=== PATIENT | female | born 1930 | race Native Hawaiian/Other Pacific Islander ===

== ENCOUNTER 2016-07-28 22:44 | Inpatient (IN) | payer MEDICARE, MEDICAID ==
[2016-07-28 22:44] VITALS: BMI 24.4
--- NOTE | 2016-07-28 23:32 | C.PDOC ---
History Of Present Illness 86 y/o female presents to ED with complaint of shortness of breath and wheezing. Patient was recently discharged from [facility], admitted for acute CHF exacerbation. Patient notes recently taking Percocet for chronic arthritis, which make her sleepy.. no f/c/n/v. Speaking in 4-5 word sentences. Time Seen by Provider: 07/28/16 23:32 Chief Complaint (Nursing): Shortness Of Breath History Per: Patient History/Exam Limitations: no limitations Onset/Duration Of Symptoms: Days Current Symptoms Are (Timing): Still Present Initiating Event: Other Quality: Dull Exacerbating Factor(s): Exertion Current Respiratory Medications: See Home Med List Severity: Severe Pain Scale Rating Of: 7 Associated Symptoms: denies: Fever, Chest Pain, Dizziness Reports Recently: Seen In ED, Treated By A Physician, Hospitalized Recent travel outside of the [place]: No Additional History Per: Family Past Medical History Reviewed: Historical Data, Nursing Documentation, Vital Signs Vital Signs: Last Vital Signs Temp 99.5 F 07/28/16 22:50 Pulse 84 07/28/16 22:50 Resp 16 07/28/16 22:50 BP 149/53 L 07/28/16 22:50 Pulse Ox 100 07/29/16 01:32 - Medical History PMH: Anxiety, Arthritis, CHF, Diabetes, HTN, Hypercholesterolemia, Kidney Stones , Osteoporosis, Chronic Kidney Disease Surgical History: Cholecystectomy, Pacemaker Family History: States: No Known Family Hx - Social History Hx Tobacco Use: No Hx Alcohol Use: No Hx Substance Use: No - Immunization History Hx Tetanus Toxoid Vaccination: No (unknown) Hx Influenza Vaccination: Yes (unknown) Hx Pneumococcal Vaccination: No (unknown) Review Of Systems Constitutional: Negative for: Fever, Chills ENT: Negative for: Throat Pain Cardiovascular: Positive for: Orthopnea. Negative for: Chest Pain Respiratory: Positive for: Shortness of Breath, Wheezing. Negative for: Cough Gastrointestinal: Negative for: Nausea, Vomiting Genitourinary: Negative for: Dysuria Musculoskeletal: Negative for: Back Pain Skin: Negative for: Rash, Lesions Neurological: Negative for: Weakness Psych: Negative for: Anxiety Physical Exam - Physical Exam Appears: Non-toxic, Other (somnolent , moderate distress) Skin: Warm, Dry Head: Normacephalic Oral Mucosa: Moist Neck: Supple Chest: Symmetrical Cardiovascular: Rhythm Regular Respiratory: Decreased Breath Sounds, No Accessory Muscle Use, Rales (bibasilar) , No Rhonchi, Wheezing (few) Gastrointestinal/Abdominal: Soft, No Tenderness Back: Normal Inspection Extremity: Normal ROM, No Tenderness, Capillary Refill (< 2 sec. ) Extremity: Bilateral: Atraumatic Neurological/Psych: Oriented x3, Normal Speech, Normal Cognition Gait: Unable To Assess ED Course And Treatment - Laboratory Results Result Diagrams: 07/28/16 23:55 07/28/16 23:55 ECG: Interpreted By Me, Viewed By Me ECG Rhythm: Sinus Rhythm (71), 1st Degree HB, L BBB, Nonspecific Changes ( unchanged from 07/22/16) O2 Sat by Pulse Oximetry: 100 (RA) Pulse Ox Interpretation: Normal - Radiology CXR: Interpreted by Me, Viewed By Me CXR Interpretation: Yes: Infiltrates (rll pacer, unchanged from 07/22/16). No: Pnemothorax Progress Note: EKG, CxR, bloodwork ordered and reviewed. lasix Critical Care Time - Critical Care Note Total Time (in mins): 30 Documented critical care: time excludes all time spent performing seperately billable procedures. Disposition Discussed With DrSaravanan: Deep Clay Comment: accepted the pt onhis service and took over the care at 1:28AM Doctor Will See Patient In The: Hospital Counseled Patient/Family Regarding: Studies Performed, Diagnosis - Disposition Disposition: HOSPITALIZED Disposition Time: 23:32 Condition: GUARDED - POA Present On Arrival: Poor Glycemic Control - Clinical Impression Clinical Impression: Chronic congestive heart failure, Dyspnea, NSTEMI (non-ST elevated myocardial infarction) - Scribe Statement The provider has reviewed the documentation as recorded by the Ermias Mckoy Provider Attestation: All medical record entries made by the Ermias were at my direction and personally dictated by me. I have reviewed the chart and agree that the record accurately reflects my personal performance of the history, physical exam, medical decision making, and the department course for this patient. I have also personally directed, reviewed, and agree with the discharge instructions and disposition. Decision To Admit - Pt Status Changed To: Hospital Disposition Of: Inpatient - Admit Certification Admit to Inpatient:: After my assessment, the patient will require hospitalization for at least two midnights. This is because of the severity of symptoms shown, intensity of services needed, and/or the medical risk in this patient being treated as an outpatient. - InPatient: Physician Admission Certification: I certify that this patient requires 2 or more midnights of care for the following reason:: After my assessment, the patient will require hospitalization for at least two midnights. This is because of the severity of symptoms shown, intensity of services needed, and/or the medical risk in this patient being treated as an outpatient. - . Bed Request Type: Telemetry Admitting Physician: Deep Clay Patient Diagnosis: Chronic congestive heart failure, Dyspnea, NSTEMI (non-ST elevated myocardial infarction)
[2016-07-28 23:56] LABS: VENOUS BLOOD GAS BASE EXCESS -4.8 mmol/L (0.0-2.0); VENOUS BLOOD GAS PCO2 44 mmHg (40-60)
[2016-07-29 00:06] LABS: BASO % 0.5 % (0.0-2.0); EOS % 0.5 % (0.0-4.0); HEMATOCRIT 29.1 % (34.0-47.0); LYMPH # 0.7 K/uL (1.0-4.3); LYMPH % 14.7 % (20.0-40.0); MEAN CELL VOLUME 86.6 fL (81.0-99.0); MEAN CORPUSCULAR HEMOGLOBIN 30.1 pg (27.0-31.0); MEAN CORPUSCULAR HGB CONC 34.8 g/dL (33.0-37.0); MEAN PLATELET VOLUME 7.6 fL (7.2-11.7); MONO # 0.6 K/uL (0.0-0.8); MONO % 12.8 % (0.0-10.0); RED CELL DISTRIBUTION WIDTH 14.5 % (11.5-14.5)
[2016-07-29 00:14] LABS: INR 1.1
[2016-07-29 00:22] LABS: BILIRUBIN,TOTAL 0.3 mg/dL (0.2-1.3); TOTAL PROTEIN 6.5 g/dL (6.3-8.3)
[2016-07-29 00:23] LABS: CALCIUM 8.1 mg/dl (8.6-10.4); MAGNESIUM 1.7 mg/dL (1.6-2.3)
[2016-07-29 00:37] LABS: TROPONIN I 0.363 ng/mL (0.00-0.120)
[2016-07-29 00:39] LABS: RBC URINE < 1 /hpf (0-3); URINE BILIRUBIN NEGATIVE (NEGATIVE); URINE BLOOD NEGATIVE (NEGATIVE); URINE COLOR Yellow (YELLOW); URINE GLUCOSE (UA) NORMAL (Normal); URINE KETONE NEGATIVE (NEGATIVE); URINE LEUKOCYTE ESTERASE NEG Leu/uL (Negative); URINE PROTEIN 1+ mg/dL (NEGATIVE); URINE UROBILINOGEN NORMAL mg/dL (0.2-1.0); WBC URINE 1 /hpf (0-5)
[2016-07-29] MEDS ORDERED: Potassium Chloride 10 mEq ER Tab PO STA (00:43)
[2016-07-29] MEDS ORDERED: Aspirin 325 mg EC Tablets PO ONE (00:54)
[2016-07-29] MEDS ORDERED: Potassium Chloride 20 mEq ER Tab PO ONE (00:56)
[2016-07-29] MEDS: (Novolog) Insulin Aspart, Recombinant 100 u/ml 10 ml vial SC SCH ×4 (08:01→21:45)
[2016-07-29] MEDS: Oxycodone/Acetaminophen 5/325 mg Tab PO SCH ×3 (08:21→18:14)
--- NOTE | 2016-07-29 08:26 | RAD ---
PROCEDURE: CHEST RADIOGRAPH, 1 VIEW HISTORY: SOB COMPARISON: 07/22/2016 FINDINGS: LUNGS: Lung volumes are shallower than before -the crowding of the infrahilar bronchovascular markings at both lung bases is consistent with this. Shallow lung limits evaluation for concomitant bibasilar pathology. There is increased opacity is perceived over the left lung base / heart - of unclear significance (if any). Either crowding of lung markings and summation effects versus early patchy infiltrate are some considerations. Repeat chest x-ray PA and lateral in greater inspiration is advised. PLEURA: No pneumothorax or pleural fluid seen. CARDIOVASCULAR: Normal. Thoracic aortic atherosclerotic vascular calcification OSSEOUS STRUCTURES: Generalized osteopenia and mild thoraco lumbar spondylosis VISUALIZED UPPER ABDOMEN: Normal. OTHER FINDINGS: EKG leads in place IMPRESSION: Shallow lung limits evaluation for concomitant bibasilar pathology. There is increased opacity is perceived over the left lung base / heart - of unclear significance (if any). Either crowding of lung markings and summation effects versus early patchy infiltrate are some considerations. Repeat chest x-ray PA and lateral in greater inspiration is advised.
[2016-07-29 08:34] LABS: POTASSIUM 4.2 mmol/L (3.6-5.2)
[2016-07-29 08:37] LABS: CALCIUM 7.8 mg/dl (8.6-10.4)
[2016-07-29 08:53] LABS: TROPONIN I 0.263 ng/mL (0.00-0.120)
[2016-07-29] MEDS: Potassium Chloride 20 mEq ER Tab PO SCH (09:45)
[2016-07-29] MEDS: Pantoprazole 40 mg EC Tab PO SCH (09:45)
[2016-07-29] MEDS: Lidocaine 5% Patch TD SCH (12:31)
--- NOTE | 2016-07-29 15:00 | CP.PCM.PN ---
Subjective - Date & Time of Evaluation Date of Evaluation: 07/29/16 Time of Evaluation: 14:54 - Subjective Subjective: 86 years old Citizen Of [place] female brought to the ED at for progressive SOB yesterday afternoon. She was found to be in an acute CHF, was given Lasix 60 mg IV with improvement of the symptoms. 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 She is also complaining of a watery diarrhea for the past few days with some abdominal cramps. She denies any nausea, any vomiting. She was hospitalized a week ago for a LLL pneumonia, an acute on chronic diastolic CHF, was treated with Rocephin and Zithromax and sent home on Levaquin. Objective - Vital Signs/Intake and Output Vital Signs (last 24 hours): Temp Pulse Resp BP Pulse Ox 99.4 F 68 20 150/75 97 07/29/16 07:32 07/29/16 12:00 07/29/16 07:32 07/29/16 09:45 07/29/16 07:32 - Medications Medications: Current Medications Furosemide (Lasix) 40 mg IVP DAILY [facility] Last Admin: 07/29/16 11:17 Dose: Not Given Heparin Sodium (Porcine) (Heparin) 5,000 units SC BID [facility] Last Admin: 07/29/16 09:45 Dose: 5,000 units Hydralazine HCl (Apresoline) 25 mg PO TID [facility] Last Admin: 07/29/16 14:19 Dose: 25 mg Insulin Aspart (Novolog) 0 unit SC ACHS [facility] PRN Reason: Protocol Last Admin: 07/29/16 12:25 Dose: 1 unit Lidocaine (Lidoderm) 1 ea TD DAILY@1200 [facility] Last Admin: 07/29/16 12:31 Dose: 1 ea Metoprolol Tartrate (Lopressor) 25 mg PO BID [facility] Last Admin: 07/29/16 09:45 Dose: 25 mg Oxycodone/Acetaminophen (Percocet 5/325 Mg Tab) 1 tab PO Q6 [facility] Stop: 08/01/16 06:01 Last Admin: 07/29/16 12:26 Dose: Not Given Pantoprazole Sodium (Protonix Ec Tab) 40 mg PO DAILY [facility] Last Admin: 07/29/16 09:45 Dose: 40 mg Potassium Chloride (K-Dur 20 Meq Er Tab) 20 meq PO DAILY [facility] Last Admin: 07/29/16 09:45 Dose: 20 meq - Labs Labs: 07/29/16 08:01 PT 12.3 SECONDS (9.7-12.2) H 07/28/16 23:55 INR 1.1 07/28/16 23:55 APTT 31 SECONDS (21-34) 07/28/16 23:55 - Constitutional Appears: Chronically Ill - Head Exam Head Exam: NORMAL INSPECTION - Eye Exam Eye Exam: Normal appearance - ENT Exam ENT Exam: Normal Exam - Neck Exam Neck Exam: Normal Inspection - Respiratory Exam Additional comments: Bilateral rales and rhonchi. - Cardiovascular Exam Cardiovascular Exam: REGULAR RHYTHM, Murmur - GI/Abdominal Exam GI & Abdominal Exam: Soft, Hyperactive Bowel Sounds - Rectal Exam Rectal Exam: Deferred - Extremities Exam Extremities Exam: Normal Inspection - Back Exam Back Exam: NORMAL INSPECTION - Neurological Exam Neurological Exam: Alert, Oriented x3 - Psychiatric Exam Psychiatric exam: Anxious - Skin Skin Exam: Dry, Intact, Normal Color Assessment and Plan (1) Acute on chronic diastolic (congestive) heart failure Assessment & Plan: Continue IV Lasix, Metoprolol PO. Status: Acute (2) Diarrhea Assessment & Plan: Will stools for C. Difficile toxins A& B. Status: Acute (3) Insulin dependent diabetes mellitus Assessment & Plan: Since the patient has a poor appetite, will cover blood glucose according to findings of Accucheck with Novolog. Status: Acute (4) Hypokalemia Assessment & Plan: Replace with PO KCl. Will also check serum Magnesium. Status: Acute (5) Acute gout Assessment & Plan: To continue Percocet and Lidoderm.patches. Status: Acute
--- NOTE | 2016-07-29 15:17 | CP.PCM.HP ---
History of Present Illness - History of Present Illness History of Present Illness: 86 years old [place] lady brought by ambulance to the ED at complaining of increasing SOB yesterday afternoon. She was found to in an acute CHF, was treated with Lasix 60 mg IV with improvement of her SOB. She also complains of watery diarrhea for the past several days with mild abdominal cramps. She denies any fever, any chills, any nausea, vomiting, any chest pain. Her serum TNI's are slightly elevated. She was recently treated at for an acute on chronic CHF, an acute gout and a LLL pneumonia with IV Lasix, IV Rocephin and PO Zithromax. She was sent home on Levaquin and Colchicine. She is known to have an ischemic cardiomyopathy, a HPTN, a permanent pacemaker for a sick sinus syndrome, a CKD, a hyperlipidemia, an IDDM, a gout, a degenerative disc disease of the lumbar spine. Present on Admission - Present on Admission Any Indicators Present on Admission: No Review of Systems - Constitutional Constitutional: Anorexia, Weakness - Cardiovascular Cardiovascular: Dyspnea - Respiratory Respiratory: Dyspnea - Gastrointestinal Gastrointestinal: Abdominal Pain, Diarrhea - Musculoskeletal Musculoskeletal: Arthralgias - Neurological Neurological: Weakness Past Patient History - Infectious Disease Hx of Infectious Diseases: None - Tetanus Immunizations Tetanus Immunization: Unknown - Past Medical History & Family History Past Medical History?: Yes - Past Social History Smoking Status: Never Smoked - CARDIAC Hx Congestive Heart Failure: Yes Hx Hypercholesterolemia: Yes Hx Hypertension: Yes Hx Pacemaker: Yes - PULMONARY Hx Emphysema: No - NEUROLOGICAL Hx Neurological Disorder: Yes Hx Dizziness: Yes - HEENT Hx HEENT Problems: Yes Hx Cataracts: Yes Hx Deafness: Yes (both ears) Hx Macular Degeneration: (not sure) - RENAL Hx Chronic Kidney Disease: Yes Hx Kidney Stones: Yes - ENDOCRINE/METABOLIC Hx Diabetes Mellitus Type 1: Yes - HEMATOLOGICAL/ONCOLOGICAL Hx Blood Disorders: No - INTEGUMENTARY Hx Dermatological Problems: No - MUSCULOSKELETAL/RHEUMATOLOGICAL Hx Falls: No - GASTROINTESTINAL Hx Gastrointestinal Disorders: No - GENITOURINARY/GYNECOLOGICAL Hx Genitourinary Disorders: No - PSYCHIATRIC Hx Substance Use: No - SURGICAL HISTORY Hx Cholecystectomy: Yes - ANESTHESIA Hx Anesthesia: Yes Hx Anesthesia Reactions: No Hx Malignant Hyperthermia: No Meds Allergies/Adverse Reactions: Allergies Allergy/AdvReac Type Severity Reaction Status Date / Time No Known Allergies Allergy Verified 07/20/16 00:00 Physical Exam - Constitutional Appears: Chronically Ill - Head Exam Head Exam: NORMAL INSPECTION - Eye Exam Eye Exam: Normal appearance - ENT Exam ENT Exam: Normal Exam - Neck Exam Neck exam: Positive for: Normal Inspection - Respiratory Exam Additional comments: Rale and rhonchi bibasilarly. - Cardiovascular Exam Cardiovascular Exam: REGULAR RHYTHM, Systolic Murmur - GI/Abdominal Exam GI & Abdominal Exam: Hyperactive Bowel Sounds, Soft - Rectal Exam Rectal Exam: Deferred - Extremities Exam Extremities exam: Positive for: tenderness Additional comments: Tender both knees. - Back Exam Back exam: NORMAL INSPECTION - Neurological Exam Neurological exam: Alert, CN II-XII Intact, Oriented x3 - Psychiatric Exam Psychiatric exam: Anxious - Skin Skin Exam: Dry, Intact, Normal Color, Warm Results - Vital Signs Recent Vital Signs: Last Vital Signs Temp 99.4 F 07/29/16 07:32 Pulse 68 07/29/16 12:00 Resp 20 07/29/16 07:32 BP 150/75 07/29/16 09:45 Pulse Ox 97 07/29/16 07:32 - Labs Result Diagrams: 07/28/16 23:55 07/29/16 08:01 Labs: Laboratory Results - last 24 hr 07/29/16 07/29/16 07/29/16 06:38 08:01 11:54 Sodium 139 Potassium 4.2 Chloride 99 Carbon Dioxide 23 Anion Gap 21 H BUN 24 H Creatinine 2.0 H Est GFR ( Amer) 29 Est GFR (Non-Af Amer) 24 POC Glucose (mg/dL) 121 H 172 H Random Glucose 117 H Calcium 7.8 L Troponin I 0.2630 H* Assessment & Plan (1) Acute on chronic diastolic (congestive) heart failure Assessment and Plan: To continue IV Lasix. Status: Acute (2) Diarrhea Assessment and Plan: Stools for C.Difficile toxins. Hold Colchicine. Status: Acute (3) Insulin dependent diabetes mellitus Assessment and Plan: Cover blood glucose with Novolog according to Accucheck findings. Status: Acute (4) Hypokalemia Assessment and Plan: Replace with KCl. Will also check Magnesium level. Status: Acute (5) Acute gout Assessment and Plan: Hold Cochicine. Continue Percocet and Lidocaine patches. Status: Acute (6) Chronic kidney disease Assessment and Plan: Hold ARB or CORNELIUS inhibitors. Status: Acute (7) NSTEMI (non-ST elevated myocardial infarction) Assessment and Plan: Medical management because of renal insufficiency. F/U serum TRNI's. Status: Acute Decision To Admit - Pt Status Changed To: Hospital Disposition Of: Inpatient - Admit Certification Admit to Inpatient:: After my assessment, the patient will require hospitalization for at least two midnights. This is because of the severity of symptoms shown, intensity of services needed, and/or the medical risk in this patient being treated as an outpatient. - InPatient: Physician Admission Certification:: After my assessements, the patient requires hospitalization for at least 2 midnights. - . Bed Request Type: Telemetry Admitting Physician: Deep Clay
[2016-07-29] MEDS ORDERED: Bismuth Subsalicylate 262 mg/15 ml Sus (240 ml) PO PRN (16:00)
[2016-07-30] MEDS: Oxycodone/Acetaminophen 5/325 mg Tab PO SCH ×3 (01:27→18:23)
[2016-07-30 06:19] LABS: POTASSIUM 3.9 mmol/L (3.6-5.2)
[2016-07-30 06:22] LABS: ALB/GLOB RATIO 1.1 (1.0-2.1); BILIRUBIN,TOTAL 0.4 mg/dL (0.2-1.3); CALCIUM 7.8 mg/dl (8.6-10.4); TOTAL PROTEIN 6.1 g/dL (6.3-8.3)
[2016-07-30 06:23] LABS: MAGNESIUM 1.6 mg/dL (1.6-2.3)
[2016-07-30] MEDS: (Novolog) Insulin Aspart, Recombinant 100 u/ml 10 ml vial SC SCH ×4 (08:03→22:23)
[2016-07-30] MEDS: Pantoprazole 40 mg EC Tab PO SCH (09:05)
[2016-07-30] MEDS: Potassium Chloride 20 mEq ER Tab PO SCH (09:06)
[2016-07-30] MEDS ORDERED: Albuterol-Ipratrop 3 mg / 0.5 (3 ml) UD INH ONE (10:33)
[2016-07-30] MEDS: Lidocaine 5% Patch TD SCH (11:48)
--- NOTE | 2016-07-30 19:07 | CP.PCM.PN ---
Subjective - Date & Time of Evaluation Date of Evaluation: 07/30/16 Time of Evaluation: 19:04 - Subjective Subjective: Patient has wheezing and fever today. Is very weak. On Albuterol by nebulizer. Will start IV antibiotics, increase Lasix 40 mg IV BID and start on IV steroids. Objective - Vital Signs/Intake and Output Vital Signs (last 24 hours): Temp Pulse Resp BP Pulse Ox 100.8 F H 72 20 116/54 L 96 07/30/16 18:21 07/30/16 18:21 07/30/16 18:21 07/30/16 18:24 07/30/16 18:21 - Medications Medications: Current Medications Albuterol Sulfate (Albuterol 0.042% Inhal Keily (1.25mg/3ml) Ud) 1.25 mg INH RQ6 [facility] Allopurinol (Zyloprim) 100 mg PO DAILY [facility] Last Admin: 07/30/16 14:21 Dose: 100 mg Aspirin (Aspirin Chewable) 81 mg PO DAILY [facility] Last Admin: 07/30/16 09:05 Dose: 81 mg Azithromycin (Zithromax) 500 mg PO DAILY [facility] Bismuth Subsalicylate (Pepto-Bismol) 262 mg PO Q6 PRN PRN Reason: Diarrhea Last Admin: 07/29/16 18:14 Dose: 262 mg Furosemide (Lasix) 40 mg IVP BID [facility] Last Admin: 07/30/16 18:24 Dose: 40 mg Heparin Sodium (Porcine) (Heparin) 5,000 units SC Q12 [facility] Hydralazine HCl (Apresoline) 25 mg PO Q8 [facility] Last Admin: 07/30/16 14:21 Dose: 25 mg Ceftriaxone Sodium (Rocephin Iv 1 Gm Duplex) 50 mls @ 100 mls/hr IVPB DAILY [facility] Insulin Aspart (Novolog) 0 unit SC ACHS [facility] PRN Reason: Protocol Last Admin: 07/30/16 17:30 Dose: 1 unit Lidocaine (Lidoderm) 1 ea TD DAILY@1200 [facility] Last Admin: 07/30/16 11:48 Dose: 1 ea Metoprolol Tartrate (Lopressor) 25 mg PO BID [facility] Last Admin: 07/30/16 18:24 Dose: 25 mg Oxycodone/Acetaminophen (Percocet 5/325 Mg Tab) 1 tab PO Q6 [facility] Stop: 08/01/16 06:01 Last Admin: 07/30/16 18:23 Dose: 1 tab Pantoprazole Sodium (Protonix Ec Tab) 40 mg PO DAILY [facility] Last Admin: 07/30/16 09:05 Dose: 40 mg Potassium Chloride (K-Dur 20 Meq Er Tab) 20 meq PO DAILY [facility] Last Admin: 07/30/16 09:06 Dose: 20 meq - Labs Labs: 07/30/16 06:02 PT 12.3 SECONDS (9.7-12.2) H 07/28/16 23:55 INR 1.1 07/28/16 23:55 APTT 31 SECONDS (21-34) 07/28/16 23:55 - Constitutional Appears: No Acute Distress, Chronically Ill - Head Exam Head Exam: NORMAL INSPECTION - Eye Exam Eye Exam: Normal appearance - ENT Exam ENT Exam: Normal Exam - Neck Exam Neck Exam: Normal Inspection - Respiratory Exam Respiratory Exam: Wheezes Additional comments: wheezes bilaterally. Assessment and Plan (1) Acute on chronic diastolic (congestive) heart failure Status: Acute (2) Diarrhea Status: Acute (3) Insulin dependent diabetes mellitus Status: Acute (4) Hypokalemia Status: Acute (5) Acute gout Status: Acute (6) Chronic kidney disease Status: Acute (7) NSTEMI (non-ST elevated myocardial infarction) Status: Acute
[2016-07-30] MEDS ORDERED: MethylPREDNISolone 40 mg Vial IVP STA (19:32)
[2016-07-30] MEDS: MethylPREDNISolone 40 mg Vial IVP SCH (20:07)
[2016-07-30] MEDS: cefTRIAXone IV 1 gm in Dextros 50 ML IVPB SCH (20:08)
[2016-07-30] MEDS ORDERED: MethylPREDNISolone 40 mg Vial IVP SCH (22:00)
[2016-07-31] MEDS: Oxycodone/Acetaminophen 5/325 mg Tab PO SCH ×6 (00:24→23:56)
[2016-07-31] MEDS: Albuterol 0.042% Inhal Sol (1.25 mg/3 mL) UD INH SCH ×4 (01:12→19:29)
[2016-07-31] MEDS: MethylPREDNISolone 40 mg Vial IVP SCH ×2 (05:21→14:10)
[2016-07-31 06:38] LABS: BASO % 0.2 % (0.0-2.0); HEMATOCRIT 28.3 % (34.0-47.0); LYMPH # 0.4 K/uL (1.0-4.3); LYMPH % 11.7 % (20.0-40.0); MEAN CELL VOLUME 87.2 fL (81.0-99.0); MEAN CORPUSCULAR HEMOGLOBIN 29.7 pg (27.0-31.0); MEAN PLATELET VOLUME 7.7 fL (7.2-11.7); MONO # 0.1 K/uL (0.0-0.8); MONO % 1.7 % (0.0-10.0); NRBC % 0.1 % (0.0-2.0); RED CELL DISTRIBUTION WIDTH 14.8 % (11.5-14.5); WHITE BLOOD COUNT 3.1 K/uL (4.8-10.8)
[2016-07-31 06:46] LABS: POTASSIUM 4.2 mmol/L (3.6-5.2)
[2016-07-31 06:48] LABS: BILIRUBIN,TOTAL 0.5 mg/dL (0.2-1.3); TOTAL PROTEIN 6.2 g/dL (6.3-8.3)
[2016-07-31 06:57] LABS: TROPONIN I 0.117 ng/mL (0.00-0.120)
[2016-07-31] MEDS: Potassium Chloride 20 mEq ER Tab PO SCH (09:35)
[2016-07-31] MEDS: Pantoprazole 40 mg EC Tab PO SCH (09:35)
[2016-07-31] MEDS: (Novolog) Insulin Aspart, Recombinant 100 u/ml 10 ml vial SC SCH ×4 (09:36→21:42)
[2016-07-31] MEDS: Lidocaine 5% Patch TD SCH (14:10)
--- NOTE | 2016-07-31 16:23 | CP.PCM.PN ---
Subjective - Date & Time of Evaluation Date of Evaluation: 07/31/16 Time of Evaluation: 16:19 - Subjective Subjective: Patient feels less SOB, a bit stronger with a little more appetite, and no fever. Repeated CXR: LLL infiltrate. Now on Rocephin and Zithromax. Will ask Dr Elise to evaluate for antibiotic management. Objective - Vital Signs/Intake and Output Vital Signs (last 24 hours): Temp Pulse Resp BP Pulse Ox 97.8 F 60 20 170/80 H 100 07/31/16 15:00 07/31/16 15:00 07/31/16 15:00 07/31/16 09:35 07/31/16 15:00 Intake and Output: 07/31/16 07/31/16 06:59 18:59 Intake Total 250 Balance 250 - Medications Medications: Current Medications Albuterol Sulfate (Albuterol 0.042% Inhal Keily (1.25mg/3ml) Ud) 1.25 mg INH RQ6 [facility] Last Admin: 07/31/16 13:20 Dose: 1.25 mg Allopurinol (Zyloprim) 100 mg PO DAILY [facility] Last Admin: 07/31/16 09:35 Dose: 100 mg Aspirin (Aspirin Chewable) 81 mg PO DAILY [facility] Last Admin: 07/31/16 09:39 Dose: 81 mg Azithromycin (Zithromax) 500 mg PO DAILY [facility] Last Admin: 07/31/16 15:42 Dose: 500 mg Bismuth Subsalicylate (Pepto-Bismol) 262 mg PO Q6 PRN PRN Reason: Diarrhea Last Admin: 07/29/16 18:14 Dose: 262 mg Furosemide (Lasix) 40 mg IVP BID [facility] Last Admin: 07/31/16 09:35 Dose: 40 mg Heparin Sodium (Porcine) (Heparin) 5,000 units SC Q12 [facility] Last Admin: 07/31/16 09:35 Dose: 5,000 units Hydralazine HCl (Apresoline) 25 mg PO Q8 [facility] Last Admin: 07/31/16 14:10 Dose: 25 mg Ceftriaxone Sodium (Rocephin Iv 1 Gm Duplex) 50 mls @ 100 mls/hr IVPB Q24H [facility] Last Admin: 07/30/16 20:08 Dose: 100 mls/hr Methylprednisolone 40 mg/ (Sodium Chloride) 100 mls @ 100 mls/hr IVPB BID [facility] Insulin Aspart (Novolog) 0 unit SC ACHS [facility] PRN Reason: Protocol Last Admin: 07/31/16 14:10 Dose: 6 unit Lidocaine (Lidoderm) 1 ea TD DAILY@1200 [facility] Last Admin: 07/31/16 14:10 Dose: 1 ea Metoprolol Tartrate (Lopressor) 25 mg PO BID [facility] Last Admin: 07/31/16 09:35 Dose: 25 mg Oxycodone/Acetaminophen (Percocet 5/325 Mg Tab) 1 tab PO Q6 [facility] Stop: 08/01/16 06:01 Last Admin: 07/31/16 15:42 Dose: Not Given Pantoprazole Sodium (Protonix Ec Tab) 40 mg PO DAILY [facility] Last Admin: 07/31/16 09:35 Dose: 40 mg Potassium Chloride (K-Dur 20 Meq Er Tab) 20 meq PO DAILY [facility] Last Admin: 07/31/16 09:35 Dose: 20 meq - Labs Labs: 07/31/16 06:00 07/31/16 06:00 PT 12.3 SECONDS (9.7-12.2) H 07/28/16 23:55 INR 1.1 07/28/16 23:55 APTT 31 SECONDS (21-34) 07/28/16 23:55 - Constitutional Appears: No Acute Distress, Chronically Ill - Eye Exam Eye Exam: Normal appearance - ENT Exam ENT Exam: Normal Exam - Neck Exam Neck Exam: Normal Inspection - Respiratory Exam Additional comments: Wheezes scattered both lung bennett. - Cardiovascular Exam Cardiovascular Exam: REGULAR RHYTHM - GI/Abdominal Exam GI & Abdominal Exam: Soft, Normal Bowel Sounds - Rectal Exam Rectal Exam: Deferred - Exam Exam: NORMAL INSPECTION - Extremities Exam Extremities Exam: Full ROM, Normal Capillary Refill, Normal Inspection - Back Exam Back Exam: NORMAL INSPECTION - Neurological Exam Neurological Exam: Alert, Awake, Oriented x3 - Psychiatric Exam Psychiatric exam: Anxious - Skin Skin Exam: Dry, Intact, Normal Color, Warm Assessment and Plan (1) Acute on chronic diastolic (congestive) heart failure Status: Acute (2) Diarrhea Status: Resolved (3) Insulin dependent diabetes mellitus Assessment & Plan: To continue Accucheck coverage. Status: Acute (4) Hypokalemia Status: Resolved (5) Acute gout Assessment & Plan: less knee pain now. On Allopurinal for a hyperuricemia. Status: Acute (6) Chronic kidney disease Status: Acute (7) NSTEMI (non-ST elevated myocardial infarction) Assessment & Plan: Stable. Status: Acute (8) Pneumonia Assessment & Plan: To continue IV antibiotics. Status: Acute
[2016-07-31] MEDS ORDERED: methylPREDNISolone 40 MG in Sodium Chloride 0.9% 100 ML IVPB SCH (18:00)
--- NOTE | 2016-07-31 18:11 | RAD ---
HISTORY: fever COMPARISON: Comparison chest 07/28/2016 TECHNIQUE: Chest PA and lateral FINDINGS: LUNGS: Suspect minor bibasilar atelectasis. PLEURA: No significant pleural effusion identified. No pneumothorax apparent. CARDIOVASCULAR: Cardiomegaly. No change bipolar pacemaker. OSSEOUS STRUCTURES: No significant abnormalities. VISUALIZED UPPER ABDOMEN: Normal. OTHER FINDINGS: None. IMPRESSION: Suspect minor bibasilar atelectasis. Cardiomegaly.
[2016-07-31] MEDS: cefTRIAXone IV 1 gm in Dextros 50 ML IVPB SCH (20:30)
[2016-07-31] MEDS: MethylPREDNISolone 40 mg Vial IV SCH (21:44)
[2016-08-01] MEDS: Albuterol 0.042% Inhal Sol (1.25 mg/3 mL) UD INH SCH ×4 (01:45→19:24)
[2016-08-01] MEDS: Oxycodone/Acetaminophen 5/325 mg Tab PO SCH (06:01)
[2016-08-01 07:24] LABS: BASO % 0.2 % (0.0-2.0); HEMATOCRIT 28.4 % (34.0-47.0); LYMPH # 0.6 K/uL (1.0-4.3); LYMPH % 5.5 % (20.0-40.0); MEAN CELL VOLUME 86.3 fL (81.0-99.0); MEAN CORPUSCULAR HEMOGLOBIN 29.5 pg (27.0-31.0); MEAN CORPUSCULAR HGB CONC 34.2 g/dL (33.0-37.0); MEAN PLATELET VOLUME 7.8 fL (7.2-11.7); MONO # 0.3 K/uL (0.0-0.8); MONO % 2.9 % (0.0-10.0); PLATELET COUNT 243 K/uL (130-400); RED CELL DISTRIBUTION WIDTH 14.5 % (11.5-14.5)
[2016-08-01 07:28] LABS: WHITE BLOOD COUNT 10.9 K/uL (4.8-10.8)
[2016-08-01 07:44] LABS: POTASSIUM 4.9 mmol/L (3.6-5.2)
[2016-08-01 07:46] LABS: ALB/GLOB RATIO 1.2 (1.0-2.1); BILIRUBIN,TOTAL 0.4 mg/dL (0.2-1.3)
[2016-08-01] MEDS: (Novolog) Insulin Aspart, Recombinant 100 u/ml 10 ml vial SC SCH ×4 (08:02→22:11)
--- NOTE | 2016-08-01 09:33 | CARD ---
APPROVED REPORT EKG Measurement Heart [id number] GA [id number] <Conclusion> Sinus rhythm with 1st degree AV block with occasional premature ventricular complexes Left bundle branch block Abnormal ECG
[2016-08-01] MEDS: Pantoprazole 40 mg EC Tab PO SCH (09:41)
[2016-08-01] MEDS: MethylPREDNISolone 40 mg Vial IV SCH (09:41)
[2016-08-01 09:44] LABS: NEUTROPHIL 89 % (50-75); TOTAL CELLS COUNTED 100
[2016-08-01] MEDS: Lidocaine 5% Patch TD SCH (12:54)
[2016-08-01] MEDS ORDERED: Oxycodone/Acetaminophen 5/325 mg Tab PO PRN (17:24)
--- NOTE | 2016-08-01 17:35 | CP.PCM.PN ---
Subjective - Date & Time of Evaluation Date of Evaluation: 08/01/16 Time of Evaluation: 17:32 - Subjective Subjective: Patient less SOB. No more diarrhea. Afebrile. No chest pain. Still weak but appetite improving. Objective - Vital Signs/Intake and Output Vital Signs (last 24 hours): Temp Pulse Resp BP Pulse Ox 98.2 F 60 18 103/47 L 99 08/01/16 08:37 08/01/16 16:00 08/01/16 08:37 08/01/16 09:42 08/01/16 08:37 Intake and Output: 08/01/16 08/01/16 06:59 18:59 Intake Total 290 Output Total 400 Balance -110 - Medications Medications: Current Medications Albuterol Sulfate (Albuterol 0.042% Inhal Keiyl (1.25mg/3ml) Ud) 1.25 mg INH RQ6 [facility] Last Admin: 08/01/16 13:40 Dose: 1.25 mg Allopurinol (Zyloprim) 100 mg PO DAILY [facility] Last Admin: 08/01/16 09:41 Dose: 100 mg Aspirin (Aspirin Chewable) 81 mg PO DAILY [facility] Last Admin: 08/01/16 09:41 Dose: 81 mg Azithromycin (Zithromax) 500 mg PO DAILY [facility] Last Admin: 08/01/16 09:41 Dose: 500 mg Bismuth Subsalicylate (Pepto-Bismol) 262 mg PO Q6 PRN PRN Reason: Diarrhea Last Admin: 07/29/16 18:14 Dose: 262 mg Glipizide (Glucotrol) 5 mg PO BID [facility] Last Admin: 08/01/16 09:41 Dose: 5 mg Heparin Sodium (Porcine) (Heparin) 5,000 units SC Q12 [facility] Last Admin: 08/01/16 09:42 Dose: 5,000 units Hydralazine HCl (Apresoline) 25 mg PO BID [facility] Ceftriaxone Sodium (Rocephin Iv 1 Gm Duplex) 50 mls @ 100 mls/hr IVPB Q24H [facility] Last Admin: 07/31/16 20:30 Dose: 100 mls/hr Methylprednisolone 40 mg/ (Sodium Chloride) 100 mls @ 100 mls/hr IVPB DAILY [facility] Insulin Aspart (Novolog) 0 unit SC ACHS [facility] PRN Reason: Protocol Last Admin: 03/19/17 12:54 Dose: 5 unit Insulin Glargine (Lantus) 20 unit SC HS [facility] Lidocaine (Lidoderm) 1 ea TD DAILY@1200 [facility] Last Admin: 08/01/16 12:54 Dose: 1 ea Metoprolol Tartrate (Lopressor) 25 mg PO BID [facility] Last Admin: 08/01/16 09:42 Dose: 25 mg Oxycodone/Acetaminophen (Percocet 5/325 Mg Tab) 1 tab PO Q6H PRN PRN Reason: Pain, moderate (4-7) Stop: 08/04/16 17:25 Pantoprazole Sodium (Protonix Ec Tab) 40 mg PO DAILY [facility] Last Admin: 08/01/16 09:41 Dose: 40 mg - Labs Labs: 08/01/16 06:45 08/01/16 06:45 PT 12.3 SECONDS (9.7-12.2) H 07/28/16 23:55 INR 1.1 07/28/16 23:55 APTT 31 SECONDS (21-34) 07/28/16 23:55 - Constitutional Appears: No Acute Distress, Chronically Ill - Head Exam Head Exam: NORMAL INSPECTION - Eye Exam Eye Exam: Normal appearance - ENT Exam ENT Exam: Normal Exam - Neck Exam Neck Exam: Normal Inspection - Respiratory Exam Additional comments: Rales at both bases. Minimal wheezing bilaterally. - Cardiovascular Exam Cardiovascular Exam: REGULAR RHYTHM, Murmur - GI/Abdominal Exam GI & Abdominal Exam: Soft, Normal Bowel Sounds - Rectal Exam Rectal Exam: Deferred - Extremities Exam Extremities Exam: Normal Inspection - Back Exam Back Exam: NORMAL INSPECTION - Neurological Exam Neurological Exam: Alert, Oriented x3 - Psychiatric Exam Psychiatric exam: Anxious - Skin Skin Exam: Dry, Intact, Normal Color, Warm Assessment and Plan (1) Acute on chronic diastolic (congestive) heart failure Assessment & Plan: Much improved. Lasix and KCl held because of BUN: 52 and creatinine 2.2. Status: Acute (2) Insulin dependent diabetes mellitus Assessment & Plan: Worse because of Solumedrol. Will reduce Solumedrol to 40 mg IVPB qd, start Lantus and Januvia. Status: Chronic (3) Acute gout Status: Acute (4) Chronic kidney disease Status: Chronic (5) NSTEMI (non-ST elevated myocardial infarction) Status: Acute (6) Pneumonia Assessment & Plan: To continue IV antibiotics. Status: Acute
--- NOTE | 2016-08-01 17:52 | CP.PCM.CON ---
History of Present Illness - History of Present Illness History of Present Illness: INFECTIOUS DISEASE CONSULTATION OSMEL GARRISON MD, FACP 6T 665-B 08/01/2016 CHART REVIEWED PT EXAMINED CASE DISCUUSED WITH PMD AND STAFF 86 YEAR OLD FEMALE FROM [place] PRESENTS TO WITH ELEVATED TEMPS 101, SOB AND CHF. OF NOTE SHE APPARENTLY WAS HOSPITALIZED 1 WEEK AGO FOR POSSIBLE PNEUMONIA AND POSITIVE TROPONINS. AN INFECTIOUS DIASEASE CONSULT WAS REQUESTED BECAUSE OF RECURRENT FEVER AND DIARRHEA-POST HOSPITALIZATION. 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 LABS: CREAT 2.4 BLOOD SUGAR [phone] URINE C/S=POSITIVE FOR GRAM POSTIVE COCCI OVER 100,000! NOTED FINDINGS: OF NOTE I THINK HER PREVIOUS DIARRHEA WAS DUE TO HER COLCHININE. START IV VANCOMYCIN AT RENAL DOSES MAY NEED ENDO FOR HER DM TO FOLLOW NEEDED. Review of Systems - Review of Systems Systems not reviewed;Unavailable: Other (BOTH LANGUAHE AND POSSIBE DEMENTIA AND OR CVA COULD MAKE AN ISSUE.) - Constitutional Constitutional: Excessive Sweating, Fever - EENT Eyes: absent: Pain, Spots in Vision, Loss of Vision Ears: Decreased Hearing Nose/Mouth/Throat: Post Nasal Drip. absent: Odynophagia, Sore Throat - Breasts Breasts: absent: Mass, Pain, Skin Changes - Cardiovascular Cardiovascular: Irregular Heart Rhythm. absent: Chest Pain at Rest, Diaphoresis , Leg Edema, Radiating Pain - Respiratory Respiratory: Wheezing. absent: Hemoptysis, Pain with Coughing - Gastrointestinal Gastrointestinal: Early Satiety. absent: Abdominal Pain, Coffee Ground Emesis, Diarrhea, Fecal Incontinence, Nausea, Temesmus, Vomiting - Genitourinary Genitourinary: Dysuria, Urinary Frequency - Musculoskeletal Musculoskeletal: absent: Back Pain, Loss of Height - Psychiatric Psychiatric: Memory Loss - Endocrine Endocrine: Polydipsia, Polyphagia, Polyuria - Hematologic/Lymphatic Hematologic: absent: Easy Bleeding Past Patient History - Infectious Disease Hx of Infectious Diseases: None - Tetanus Immunizations Tetanus Immunization: Unknown - Past Medical History & Family History Past Medical History?: Yes - Past Social History Smoking Status: Never Smoked Chewing Tobacco Use: No Cigar Use: No Alcohol: Social Home Situation {Lives}: Alone - CARDIAC Hx Cardiac Disorders: Yes Hx Congestive Heart Failure: Yes Hx Hypercholesterolemia: Yes Hx Hypertension: Yes - PULMONARY Hx Emphysema: No - NEUROLOGICAL Hx Neurological Disorder: Yes Hx Dizziness: Yes - HEENT Hx HEENT Problems: Yes Hx Cataracts: Yes Hx Deafness: Yes (both ears) Hx Macular Degeneration: (not sure) - RENAL Hx Chronic Kidney Disease: Yes ((?)) Hx Renal Failure: Yes (CKD) - ENDOCRINE/METABOLIC Hx Diabetes Mellitus Type 1: Yes Hx Diabetes Mellitus Type 2: Yes - HEMATOLOGICAL/ONCOLOGICAL Hx Blood Disorders: No - INTEGUMENTARY Hx Dermatological Problems: No - MUSCULOSKELETAL/RHEUMATOLOGICAL Hx Arthritis: Yes - GASTROINTESTINAL Hx Gastrointestinal Disorders: No - GENITOURINARY/GYNECOLOGICAL Hx Genitourinary Disorders: No - PSYCHIATRIC Hx Substance Use: No - SURGICAL HISTORY Hx Cholecystectomy: Yes - ANESTHESIA Hx Anesthesia: Yes Hx Anesthesia Reactions: No Hx Malignant Hyperthermia: No Meds Allergies/Adverse Reactions: Allergies Allergy/AdvReac Type Severity Reaction Status Date / Time No Known Allergies Allergy Verified 07/20/16 00:00 - Medications Medications: Current Medications Albuterol Sulfate (Albuterol 0.042% Inhal Keily (1.25mg/3ml) Ud) 1.25 mg INH RQ6 [facility] Last Admin: 08/01/16 13:40 Dose: 1.25 mg Allopurinol (Zyloprim) 100 mg PO DAILY [facility] Last Admin: 08/01/16 09:41 Dose: 100 mg Aspirin (Aspirin Chewable) 81 mg PO DAILY [facility] Last Admin: 08/01/16 09:41 Dose: 81 mg Azithromycin (Zithromax) 500 mg PO DAILY [facility] Last Admin: 08/01/16 09:41 Dose: 500 mg Bismuth Subsalicylate (Pepto-Bismol) 262 mg PO Q6 PRN PRN Reason: Diarrhea Last Admin: 07/29/16 18:14 Dose: 262 mg Glipizide (Glucotrol) 5 mg PO BID [facility] Last Admin: 08/01/16 09:41 Dose: 5 mg Heparin Sodium (Porcine) (Heparin) 5,000 units SC Q12 [facility] Last Admin: 08/01/16 09:42 Dose: 5,000 units Hydralazine HCl (Apresoline) 25 mg PO BID [facility] Ceftriaxone Sodium (Rocephin Iv 1 Gm Duplex) 50 mls @ 100 mls/hr IVPB Q24H [facility] Last Admin: 07/31/16 20:30 Dose: 100 mls/hr Methylprednisolone 40 mg/ (Sodium Chloride) 100 mls @ 100 mls/hr IVPB DAILY [facility] Insulin Aspart (Novolog) 0 unit SC ACHS [facility] PRN Reason: Protocol Last Admin: 08/01/16 12:54 Dose: 5 unit Insulin Glargine (Lantus) 20 unit SC HS [facility] Lidocaine (Lidoderm) 1 ea TD DAILY@1200 [facility] Last Admin: 08/01/16 12:54 Dose: 1 ea Metoprolol Tartrate (Lopressor) 25 mg PO BID [facility] Last Admin: 08/01/16 09:42 Dose: 25 mg Oxycodone/Acetaminophen (Percocet 5/325 Mg Tab) 1 tab PO Q6H PRN PRN Reason: Pain, moderate (4-7) Stop: 08/04/16 17:25 Pantoprazole Sodium (Protonix Ec Tab) 40 mg PO DAILY [facility] Last Admin: 08/01/16 09:41 Dose: 40 mg Physical Exam - Constitutional Appears: Non-toxic, No Acute Distress - Head Exam Head Exam: ATRAUMATIC - Eye Exam Eye Exam: Normal appearance - ENT Exam ENT Exam: Mucous Membranes Moist - Neck Exam Neck exam: Positive for: Normal Inspection - Respiratory Exam Respiratory Exam: Decreased Breath Sounds, Wheezes Additional comments: IMPROVING FROM BEFORE - Cardiovascular Exam Cardiovascular Exam: REGULAR RHYTHM - GI/Abdominal Exam GI & Abdominal Exam: Normal Bowel Sounds, Soft. absent: Rebound - Rectal Exam Rectal Exam: Deferred - Neurological Exam Neurological exam: Alert, Oriented x3 - Psychiatric Exam Psychiatric exam: Anxious - Skin Skin Exam: Normal Color, Warm Results - Vital Signs Recent Vital Signs: Last Vital Signs Temp 98.2 F 08/01/16 08:37 Pulse 60 08/01/16 16:00 Resp 18 08/01/16 08:37 BP 103/47 L 08/01/16 09:42 Pulse Ox 99 08/01/16 08:37 - Labs Result Diagrams: 08/01/16 06:45 08/01/16 06:45 Labs: Laboratory Results - last 24 hr 07/31/16 08/01/16 08/01/16 21:21 02:13 06:45 WBC 10.9 H D RBC 3.29 L Hgb 9.7 L Hct 28.4 L MCV 86.3 MCH 29.5 MCHC 34.2 RDW 14.5 Plt Count 243 MPV 7.8 Neut % (Auto) 91.4 H Lymph % (Auto) 5.5 L [place] % (Auto) 2.9 Eos % (Auto) 0.0 Baso % (Auto) 0.2 Neut # 9.9 H Lymph # 0.6 L [place] # 0.3 Eos # 0.0 Baso # 0.0 Neutrophils % (Manual) 89 H Band Neutrophils % 2 Lymphocytes % (Manual) 7 L Monocytes % (Manual) 2 Platelet Estimate Normal Polychromasia Slight Poikilocytosis (manual Slight Anisocytosis (manual) Slight Sodium 129 L Potassium 4.9 Chloride 95 L Carbon Dioxide 23 Anion Gap 16 BUN 52 H Creatinine 2.4 H Est GFR ( Amer) 23 Est GFR (Non-Af Amer) 19 POC Glucose (mg/dL) 387 H 357 H 381 H Random Glucose 402 H* D Calcium 8.0 L Total Bilirubin 0.4 AST 19 ALT 31 Alkaline Phosphatase 59 Total Protein 6.0 L Albumin 3.3 L Globulin 2.7 Albumin/Globulin Ratio 1.2 08/01/16 08/01/16 12:37 16:27 WBC RBC Hgb Hct MCV MCH MCHC RDW Plt Count MPV Neut % (Auto) Lymph % (Auto) [place] % (Auto) Eos % (Auto) Baso % (Auto) Neut # Lymph # [place] # Eos # Baso # Neutrophils % (Manual) Band Neutrophils % Lymphocytes % (Manual) Monocytes % (Manual) Platelet Estimate Polychromasia Poikilocytosis (manual Anisocytosis (manual) Sodium Potassium Chloride Carbon Dioxide Anion Gap BUN Creatinine Est GFR ( Amer) Est GFR (Non-Af Amer) POC Glucose (mg/dL) 423 H* 468 H* Random Glucose Calcium Total Bilirubin AST ALT Alkaline Phosphatase Total Protein Albumin Globulin Albumin/Globulin Ratio Assessment & Plan - Assessment and Plan (Free Text) Assessment: 1.GRAM POSITIVE URINE INFECTION START VANCOMYCIN AT RENAL DOSES. 2.LLL PNEUMONIA 3. DIARRHEA MOST PROBABLY FROM COLCHININE 4. RENAL INSUFFICIENY 5. DM OUT OF CONTROL 6. ISCHEMIA CARDIOMYOPATHY.
[2016-08-01] MEDS ORDERED: Vancomycin 500mg/D5W 100 ml 100 ML IVPB ONE (18:10)
[2016-08-01] MEDS: (Lantus) Insulin Glargine, Recombinant SC SCH (22:10)
[2016-08-01] MEDS: cefTRIAXone IV 1 gm in Dextros 50 ML IVPB SCH (22:14)
--- NOTE | 2016-08-02 00:01 | CARD ---
APPROVED REPORT EKG Measurement Heart [id number] <Conclusion> Sinus rhythm with 1st degree AV block Left bundle branch block Abnormal ECG
[2016-08-02] MEDS: Albuterol 0.042% Inhal Sol (1.25 mg/3 mL) UD INH SCH ×4 (01:47→20:17)
[2016-08-02 06:41] LABS: POTASSIUM 5.3 mmol/L (3.6-5.2)
[2016-08-02 06:44] LABS: ALB/GLOB RATIO 1.1 (1.0-2.1); BILIRUBIN,TOTAL 0.6 mg/dL (0.2-1.3)
[2016-08-02 06:45] LABS: CALCIUM 8.3 mg/dl (8.6-10.4)
[2016-08-02 06:52] LABS: BASO % 0.2 % (0.0-2.0); HEMATOCRIT 28.4 % (34.0-47.0); LYMPH # 0.6 K/uL (1.0-4.3); LYMPH % 5.1 % (20.0-40.0); MEAN CELL VOLUME 85.8 fL (81.0-99.0); MEAN CORPUSCULAR HEMOGLOBIN 29.8 pg (27.0-31.0); MEAN CORPUSCULAR HGB CONC 34.8 g/dL (33.0-37.0); MONO # 0.6 K/uL (0.0-0.8); MONO % 4.7 % (0.0-10.0); PLATELET COUNT 251 K/uL (130-400); RED CELL DISTRIBUTION WIDTH 14.6 % (11.5-14.5); WHITE BLOOD COUNT 12.5 K/uL (4.8-10.8)
[2016-08-02] MEDS ORDERED: Sod Polystyrene Sulf 15 gm/60 ml Oral Susp PO STA (07:59)
[2016-08-02] MEDS: (Novolog) Insulin Aspart, Recombinant 100 u/ml 10 ml vial SC SCH ×4 (08:28→21:45)
[2016-08-02 08:35] LABS: NEUTROPHIL 95 % (50-75); TOTAL CELLS COUNTED 100
[2016-08-02] MEDS ORDERED: methylPREDNISolone 40 MG in Sodium Chloride 0.9% 100 ML IVPB SCH (10:00)
[2016-08-02] MEDS: Pantoprazole 40 mg EC Tab PO SCH (10:40)
[2016-08-02] MEDS: MethylPREDNISolone 40 mg Vial IV SCH (10:41)
[2016-08-02] MEDS: Lidocaine 5% Patch TD SCH (12:22)
--- NOTE | 2016-08-02 17:58 | CP.PCM.PN ---
Subjective - Date & Time of Evaluation Date of Evaluation: 08/02/16 Time of Evaluation: 17:55 - Subjective Subjective: INFECTIOUS DISEASE PROGRESS NOTE [place] GARRISON MD, FACP 6T 665-B 08/02/2016 CHART REVIEWED PT EXAMINED CASE DISCUSSED RESPONDING TO IV VANCOMYCIN PT RECEIVED A DOSE YESTERDAY AND TODAY HER RANDOM LEVEL IS ALREADY OVER 8! WILL RECHECK TOMORROW TO BE ESPECIALLY CAREFULLY DUE TO HER RENAL INSUFFICIENCY. Objective - Vital Signs/Intake and Output Vital Signs (last 24 hours): Temp Pulse Resp BP Pulse Ox 97.9 F 66 20 137/63 96 08/02/16 15:44 08/02/16 16:00 08/02/16 15:44 08/02/16 15:44 08/02/16 15:44 Intake and Output: 08/02/16 08/02/16 06:59 18:59 Intake Total 390 240 Output Total 350 Balance 40 240 - Medications Medications: Current Medications Albuterol Sulfate (Albuterol 0.042% Inhal Keily (1.25mg/3ml) Ud) 1.25 mg INH RQ6 [facility] Last Admin: 08/02/16 13:30 Dose: 1.25 mg Allopurinol (Zyloprim) 100 mg PO DAILY [facility] Last Admin: 08/02/16 10:41 Dose: 100 mg Aspirin (Aspirin Chewable) 81 mg PO DAILY [facility] Last Admin: 08/02/16 10:40 Dose: 81 mg Azithromycin (Zithromax) 500 mg PO DAILY [facility] Last Admin: 08/02/16 10:41 Dose: 500 mg Bismuth Subsalicylate (Pepto-Bismol) 262 mg PO Q6 PRN PRN Reason: Diarrhea Last Admin: 07/29/16 18:14 Dose: 262 mg Glipizide (Glucotrol) 5 mg PO BID [facility] Last Admin: 08/02/16 10:40 Dose: 5 mg Heparin Sodium (Porcine) (Heparin) 5,000 units SC Q12 [facility] Last Admin: 08/02/16 10:41 Dose: 5,000 units Hydralazine HCl (Apresoline) 25 mg PO BID [facility] Last Admin: 08/02/16 10:41 Dose: 25 mg Ceftriaxone Sodium (Rocephin Iv 1 Gm Duplex) 50 mls @ 100 mls/hr IVPB Q24H [facility] Last Admin: 08/01/16 22:14 Dose: 100 mls/hr Insulin Aspart (Novolog) 0 unit SC ACHS [facility] PRN Reason: Protocol Last Admin: 08/02/16 12:20 Dose: 4 unit Insulin Glargine (Lantus) 20 unit SC HS [facility] Last Admin: 08/01/16 22:10 Dose: 20 units Lidocaine (Lidoderm) 1 ea TD DAILY@1200 [facility] Last Admin: 08/02/16 12:22 Dose: 1 ea Methylprednisolone (Solu-Medrol) 40 mg IV DAILY [facility] Last Admin: 08/02/16 10:41 Dose: 40 mg Metoprolol Tartrate (Lopressor) 25 mg PO BID [facility] Last Admin: 08/02/16 10:40 Dose: 25 mg Oxycodone/Acetaminophen (Percocet 5/325 Mg Tab) 1 tab PO Q6H PRN PRN Reason: Pain, moderate (4-7) Stop: 08/04/16 17:25 Pantoprazole Sodium (Protonix Ec Tab) 40 mg PO DAILY [facility] Last Admin: 08/02/16 10:40 Dose: 40 mg Sitagliptin Phosphate (Januvia) 25 mg PO DAILY [facility] Last Admin: 08/02/16 10:41 Dose: 25 mg - Labs Labs: 08/02/16 06:13 08/02/16 06:13 PT 12.3 SECONDS (9.7-12.2) H 07/28/16 23:55 INR 1.1 07/28/16 23:55 APTT 31 SECONDS (21-34) 07/28/16 23:55 - Constitutional Appears: Non-toxic, No Acute Distress - Head Exam Head Exam: ATRAUMATIC - Eye Exam Eye Exam: Normal appearance - ENT Exam ENT Exam: Mucous Membranes Moist - Neck Exam Neck Exam: Normal Inspection - Respiratory Exam Respiratory Exam: Decreased Breath Sounds, NORMAL BREATHING PATTERN - Cardiovascular Exam Cardiovascular Exam: REGULAR RHYTHM - GI/Abdominal Exam GI & Abdominal Exam: Soft, Normal Bowel Sounds - Rectal Exam Rectal Exam: Deferred - Neurological Exam Neurological Exam: Alert, Awake - Psychiatric Exam Psychiatric exam: Anxious, Flat Affect - Skin Skin Exam: Warm Assessment and Plan (1) Agent resistant to multiple antibiotics Assessment & Plan: URINARY INFECTION WITH ENTEROCOCUUS FECIUM SENTITIVE TO VANCOMCYIN Status: Acute (2) KIERSTEN (acute kidney injury) Status: Chronic (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
[2016-08-02 18:39] LABS: RBC URINE < 1 /hpf (0-3); URINE BILIRUBIN NEGATIVE (NEGATIVE); URINE BLOOD NEGATIVE (NEGATIVE); URINE COLOR Yellow (YELLOW); URINE GLUCOSE (UA) 2+ mg/dL (Normal); URINE KETONE NEGATIVE (NEGATIVE); URINE LEUKOCYTE ESTERASE NEG Leu/uL (Negative); URINE PROTEIN NEGATIVE (NEGATIVE); URINE UROBILINOGEN NORMAL mg/dL (0.2-1.0); WBC URINE < 1 /hpf (0-5)
[2016-08-02] MEDS: cefTRIAXone IV 1 gm in Dextros 50 ML IVPB SCH (20:00)
[2016-08-02] MEDS: (Lantus) Insulin Glargine, Recombinant SC SCH (21:44)
--- NOTE | 2016-08-02 22:48 | CP.PCM.PN ---
Subjective - Date & Time of Evaluation Date of Evaluation: 08/02/16 Time of Evaluation: 19:00 - Subjective Subjective: Patient less SOG, still wheezing and weak. Objective - Vital Signs/Intake and Output Vital Signs (last 24 hours): Temp Pulse Resp BP Pulse Ox 97.9 F 66 20 144/60 96 08/02/16 15:44 08/02/16 16:00 08/02/16 15:44 08/02/16 17:56 08/02/16 15:44 Intake and Output: 08/02/16 08/03/16 18:59 06:59 Intake Total 240 Balance 240 - Medications Medications: Current Medications Albuterol Sulfate (Albuterol 0.042% Inhal Ekily (1.25mg/3ml) Ud) 1.25 mg INH RQ6 [facility] Last Admin: 08/02/16 20:17 Dose: 1.25 mg Allopurinol (Zyloprim) 100 mg PO DAILY [facility] Last Admin: 08/02/16 10:41 Dose: 100 mg Aspirin (Aspirin Chewable) 81 mg PO DAILY [facility] Last Admin: 08/02/16 10:40 Dose: 81 mg Azithromycin (Zithromax) 500 mg PO DAILY [facility] Last Admin: 08/02/16 10:41 Dose: 500 mg Bismuth Subsalicylate (Pepto-Bismol) 262 mg PO Q6 PRN PRN Reason: Diarrhea Last Admin: 07/29/16 18:14 Dose: 262 mg Glipizide (Glucotrol) 5 mg PO BID [facility] Last Admin: 08/02/16 17:56 Dose: 5 mg Heparin Sodium (Porcine) (Heparin) 5,000 units SC Q12 [facility] Last Admin: 08/02/16 21:44 Dose: 5,000 units Hydralazine HCl (Apresoline) 25 mg PO BID [facility] Last Admin: 08/02/16 17:56 Dose: 25 mg Ceftriaxone Sodium (Rocephin Iv 1 Gm Duplex) 50 mls @ 100 mls/hr IVPB Q24H [facility] Last Admin: 08/02/16 20:00 Dose: 100 mls/hr Insulin Aspart (Novolog) 0 unit SC ACHS [facility] PRN Reason: Protocol Last Admin: 08/02/16 21:45 Dose: 2 unit Insulin Glargine (Lantus) 20 unit SC HS [facility] Last Admin: 08/02/16 21:44 Dose: 20 units Lidocaine (Lidoderm) 1 ea TD DAILY@1200 [facility] Last Admin: 08/02/16 12:22 Dose: 1 ea Methylprednisolone (Solu-Medrol) 40 mg IV DAILY [facility] Last Admin: 08/02/16 10:41 Dose: 40 mg Metoprolol Tartrate (Lopressor) 25 mg PO BID [facility] Last Admin: 08/02/16 17:56 Dose: 25 mg Oxycodone/Acetaminophen (Percocet 5/325 Mg Tab) 1 tab PO Q6H PRN PRN Reason: Pain, moderate (4-7) Stop: 08/04/16 17:25 Pantoprazole Sodium (Protonix Ec Tab) 40 mg PO DAILY [facility] Last Admin: 08/02/16 10:40 Dose: 40 mg Sitagliptin Phosphate (Januvia) 25 mg PO DAILY [facility] Last Admin: 08/02/16 10:41 Dose: 25 mg - Labs Labs: 08/02/16 06:13 08/02/16 06:13 PT 12.3 SECONDS (9.7-12.2) H 07/28/16 23:55 INR 1.1 07/28/16 23:55 APTT 31 SECONDS (21-34) 07/28/16 23:55 - Constitutional Appears: No Acute Distress, Chronically Ill - Head Exam Head Exam: NORMAL INSPECTION - Eye Exam Eye Exam: Normal appearance - ENT Exam ENT Exam: Normal Exam - Neck Exam Neck Exam: Normal Inspection - Respiratory Exam Additional comments: Scattered wheezing and rales bilaterally. - Cardiovascular Exam Cardiovascular Exam: REGULAR RHYTHM, Murmur - GI/Abdominal Exam GI & Abdominal Exam: Soft, Normal Bowel Sounds - Rectal Exam Rectal Exam: Deferred - Extremities Exam Extremities Exam: Normal Inspection - Back Exam Back Exam: NORMAL INSPECTION - Neurological Exam Neurological Exam: Alert, Awake, Oriented x3 - Psychiatric Exam Psychiatric exam: Anxious - Skin Skin Exam: Dry, Intact, Normal Color, Warm Assessment and Plan (1) Acute on chronic diastolic (congestive) heart failure Assessment & Plan: Improving. Lasix on hold because of raising BUN: 65 creatine: 2.6 K+: 5.6. Status: Chronic (2) Insulin dependent diabetes mellitus Assessment & Plan: Worse with IV Solumedrol. Status: Chronic (3) Acute gout Assessment & Plan: Improving. Status: Acute (4) Chronic kidney disease Assessment & Plan: Worsened with Solumedrol and Lasix. Status: Chronic (5) NSTEMI (non-ST elevated myocardial infarction) Status: Acute (6) Pneumonia Assessment & Plan: Now on Vancomycin. Afebrile. Status: Acute
[2016-08-03] MEDS: Albuterol 0.042% Inhal Sol (1.25 mg/3 mL) UD INH SCH ×4 (01:15→21:00)
[2016-08-03 07:20] LABS: BASO % 0.2 % (0.0-2.0); HEMATOCRIT 26.9 % (34.0-47.0); LYMPH # 0.6 K/uL (1.0-4.3); LYMPH % 8.6 % (20.0-40.0); MEAN CELL VOLUME 86.3 fL (81.0-99.0); MEAN CORPUSCULAR HEMOGLOBIN 29.5 pg (27.0-31.0); MEAN CORPUSCULAR HGB CONC 34.2 g/dL (33.0-37.0); MEAN PLATELET VOLUME 8.5 fL (7.2-11.7); MONO # 0.5 K/uL (0.0-0.8); MONO % 7.5 % (0.0-10.0); NRBC % 0.1 % (0.0-2.0); PLATELET COUNT 207 K/uL (130-400); RED CELL DISTRIBUTION WIDTH 14.8 % (11.5-14.5); WHITE BLOOD COUNT 7.4 K/uL (4.8-10.8)
[2016-08-03 07:46] LABS: POTASSIUM 3.8 mmol/L (3.6-5.2)
[2016-08-03 07:48] LABS: ALB/GLOB RATIO 1.1 (1.0-2.1); BILIRUBIN,TOTAL 0.1 mg/dL (0.2-1.3); CALCIUM 8.1 mg/dl (8.6-10.4); TOTAL PROTEIN 5.6 g/dL (6.3-8.3)
[2016-08-03] MEDS: (Novolog) Insulin Aspart, Recombinant 100 u/ml 10 ml vial SC SCH ×4 (08:00→22:39)
[2016-08-03 10:08] LABS: NEUTROPHIL 88 % (50-75); TOTAL CELLS COUNTED 100
[2016-08-03] MEDS: Pantoprazole 40 mg EC Tab PO SCH (10:40)
[2016-08-03] MEDS: MethylPREDNISolone 40 mg Vial IV SCH (10:41)
[2016-08-03] MEDS: Lidocaine 5% Patch TD SCH (14:02)
--- NOTE | 2016-08-03 15:39 | CP.PCM.PN ---
Subjective - Date & Time of Evaluation Date of Evaluation: 08/03/16 Time of Evaluation: 15:36 - Subjective Subjective: Patient still has a productive cough, mild SOB and wheezing. No diarrhea, no fever. Objective - Vital Signs/Intake and Output Vital Signs (last 24 hours): Temp Pulse Resp BP Pulse Ox 97.6 F 61 18 143/57 L 100 08/03/16 07:35 08/03/16 10:00 08/03/16 07:35 08/03/16 10:41 08/03/16 07:35 Intake and Output: 08/03/16 08/03/16 06:59 18:59 Intake Total 350 480 Output Total 450 Balance -100 480 - Medications Medications: Current Medications Albuterol Sulfate (Albuterol 0.042% Inhal Keily (1.25mg/3ml) Ud) 1.25 mg INH RQ6 [facility] Last Admin: 08/03/16 13:37 Dose: 1.25 mg Allopurinol (Zyloprim) 100 mg PO DAILY [facility] Last Admin: 08/03/16 10:41 Dose: 100 mg Aspirin (Aspirin Chewable) 81 mg PO DAILY [facility] Last Admin: 08/03/16 10:41 Dose: 81 mg Azithromycin (Zithromax) 500 mg PO DAILY [facility] Last Admin: 08/03/16 10:57 Dose: 500 mg Bismuth Subsalicylate (Pepto-Bismol) 262 mg PO Q6 PRN PRN Reason: Diarrhea Last Admin: 07/29/16 18:14 Dose: 262 mg Glipizide (Glucotrol) 5 mg PO BID [facility] Last Admin: 08/03/16 10:41 Dose: 5 mg Heparin Sodium (Porcine) (Heparin) 5,000 units SC Q12 [facility] Last Admin: 08/03/16 10:42 Dose: 5,000 units Hydralazine HCl (Apresoline) 25 mg PO BID [facility] Last Admin: 08/03/16 10:41 Dose: 25 mg Ceftriaxone Sodium (Rocephin Iv 1 Gm Duplex) 50 mls @ 100 mls/hr IVPB Q24H [facility] Last Admin: 08/02/16 20:00 Dose: 100 mls/hr Insulin Aspart (Novolog) 0 unit SC ACHS [facility] PRN Reason: Protocol Last Admin: 08/03/16 11:36 Dose: 3 unit Insulin Glargine (Lantus) 20 unit SC HS [facility] Last Admin: 08/02/16 21:44 Dose: 20 units Lidocaine (Lidoderm) 1 ea TD DAILY@1200 [facility] Last Admin: 08/03/16 14:02 Dose: 1 ea Methylprednisolone (Solu-Medrol) 40 mg IV DAILY [facility] Last Admin: 08/03/16 10:41 Dose: 40 mg Metoprolol Tartrate (Lopressor) 25 mg PO BID [facility] Last Admin: 08/03/16 10:41 Dose: 25 mg Oxycodone/Acetaminophen (Percocet 5/325 Mg Tab) 1 tab PO Q6H PRN PRN Reason: Pain, moderate (4-7) Stop: 08/04/16 17:25 Pantoprazole Sodium (Protonix Ec Tab) 40 mg PO DAILY [facility] Last Admin: 08/03/16 10:40 Dose: 40 mg Sitagliptin Phosphate (Januvia) 25 mg PO DAILY [facility] Last Admin: 08/03/16 10:41 Dose: 25 mg - Labs Labs: 08/03/16 07:09 08/03/16 07:09 PT 12.3 SECONDS (9.7-12.2) H 07/28/16 23:55 INR 1.1 07/28/16 23:55 APTT 31 SECONDS (21-34) 07/28/16 23:55 - Constitutional Appears: No Acute Distress, Chronically Ill - Head Exam Head Exam: NORMOCEPHALIC - Eye Exam Eye Exam: Normal appearance - ENT Exam ENT Exam: Normal Exam - Neck Exam Neck Exam: Normal Inspection - Respiratory Exam Respiratory Exam: Rhonchi, Wheezes Additional comments: Scattered rhonchi and wheezes bilaterally. - Cardiovascular Exam Cardiovascular Exam: REGULAR RHYTHM, Murmur - GI/Abdominal Exam GI & Abdominal Exam: Soft, Normal Bowel Sounds - Rectal Exam Rectal Exam: Deferred - Extremities Exam Extremities Exam: Normal Inspection - Back Exam Back Exam: NORMAL INSPECTION - Neurological Exam Neurological Exam: Alert, Oriented x3 - Psychiatric Exam Psychiatric exam: Anxious - Skin Skin Exam: Dry, Intact, Normal Color, Warm Assessment and Plan (1) Acute on chronic diastolic (congestive) heart failure Assessment & Plan: Lasix on hold because of BUN: 56 creatinine: 1.9. Status: Chronic (2) Insulin dependent diabetes mellitus Status: Chronic (3) Acute gout Status: Acute (4) Chronic kidney disease Assessment & Plan: K+: 3.8 BUN : 56 creatinine: 1.9. Status: Chronic (5) NSTEMI (non-ST elevated myocardial infarction) Assessment & Plan: Stable. Will do stress test as an outpatient. Status: Acute (6) Pneumonia Assessment & Plan: To continue IV antibiotics. Status: Acute
--- NOTE | 2016-08-03 21:31 | CP.PCM.PN ---
Subjective - Date & Time of Evaluation Date of Evaluation: 08/03/16 Time of Evaluation: 21:27 - Subjective Subjective: INFECTIOUS DISEASE PROGRESS NOTE [place] GARRISON MD 6T [id number] 08/03/2016 CHART REVIEWED PT EXAMIINED CASE DISCUSSED. GRANDSON PRESENT. CLINICALLY RESPONDING TO ANTI PNEUMONIA TREATMENT AND ANTI MDR ENTEROCOCCUS FAECIUM. TO GIVE ANOTHER DOES OF IV VANCO TONIGHT D/C ZITHROMAX ADD FLORASTOR. OBSERVE CONSIDER HOME SOON WHEN CLEARED BY PMD/CARDIO. RECHECK URINE. Objective - Vital Signs/Intake and Output Vital Signs (last 24 hours): Temp Pulse Resp BP Pulse Ox 98.6 F 60 20 130/84 99 08/03/16 16:00 08/03/16 16:05 08/03/16 16:00 08/03/16 18:15 08/03/16 16:00 Intake and Output: 08/03/16 08/04/16 18:59 06:59 Intake Total 480 Balance 480 - Medications Medications: Current Medications Albuterol Sulfate (Albuterol 0.042% Inhal Keily (1.25mg/3ml) Ud) 1.25 mg INH RQ6 [facility] Last Admin: 08/03/16 21:00 Dose: 1.25 mg Allopurinol (Zyloprim) 100 mg PO DAILY [facility] Last Admin: 08/03/16 10:41 Dose: 100 mg Aspirin (Aspirin Chewable) 81 mg PO DAILY [facility] Last Admin: 08/03/16 10:41 Dose: 81 mg Bismuth Subsalicylate (Pepto-Bismol) 262 mg PO Q6 PRN PRN Reason: Diarrhea Last Admin: 07/29/16 18:14 Dose: 262 mg Glipizide (Glucotrol) 5 mg PO BID [facility] Last Admin: 08/03/16 18:15 Dose: 5 mg Heparin Sodium (Porcine) (Heparin) 5,000 units SC Q12 [facility] Last Admin: 08/03/16 10:42 Dose: 5,000 units Hydralazine HCl (Apresoline) 25 mg PO BID [facility] Last Admin: 08/03/16 18:16 Dose: 25 mg Ceftriaxone Sodium (Rocephin Iv 1 Gm Duplex) 50 mls @ 100 mls/hr IVPB Q24H [facility] Last Admin: 08/02/16 20:00 Dose: 100 mls/hr Vancomycin HCl 500 mg/ Sodium (Chloride) 100 mls @ 100 mls/hr IVPB ONCE ONE Stop: 08/03/16 21:48 Insulin Aspart (Novolog) 0 unit SC ACHS [facility] PRN Reason: Protocol Last Admin: 08/03/16 11:36 Dose: 3 unit Insulin Glargine (Lantus) 20 unit SC HS [facility] Last Admin: 08/02/16 21:44 Dose: 20 units Lidocaine (Lidoderm) 1 ea TD DAILY@1200 [facility] Last Admin: 08/03/16 14:02 Dose: 1 ea Methylprednisolone (Solu-Medrol) 40 mg IV DAILY [facility] Last Admin: 08/03/16 10:41 Dose: 40 mg Metoprolol Tartrate (Lopressor) 25 mg PO BID [facility] Last Admin: 08/03/16 18:15 Dose: 25 mg Oxycodone/Acetaminophen (Percocet 5/325 Mg Tab) 1 tab PO Q6H PRN PRN Reason: Pain, moderate (4-7) Stop: 08/04/16 17:25 Pantoprazole Sodium (Protonix Ec Tab) 40 mg PO DAILY [facility] Last Admin: 08/03/16 10:40 Dose: 40 mg Saccharomyces Boulardii (Florastor) 250 mg PO BID [facility] Sitagliptin Phosphate (Januvia) 25 mg PO DAILY [facility] Last Admin: 08/03/16 10:41 Dose: 25 mg - Labs Labs: 08/03/16 07:09 08/03/16 07:09 PT 12.3 SECONDS (9.7-12.2) H 07/28/16 23:55 INR 1.1 07/28/16 23:55 APTT 31 SECONDS (21-34) 07/28/16 23:55 - Constitutional Appears: Non-toxic, No Acute Distress - Head Exam Head Exam: ATRAUMATIC - Eye Exam Eye Exam: Normal appearance - ENT Exam ENT Exam: Mucous Membranes Moist - Neck Exam Neck Exam: Normal Inspection - Respiratory Exam Respiratory Exam: Decreased Breath Sounds, NORMAL BREATHING PATTERN. absent: Rales, Wheezes, Stridor - Cardiovascular Exam Cardiovascular Exam: REGULAR RHYTHM - GI/Abdominal Exam GI & Abdominal Exam: Soft, Normal Bowel Sounds. absent: Tenderness - Rectal Exam Rectal Exam: Deferred - Neurological Exam Neurological Exam: Alert, Awake Additional comments: DECREASED HEARING Assessment and Plan (1) Agent resistant to multiple antibiotics Status: Acute (2) KIERSTEN (acute kidney injury) Status: Chronic (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 (8) Pneumonia Assessment & Plan: RESPONDING Status: Acute
[2016-08-03] MEDS: cefTRIAXone IV 1 gm in Dextros 50 ML IVPB SCH (22:34)
[2016-08-03] MEDS: (Lantus) Insulin Glargine, Recombinant SC SCH (22:40)
[2016-08-04] MEDS: Albuterol 0.042% Inhal Sol (1.25 mg/3 mL) UD INH SCH ×4 (02:03→20:10)
[2016-08-04] MEDS ORDERED: (Novolog) Insulin Aspart, Recombinant 100 u/ml 10 ml vial SC STA (02:35)
[2016-08-04 07:30] LABS: HEMATOCRIT 26.8 % (34.0-47.0); LYMPH # 0.5 K/uL (1.0-4.3); LYMPH % 7.4 % (20.0-40.0); MEAN CELL VOLUME 85.8 fL (81.0-99.0); MEAN CORPUSCULAR HEMOGLOBIN 28.7 pg (27.0-31.0); MEAN CORPUSCULAR HGB CONC 33.4 g/dL (33.0-37.0); MEAN PLATELET VOLUME 8.5 fL (7.2-11.7); MONO # 0.5 K/uL (0.0-0.8); MONO % 7.9 % (0.0-10.0); PLATELET COUNT 215 K/uL (130-400); RED CELL DISTRIBUTION WIDTH 14.7 % (11.5-14.5); WHITE BLOOD COUNT 6.6 K/uL (4.8-10.8)
[2016-08-04 07:33] LABS: BILIRUBIN,TOTAL 0.1 mg/dL (0.2-1.3)
[2016-08-04 07:34] LABS: ALB/GLOB RATIO 1.1 (1.0-2.1); TOTAL PROTEIN 5.6 g/dL (6.3-8.3)
[2016-08-04 07:35] LABS: CALCIUM 8.4 mg/dl (8.6-10.4)
[2016-08-04] MEDS: (Novolog) Insulin Aspart, Recombinant 100 u/ml 10 ml vial SC SCH ×4 (08:28→22:00)
[2016-08-04 09:07] LABS: NEUTROPHIL 87 % (50-75); TOTAL CELLS COUNTED 100
[2016-08-04] MEDS: Pantoprazole 40 mg EC Tab PO SCH (10:11)
[2016-08-04] MEDS: Saccharomyces Boulardi 250 mg Cap PO SCH ×2 (10:12→18:24)
[2016-08-04] MEDS: MethylPREDNISolone 40 mg Vial IV SCH (10:15)
[2016-08-04 10:55] LABS: RBC URINE 5 /hpf (0-3); URINE BILIRUBIN NEGATIVE (NEGATIVE); URINE BLOOD NEGATIVE (NEGATIVE); URINE COLOR Yellow (YELLOW); URINE GLUCOSE (UA) 3+ mg/dL (Normal); URINE HYALINE CAST 0-2 /lpf (0-2); URINE KETONE NEGATIVE (NEGATIVE); URINE LEUKOCYTE ESTERASE TRACE Leu/uL (Negative); URINE PROTEIN NEGATIVE (NEGATIVE); URINE UROBILINOGEN NORMAL mg/dL (0.2-1.0); WBC URINE 8 /hpf (0-5)
[2016-08-04] MEDS: Lidocaine 5% Patch TD SCH (12:38)
[2016-08-04 16:03] VITALS: RESP 20
[2016-08-04] MEDS: cefTRIAXone IV 1 gm in Dextros 50 ML IVPB SCH (20:30)
--- NOTE | 2016-08-04 20:31 | CP.PCM.PN ---
Subjective - Date & Time of Evaluation Date of Evaluation: 08/04/16 Time of Evaluation: 20:26 - Subjective Subjective: Patient much less SOB, with better appetite, and no fever. But she is wheezing. BUN: 51 Creatinine: 1.7 Hgb: 8.9 Stools fpr OB ordered. Probably discharge home in AM on Symbicort 160-4.5 mcg 2 puffs q 12 h. Objective - Vital Signs/Intake and Output Vital Signs (last 24 hours): Temp Pulse Resp BP Pulse Ox 97.9 F 63 20 154/72 H 100 08/04/16 15:59 08/04/16 16:00 08/04/16 15:59 08/04/16 18:24 08/04/16 15:59 - Medications Medications: Current Medications Albuterol Sulfate (Albuterol 0.042% Inhal Keily (1.25mg/3ml) Ud) 1.25 mg INH RQ6 [facility] Last Admin: 08/04/16 20:10 Dose: 1.25 mg Allopurinol (Zyloprim) 100 mg PO DAILY [facility] Last Admin: 08/04/16 10:12 Dose: 100 mg Aspirin (Aspirin Chewable) 81 mg PO DAILY [facility] Last Admin: 08/04/16 10:11 Dose: 81 mg Bismuth Subsalicylate (Pepto-Bismol) 262 mg PO Q6 PRN PRN Reason: Diarrhea Last Admin: 07/29/16 18:14 Dose: 262 mg Glipizide (Glucotrol) 5 mg PO BID [facility] Last Admin: 08/04/16 18:25 Dose: 5 mg Heparin Sodium (Porcine) (Heparin) 5,000 units SC Q12 [facility] Last Admin: 08/04/16 10:10 Dose: 5,000 units Hydralazine HCl (Apresoline) 25 mg PO BID [facility] Last Admin: 08/04/16 18:24 Dose: 25 mg Ceftriaxone Sodium (Rocephin Iv 1 Gm Duplex) 50 mls @ 100 mls/hr IVPB Q24H [facility] Last Admin: 08/03/16 22:34 Dose: 100 mls/hr Insulin Aspart (Novolog) 0 unit SC ACHS [facility] PRN Reason: Protocol Last Admin: 08/04/16 18:24 Dose: 3 unit Insulin Glargine (Lantus) 20 unit SC HS [facility] Last Admin: 08/03/16 22:40 Dose: 20 units Lidocaine (Lidoderm) 1 ea TD DAILY@1200 [facility] Last Admin: 08/04/16 12:38 Dose: 1 ea Methylprednisolone (Solu-Medrol) 40 mg IV DAILY [facility] Last Admin: 08/04/16 10:15 Dose: 40 mg Metoprolol Tartrate (Lopressor) 25 mg PO BID [facility] Last Admin: 08/04/16 18:24 Dose: 25 mg Pantoprazole Sodium (Protonix Ec Tab) 40 mg PO DAILY [facility] Last Admin: 08/04/16 10:11 Dose: 40 mg Saccharomyces Boulardii (Florastor) 250 mg PO BID [facility] Last Admin: 08/04/16 18:24 Dose: 250 mg Sitagliptin Phosphate (Januvia) 25 mg PO DAILY [facility] Last Admin: 08/04/16 10:12 Dose: 25 mg - Labs Labs: 08/04/16 07:06 08/04/16 07:06 PT 12.3 SECONDS (9.7-12.2) H 07/28/16 23:55 INR 1.1 07/28/16 23:55 APTT 31 SECONDS (21-34) 07/28/16 23:55 - Constitutional Appears: No Acute Distress, Chronically Ill - Head Exam Head Exam: NORMOCEPHALIC - Eye Exam Eye Exam: Normal appearance - ENT Exam ENT Exam: Normal Exam - Neck Exam Neck Exam: Normal Inspection - Respiratory Exam Respiratory Exam: Wheezes Additional comments: Scattered wheezes and rhonchi bilaterally. - Cardiovascular Exam Cardiovascular Exam: REGULAR RHYTHM, Murmur - GI/Abdominal Exam GI & Abdominal Exam: Soft, Normal Bowel Sounds - Extremities Exam Extremities Exam: Normal Inspection - Back Exam Back Exam: NORMAL INSPECTION - Neurological Exam Neurological Exam: Alert, Awake, Oriented x3 - Psychiatric Exam Psychiatric exam: Anxious - Skin Skin Exam: Dry, Intact, Normal Color, Warm Assessment and Plan (1) Acute on chronic diastolic (congestive) heart failure Assessment & Plan: Improving. Status: Chronic (2) Insulin dependent diabetes mellitus Status: Chronic (3) Acute gout Assessment & Plan: Improving. Status: Acute (4) Chronic kidney disease Assessment & Plan: Improving. Status: Chronic (5) NSTEMI (non-ST elevated myocardial infarction) Assessment & Plan: Stable. Status: Acute (6) Pneumonia Status: Acute
[2016-08-04] MEDS: (Lantus) Insulin Glargine, Recombinant SC SCH (22:01)
[2016-08-05] MEDS: Albuterol 0.042% Inhal Sol (1.25 mg/3 mL) UD INH SCH ×2 (01:30→08:00)
[2016-08-05 07:30] LABS: BASO % 0.2 % (0.0-2.0); HEMATOCRIT 28.1 % (34.0-47.0); LYMPH # 0.7 K/uL (1.0-4.3); LYMPH % 9.9 % (20.0-40.0); MEAN CELL VOLUME 86.3 fL (81.0-99.0); MEAN CORPUSCULAR HGB CONC 33.6 g/dL (33.0-37.0); MEAN PLATELET VOLUME 9.3 fL (7.2-11.7); MONO # 0.6 K/uL (0.0-0.8); MONO % 8.4 % (0.0-10.0); NRBC % 0.1 % (0.0-2.0); PLATELET COUNT 226 K/uL (130-400); WHITE BLOOD COUNT 7.2 K/uL (4.8-10.8)
[2016-08-05 07:35] LABS: POTASSIUM 4.3 mmol/L (3.6-5.2)
[2016-08-05 07:37] LABS: ALB/GLOB RATIO 1.1 (1.0-2.1); BILIRUBIN,TOTAL 0.5 mg/dL (0.2-1.3)
[2016-08-05 07:39] LABS: CALCIUM 8.4 mg/dl (8.6-10.4)
[2016-08-05] MEDS: (Novolog) Insulin Aspart, Recombinant 100 u/ml 10 ml vial SC SCH (08:21)
[2016-08-05 08:29] VITALS: PULSE 66; TEMP 97.8; O2SAT 97
[2016-08-05 09:41] LABS: NEUTROPHIL 79 % (50-75); TOTAL CELLS COUNTED 100
[2016-08-05] MEDS: MethylPREDNISolone 40 mg Vial IV SCH (10:01)
[2016-08-05] MEDS: Saccharomyces Boulardi 250 mg Cap PO SCH (10:02)
[2016-08-05] MEDS: Pantoprazole 40 mg EC Tab PO SCH (10:02)
[2016-08-05 10:04] VITALS: BP 159/72
--- NOTE | 2016-08-05 11:26 | PCM.HF ---
Heart Failure Core Measure - Heart Failure Ejection Fraction: 40 % or Greater CORNELIUS Inhibitor Prescribed: No Contraindication/Reason for not providing: CKD Beta-Louisa Prescribed: Metoprolol Succinate Angiotensin II Receptor Louisa Prescribed: No Contraindication/Reason for not providing: CKD AnticoagulationTherapy for Atrial Fibrillation/Atrialflutter: No Contraindication/Reason for not providing: no afib Aldosterone Antagonist Prescribed: No Contraindication/Reason for not providing: renal dysfunction Hydralazine Nitrate Prescribed: Yes Implantable Cardioverter Defibrillator Therapy: Yes Cardiac Resynchronization Therapy Prescribed: No Contraindication/Reason for not providing: has pacemaker - Follow up Will be discharged to: Home Follow Up Date (must be within 7 days from discharge): 08/09/16 Follow Up Time: 09:00
--- NOTE | 2016-08-05 13:19 | RAD ---
HISTORY: F/U CHF and LLL pneumonia. COMPARISON: 07/30/2016 TECHNIQUE: Chest PA and lateral FINDINGS: LUNGS: Pulmonary venous minimal congestion possibly chronic is suggested. A concomitant minimal perihilar cystic emphysematous/ interstitial lung disease component is not excluded. PLEURA: No significant pleural effusion identified. No pneumothorax apparent. CARDIOVASCULAR: Mild cardiomegaly bipolar pacemaker OSSEOUS STRUCTURES: Generalized osteopenia VISUALIZED UPPER ABDOMEN: Post cholecystectomy clips suggested OTHER FINDINGS: None. IMPRESSION: Probable chronic pulmonary venous congestion. No interval significant effusions are consolidation suggested
== END 2016-08-05 12:00 | disposition home or self-care (01) | DRG 280 ==
LOC: C.ER 22:44 → C.9E 07-29 01:33 → C.6T 07-29 02:11
PROVIDERS: ADMIT Internal Medicine Cardiovascular Disease; ATTEND Internal Medicine Cardiovascular Disease
DX: I13.0 Hypertensive heart and chronic kidney disease with heart failure and stage 1 through stage 4 chronic kidney disease, or unspecified chronic kidney disease (principal); I21.4 Non-ST elevation (NSTEMI) myocardial infarction; J18.9 Pneumonia, unspecified organism; N17.9 Acute kidney failure, unspecified; I49.5 Sick sinus syndrome; N39.0 Urinary tract infection, site not specified; E11.9 Type 2 diabetes mellitus without complications; B95.2 Enterococcus as the cause of diseases classified elsewhere; I50.33 Acute on chronic diastolic (congestive) heart failure; K92.1 Melena; E78.5 Hyperlipidemia, unspecified; H91.90 Unspecified hearing loss, unspecified ear; I25.5 Ischemic cardiomyopathy; M10.9 Gout, unspecified; N18.9 Chronic kidney disease, unspecified; Z79.4 Long term (current) use of insulin; Z95.0 Presence of cardiac pacemaker; Z68.23 Body mass index [BMI] 23.0-23.9, adult; R19.7 Diarrhea, unspecified; Z16.22 Resistance to vancomycin related antibiotics

== ENCOUNTER 2016-11-05 20:29 | Inpatient (IN) | payer MEDICARE, MEDICAID ==
[2016-11-05 20:30] VITALS: BMI 24.4
--- NOTE | 2016-11-05 20:42 | C.PDOC ---
History Of Present Illness 86 year old female presents to the ED with complaints of shortness of breath for two days. Patient denies any chest pain, fever, or vomiting. Chief Complaint (Nursing): Respiratory Distress History Per: Patient History/Exam Limitations: no limitations Onset/Duration Of Symptoms: Days (2 days ) Current Symptoms Are (Timing): Still Present Associated Symptoms: Other (dyspnea ). denies: Chest Pain Recent travel outside of the [place]: No Past Medical History Reviewed: Historical Data, Nursing Documentation, Vital Signs Vital Signs: Last Vital Signs Temp 97.8 F 11/05/16 20:38 Pulse 70 11/05/16 20:45 Resp 28 H 11/05/16 20:35 BP 133/88 11/05/16 20:35 Pulse Ox 97 11/05/16 22:14 - Medical History PMH: Anxiety, Arthritis, CHF, Diabetes, HTN, Hypercholesterolemia, Kidney Stones , Osteoporosis, Chronic Kidney Disease ((?)) Surgical History: Cholecystectomy, Pacemaker Family History: States: Unknown Family Hx - Social History Hx Tobacco Use: No Hx Alcohol Use: No Hx Substance Use: No - Immunization History Hx Tetanus Toxoid Vaccination: No (unknown) Hx Influenza Vaccination: Yes (unknown) Hx Pneumococcal Vaccination: No (unknown) Review Of Systems Constitutional: Negative for: Fever, Chills, Sweats Cardiovascular: Negative for: Chest Pain, Palpitations Respiratory: Positive for: Shortness of Breath. Negative for: Cough Gastrointestinal: Negative for: Nausea, Vomiting, Abdominal Pain, Diarrhea Neurological: Negative for: Headache Physical Exam - Physical Exam Appears: Non-toxic, No Acute Distress Skin: Warm, Dry Head: Atraumatic Oral Mucosa: Moist Neck: Supple Chest: Symmetrical, No Deformity Cardiovascular: Rhythm Regular Respiratory: Rales (bilateral lower lung rales ), No Rhonchi, No Stridor, No Wheezing Gastrointestinal/Abdominal: Soft, No Tenderness, No Distention, No Guarding, No Rebound Extremity: Normal ROM, No Tenderness, Other (+1 edema bilaterally ) Neurological/Psych: Oriented x3 ED Course And Treatment - Laboratory Results Result Diagrams: 11/05/16 20:44 11/05/16 20:44 ECG: Interpreted By Me, Viewed By Me ECG Interpretation: Abnormal Interpretation Of ECG: atrial paced rhythmn. abnormal tracings Rate From EC O2 Sat by Pulse Oximetry: 97 Pulse Ox Interpretation: Normal - Radiology CXR: Interpreted by Me, Viewed By Me CXR Interpretation: Yes: Other (presence of pulm. congestion mostly centrally). No: Infiltrates Progress Note: 2200H Patienclinically imprroved and feels better wih the Bi-pap. Reevaluation Time: 22:09 Reassessment Condition: Improved - Physician Consult Information Time Consulting Physician Contacted: 22:12 Physician Contacted: Deep Clay Disposition Discussed With : Deep Clay Doctor Will See Patient In The: Hospital Counseled Patient/Family Regarding: Diagnosis - Disposition Disposition: HOSPITALIZED Disposition Time: 22:13 Condition: STABLE - POA Present On Arrival: None - Clinical Impression Clinical Impression: Congestive heart failure, Renal insufficiency - Scribe Statement The provider has reviewed the documentation as recorded by the Scribzuri Lopez All medical record entries made by the Marryibzuri were at my direction and personally dictated by me. I have reviewed the chart and agree that the record accurately reflects my personal performance of the history, physical exam, medical decision making, and the department course for this patient. I have also personally directed, reviewed, and agree with the discharge instructions and disposition.
[2016-11-05 20:47] LABS: BASO # 0.1 K/uL (0.0-0.2); BASO % 0.7 % (0.0-2.0); EOS # 0.2 K/uL (0.0-0.7); EOS % 2.1 % (0.0-4.0); HEMATOCRIT 36.4 % (34.0-47.0); LYMPH # 2.7 K/uL (1.0-4.3); LYMPH % 33.2 % (20.0-40.0); MEAN CELL VOLUME 89.3 fL (81.0-99.0); MEAN CORPUSCULAR HEMOGLOBIN 29.9 pg (27.0-31.0); MEAN CORPUSCULAR HGB CONC 33.4 g/dL (33.0-37.0); MEAN PLATELET VOLUME 8.3 fL (7.2-11.7); MONO # 0.6 K/uL (0.0-0.8); MONO % 7.5 % (0.0-10.0); RED CELL DISTRIBUTION WIDTH 14.4 % (11.5-14.5); WHITE BLOOD COUNT 8.3 K/uL (4.8-10.8)
[2016-11-05 20:56] LABS: INR 0.9
[2016-11-05 20:58] LABS: ALB/GLOB RATIO 1.1 (1.0-2.1); BILIRUBIN,TOTAL 0.9 mg/dL (0.2-1.3); TOTAL PROTEIN 7.9 g/dL (6.3-8.3)
[2016-11-05 21:10] LABS: TROPONIN I 0.041 ng/mL (0.00-0.120)
[2016-11-06] MEDS: Oxycodone/Acetaminophen 5/325 mg Tab PO PRN (00:01)
[2016-11-06 06:52] LABS: POTASSIUM 3.1 mmol/L (3.6-5.2)
[2016-11-06 06:54] LABS: BILIRUBIN,TOTAL 0.8 mg/dL (0.2-1.3)
[2016-11-06 06:55] LABS: ALB/GLOB RATIO 1.1 (1.0-2.1); CALCIUM 8.5 mg/dl (8.6-10.4); TOTAL PROTEIN 6.5 g/dL (6.3-8.3)
[2016-11-06 06:56] LABS: MAGNESIUM 1.9 mg/dL (1.6-2.3)
[2016-11-06 07:02] LABS: TROPONIN I 0.07 ng/mL (0.00-0.120)
[2016-11-06] MEDS: (Novolog) Insulin Aspart, Recombinant 100 u/ml 10 ml vial SC SCH ×4 (07:45→22:20)
[2016-11-06] MEDS ORDERED: METOPROLOL TARTRATE 25 MG PO SCH (10:00)
[2016-11-06] MEDS: GlipiZIDE 10 mg SR Tab PO SCH ×2 (10:15→18:09)
[2016-11-06] MEDS: Lidocaine 5% Patch TD SCH (10:20)
--- NOTE | 2016-11-06 14:32 | RAD ---
HISTORY: sob COMPARISON: 08/05/2016 FINDINGS: LUNGS: No active pulmonary disease. PLEURA: No significant pleural effusion identified, no pneumothorax apparent. CARDIOVASCULAR: Permanent pacemaker OSSEOUS STRUCTURES: No significant abnormalities. VISUALIZED UPPER ABDOMEN: Normal. OTHER FINDINGS: None. IMPRESSION: No active disease.
[2016-11-06] MEDS ORDERED: Potassium Chloride 20 mEq/15 ml LIQ UD PO STA (15:11)
[2016-11-06] MEDS ORDERED: Potassium Chloride 20 mEq/15 ml LIQ UD PO ONE ×2 (15:45→15:50)
--- NOTE | 2016-11-06 17:47 | CP.PCM.HP ---
History of Present Illness - History of Present Illness History of Present Illness: 86 yo female complaining of increasing SOB last night. She denies any chest pain. Brought by ambulance to the ED, she was found to be in CHF with a Pro-BNP 3260, a BUN: 36 and creatinine: 1.8. She was given IV Lasix and put on BIPAP with improvement of CHF. Her serum TNI wer negative and her ECG revealed an atria pcing rhythm with a LBBB. A recent ECHO done at on 07/2016 when she was a hospitalized for CHF recealed a normal LVEF. Present on Admission - Present on Admission Any Indicators Present on Admission: No Review of Systems - Constitutional Constitutional: Fatigue - Cardiovascular Cardiovascular: Dyspnea - Respiratory Respiratory: Dyspnea - Musculoskeletal Musculoskeletal: Abnormal Gait, Arthralgias Past Patient History - Infectious Disease Hx of Infectious Diseases: None - Tetanus Immunizations Tetanus Immunization: Unknown - Past Medical History & Family History Past Medical History?: Yes - Past Social History Smoking Status: Never Smoked Alcohol: None Drugs: Denies Home Situation {Lives}: With Family Domestic Violence: Negative - CARDIAC Hx Congestive Heart Failure: Yes Hx Hypercholesterolemia: Yes Hx Hypertension: Yes Hx Pacemaker: Yes - PULMONARY Hx Emphysema: No - NEUROLOGICAL Hx Neurological Disorder: Yes Hx Dizziness: Yes - HEENT Hx HEENT Problems: Yes Hx Cataracts: Yes Hx Deafness: Yes (both ears) Hx Macular Degeneration: (not sure) - RENAL Hx Chronic Kidney Disease: Yes ((?)) Hx Kidney Stones: Yes - ENDOCRINE/METABOLIC Hx Diabetes Mellitus Type 1: Yes Hx Diabetes Mellitus Type 2: Yes - HEMATOLOGICAL/ONCOLOGICAL Hx Blood Disorders: No - INTEGUMENTARY Hx Dermatological Problems: No - MUSCULOSKELETAL/RHEUMATOLOGICAL Hx Arthritis: Yes Hx Falls: No Hx Osteoarthritis: Yes Hx Osteoporosis: Yes Hx Unsteady Gait: Yes - GASTROINTESTINAL Hx Gastrointestinal Disorders: No - GENITOURINARY/GYNECOLOGICAL Hx Genitourinary Disorders: No - PSYCHIATRIC Hx Anxiety: Yes Hx Substance Use: No - SURGICAL HISTORY Hx Cholecystectomy: Yes - ANESTHESIA Hx Anesthesia: Yes Hx Anesthesia Reactions: No Hx Malignant Hyperthermia: No Meds Allergies/Adverse Reactions: Allergies Allergy/AdvReac Type Severity Reaction Status Date / Time No Known Allergies Allergy Verified 11/05/16 20:37 Physical Exam - Constitutional Appears: Chronically Ill - Head Exam Head Exam: NORMAL INSPECTION - Eye Exam Eye Exam: Normal appearance - ENT Exam ENT Exam: Normal Exam - Neck Exam Neck exam: Positive for: Normal Inspection - Respiratory Exam Additional comments: Rales heard at both bases. - Cardiovascular Exam Cardiovascular Exam: REGULAR RHYTHM, +S4, Systolic Murmur - GI/Abdominal Exam GI & Abdominal Exam: Normal Bowel Sounds, Soft - Rectal Exam Rectal Exam: Deferred - Extremities Exam Extremities exam: Positive for: normal inspection - Back Exam Back exam: NORMAL INSPECTION - Neurological Exam Neurological exam: Alert, CN II-XII Intact, Oriented x3, Reflexes Normal - Psychiatric Exam Psychiatric exam: Anxious - Skin Skin Exam: Dry, Intact, Normal Color Results - Vital Signs Recent Vital Signs: Last Vital Signs Temp 97.7 F 11/06/16 15:29 Pulse 95 H 11/06/16 15:29 Resp 18 11/06/16 15:29 BP 129/82 11/06/16 15:29 Pulse Ox 100 11/06/16 15:29 - Labs Result Diagrams: 11/05/16 20:44 11/06/16 06:24 Labs: Laboratory Results - last 24 hr 11/06/16 11/06/16 11/06/16 06:11 06:24 12:07 Sodium 141 Potassium 3.1 L Chloride 104 Carbon Dioxide 25 Anion Gap 15 BUN 37 H Creatinine 1.8 H Est GFR ( Amer) 32 Est GFR (Non-Af Amer) 27 POC Glucose (mg/dL) 147 H 185 H Random Glucose 132 H Calcium 8.5 L Magnesium 1.9 Total Bilirubin 0.8 AST 20 ALT 20 Alkaline Phosphatase 70 Troponin I 0.0700 Total Protein 6.5 Albumin 3.4 L Globulin 3.0 Albumin/Globulin Ratio 1.1 11/06/16 17:37 Sodium Potassium Chloride Carbon Dioxide Anion Gap BUN Creatinine Est GFR ( Amer) Est GFR (Non-Af Amer) POC Glucose (mg/dL) 228 H Random Glucose Calcium Magnesium Total Bilirubin AST ALT Alkaline Phosphatase Troponin I Total Protein Albumin Globulin Albumin/Globulin Ratio Assessment & Plan (1) Acute on chronic diastolic (congestive) heart failure Assessment and Plan: To continue IV Lasix. Status: Acute (2) Uncontrolled insulin dependent diabetes mellitus Status: Acute (3) Uncontrolled insulin dependent type 1 diabetes mellitus Assessment and Plan: To restart hpme medications ( Lantus and Glipizide). Will add Januvia and Novolog coverage according to Accucheck findings. Status: Acute (4) Osteoarthritis of right knee Assessment and Plan: To control pain with Lidoderm patch and Percocet. Status: Acute Decision To Admit - Pt Status Changed To: Hospital Disposition Of: Inpatient - Admit Certification Admit to Inpatient:: After my assessment, the patient will require hospitalization for at least two midnights. This is because of the severity of symptoms shown, intensity of services needed, and/or the medical risk in this patient being treated as an outpatient. - InPatient: Physician Admission Certification:: After my assessments, the patient requires hospitalization for at least 2 midnights. - . Bed Request Type: Telemetry Admitting Physician: Deep Clay
[2016-11-06] MEDS: (Lantus) Insulin Glargine, Recombinant SC SCH (22:16)
[2016-11-07 07:50] LABS: POTASSIUM 3.8 mmol/L (3.6-5.2)
[2016-11-07 07:52] LABS: BILIRUBIN,TOTAL 0.7 mg/dL (0.2-1.3)
[2016-11-07 07:53] LABS: ALB/GLOB RATIO 1.1 (1.0-2.1); CALCIUM 8.9 mg/dl (8.6-10.4); TOTAL PROTEIN 6.6 g/dL (6.3-8.3)
[2016-11-07] MEDS: GlipiZIDE 10 mg SR Tab PO SCH ×2 (10:04→17:51)
[2016-11-07] MEDS: Lidocaine 5% Patch TD SCH (10:05)
[2016-11-07] MEDS: (Novolog) Insulin Aspart, Recombinant 100 u/ml 10 ml vial SC SCH ×4 (10:10→21:46)
[2016-11-07] MEDS: (Lantus) Insulin Glargine, Recombinant SC SCH (21:49)
[2016-11-07] MEDS: Oxycodone/Acetaminophen 5/325 mg Tab PO PRN (23:50)
[2016-11-08 07:46] LABS: POTASSIUM 3.4 mmol/L (3.6-5.2)
[2016-11-08 07:48] LABS: BILIRUBIN,TOTAL 0.6 mg/dL (0.2-1.3); TOTAL PROTEIN 6.6 g/dL (6.3-8.3)
[2016-11-08 07:49] LABS: CALCIUM 8.6 mg/dl (8.6-10.4)
[2016-11-08] MEDS: (Novolog) Insulin Aspart, Recombinant 100 u/ml 10 ml vial SC SCH ×4 (08:16→21:28)
[2016-11-08] MEDS: GlipiZIDE 10 mg SR Tab PO SCH ×2 (09:09→17:05)
[2016-11-08] MEDS: Lidocaine 5% Patch TD SCH (09:22)
[2016-11-08] MEDS ORDERED: Potassium Chloride 20 mEq/15 ml LIQ UD PO ONE (14:12)
[2016-11-08 19:00] VITALS: O2SAT 100
[2016-11-08] MEDS: (Lantus) Insulin Glargine, Recombinant SC SCH (21:45)
--- NOTE | 2016-11-08 23:15 | CP.PCM.PN ---
Subjective - Date & Time of Evaluation Date of Evaluation: 11/08/16 Time of Evaluation: 21:15 - Subjective Subjective: Patient less SOB today, but still feels weak. Will d/c home or to subacute rehab [facility] after checking serum electrolytes. Objective - Vital Signs/Intake and Output Vital Signs (last 24 hours): Temp Pulse Resp BP Pulse Ox 98.3 F 58 L 20 150/80 100 11/08/16 16:00 11/08/16 21:48 11/08/16 16:00 11/08/16 17:05 11/08/16 16:00 Intake and Output: 11/08/16 11/09/16 18:59 06:59 Intake Total 240 Balance 240 - Medications Medications: Current Medications Allopurinol (Zyloprim) 100 mg PO DAILY [facility] Last Admin: 11/08/16 09:23 Dose: 100 mg Clopidogrel Bisulfate (Plavix) 75 mg PO DAILY [facility] Last Admin: 11/08/16 09:23 Dose: 75 mg Furosemide (Lasix) 40 mg IVP DAILY [facility] Last Admin: 11/08/16 09:22 Dose: 40 mg Glipizide (Glucotrol Xl) 10 mg PO BID [facility] Last Admin: 11/08/16 17:05 Dose: 10 mg Heparin Sodium (Porcine) (Heparin) 5,000 units SC Q12 [facility] Last Admin: 11/08/16 21:46 Dose: 5,000 units Insulin Aspart (Novolog) 0 unit SC ACHS [facility] PRN Reason: Protocol Last Admin: 11/08/16 21:28 Dose: Not Given Insulin Glargine (Lantus) 25 unit SC HS [facility] Last Admin: 11/08/16 21:45 Dose: 25 units Lidocaine (Lidoderm) 1 ea TD DAILY [facility] Last Admin: 11/08/16 09:22 Dose: 1 ea Metoprolol Tartrate (Lopressor) 25 mg PO BID [facility] Last Admin: 11/08/16 17:05 Dose: 25 mg Rosuvastatin Calcium (Crestor) 10 mg PO HS [facility] Last Admin: 11/08/16 21:46 Dose: 10 mg Sitagliptin Phosphate (Januvia) 25 mg PO DAILY [facility] Last Admin: 11/08/16 09:09 Dose: Not Given Spironolactone (Aldactone) 25 mg PO BID [facility] Last Admin: 11/08/16 17:06 Dose: 25 mg - Labs Labs: 11/08/16 07:16 PT 10.5 SECONDS (9.7-12.2) 11/05/16 20:44 INR 0.9 11/05/16 20:44 APTT 32 SECONDS (21-34) 11/05/16 20:44 - Constitutional Appears: No Acute Distress - Head Exam Head Exam: NORMAL INSPECTION - Eye Exam Eye Exam: Normal appearance - ENT Exam ENT Exam: Normal Exam - Neck Exam Neck Exam: Normal Inspection - Respiratory Exam Additional comments: Rales heard at both lung bases. - Cardiovascular Exam Cardiovascular Exam: REGULAR RHYTHM, Murmur - GI/Abdominal Exam GI & Abdominal Exam: Soft, Normal Bowel Sounds - Rectal Exam Rectal Exam: Deferred - Extremities Exam Extremities Exam: Normal Inspection - Back Exam Back Exam: NORMAL INSPECTION - Neurological Exam Neurological Exam: Alert, Awake, Oriented x3 - Psychiatric Exam Psychiatric exam: Anxious - Skin Skin Exam: Dry, Intact, Normal Color, Warm Assessment and Plan (1) Acute on chronic diastolic (congestive) heart failure Assessment & Plan: Much improved. To continue same meds. Status: Acute (2) Uncontrolled insulin dependent diabetes mellitus Assessment & Plan: To continue same meds. Status: Acute (3) Uncontrolled insulin dependent type 1 diabetes mellitus Status: Acute (4) Osteoarthritis of right knee Status: Acute
[2016-11-09 07:01] LABS: POTASSIUM 3.9 mmol/L (3.6-5.2)
[2016-11-09 07:03] LABS: BILIRUBIN,TOTAL 0.6 mg/dL (0.2-1.3); TOTAL PROTEIN 6.5 g/dL (6.3-8.3)
[2016-11-09 07:04] LABS: CALCIUM 8.8 mg/dl (8.6-10.4)
[2016-11-09 07:10] LABS: HEMATOCRIT 32.3 % (34.0-47.0); MEAN CELL VOLUME 88.8 fL (81.0-99.0); MEAN CORPUSCULAR HEMOGLOBIN 30.1 pg (27.0-31.0); MEAN CORPUSCULAR HGB CONC 33.8 g/dL (33.0-37.0); MEAN PLATELET VOLUME 8.5 fL (7.2-11.7); RED CELL DISTRIBUTION WIDTH 14.3 % (11.5-14.5); WHITE BLOOD COUNT 6.4 K/uL (4.8-10.8)
[2016-11-09] MEDS: (Novolog) Insulin Aspart, Recombinant 100 u/ml 10 ml vial SC SCH ×2 (07:48→13:03)
[2016-11-09] MEDS: Lidocaine 5% Patch TD SCH (09:40)
[2016-11-09] MEDS: GlipiZIDE 10 mg SR Tab PO SCH (09:41)
[2016-11-09 15:27] VITALS: BP 133/70; RESP 20; TEMP 98.9
[2016-11-09 16:30] VITALS: PULSE 60
--- NOTE | 2016-11-09 17:08 | CP.PCM.DIS ---
Provider - Provider Date of Admission: 11/05/16 22:14 Attending physician: Deep Clay MD Primary care physician: Deep Clay MD. Time Spent in preparation of Discharge (in minutes): 45 Diagnosis - Discharge Diagnosis (1) Acute on chronic diastolic (congestive) heart failure Status: Acute (2) Uncontrolled insulin dependent diabetes mellitus Status: Acute (3) Uncontrolled insulin dependent type 1 diabetes mellitus Status: Acute (4) Osteoarthritis of right knee Status: Acute Hospital Course - Lab Results Lab Results: Most Recent Lab Values WBC 6.4 K/uL (4.8-10.8) 11/09/16 06:37 RBC 3.63 Mil/uL (3.80-5.20) L 11/09/16 06:37 Hgb 10.9 g/dL (11.0-16.0) L 11/09/16 06:37 Hct 32.3 % (34.0-47.0) L 11/09/16 06:37 MCV 88.8 fL (81.0-99.0) 11/09/16 06:37 MCH 30.1 pg (27.0-31.0) 11/09/16 06:37 MCHC 33.8 g/dL (33.0-37.0) 11/09/16 06:37 RDW 14.3 % (11.5-14.5) 11/09/16 06:37 Plt Count 237 K/uL (130-400) 11/09/16 06:37 MPV 8.5 fL (7.2-11.7) 11/09/16 06:37 Neut % (Auto) 56.5 % (50.0-75.0) 11/05/16 20:44 Lymph % (Auto) 33.2 % (20.0-40.0) 11/05/16 20:44 [place] % (Auto) 7.5 % (0.0-10.0) 11/05/16 20:44 Eos % (Auto) 2.1 % (0.0-4.0) 11/05/16 20:44 Baso % (Auto) 0.7 % (0.0-2.0) 11/05/16 20:44 Neut # 4.7 K/uL (1.8-7.0) 11/05/16 20:44 Lymph # 2.7 K/uL (1.0-4.3) 11/05/16 20:44 [place] # 0.6 K/uL (0.0-0.8) 11/05/16 20:44 Eos # 0.2 K/uL (0.0-0.7) 11/05/16 20:44 Baso # 0.1 K/uL (0.0-0.2) 11/05/16 20:44 PT 10.5 SECONDS (9.7-12.2) 11/05/16 20:44 INR 0.9 11/05/16 20:44 APTT 32 SECONDS (21-34) 11/05/16 20:44 Sodium 139 mmol/L (132-148) 11/09/16 06:37 Potassium 3.9 mmol/L (3.6-5.2) 11/09/16 06:37 Chloride 104 mmol/L (98-107) 11/09/16 06:37 Carbon Dioxide 26 mmol/L (22-30) 11/09/16 06:37 Anion Gap 12 (10-20) 11/09/16 06:37 BUN 35 mg/dL (7-17) H 11/09/16 06:37 Creatinine 1.7 MG/DL (0.7-1.2) H 11/09/16 06:37 Est GFR ( Amer) 34 11/09/16 06:37 Est GFR (Non-Af Amer) 28 11/09/16 06:37 POC Glucose (mg/dL) 153 mg/dL (65-110) H 11/09/16 16:43 Random Glucose 76 mg/dL (65-105) 11/09/16 06:37 Calcium 8.8 mg/dl (8.6-10.4) 11/09/16 06:37 Magnesium 1.9 mg/dL (1.6-2.3) 11/06/16 06:24 Total Bilirubin 0.6 mg/dL (0.2-1.3) 11/09/16 06:37 AST 16 U/L (14-36) 11/09/16 06:37 ALT 18 U/L (9-52) 11/09/16 06:37 Alkaline Phosphatase 61 U/L (38-126) 11/09/16 06:37 Troponin I 0.0700 ng/mL (0.00-0.120) 11/06/16 06:24 NT-Pro-B Natriuret Pep 3620 pg/mL (0-900) H 11/05/16 20:44 Total Protein 6.5 g/dL (6.3-8.3) 11/09/16 06:37 Albumin 3.3 g/dL (3.5-5.0) L 11/09/16 06:37 Globulin 3.2 gm/dL (2.2-3.9) 11/09/16 06:37 Albumin/Globulin Ratio 1.0 (1.0-2.1) 11/09/16 06:37 - Hospital Course Hospital Course: 86 yo female hospitalized on 11/06/2016 for an acute CHF with a Pro-BNP of 3620 and a severe shortness of breath. She was put on BIPAP and given IV Lasix with gradual improvement of SOB. She was also started on Januvia 25 mg PO qd to control her DM, in addition to her Lantus nd Glipizide-XR. She was also given Spironolactone for her CHF. ECG revealed a pacemaker rhythm. All serum TNI's were normal. She was discharged home on 11-09-2016 in a stable condition. She will receive home PT. Discharge Exam - Head Exam Head Exam: NORMAL INSPECTION - Eye Exam Eye Exam: Normal appearance - ENT Exam ENT Exam: Normal Exam - Neck Exam Neck exam: Normal Inspection - Respiratory Exam Additional comments: Few rales at both bases. - Cardiovascular Exam Cardiovascular Exam: REGULAR RHYTHM, Systolic Murmur - GI/Abdominal Exam GI & Abdominal Exam: Normal Bowel Sounds, Soft - Rectal Exam Rectal Exam: Deferred - Extremities Exam Extremities exam: normal inspection - Back Exam Back exam: NORMAL INSPECTION - Neurological Exam Neurological exam: Alert, Oriented x3 - Psychiatric Exam Psychiatric exam: Anxious - Skin Skin Exam: Dry, Intact, Normal Color, Warm Discharge Plan - Discharge Medications Prescriptions: Spironolactone [Aldactone] 25 mg PO QAM #90 tablet oxyCODONE/Acetaminophen [Percocet 5/325 mg Tab] 1 ea PO Q6 #60 tab - Follow Up Plan Condition: STABLE Disposition: HOME/ ROUTINE Referrals: Giuliano Hansen MD [Staff Provider] - Clinical Quality Measures - CQM - Heart Failure Ejection Fraction: 40 % or Greater Left Ventricular Function to be assessed after discharge: No CORNELIUS Inhibitor Prescribed: No Contraindication/Reason for not providing: Chronic kidney disese. Beta-Louisa Prescribed: Metoprolol Succinate Angiotensin II Receptor Louisa Prescribed: No Contraindication/Reason for not providing: Chronic kidney disease. AnticoagulationTherapy for Atrial Fibrillation/Atrialflutter: No Contraindication/Reason for not providing: Not indicated. Aldosterone Antagonist Prescribed: Yes Hydralazine Nitrate Prescribed: No Contraindication/Reason for not providing: Hypotension Implantable Cardioverter Defibrillator Therapy: No Contraindication/Reason for not providing: LVEF more than 40% Cardiac Resynchronization Therapy Prescribed: No Contraindication/Reason for not providing: NOt indicated. Will be discharged to: Home Follow Up Date (must be within 7 days from discharge): 11/17/16 Follow Up Time: 15:00 - Date & Time of Discharge Summary Date of Discharge Summary: 11/09/16 Time of Discharge Summary: 17:21
--- NOTE | 2016-11-09 17:57 | PCM.HF ---
Heart Failure Core Measure - Heart Failure Ejection Fraction: 40 % or Greater CORNELIUS Inhibitor Prescribed: No Contraindication/Reason for not providing: ckd Beta-Louisa Prescribed: Metoprolol Succinate Angiotensin II Receptor Louisa Prescribed: No Contraindication/Reason for not providing: ckd AnticoagulationTherapy for Atrial Fibrillation/Atrialflutter: No Contraindication/Reason for not providing: no afib Aldosterone Antagonist Prescribed: No Contraindication/Reason for not providing: ckd Hydralazine Nitrate Prescribed: Yes Implantable Cardioverter Defibrillator Therapy: Yes Cardiac Resynchronization Therapy Prescribed: No Contraindication/Reason for not providing: has pacemaker - Follow up Will be discharged to: Home Follow Up Date (must be within 7 days from discharge): 11/11/16 Follow Up Time: 09:00
--- NOTE | 2016-11-11 21:20 | CARD ---
APPROVED REPORT EKG Measurement Heart [id number] <Conclusion> Atrial-paced rhythm with prolonged AV conduction Left bundle branch block Abnormal ECG
== END 2016-11-09 18:30 | disposition home or self-care (01) | DRG 291 ==
LOC: C.ER 20:29 → C.6T 22:14
PROVIDERS: ADMIT Internal Medicine Cardiovascular Disease; ATTEND Internal Medicine Cardiovascular Disease
DX: I13.0 Hypertensive heart and chronic kidney disease with heart failure and stage 1 through stage 4 chronic kidney disease, or unspecified chronic kidney disease (principal); I50.33 Acute on chronic diastolic (congestive) heart failure; E10.65 Type 1 diabetes mellitus with hyperglycemia; I50.9 Heart failure, unspecified; E78.00 Pure hypercholesterolemia, unspecified; M81.0 Age-related osteoporosis without current pathological fracture; M17.11 Unilateral primary osteoarthritis, right knee; Z95.0 Presence of cardiac pacemaker

== ENCOUNTER 2016-12-13 13:24 | Inpatient (IN) | payer MEDICARE, MEDICAID ==
[2016-12-13 13:25] VITALS: BMI 24.4
--- NOTE | 2016-12-13 13:46 | C.PDOC ---
History Of Present Illness 86 y/o female presents to ED with complaints of weakness and one episode of vomiting yesterday. Patient also reports poor po food intake and mild po fluid intake. Patient was seen [address] Clay and noted a BON of 77 and a creatinine of 2.8 which was reason to refer patient to come to ED for further evaluation. Patient denies fever, chills, diarrhea, loc or any other complaints at this time. Chief Complaint (Nursing): Weakness/Neurological Deficit History Per: Patient History/Exam Limitations: no limitations Onset/Duration Of Symptoms: Days Current Symptoms Are (Timing): Still Present Past Medical History Reviewed: Historical Data, Nursing Documentation, Vital Signs Vital Signs: Last Vital Signs Temp 97.8 F 12/13/16 17:01 Pulse 60 12/13/16 17:01 Resp 15 12/13/16 17:01 BP 104/66 12/13/16 17:01 Pulse Ox 100 12/13/16 17:11 - Medical History PMH: Anxiety, Arthritis, CHF, Diabetes, HTN, Hypercholesterolemia, Kidney Stones , Osteoporosis, Chronic Kidney Disease ((?)) Surgical History: Cholecystectomy, Pacemaker Family History: States: Unknown Family Hx - Social History Hx Tobacco Use: No Hx Alcohol Use: No Hx Substance Use: No - Immunization History Hx Tetanus Toxoid Vaccination: No (unknown) Hx Influenza Vaccination: Yes (unknown) Hx Pneumococcal Vaccination: No (unknown) Review Of Systems Except As Marked, All Systems Reviewed And Found Negative. Constitutional: Negative for: Fever, Chills Gastrointestinal: Positive for: Vomiting. Negative for: Nausea, Diarrhea Skin: Negative for: Rash Neurological: Positive for: Weakness. Negative for: Headache, Dizziness Physical Exam - Physical Exam Appears: Other (Lethargic) Skin: Normal Color, Warm Head: Atraumatic, Normacephalic Eye(s): bilateral: Normal Inspection, EOMI Oral Mucosa: Moist Chest: Symmetrical Cardiovascular: Rhythm Regular, No Murmur Respiratory: Normal Breath Sounds, No Rales, No Rhonchi, No Wheezing Gastrointestinal/Abdominal: Soft, No Tenderness, No Guarding, No Rebound Neurological/Psych: Oriented x3 ED Course And Treatment - Laboratory Results Result Diagrams: 12/13/16 14:29 12/13/16 14:29 Lab Interpretation: Abnormal (worstening renal insuff) ECG Rhythm: A Paced, L BBB ECG Interpretation: No Changes From Prior, Abnormal Rate From EC (bpm) O2 Sat by Pulse Oximetry: 100 (RA) Pulse Ox Interpretation: Normal - Radiology CXR: Interpreted by Me CXR Interpretation: Yes: No Acute Disease Reevaluation Time: 16:12 Reassessment Condition: Improved - Physician Consult Information Outcome Of Conversation: 1615: d/w Dr. Clay- PMD- ok to admit. Aurelio consulted Medical Decision Making Medical Decision Making: worstening renal insuff, poor PO intake, vomiting. Disposition Doctor Will See Patient In The: Hospital Counseled Patient/Family Regarding: Studies Performed, Diagnosis - Disposition Disposition: HOSPITALIZED Disposition Time: 16:13 Condition: GOOD - Clinical Impression Clinical Impression: Chronic kidney disease, KIERSTEN (acute kidney injury) - Scribe Statement The provider has reviewed the documentation as recorded by the Scribzuri Peter All medical record entries made by the Marryibzuri were at my direction and personally dictated by me. I have reviewed the chart and agree that the record accurately reflects my personal performance of the history, physical exam, medical decision making, and the department course for this patient. I have also personally directed, reviewed, and agree with the discharge instructions and disposition.
[2016-12-13 14:33] LABS: BASO % 0.5 % (0.0-2.0); EOS # 0.2 K/uL (0.0-0.7); EOS % 2.2 % (0.0-4.0); HEMOGLOBIN 12.2 g/dL (11.0-16.0); LYMPH # 1.9 K/uL (1.0-4.3); LYMPH % 25.9 % (20.0-40.0); MEAN CELL VOLUME 87.5 fL (81.0-99.0); MEAN CORPUSCULAR HEMOGLOBIN 30.2 pg (27.0-31.0); MEAN CORPUSCULAR HGB CONC 34.5 g/dL (33.0-37.0); MEAN PLATELET VOLUME 9.2 fL (7.2-11.7); MONO # 0.5 K/uL (0.0-0.8); MONO % 6.5 % (0.0-10.0); NEUT # 4.8 K/uL (1.8-7.0); NEUT % 64.9 % (50.0-75.0); NRBC % 0.2 % (0.0-2.0); RBC 4.04 Mil/uL (3.80-5.20); WHITE BLOOD COUNT 7.4 K/uL (4.8-10.8)
[2016-12-13] MEDS ORDERED: Sodium Chloride 0.9% 500 ML IV ONE ×2 (14:36→14:45)
[2016-12-13 15:03] LABS: ALB/GLOB RATIO 1.1 (1.0-2.1); ALBUMIN 4.2 g/dL (3.5-5.0); CALCIUM 9.4 mg/dl (8.6-10.4)
[2016-12-13 15:12] LABS: TROPONIN I 0.044 ng/mL (0.00-0.120)
[2016-12-13 15:12] LABS: SQUAMOUS EPITHIAL < 1 /hpf (0-5); URINE BACTERIA RARE (<OCC); URINE BILIRUBIN NEGATIVE (NEGATIVE); URINE BLOOD NEGATIVE (NEGATIVE); URINE CLARITY Clear (Clear); URINE COLOR Colorless (YELLOW); URINE GLUCOSE (UA) NORMAL (Normal); URINE LEUKOCYTE ESTERASE NEG Leu/uL (Negative); URINE NITRATE NEGATIVE (NEGATIVE); URINE PROTEIN NEGATIVE (NEGATIVE); URINE UROBILINOGEN NORMAL mg/dL (0.2-1.0)
--- NOTE | 2016-12-13 16:02 | RAD ---
HISTORY: Admission COMPARISON: 11/05/2016 FINDINGS: LUNGS: Mild venous congestion. Biapical pleural thickening. Right hilar prominence. PLEURA: No significant pleural effusion identified, no pneumothorax apparent. CARDIOVASCULAR: Calcification at the aortic knob. Left-sided pacemaker. OSSEOUS STRUCTURES: No significant abnormalities. VISUALIZED UPPER ABDOMEN: Normal. OTHER FINDINGS: None. IMPRESSION: Mild venous congestion. Biapical pleural thickening. Right hilar prominence.
[2016-12-13 18:51] VITALS: RESP 20
[2016-12-13] MEDS ORDERED: Acetaminophen-Codeine 300/30 mg Tab PO PRN (20:36)
[2016-12-13] MEDS ORDERED: Sodium Chloride 0.9% 1,000 ML IV SCH (20:45)
[2016-12-13] MEDS: Rosuvastatin Calcium 2.5 mg Tab PO SCH (22:02)
[2016-12-13] MEDS: (Novolog) Insulin Aspart, Recombinant 100 u/ml 10 ml vial SC SCH (22:03)
[2016-12-13] MEDS: (Lantus) Insulin Glargine, Recombinant SC SCH (22:07)
[2016-12-14] MEDS: (Novolog) Insulin Aspart, Recombinant 100 u/ml 10 ml vial SC SCH ×4 (07:34→21:35)
[2016-12-14 08:12] LABS: BASO % 0.5 % (0.0-2.0); EOS # 0.2 K/uL (0.0-0.7); EOS % 2.5 % (0.0-4.0); HEMOGLOBIN 12.5 g/dL (11.0-16.0); LYMPH # 1.8 K/uL (1.0-4.3); LYMPH % 22.1 % (20.0-40.0); MEAN CELL VOLUME 87.9 fL (81.0-99.0); MEAN CORPUSCULAR HEMOGLOBIN 30.2 pg (27.0-31.0); MEAN CORPUSCULAR HGB CONC 34.3 g/dL (33.0-37.0); MEAN PLATELET VOLUME 9.5 fL (7.2-11.7); MONO # 0.5 K/uL (0.0-0.8); MONO % 5.7 % (0.0-10.0); NEUT # 5.7 K/uL (1.8-7.0); NEUT % 69.2 % (50.0-75.0); RBC 4.13 Mil/uL (3.80-5.20); RED CELL DISTRIBUTION WIDTH 14.3 % (11.5-14.5); WHITE BLOOD COUNT 8.2 K/uL (4.8-10.8)
[2016-12-14 08:57] LABS: ALBUMIN 3.8 g/dL (3.5-5.0)
[2016-12-14 09:00] LABS: ALB/GLOB RATIO 1.1 (1.0-2.1)
[2016-12-14 09:01] LABS: CALCIUM 9.3 mg/dl (8.6-10.4)
[2016-12-14] MEDS: Lidocaine 5% Patch TD SCH (09:32)
[2016-12-14] MEDS: GlipiZIDE 10 mg SR Tab PO SCH ×2 (09:33→17:48)
--- NOTE | 2016-12-14 12:53 | CP.PCM.CON ---
History of Present Illness - History of Present Illness History of Present Illness: Pt is a 86 yo lady hx of cmp , echo 07/30 showed nl ef diastolic dysfunction, hx of ckd 4 baseline creatinine around 1.8 mg/dl, recent hospitalizations for chf. Presents to ED with complaints of weakness and one episode of vomiting yesterday. Patient also reports poor po food intake and mild po fluid intake. Patient was seen [address] Clay and noted a BON of 77 and a creatinine of 2.8 which was reason to refer patient to come to ED for further evaluation. Patient denies fever, chills, diarrhea, loc or any other complaints at this time. Received iv fluid bolus 500cc in ER. CKD CAD ICMP WITH RECURRENT CHF IDDM TYPE 1 HTN DL GOUT PSH: CATARACTS CHOLEYCYSTECTOMY PPM Review of Systems - Review of Systems All systems: reviewed and no additional remarkable complaints except (as per HPI ) Past Patient History - Infectious Disease Hx of Infectious Diseases: None - Tetanus Immunizations Tetanus Immunization: Unknown - Past Medical History & Family History Past Medical History?: Yes - Past Social History Smoking Status: Never Smoked - CARDIAC Hx Congestive Heart Failure: Yes Hx Hypercholesterolemia: Yes Hx Hypertension: Yes - PULMONARY Hx Emphysema: No - NEUROLOGICAL Hx Neurological Disorder: Yes Hx Dizziness: Yes - HEENT Hx HEENT Problems: Yes Hx Cataracts: Yes Hx Deafness: Yes (both ears) Hx Macular Degeneration: (not sure) - RENAL Hx Chronic Kidney Disease: Yes ((?)) Hx Kidney Stones: Yes - ENDOCRINE/METABOLIC Hx Diabetes Mellitus Type 2: Yes - HEMATOLOGICAL/ONCOLOGICAL Hx Blood Disorders: No - INTEGUMENTARY Hx Dermatological Problems: No - MUSCULOSKELETAL/RHEUMATOLOGICAL Hx Arthritis: Yes (OSTEOPOROSIS; R KNEE AND ANKLE PAIN) - GASTROINTESTINAL Hx Gastrointestinal Disorders: No - GENITOURINARY/GYNECOLOGICAL Hx Genitourinary Disorders: No - PSYCHIATRIC Hx Substance Use: No - SURGICAL HISTORY Hx Cholecystectomy: Yes - ANESTHESIA Hx Anesthesia: Yes Hx Anesthesia Reactions: No Hx Malignant Hyperthermia: No Meds Allergies/Adverse Reactions: Allergies Allergy/AdvReac Type Severity Reaction Status Date / Time No Known Allergies Allergy Verified 12/13/16 13:33 - Medications Medications: Current Medications Acetaminophen/Codeine Phosphate (Tylenol/Codeine 300 Mg/30 Mg) 1 ea PO Q4 PRN PRN Reason: Pain, moderate (4-7) Allopurinol (Zyloprim) 100 mg PO DAILY [facility] Last Admin: 12/14/16 09:34 Dose: 100 mg Clopidogrel Bisulfate (Plavix) 75 mg PO DAILY [facility] Last Admin: 12/14/16 09:36 Dose: 75 mg Docusate Sodium (Colace) 100 mg PO BID [facility] Last Admin: 12/14/16 09:33 Dose: 100 mg Glipizide (Glucotrol Xl) 10 mg PO BID [facility] Last Admin: 12/14/16 09:33 Dose: 10 mg Heparin Sodium (Porcine) (Heparin) 5,000 units SC Q8 [facility] Last Admin: 12/14/16 05:28 Dose: 5,000 units Sodium Chloride (Sodium Chloride 0.9%) 1,000 mls @ 20 mls/hr IV .Q24H [facility] Last Admin: 12/13/16 20:50 Dose: 20 mls/hr Insulin Aspart (Novolog) 0 unit SC ACHS [facility] PRN Reason: Protocol Last Admin: 12/14/16 12:42 Dose: 3 unit Insulin Glargine (Lantus) 20 unit SC HS [facility] Last Admin: 12/13/16 22:07 Dose: 20 units Lidocaine (Lidoderm) 1 ea TD DAILY [facility] Last Admin: 12/14/16 09:32 Dose: 1 ea Metoprolol Tartrate (Lopressor) 25 mg PO BID [facility] Last Admin: 12/14/16 09:33 Dose: 25 mg Ondansetron HCl (Zofran Inj) 4 mg IVP Q6 PRN PRN Reason: Nausea/Vomiting Last Admin: 12/13/16 22:09 Dose: 4 mg Rosuvastatin Calcium (Crestor) 2.5 mg PO HS [facility] Last Admin: 12/13/16 22:02 Dose: 2.5 mg Sitagliptin Phosphate (Januvia) 25 mg PO DAILY [facility] Last Admin: 12/14/16 09:35 Dose: 25 mg Physical Exam - Constitutional Appears: Non-toxic, No Acute Distress, Cachectic - Head Exam Head Exam: NORMAL INSPECTION - Eye Exam Eye Exam: Normal appearance - ENT Exam ENT Exam: Mucous Membranes Dry - Neck Exam Neck exam: Positive for: Normal Inspection - Respiratory Exam Respiratory Exam: Clear to Auscultation Bilateral, NORMAL BREATHING PATTERN - Cardiovascular Exam Cardiovascular Exam: REGULAR RHYTHM, RRR - GI/Abdominal Exam GI & Abdominal Exam: Normal Bowel Sounds, Soft - Extremities Exam Extremities exam: Positive for: normal inspection Results - Vital Signs Recent Vital Signs: Last Vital Signs Temp 97.6 F 12/14/16 08:00 Pulse 65 12/14/16 12:03 Resp 20 12/14/16 08:00 BP 119/74 12/14/16 09:33 Pulse Ox 98 12/14/16 12:03 - Labs Result Diagrams: 12/14/16 08:04 12/14/16 08:04 Labs: Laboratory Results - last 24 hr 12/13/16 12/13/16 12/14/16 18:00 21:32 02:02 WBC RBC Hgb Hct MCV MCH MCHC RDW Plt Count MPV Neut % (Auto) Lymph % (Auto) [facility] % (Auto) Eos % (Auto) Baso % (Auto) Neut # Lymph # [facility] # Eos # Baso # APTT Sodium Potassium Chloride Carbon Dioxide Anion Gap BUN Creatinine Est GFR ( Amer) Est GFR (Non-Af Amer) POC Glucose (mg/dL) 156 H 206 H 136 H Random Glucose Calcium Total Bilirubin AST ALT Alkaline Phosphatase Total Protein Albumin Globulin Albumin/Globulin Ratio 12/14/16 12/14/16 12/14/16 07:08 08:04 08:04 WBC 8.2 RBC 4.13 Hgb 12.5 Hct 36.3 MCV 87.9 MCH 30.2 MCHC 34.3 RDW 14.3 Plt Count 173 MPV 9.5 Neut % (Auto) 69.2 Lymph % (Auto) 22.1 [facility] % (Auto) 5.7 Eos % (Auto) 2.5 Baso % (Auto) 0.5 Neut # 5.7 Lymph # 1.8 [facility] # 0.5 Eos # 0.2 Baso # 0.0 APTT 49 H Sodium Potassium Chloride Carbon Dioxide Anion Gap BUN Creatinine Est GFR ( Amer) Est GFR (Non-Af Amer) POC Glucose (mg/dL) 89 Random Glucose Calcium Total Bilirubin AST ALT Alkaline Phosphatase Total Protein Albumin Globulin Albumin/Globulin Ratio 12/14/16 12/14/16 08:04 11:15 WBC RBC Hgb Hct MCV MCH MCHC RDW Plt Count MPV Neut % (Auto) Lymph % (Auto) [facility] % (Auto) Eos % (Auto) Baso % (Auto) Neut # Lymph # [facility] # Eos # Baso # APTT Sodium 139 Potassium 4.5 Chloride 103 Carbon Dioxide 21 L Anion Gap 20 BUN 81 H Creatinine 2.9 H Est GFR ( Amer) 19 Est GFR (Non-Af Amer) 15 POC Glucose (mg/dL) 288 H Random Glucose 87 Calcium 9.3 Total Bilirubin 0.8 AST 17 ALT 22 Alkaline Phosphatase 64 Total Protein 7.2 Albumin 3.8 Globulin 3.4 Albumin/Globulin Ratio 1.1 Assessment & Plan (1) KIERSTEN (acute kidney injury) Status: Acute (2) Chronic kidney disease Status: Chronic (3) Acute on chronic diastolic (congestive) heart failure Status: Acute (4) CKD (chronic kidney disease) stage 4, GFR 15-29 ml/min Status: Acute (5) DM type 2 (diabetes mellitus, type 2) Status: Acute - Assessment and Plan (Free Text) Assessment: # Kiersten - likely prerenal # ckd 4 # diastolic dysfunction # dm # htn plan: gentle iv fluids renal ultrasound check urine lytes ua hold all diuretics / acei /arb
--- NOTE | 2016-12-14 14:28 | CP.PCM.HP ---
History of Present Illness - History of Present Illness History of Present Illness: 86 years old Female brought by ambulance to the Ed at complaining of severe weakness, dizziness for 2 days. She was seen in my office 2-3 days ago complaining of SOB on minimal exertion and severe knee pain. She was prescribed Percocet. But the patient developed nausea and vomiting after taking Percocet. Her BUN:77 and creatinine: 2.8 on the day of the office visit. In the ED, her BUN: 91 and creatinine: 3.0. She admit to have poor appetite recently. She is known to have an IDDM, a HPTN, a CKD, an osteoarthritis of the knees, and lumbar spine, an ischemic cardiomyopathy, and a sick sinus syndrome with a permanent pacemaker. Her Pro-BNP is 1362. She denies any chest pain, and shortness at rest. Present on Admission - Present on Admission Any Indicators Present on Admission: No Review of Systems - Constitutional Constitutional: Anorexia, Fatigue, Weakness - Cardiovascular Cardiovascular: Dyspnea on Exertion - Respiratory Respiratory: Dyspnea - Gastrointestinal Gastrointestinal: Nausea, Vomiting - Musculoskeletal Musculoskeletal: Muscle Weakness - Neurological Neurological: Weakness - Psychiatric Psychiatric: Anxiety Past Patient History - Infectious Disease Hx of Infectious Diseases: None - Tetanus Immunizations Tetanus Immunization: Unknown - Past Medical History & Family History Past Medical History?: Yes - Past Social History Smoking Status: Never Smoked Alcohol: None Drugs: Denies Home Situation {Lives}: With Family Domestic Violence: Negative - CARDIAC Hx Congestive Heart Failure: Yes Hx Heart Murmur: Yes Hx Hypercholesterolemia: Yes Hx Hypertension: Yes Hx Pacemaker: Yes - PULMONARY Hx Emphysema: No - NEUROLOGICAL Hx Neurological Disorder: Yes Hx Dizziness: Yes - HEENT Hx HEENT Problems: Yes Hx Cataracts: Yes Hx Deafness: Yes (both ears) Hx Macular Degeneration: (not sure) - RENAL Hx Chronic Kidney Disease: Yes ((?)) Hx Kidney Stones: Yes - ENDOCRINE/METABOLIC Hx Diabetes Mellitus Type 2: Yes - HEMATOLOGICAL/ONCOLOGICAL Hx Blood Disorders: No - INTEGUMENTARY Hx Dermatological Problems: No - MUSCULOSKELETAL/RHEUMATOLOGICAL Hx Arthritis: Yes (OSTEOPOROSIS; R KNEE AND ANKLE PAIN) Hx Degenerative Joint Disease: Yes Hx Herniated Disk: Yes Hx Osteoarthritis: Yes Hx Unsteady Gait: Yes - GASTROINTESTINAL Hx Gastrointestinal Disorders: No - GENITOURINARY/GYNECOLOGICAL Hx Genitourinary Disorders: No - PSYCHIATRIC Hx Substance Use: No - SURGICAL HISTORY Hx Surgeries: Yes Hx Cholecystectomy: Yes - ANESTHESIA Hx Anesthesia: Yes Hx Anesthesia Reactions: No Hx Malignant Hyperthermia: No Has any member of the family had a problem w/ anesthesia?: No Meds Allergies/Adverse Reactions: Allergies Allergy/AdvReac Type Severity Reaction Status Date / Time No Known Allergies Allergy Verified 12/13/16 13:33 Physical Exam - Constitutional Appears: No Acute Distress, Chronically Ill - Head Exam Head Exam: NORMAL INSPECTION - Eye Exam Eye Exam: Normal appearance Pupil Exam: NORMAL ACCOMODATION - ENT Exam ENT Exam: Normal Exam - Neck Exam Neck exam: Positive for: Normal Inspection - Respiratory Exam Additional comments: Few crackles heard at both bases. - Cardiovascular Exam Cardiovascular Exam: REGULAR RHYTHM, Systolic Murmur - GI/Abdominal Exam GI & Abdominal Exam: Normal Bowel Sounds, Soft - Rectal Exam Rectal Exam: Deferred - Exam Exam: NORMAL INSPECTION - Extremities Exam Extremities exam: Positive for: normal inspection - Back Exam Back exam: NORMAL INSPECTION - Neurological Exam Neurological exam: Alert, CN II-XII Intact, Oriented x3, Reflexes Normal - Psychiatric Exam Psychiatric exam: Anxious - Skin Skin Exam: Dry, Intact, Normal Color, Warm Results - Vital Signs Recent Vital Signs: Last Vital Signs Temp 97.6 F 12/14/16 08:00 Pulse 65 12/14/16 12:03 Resp 20 12/14/16 08:00 BP 119/74 12/14/16 09:33 Pulse Ox 98 12/14/16 12:03 - Labs Result Diagrams: 12/14/16 08:04 12/14/16 08:04 Labs: Laboratory Results - last 24 hr 12/13/16 12/13/16 12/14/16 18:00 21:32 02:02 WBC RBC Hgb Hct MCV MCH MCHC RDW Plt Count MPV Neut % (Auto) Lymph % (Auto) [place] % (Auto) Eos % (Auto) Baso % (Auto) Neut # Lymph # [place] # Eos # Baso # APTT Sodium Potassium Chloride Carbon Dioxide Anion Gap BUN Creatinine Est GFR ( Amer) Est GFR (Non-Af Amer) POC Glucose (mg/dL) 156 H 206 H 136 H Random Glucose Calcium Total Bilirubin AST ALT Alkaline Phosphatase Total Protein Albumin Globulin Albumin/Globulin Ratio 12/14/16 12/14/16 12/14/16 07:08 08:04 08:04 WBC 8.2 RBC 4.13 Hgb 12.5 Hct 36.3 MCV 87.9 MCH 30.2 MCHC 34.3 RDW 14.3 Plt Count 173 MPV 9.5 Neut % (Auto) 69.2 Lymph % (Auto) 22.1 [place] % (Auto) 5.7 Eos % (Auto) 2.5 Baso % (Auto) 0.5 Neut # 5.7 Lymph # 1.8 [place] # 0.5 Eos # 0.2 Baso # 0.0 APTT 49 H Sodium Potassium Chloride Carbon Dioxide Anion Gap BUN Creatinine Est GFR ( Amer) Est GFR (Non-Af Amer) POC Glucose (mg/dL) 89 Random Glucose Calcium Total Bilirubin AST ALT Alkaline Phosphatase Total Protein Albumin Globulin Albumin/Globulin Ratio 12/14/16 12/14/16 08:04 11:15 WBC RBC Hgb Hct MCV MCH MCHC RDW Plt Count MPV Neut % (Auto) Lymph % (Auto) [place] % (Auto) Eos % (Auto) Baso % (Auto) Neut # Lymph # [place] # Eos # Baso # APTT Sodium 139 Potassium 4.5 Chloride 103 Carbon Dioxide 21 L Anion Gap 20 BUN 81 H Creatinine 2.9 H Est GFR ( Amer) 19 Est GFR (Non-Af Amer) 15 POC Glucose (mg/dL) 288 H Random Glucose 87 Calcium 9.3 Total Bilirubin 0.8 AST 17 ALT 22 Alkaline Phosphatase 64 Total Protein 7.2 Albumin 3.8 Globulin 3.4 Albumin/Globulin Ratio 1.1 Assessment & Plan (1) KIERSTEN (acute kidney injury) Assessment and Plan: Probably from hypovolemia. Will start IV hydration cautiously with NS, hold diuretics, and follow up with serial BMP. Status: Acute (2) Chronic kidney disease Status: Chronic (3) Chronic congestive heart failure Assessment and Plan: To continue bata blockers and Losartan. Status: Acute (4) Diabetes mellitus type 1 with complications Assessment and Plan: To continue Lantus, Novolg coverage according to Accucheck resultsCheri. Status: Acute Decision To Admit - Pt Status Changed To: Hospital Disposition Of: Inpatient - Admit Certification Admit to Inpatient:: After my assessment, the patient will require hospitalization for at least two midnights. This is because of the severity of symptoms shown, intensity of services needed, and/or the medical risk in this patient being treated as an outpatient. - InPatient: Physician Admission Certification:: After my assessments, the patient requires hospitalization for at least 2 midnights. - . Bed Request Type: Regular Admitting Physician: Deep Clay
--- NOTE | 2016-12-14 14:34 | US ---
PROCEDURE: Ultrasound of the Kidneys HISTORY: Acute kidney injury COMPARISON: None available. TECHNIQUE: Grayscale imaging was performed. FINDINGS: RIGHT KIDNEY: Measures: 9.2 cm. Normal in size and contour with diffuse increased echogenicity. No stone, solid mass lesion or hydronephrosis visualized. LEFT KIDNEY: Measures: 9.1 cm. Normal in size and contour with diffuse increased echogenicity. No stone, solid mass lesion or hydronephrosis visualized. OTHER FINDINGS: The urinary bladder is not well-distended. IMPRESSION: Medical renal disease.
--- NOTE | 2016-12-14 15:24 | CP.PCM.PN ---
Subjective - Date & Time of Evaluation Date of Evaluation: 12/14/16 Time of Evaluation: 15:20 - Subjective Subjective: Patient feels better with no SOB, less dizziness, less weakness. Objective - Vital Signs/Intake and Output Vital Signs (last 24 hours): Temp Pulse Resp BP Pulse Ox 97.6 F 65 20 119/74 98 12/14/16 08:00 12/14/16 12:03 12/14/16 08:00 12/14/16 09:33 12/14/16 12:03 Intake and Output: 12/14/16 12/14/16 06:59 18:59 Intake Total 680 Balance 680 - Medications Medications: Current Medications Acetaminophen/Codeine Phosphate (Tylenol/Codeine 300 Mg/30 Mg) 1 ea PO Q4 PRN PRN Reason: Pain, moderate (4-7) Allopurinol (Zyloprim) 100 mg PO DAILY [facility] Last Admin: 12/14/16 09:34 Dose: 100 mg Clopidogrel Bisulfate (Plavix) 75 mg PO DAILY [facility] Last Admin: 12/14/16 09:36 Dose: 75 mg Docusate Sodium (Colace) 100 mg PO BID [facility] Last Admin: 12/14/16 09:33 Dose: 100 mg Glipizide (Glucotrol Xl) 10 mg PO BID [facility] Last Admin: 12/14/16 09:33 Dose: 10 mg Heparin Sodium (Porcine) (Heparin) 5,000 units SC Q8 [facility] Last Admin: 12/14/16 14:25 Dose: 5,000 units Sodium Chloride (Sodium Chloride 0.9%) 1,000 mls @ 20 mls/hr IV .Q24H [facility] Last Admin: 12/13/16 20:50 Dose: 20 mls/hr Insulin Aspart (Novolog) 0 unit SC ACHS [facility] PRN Reason: Protocol Last Admin: 12/14/16 12:42 Dose: 3 unit Insulin Glargine (Lantus) 20 unit SC HS [facility] Last Admin: 12/13/16 22:07 Dose: 20 units Lidocaine (Lidoderm) 1 ea TD DAILY [facility] Last Admin: 12/14/16 09:32 Dose: 1 ea Metoprolol Tartrate (Lopressor) 25 mg PO BID [facility] Last Admin: 12/14/16 09:33 Dose: 25 mg Ondansetron HCl (Zofran Inj) 4 mg IVP Q6 PRN PRN Reason: Nausea/Vomiting Last Admin: 12/13/16 22:09 Dose: 4 mg Rosuvastatin Calcium (Crestor) 2.5 mg PO HS [facility] Last Admin: 12/13/16 22:02 Dose: 2.5 mg Sitagliptin Phosphate (Januvia) 25 mg PO DAILY [facility] Last Admin: 12/14/16 09:35 Dose: 25 mg - Labs Labs: 12/14/16 08:04 12/14/16 08:04 APTT 49 SECONDS (21-34) H 12/14/16 08:04 - Constitutional Appears: No Acute Distress, Chronically Ill - Head Exam Head Exam: NORMAL INSPECTION - Eye Exam Eye Exam: Normal appearance Pupil Exam: NORMAL ACCOMODATION - ENT Exam ENT Exam: Normal Exam - Neck Exam Neck Exam: Normal Inspection - Respiratory Exam Respiratory Exam: Clear to Ausculation Bilateral, NORMAL BREATHING PATTERN - Cardiovascular Exam Cardiovascular Exam: REGULAR RHYTHM, Murmur - GI/Abdominal Exam GI & Abdominal Exam: Soft, Normal Bowel Sounds - Rectal Exam Rectal Exam: Deferred - Extremities Exam Extremities Exam: Normal Inspection - Back Exam Back Exam: NORMAL INSPECTION - Neurological Exam Neurological Exam: Alert, Awake, Oriented x3 - Psychiatric Exam Psychiatric exam: Normal Affect - Skin Skin Exam: Dry, Intact, Normal Color, Warm Assessment and Plan (1) KIERSTEN (acute kidney injury) Status: Acute (2) Chronic kidney disease Status: Chronic (3) Chronic congestive heart failure Status: Acute (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
[2016-12-14] MEDS: Sodium Chloride 0.9% 1,000 ML IV SCH (17:00)
--- NOTE | 2016-12-14 19:00 | CARD ---
APPROVED REPORT EKG Measurement Heart [id number] <Conclusion> Atrial-paced rhythm with prolonged AV conduction Left bundle branch block Abnormal ECG
[2016-12-14] MEDS: Rosuvastatin Calcium 2.5 mg Tab PO SCH (21:34)
[2016-12-14] MEDS: (Lantus) Insulin Glargine, Recombinant SC SCH (21:35)
[2016-12-15] MEDS: Sodium Chloride 0.9% 1,000 ML IV SCH ×2 (04:00→12:50)
[2016-12-15] MEDS: (Novolog) Insulin Aspart, Recombinant 100 u/ml 10 ml vial SC SCH ×2 (08:08→12:49)
[2016-12-15 09:28] VITALS: PULSE 62; TEMP 98.1; O2SAT 100
[2016-12-15] MEDS: GlipiZIDE 10 mg SR Tab PO SCH (09:38)
[2016-12-15] MEDS: Lidocaine 5% Patch TD SCH ×2 (09:38→09:42)
[2016-12-15 09:42] VITALS: BP 120/70
[2016-12-15 14:08] LABS: ALBUMIN 3.4 g/dL (3.5-5.0)
[2016-12-15 14:11] LABS: ALB/GLOB RATIO 1.1 (1.0-2.1)
[2016-12-15 14:12] LABS: CALCIUM 8.4 mg/dl (8.6-10.4)
--- NOTE | 2016-12-15 14:52 | CP.PCM.PN ---
Subjective - Date & Time of Evaluation Date of Evaluation: 12/15/16 Time of Evaluation: 14:50 - Subjective Subjective: no distress no acute events on ivf labs pending Objective - Vital Signs/Intake and Output Vital Signs (last 24 hours): Temp Pulse Resp BP Pulse Ox 98.1 F 62 20 120/70 100 12/15/16 08:00 12/15/16 08:00 12/15/16 08:00 12/15/16 09:37 12/15/16 08:00 Intake and Output: 12/15/16 12/15/16 06:59 18:59 Intake Total 1220 Balance 1220 - Medications Medications: Current Medications Acetaminophen/Codeine Phosphate (Tylenol/Codeine 300 Mg/30 Mg) 1 ea PO Q4 PRN PRN Reason: Pain, moderate (4-7) Allopurinol (Zyloprim) 100 mg PO DAILY [facility] Last Admin: 12/15/16 09:37 Dose: 100 mg Clopidogrel Bisulfate (Plavix) 75 mg PO DAILY [facility] Last Admin: 12/15/16 09:38 Dose: 75 mg Docusate Sodium (Colace) 100 mg PO BID [facility] Last Admin: 12/15/16 09:38 Dose: 100 mg Furosemide (Lasix) 40 mg PO DAILY [facility] Glipizide (Glucotrol Xl) 10 mg PO BID [facility] Last Admin: 12/15/16 09:38 Dose: 10 mg Heparin Sodium (Porcine) (Heparin) 5,000 units SC Q8 [facility] Last Admin: 12/15/16 13:28 Dose: 5,000 units Insulin Aspart (Novolog) 0 unit SC ACHS [facility] PRN Reason: Protocol Last Admin: 12/15/16 12:49 Dose: Not Given Insulin Glargine (Lantus) 20 unit SC HS [facility] Last Admin: 12/14/16 21:35 Dose: 20 units Lidocaine (Lidoderm) 1 ea TD DAILY [facility] Last Admin: 12/15/16 09:42 Dose: 1 ea Metoprolol Tartrate (Lopressor) 25 mg PO BID [facility] Last Admin: 12/15/16 09:37 Dose: 25 mg Ondansetron HCl (Zofran Inj) 4 mg IVP Q6 PRN PRN Reason: Nausea/Vomiting Last Admin: 12/13/16 22:09 Dose: 4 mg Rosuvastatin Calcium (Crestor) 2.5 mg PO HS [facility] Last Admin: 12/14/16 21:34 Dose: 2.5 mg Sitagliptin Phosphate (Januvia) 25 mg PO DAILY [facility] Last Admin: 12/15/16 09:38 Dose: 25 mg - Labs Labs: 12/14/16 08:04 12/15/16 13:46 APTT 49 SECONDS (21-34) H 12/14/16 08:04 - Constitutional Appears: No Acute Distress, Chronically Ill - Head Exam Head Exam: ATRAUMATIC - Eye Exam Eye Exam: EOMI - ENT Exam ENT Exam: Mucous Membranes Moist - Neck Exam Neck Exam: Full ROM. absent: Lymphadenopathy - Respiratory Exam Respiratory Exam: NORMAL BREATHING PATTERN. absent: Accessory Muscle Use - Cardiovascular Exam Cardiovascular Exam: REGULAR RHYTHM. absent: Rubs - GI/Abdominal Exam GI & Abdominal Exam: Soft. absent: Distended, Tenderness - Neurological Exam Neurological Exam: Alert Assessment and Plan - Assessment and Plan (Free Text) Assessment: jaime on ckd hx of chf, diastolic dysfunction suspected volume depletion as cause of jaime, off jackson/arb at present, on ivf at 50 cc/hr, to continue
--- NOTE | 2016-12-15 17:54 | PCM.HF ---
Heart Failure Core Measure - Heart Failure Ejection Fraction: 40 % or Greater CORNELIUS Inhibitor Prescribed: No Contraindication/Reason for not providing: ARB Beta-Louisa Prescribed: Metoprolol Succinate Angiotensin II Receptor Louisa Prescribed: Yes AnticoagulationTherapy for Atrial Fibrillation/Atrialflutter: No Contraindication/Reason for not providing: NO AFIB Aldosterone Antagonist Prescribed: No Hydralazine Nitrate Prescribed: No Contraindication/Reason for not providing: CKD Implantable Cardioverter Defibrillator Therapy: Yes Cardiac Resynchronization Therapy Prescribed: No Contraindication/Reason for not providing: HAS PACEMAKER - Follow up Will be discharged to: Home Follow Up Date (must be within 7 days from discharge): 12/16/16 Follow Up Time: 09:00
--- NOTE | 2016-12-15 19:39 | CP.PCM.DIS ---
Provider - Provider Date of Admission: 12/13/16 16:10 Attending physician: Deep Clay MD Primary care physician: Deep Clay MD. Consults: Dr Ellsworth. 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 Hospital Course - Lab Results Lab Results: Most Recent Lab Values WBC 8.2 K/uL (4.8-10.8) 12/14/16 08:04 RBC 4.13 Mil/uL (3.80-5.20) 12/14/16 08:04 Hgb 12.5 g/dL (11.0-16.0) 12/14/16 08:04 Hct 36.3 % (34.0-47.0) 12/14/16 08:04 MCV 87.9 fL (81.0-99.0) 12/14/16 08:04 MCH 30.2 pg (27.0-31.0) 12/14/16 08:04 MCHC 34.3 g/dL (33.0-37.0) 12/14/16 08:04 RDW 14.3 % (11.5-14.5) 12/14/16 08:04 Plt Count 173 K/uL (130-400) 12/14/16 08:04 MPV 9.5 fL (7.2-11.7) 12/14/16 08:04 Neut % (Auto) 69.2 % (50.0-75.0) 12/14/16 08:04 Lymph % (Auto) 22.1 % (20.0-40.0) 12/14/16 08:04 [place] % (Auto) 5.7 % (0.0-10.0) 12/14/16 08:04 Eos % (Auto) 2.5 % (0.0-4.0) 12/14/16 08:04 Baso % (Auto) 0.5 % (0.0-2.0) 12/14/16 08:04 Neut # 5.7 K/uL (1.8-7.0) 12/14/16 08:04 Lymph # 1.8 K/uL (1.0-4.3) 12/14/16 08:04 [place] # 0.5 K/uL (0.0-0.8) 12/14/16 08:04 Eos # 0.2 K/uL (0.0-0.7) 12/14/16 08:04 Baso # 0.0 K/uL (0.0-0.2) 12/14/16 08:04 APTT 49 SECONDS (21-34) H 12/14/16 08:04 Sodium 139 mmol/L (132-148) 12/15/16 13:46 Potassium 5.0 mmol/L (3.6-5.2) 12/15/16 13:46 Chloride 106 mmol/L (98-107) 12/15/16 13:46 Carbon Dioxide 20 mmol/L (22-30) L 12/15/16 13:46 Anion Gap 18 (10-20) 12/15/16 13:46 BUN 52 mg/dL (7-17) H 12/15/16 13:46 Creatinine 1.8 MG/DL (0.7-1.2) H 12/15/16 13:46 Est GFR ( Amer) 32 12/15/16 13:46 Est GFR (Non-Af Amer) 27 12/15/16 13:46 POC Glucose (mg/dL) 188 mg/dL (65-110) H 12/15/16 12:17 Random Glucose 172 mg/dL (65-105) H 12/15/16 13:46 Calcium 8.4 mg/dl (8.6-10.4) L 12/15/16 13:46 Total Bilirubin 0.5 mg/dL (0.2-1.3) 12/15/16 13:46 AST 16 U/L (14-36) 12/15/16 13:46 ALT 21 U/L (9-52) 12/15/16 13:46 Alkaline Phosphatase 55 U/L (38-126) 12/15/16 13:46 Troponin I 0.0440 ng/mL (0.00-0.120) 12/13/16 14:29 NT-Pro-B Natriuret Pep 1820 pg/mL (0-900) H 12/13/16 14:29 Total Protein 6.5 g/dL (6.3-8.3) 12/15/16 13:46 Albumin 3.4 g/dL (3.5-5.0) L 12/15/16 13:46 Globulin 3.1 gm/dL (2.2-3.9) 12/15/16 13:46 Albumin/Globulin Ratio 1.1 (1.0-2.1) 12/15/16 13:46 Lipase 413 U/L (23-300) H 12/13/16 14:29 Urine Color Colorless (YELLOW) 12/13/16 15:00 Urine Clarity Clear (Clear) 12/13/16 15:00 Urine pH 6.0 (5.0-8.0) 12/13/16 15:00 Ur Specific [employer] 1.005 (1.003-1.030) 12/13/16 15:00 Urine Protein Negative mg/dL (NEGATIVE) 12/13/16 15:00 Urine Glucose (UA) Normal mg/dL (Normal) 12/13/16 15:00 Urine Ketones Negative mg/dL (NEGATIVE) 12/13/16 15:00 Urine Blood Negative (NEGATIVE) 12/13/16 15:00 Urine Nitrate Negative (NEGATIVE) 12/13/16 15:00 Urine Bilirubin Negative (NEGATIVE) 12/13/16 15:00 Urine Urobilinogen Normal mg/dL (0.2-1.0) 12/13/16 15:00 Ur Leukocyte Esterase Neg [place]/uL (Negative) 12/13/16 15:00 Urine WBC (Auto) < 1 /hpf (0-5) 12/13/16 15:00 Urine RBC (Auto) < 1 /hpf (0-3) 12/13/16 15:00 Ur Squamous Epith Cells < 1 /hpf (0-5) 12/13/16 15:00 Urine Bacteria Rare (<OCC) 12/13/16 15:00 - Hospital Course Hospital Course: This is an 86 yo female who was brought by ambulance to the ED at [facility] complaining of severe weakness and dizziness, nausea, and poor appetite. She was found to have a BUN 88 and a creatinine 3.0. She denies any chest pain, but was taking Percocet at home to relieve pain in her knees. She was seen by Dr Arambula who diagnosed her to have hypovolemia. A careful IV and PO rehydration was ordered. The patient felt better. On 12/15/2016 her BUN 57 and creatinine: 1.8. CXray revealed no acute disease and ECG was unchanged. An US of the urinary bladder showed renal disease, without any obstruction. She was stable to be discharged home on 12/15/2016. She will continue same home medications and will see have a F/U with me in a week to recheck her cardiac and renal status. - Date & Time of H&P Date of H&P: 12/14/16 Discharge Exam - Head Exam Head Exam: ATRAUMATIC, NORMAL INSPECTION - Eye Exam Eye Exam: Normal appearance - ENT Exam ENT Exam: Normal Exam - Neck Exam Neck exam: Normal Inspection - Respiratory Exam Respiratory Exam: Clear to PA & Lateral, UNREMARKABLE - Cardiovascular Exam Cardiovascular Exam: REGULAR RHYTHM, Systolic Murmur - GI/Abdominal Exam GI & Abdominal Exam: Normal Bowel Sounds, Soft - Rectal Exam Rectal Exam: Deferred - Extremities Exam Extremities exam: normal inspection - Back Exam Back exam: NORMAL INSPECTION - Neurological Exam Neurological exam: Alert, Oriented x3 - Psychiatric Exam Psychiatric exam: Anxious - Skin Skin Exam: Dry, Intact, Normal Color, Warm Discharge Plan - Follow Up Plan Condition: GOOD Disposition: HOME/ ROUTINE Instructions: Dehydration (DC), Acute Kidney Injury (DC) Referrals: Deep Clay MD [Staff Provider] - Clinical Quality Measures - CQM - Heart Failure Ejection Fraction: 40 % or Greater CORNELIUS Inhibitor Prescribed: No Contraindication/Reason for not providing: Patient is already on Losartan Beta-Louisa Prescribed: Bisoprolol Angiotensin II Receptor Louisa Prescribed: Yes AnticoagulationTherapy for Atrial Fibrillation/Atrialflutter: No Contraindication/Reason for not providing: Not indicated Aldosterone Antagonist Prescribed: Yes Hydralazine Nitrate Prescribed: No Contraindication/Reason for not providing: Low blood pressure Implantable Cardioverter Defibrillator Therapy: No Contraindication/Reason for not providing: Not indicated Cardiac Resynchronization Therapy Prescribed: No Contraindication/Reason for not providing: Not indicated. Will be discharged to: Home Follow Up Date (must be within 7 days from discharge): 12/22/16 Follow Up Time: 09:15 - Date & Time of Discharge Summary Date of Discharge Summary: 12/15/16 Time of Discharge Summary: 19:47
== END 2016-12-15 15:30 | disposition home or self-care (01) | DRG 682 ==
LOC: C.ER 13:24 → C.9E 16:10 → C.3T 17:21
PROVIDERS: ADMIT Internal Medicine Cardiovascular Disease; ATTEND Internal Medicine Cardiovascular Disease
DX: N17.9 Acute kidney failure, unspecified (principal); I50.33 Acute on chronic diastolic (congestive) heart failure; E10.22 Type 1 diabetes mellitus with diabetic chronic kidney disease; E86.1 Hypovolemia; I13.0 Hypertensive heart and chronic kidney disease with heart failure and stage 1 through stage 4 chronic kidney disease, or unspecified chronic kidney disease; N18.4 Chronic kidney disease, stage 4 (severe); I25.10 Atherosclerotic heart disease of native coronary artery without angina pectoris; M10.9 Gout, unspecified; E78.5 Hyperlipidemia, unspecified; I25.5 Ischemic cardiomyopathy; Z79.4 Long term (current) use of insulin; M25.562 Pain in left knee; M25.561 Pain in right knee

== ENCOUNTER 2017-03-05 17:27 | Inpatient (IN) | payer MEDICARE, MEDICAID ==
[2017-03-05 17:27] VITALS: BMI 24.4
--- NOTE | 2017-03-05 18:06 | C.PDOC ---
History Of Present Illness 86 year old female is brought to ED for evaluation of generalized weakness and fatigue today. As per family, patient's blood pressure was low, around 100/60, which improved after family gave her something to eat and drink. However, pt continued to feel weak, which prompted family to bring pt to ED for further evaluation. Pt denies any chest pain, shortness of breath, n/v/d, abdominal pain , urinary symptoms, or headache. Denies having similar symptoms in the past. Time Seen by Provider: 03/05/17 17:43 Chief Complaint (Nursing): Weakness/Neurological Deficit History Per: Patient History/Exam Limitations: no limitations Onset/Duration Of Symptoms: Hrs Current Symptoms Are (Timing): Still Present Recent travel outside of the [place]: No Additional History Per: Patient Past Medical History Reviewed: Historical Data, Nursing Documentation, Vital Signs Vital Signs: Last Vital Signs Temp 98.0 F 03/05/17 17:35 Pulse 67 03/05/17 17:35 Resp 17 03/05/17 17:35 BP 132/61 03/05/17 17:35 Pulse Ox 100 03/05/17 18:08 - Medical History PMH: Anxiety, Arthritis (OSTEOPOROSIS; R KNEE AND ANKLE PAIN), CHF, Diabetes, HTN, Hypercholesterolemia, Kidney Stones, Osteoporosis, Chronic Kidney Disease Denies: Emphysema Surgical History: Cholecystectomy, Pacemaker Family History: States: Unknown Family Hx - Social History Hx Tobacco Use: No Hx Alcohol Use: No Hx Substance Use: No - Immunization History Hx Tetanus Toxoid Vaccination: No (unknown) Hx Influenza Vaccination: No (unknown) Hx Pneumococcal Vaccination: No (unknown) Review Of Systems Except As Marked, All Systems Reviewed And Found Negative. Constitutional: Positive for: Weakness, Other (fatigue). Negative for: Fever, Chills Cardiovascular: Negative for: Chest Pain, Palpitations Respiratory: Negative for: Cough, Shortness of Breath Gastrointestinal: Negative for: Nausea, Vomiting, Abdominal Pain, Diarrhea, Constipation Genitourinary: Negative for: Dysuria, Frequency, Incontinence, Hematuria Musculoskeletal: Negative for: Neck Pain, Back Pain Neurological: Negative for: Weakness, Numbness, Headache, Dizziness Physical Exam - Physical Exam Appears: Non-toxic, No Acute Distress Skin: Normal Color, Warm, Dry Head: Atraumatic, Normacephalic Eye(s): bilateral: Normal Inspection Nose: Normal Oral Mucosa: Moist Neck: Normal ROM, Supple Chest: Symmetrical Cardiovascular: Rhythm Regular, No Murmur Respiratory: Normal Breath Sounds, No Rales, No Rhonchi, No Wheezing Gastrointestinal/Abdominal: Normal Exam, Soft, No Tenderness Back: No CVA Tenderness Extremity: Normal ROM, No Pedal Edema, No Deformity Neurological/Psych: Oriented x3, Normal Speech, Normal Cognition ED Course And Treatment - Laboratory Results Result Diagrams: 03/05/17 18:44 03/05/17 18:44 Lab Interpretation: Abnormal (Mild anemia Hgb 10.6, BUN 107, Cr 2.8) ECG: Interpreted By Me ECG Rhythm: Sinus Rhythm, 1st Degree HB, L BBB, Nonspecific Changes O2 Sat by Pulse Oximetry: 100 (RA) Pulse Ox Interpretation: Normal - Radiology CXR: Interpreted by Me CXR Interpretation: Yes: No Acute Disease, Cardiomegaly Progress Note: Blood work, UA, EKG, CXR ordered and reviewed. Reevaluation Time: 19:31 Reassessment Condition: Unchanged - Physician Consult Information Time Consulting Physician Contacted: 19:31 Physician Contacted: Deep Clay Outcome Of Conversation: Patient to be admitted for correction of uremia. Disposition - Disposition Disposition: HOSPITALIZED Disposition Time: 19:31 Condition: FAIR - POA Present On Arrival: Poor Glycemic Control - Clinical Impression Clinical Impression: Acute renal insufficiency, Uremia - Scribe Statement The provider has reviewed the documentation as recorded by the [place] All medical record entries made by the [place] were at my direction and personally dictated by me. I have reviewed the chart and agree that the record accurately reflects my personal performance of the history, physical exam, medical decision making, and the department course for this patient. I have also personally directed, reviewed, and agree with the discharge instructions and disposition.
[2017-03-05 18:47] LABS: BASO % 0.5 % (0.0-2.0); EOS # 0.2 K/uL (0.0-0.7); EOS % 2.6 % (0.0-4.0); HEMATOCRIT 30.7 % (34.0-47.0); LYMPH # 1.8 K/uL (1.0-4.3); LYMPH % 22.2 % (20.0-40.0); MEAN CELL VOLUME 94.2 fL (81.0-99.0); MEAN CORPUSCULAR HEMOGLOBIN 32.7 pg (27.0-31.0); MEAN CORPUSCULAR HGB CONC 34.7 g/dL (33.0-37.0); MEAN PLATELET VOLUME 9.4 fL (7.2-11.7); MONO # 0.7 K/uL (0.0-0.8); MONO % 8.4 % (0.0-10.0); NRBC % 0.1 % (0.0-2.0); RED CELL DISTRIBUTION WIDTH 16.8 % (11.5-14.5); WHITE BLOOD COUNT 8.1 K/uL (4.8-10.8)
[2017-03-05 18:58] LABS: BILIRUBIN,TOTAL 0.5 mg/dL (0.2-1.3)
[2017-03-05 18:59] LABS: ALB/GLOB RATIO 1.2 (1.0-2.1); CALCIUM 8.5 mg/dl (8.6-10.4); TOTAL PROTEIN 7.2 g/dL (6.3-8.3)
[2017-03-05 19:11] LABS: TROPONIN I 0.053 ng/mL (0.00-0.120)
[2017-03-05 19:42] LABS: RBC URINE 9 /hpf (0-3); URINE BILIRUBIN NEGATIVE (NEGATIVE); URINE BLOOD NEGATIVE (NEGATIVE); URINE COLOR Straw (YELLOW); URINE GLUCOSE (UA) 1+ mg/dL (Normal); URINE KETONE NEGATIVE (NEGATIVE); URINE LEUKOCYTE ESTERASE 2+ Leu/uL (Negative); URINE PROTEIN NEGATIVE (NEGATIVE); URINE UROBILINOGEN NORMAL mg/dL (0.2-1.0); WBC URINE 5 /hpf (0-5)
[2017-03-05] MEDS: Sodium Chloride 0.9% 1,000 ML IV SCH (21:30)
[2017-03-05] MEDS: (Novolog) Insulin Aspart, Recombinant 100 u/ml 10 ml vial SC SCH (22:53)
[2017-03-05] MEDS: Oxycodone/Acetaminophen 5/325 mg Tab PO PRN (23:46)
[2017-03-06] MEDS ORDERED: Pneumococcal 23-Valent Vaccine IM ONE (01:22)
[2017-03-06] MEDS: (Novolog) Insulin Aspart, Recombinant 100 u/ml 10 ml vial SC SCH ×4 (07:25→21:51)
[2017-03-06 07:56] LABS: POTASSIUM 4.5 mmol/L (3.6-5.2)
[2017-03-06 07:59] LABS: ALB/GLOB RATIO 1.5 (1.0-2.1); BILIRUBIN,TOTAL 0.6 mg/dL (0.2-1.3); TOTAL PROTEIN 5.7 g/dL (6.3-8.3)
[2017-03-06 08:00] LABS: CALCIUM 8.7 mg/dl (8.6-10.4)
--- NOTE | 2017-03-06 12:44 | RAD ---
PROCEDURE: CHEST RADIOGRAPH, 1 VIEW HISTORY: SOB COMPARISON: None available. FINDINGS: LUNGS: Minimal bibasilar atelectasis PLEURA: No pneumothorax or pleural fluid seen. CARDIOVASCULAR: No change bipolar pacemaker Cardiomegaly. OSSEOUS STRUCTURES: NoMild degenerative osteoarthritis both shoulder girdles. VISUALIZED UPPER ABDOMEN: Normal. OTHER FINDINGS: None. IMPRESSION: Minimal bibasilar atelectasis cardiomegaly.
--- NOTE | 2017-03-06 14:46 | CP.PCM.HP ---
History of Present Illness - History of Present Illness History of Present Illness: 86 yo female brought to the ED at [facility] complaining of a severe weakness and dizziness yesterday. She was found to havea BUN:107 creatinine: 2.8 glucose : 247 and Hgb: 106. She is known to have an ischemic cardiomyopathy , a hypertension, a s/p permanent pacemaker, an osteoarthritis of the knees, an IDDM, a CKD, she was recently hospitalized for an acute systolic CHF and sent home on Lasix and spironolactone. She denies any chest pain, shortness of breath , palpitation. Present on Admission - Present on Admission Any Indicators Present on Admission: No Review of Systems - Constitutional Constitutional: Weakness - Neurological Neurological: Dizziness Past Patient History - Infectious Disease Hx of Infectious Diseases: None - Tetanus Immunizations Tetanus Immunization: Unknown - Past Medical History & Family History Past Medical History?: Yes - Past Social History Smoking Status: Never Smoked Chewing Tobacco Use: No Cigar Use: No Alcohol: None Drugs: Denies Home Situation {Lives}: With Family - CARDIAC Hx Cardiac Disorders: Yes Hx Congestive Heart Failure: Yes Hx Hypercholesterolemia: Yes Hx Hypertension: Yes Hx Pacemaker: Yes - PULMONARY Hx Respiratory Disorders: Yes Hx Emphysema: No Hx Pneumonia: Yes - NEUROLOGICAL Hx Neurological Disorder: Yes Hx Dizziness: Yes - HEENT Hx HEENT Problems: Yes Hx Cataracts: Yes Hx Deafness: Yes (both ears) Other/Comment: hard of hearing - RENAL Hx Chronic Kidney Disease: Yes Hx Kidney Stones: Yes - ENDOCRINE/METABOLIC Hx Endocrine Disorders: Yes Hx Diabetes Mellitus Type 2: Yes - HEMATOLOGICAL/ONCOLOGICAL Hx Blood Disorders: No - INTEGUMENTARY Hx Dermatological Problems: No - MUSCULOSKELETAL/RHEUMATOLOGICAL Hx Musculoskeletal Disorders: Yes Hx Arthritis: Yes (OSTEOPOROSIS; R KNEE AND ANKLE PAIN) Hx Falls: No Hx Osteoporosis: Yes - GASTROINTESTINAL Hx Gastrointestinal Disorders: No - GENITOURINARY/GYNECOLOGICAL Hx Genitourinary Disorders: No - PSYCHIATRIC Hx Psychophysiologic Disorder: Yes Hx Anxiety: Yes Hx Substance Use: No - SURGICAL HISTORY Hx Surgeries: Yes Hx Cholecystectomy: Yes Other/Comment: Permanent pacemaker. - ANESTHESIA Hx Anesthesia: Yes Hx Anesthesia Reactions: No Hx Malignant Hyperthermia: No Meds Allergies/Adverse Reactions: Allergies Allergy/AdvReac Type Severity Reaction Status Date / Time No Known Allergies Allergy Verified 03/05/17 17:38 Physical Exam - Constitutional Appears: No Acute Distress, Chronically Ill - Head Exam Head Exam: NORMAL INSPECTION - Eye Exam Eye Exam: Normal appearance - ENT Exam ENT Exam: Normal Exam - Neck Exam Neck exam: Positive for: Normal Inspection - Respiratory Exam Respiratory Exam: Clear to Auscultation Bilateral, NORMAL BREATHING PATTERN - Cardiovascular Exam Cardiovascular Exam: REGULAR RHYTHM, Systolic Murmur - GI/Abdominal Exam GI & Abdominal Exam: Normal Bowel Sounds, Soft - Rectal Exam Rectal Exam: Deferred - Exam Exam: NORMAL INSPECTION - Extremities Exam Extremities exam: Positive for: normal inspection - Neurological Exam Neurological exam: Alert, CN II-XII Intact, Oriented x3 - Psychiatric Exam Psychiatric exam: Anxious - Skin Skin Exam: Dry, Intact, Normal Color, Warm Results - Vital Signs Recent Vital Signs: Last Vital Signs Temp 97.5 F L 03/06/17 07:20 Pulse 60 03/06/17 07:20 Resp 20 03/06/17 07:20 BP 130/64 03/06/17 09:39 Pulse Ox 100 03/06/17 07:20 - Labs Result Diagrams: 03/05/17 18:44 03/06/17 07:12 Labs: Laboratory Results - last 24 hr 03/05/17 03/05/17 03/05/17 18:44 18:44 19:21 WBC 8.1 RBC 3.25 L Hgb 10.6 L Hct 30.7 L MCV 94.2 D MCH 32.7 H MCHC 34.7 RDW 16.8 H Plt Count 187 MPV 9.4 Neut % (Auto) 66.3 Lymph % (Auto) 22.2 Sanders % (Auto) 8.4 Eos % (Auto) 2.6 Baso % (Auto) 0.5 Neut # 5.4 Lymph # 1.8 Sanders # 0.7 Eos # 0.2 Baso # 0.0 Sodium 134 Potassium 5.0 Chloride 102 Carbon Dioxide 17 L Anion Gap 20 BUN 107 H* D Creatinine 2.8 H Est GFR ( Amer) 19 Est GFR (Non-Af Amer) 16 POC Glucose (mg/dL) Random Glucose 249 H Calcium 8.5 L Total Bilirubin 0.5 AST 13 L ALT 28 Alkaline Phosphatase 76 Troponin I 0.0530 Total Protein 7.2 Albumin 4.0 Globulin 3.3 Albumin/Globulin Ratio 1.2 Urine Color Straw Urine Clarity Clear Urine pH 6.0 Ur Specific [place] 1.010 Urine Protein Negative Urine Glucose (UA) 1+ Urine Ketones Negative Urine Blood Negative Urine Nitrate Negative Urine Bilirubin Negative Urine Urobilinogen Normal Ur Leukocyte Esterase 2+ H Urine WBC (Auto) 5 Urine RBC (Auto) 9 H Ur Squamous Epith Cells 1 Ur Random Sodium 03/05/17 03/06/17 03/06/17 22:43 06:25 07:12 WBC RBC Hgb Hct MCV MCH MCHC RDW Plt Count MPV Neut % (Auto) Lymph % (Auto) Sanders % (Auto) Eos % (Auto) Baso % (Auto) Neut # Lymph # Sanders # Eos # Baso # Sodium 138 Potassium 4.5 Chloride 110 H Carbon Dioxide 19 L Anion Gap 14 BUN 90 H Creatinine 2.5 H Est GFR ( Amer) 22 Est GFR (Non-Af Amer) 18 POC Glucose (mg/dL) 169 H 145 H Random Glucose 120 H Calcium 8.7 Total Bilirubin 0.6 AST 16 ALT 26 Alkaline Phosphatase 67 Troponin I Total Protein 5.7 L Albumin 3.5 Globulin 2.2 Albumin/Globulin Ratio 1.5 Urine Color Urine Clarity Urine pH Ur Specific [place] Urine Protein Urine Glucose (UA) Urine Ketones Urine Blood Urine Nitrate Urine Bilirubin Urine Urobilinogen Ur Leukocyte Esterase Urine WBC (Auto) Urine RBC (Auto) Ur Squamous Epith Cells Ur Random Sodium 03/06/17 03/06/17 08:46 11:33 WBC RBC Hgb Hct MCV MCH MCHC RDW Plt Count MPV Neut % (Auto) Lymph % (Auto) Sanders % (Auto) Eos % (Auto) Baso % (Auto) Neut # Lymph # Sanders # Eos # Baso # Sodium Potassium Chloride Carbon Dioxide Anion Gap BUN Creatinine Est GFR ( Amer) Est GFR (Non-Af Amer) POC Glucose (mg/dL) 245 H Random Glucose Calcium Total Bilirubin AST ALT Alkaline Phosphatase Troponin I Total Protein Albumin Globulin Albumin/Globulin Ratio Urine Color Urine Clarity Urine pH Ur Specific [place] Urine Protein Urine Glucose (UA) Urine Ketones Urine Blood Urine Nitrate Urine Bilirubin Urine Urobilinogen Ur Leukocyte Esterase Urine WBC (Auto) Urine RBC (Auto) Ur Squamous Epith Cells Ur Random Sodium 78 Assessment & Plan (1) Acute renal insufficiency Assessment and Plan: Seconadry to hypovolemia. To hold all diuretics, Losartan. Start IVF with NS. Status: Acute (2) Insulin dependent diabetes mellitus Status: Chronic (3) Ischemic cardiomyopathy Status: Chronic Comment: To continue Nitrates and Metoprolol, plavix Decision To Admit - Pt Status Changed To: Hospital Disposition Of: Inpatient - Admit Certification Admit to Inpatient:: After my assessment, the patient will require hospitalization for at least two midnights. This is because of the severity of symptoms shown, intensity of services needed, and/or the medical risk in this patient being treated as an outpatient. - InPatient: Physician Admission Certification:: After my assessments, the patient requires hospitalizaton for at least 2 midnights. - . Bed Request Type: Telemetry Admitting Physician: Deep Clay
[2017-03-06] MEDS: Sodium Chloride 0.9% 1,000 ML IV SCH (16:19)
[2017-03-07] MEDS: (Novolog) Insulin Aspart, Recombinant 100 u/ml 10 ml vial SC SCH ×4 (07:18→22:00)
[2017-03-07 07:31] LABS: BASO % 0.5 % (0.0-2.0); EOS # 0.2 K/uL (0.0-0.7); EOS % 3.4 % (0.0-4.0); HEMATOCRIT 26.6 % (34.0-47.0); LYMPH # 1.4 K/uL (1.0-4.3); LYMPH % 21.5 % (20.0-40.0); MEAN CELL VOLUME 94.8 fL (81.0-99.0); MEAN CORPUSCULAR HEMOGLOBIN 32.5 pg (27.0-31.0); MEAN CORPUSCULAR HGB CONC 34.3 g/dL (33.0-37.0); MEAN PLATELET VOLUME 9.6 fL (7.2-11.7); MONO # 0.5 K/uL (0.0-0.8); MONO % 7.4 % (0.0-10.0); RED CELL DISTRIBUTION WIDTH 16.7 % (11.5-14.5); WHITE BLOOD COUNT 6.7 K/uL (4.8-10.8)
[2017-03-07] MEDS: Sodium Chloride 0.9% 1,000 ML IV SCH ×2 (07:40→09:43)
[2017-03-07 08:05] LABS: POTASSIUM 4.5 mmol/L (3.6-5.2)
[2017-03-07 08:07] LABS: ALB/GLOB RATIO 1.6 (1.0-2.1); BILIRUBIN,TOTAL 0.7 mg/dL (0.2-1.3); TOTAL PROTEIN 5.7 g/dL (6.3-8.3)
[2017-03-07 08:08] LABS: CALCIUM 8.6 mg/dl (8.6-10.4)
[2017-03-07] MEDS ORDERED: Influenza Vaccine 60 mcg/0.5 mL SYR (4YR UP) IM ONE ×2 (10:00→11:30)
[2017-03-07] MEDS ORDERED: Pneumococcal 23-Valent Vaccine IM ONE ×2 (10:00→11:30)
--- NOTE | 2017-03-07 12:51 | CARD ---
APPROVED REPORT EKG Measurement Heart [id number] <Conclusion> Sinus rhythm with 1st degree AV block Left bundle branch block Abnormal ECG
--- NOTE | 2017-03-07 14:21 | CP.PCM.PN ---
Subjective - Date & Time of Evaluation Date of Evaluation: 03/07/17 Time of Evaluation: 14:18 - Subjective Subjective: Patient feels slightly better. Walks with assistance from her family. Denies SOB, dizziness, chest pain. Renal status improving with IV hydration. Appetite is fair. Objective - Vital Signs/Intake and Output Vital Signs (last 24 hours): Temp Pulse Resp BP Pulse Ox 98.0 F 62 20 141/60 98 03/07/17 08:54 03/07/17 08:54 03/06/17 23:13 03/07/17 09:45 03/07/17 08:54 - Medications Medications: Current Medications Clopidogrel Bisulfate (Plavix) 75 mg PO DAILY [facility] Last Admin: 03/07/17 09:45 Dose: 75 mg Docusate Sodium (Colace) 100 mg PO BID PRN PRN Reason: Constipation Last Admin: 03/06/17 09:37 Dose: 100 mg Heparin Sodium (Porcine) (Heparin) 5,000 units SC Q8 [facility] Last Admin: 03/07/17 13:18 Dose: 5,000 units Sodium Chloride (Sodium Chloride 0.9%) 1,000 mls @ 60 mls/hr IV .[id number] [facility] Last Admin: 03/07/17 09:43 Dose: 60 mls/hr Insulin Aspart (Novolog) 0 unit SC ACHS [facility] PRN Reason: Protocol Last Admin: 03/07/17 12:23 Dose: 1 unit Metoprolol Tartrate (Lopressor) 25 mg PO BID [facility] Last Admin: 03/07/17 09:45 Dose: 25 mg Nitroglycerin (Nitrostat Sl Tab) 0.4 mg SL Q5MIN PRN PRN Reason: CHEST PAIN Oxycodone/Acetaminophen (Percocet 5/325 Mg Tab) 1 tab PO Q6 PRN PRN Reason: Pain, moderate (4-7) Stop: 03/08/17 21:37 Last Admin: 03/05/17 23:46 Dose: 1 tab Rosuvastatin Calcium (Crestor) 5 mg PO HS [facility] Last Admin: 03/06/17 21:25 Dose: 5 mg Sitagliptin Phosphate (Januvia) 25 mg PO DAILY [facility] Last Admin: 03/07/17 09:45 Dose: 25 mg - Labs Labs: 03/07/17 07:16 10/23/17 07:16 - Constitutional Appears: No Acute Distress, Chronically Ill - Head Exam Head Exam: NORMAL INSPECTION - Eye Exam Eye Exam: Normal appearance - ENT Exam ENT Exam: Normal Exam - Neck Exam Neck Exam: Normal Inspection - Respiratory Exam Respiratory Exam: Clear to Ausculation Bilateral, NORMAL BREATHING PATTERN - Cardiovascular Exam Cardiovascular Exam: REGULAR RHYTHM, Murmur - GI/Abdominal Exam GI & Abdominal Exam: Soft, Normal Bowel Sounds - Rectal Exam Rectal Exam: Deferred - Extremities Exam Extremities Exam: Normal Inspection - Back Exam Back Exam: NORMAL INSPECTION - Neurological Exam Neurological Exam: Alert, Awake, Oriented x3 - Psychiatric Exam Psychiatric exam: Anxious - Skin Skin Exam: Dry, Intact, Normal Color, Warm Assessment and Plan (1) Acute renal insufficiency Assessment & Plan: Probably from hypovolemia. To continue to hold diuretics and Losartan. To continue IV hydration. BUN: 60 creatinine: 2.0. Repeat serum electrolytes in AM. Status: Acute (2) Insulin dependent diabetes mellitus Status: Chronic (3) Ischemic cardiomyopathy Assessment & Plan: Stable. Status: Chronic
[2017-03-07] MEDS: Oxycodone/Acetaminophen 5/325 mg Tab PO PRN (19:28)
[2017-03-08] MEDS: Sodium Chloride 0.9% 1,000 ML IV SCH (05:55)
[2017-03-08 06:19] LABS: BASO % 0.6 % (0.0-2.0); EOS # 0.2 K/uL (0.0-0.7); EOS % 3.1 % (0.0-4.0); HEMATOCRIT 25.9 % (34.0-47.0); LYMPH # 1.7 K/uL (1.0-4.3); LYMPH % 26.5 % (20.0-40.0); MEAN CELL VOLUME 97.8 fL (81.0-99.0); MEAN CORPUSCULAR HEMOGLOBIN 32.5 pg (27.0-31.0); MEAN CORPUSCULAR HGB CONC 33.2 g/dL (33.0-37.0); MEAN PLATELET VOLUME 9.3 fL (7.2-11.7); MONO # 0.5 K/uL (0.0-0.8); MONO % 8.1 % (0.0-10.0); NRBC % 0.2 % (0.0-2.0); RED CELL DISTRIBUTION WIDTH 16.7 % (11.5-14.5); WHITE BLOOD COUNT 6.3 K/uL (4.8-10.8)
[2017-03-08 06:40] LABS: POTASSIUM 4.9 mmol/L (3.6-5.2)
[2017-03-08 06:42] LABS: ALB/GLOB RATIO 0.9 (1.0-2.1); BILIRUBIN,TOTAL 0.4 mg/dL (0.2-1.3); TOTAL PROTEIN 6.4 g/dL (6.3-8.3)
[2017-03-08 06:43] LABS: CALCIUM 8.5 mg/dl (8.6-10.4)
[2017-03-08] MEDS: (Novolog) Insulin Aspart, Recombinant 100 u/ml 10 ml vial SC SCH ×3 (08:18→17:00)
[2017-03-08 16:50] VITALS: PULSE 65; RESP 18; TEMP 97.6; O2SAT 100
[2017-03-08 18:11] VITALS: BP 160/100
--- NOTE | 2017-03-09 00:03 | CP.PCM.PN ---
Subjective - Date & Time of Evaluation Date of Evaluation: 03/08/17 Time of Evaluation: 19:00 - Subjective Subjective: Patient felt better, with better appetite, and no SOB. BUN: 49 creatinine: 1.9. Walks with assistance. Wants to go home.. Will discharge home today. Start PO diuretics in AM. Scheduled to see the patient in 4 days for blood tests. Objective - Vital Signs/Intake and Output Vital Signs (last 24 hours): Temp Pulse Resp BP Pulse Ox 97.6 F 65 18 160/100 H 100 03/08/17 15:25 03/08/17 15:25 03/08/17 15:25 03/08/17 18:10 03/08/17 15:25 - Labs Labs: 03/08/17 06:08 03/08/17 06:08 - Constitutional Appears: No Acute Distress, Chronically Ill - Eye Exam Eye Exam: Normal appearance - ENT Exam ENT Exam: Normal Exam - Neck Exam Neck Exam: Normal Inspection - Respiratory Exam Respiratory Exam: NORMAL BREATHING PATTERN - Cardiovascular Exam Cardiovascular Exam: REGULAR RHYTHM, Murmur - GI/Abdominal Exam GI & Abdominal Exam: Soft, Normal Bowel Sounds - Rectal Exam Rectal Exam: Deferred - Extremities Exam Extremities Exam: Normal Inspection - Back Exam Back Exam: NORMAL INSPECTION - Neurological Exam Neurological Exam: Alert, Awake, Oriented x3 - Psychiatric Exam Psychiatric exam: Anxious - Skin Skin Exam: Dry, Intact, Normal Color, Warm Assessment and Plan (1) Acute renal insufficiency Assessment & Plan: Improving with IV hydration and discontinuation of diuretics. Status: Acute (2) Insulin dependent diabetes mellitus Status: Chronic (3) Ischemic cardiomyopathy Assessment & Plan: Stable. Status: Chronic
--- NOTE | 2017-03-09 11:47 | CP.PCM.DIS ---
Provider - Provider Date of Admission: 03/05/17 19:32 Attending physician: Deep Clay MD Primary care physician: Deep Clay M.D. Time Spent in preparation of Discharge (in minutes): 30 Diagnosis - Discharge Diagnosis (1) Acute renal insufficiency Status: Acute (2) Insulin dependent diabetes mellitus Status: Chronic (3) Ischemic cardiomyopathy Status: Chronic Hospital Course - Lab Results Lab Results: Most Recent Lab Values WBC 6.3 K/uL (4.8-10.8) 03/08/17 06:08 RBC 2.65 Mil/uL (3.80-5.20) L 03/08/17 06:08 Hgb 8.6 g/dL (11.0-16.0) L 03/08/17 06:08 Hct 25.9 % (34.0-47.0) L 03/08/17 06:08 MCV 97.8 fL (81.0-99.0) D 03/08/17 06:08 MCH 32.5 pg (27.0-31.0) H 03/08/17 06:08 MCHC 33.2 g/dL (33.0-37.0) 03/08/17 06:08 RDW 16.7 % (11.5-14.5) H 03/08/17 06:08 Plt Count 144 K/uL (130-400) 03/08/17 06:08 MPV 9.3 fL (7.2-11.7) 03/08/17 06:08 Neut % (Auto) 61.7 % (50.0-75.0) 03/08/17 06:08 Lymph % (Auto) 26.5 % (20.0-40.0) 03/08/17 06:08 Craig % (Auto) 8.1 % (0.0-10.0) 03/08/17 06:08 Eos % (Auto) 3.1 % (0.0-4.0) 03/08/17 06:08 Baso % (Auto) 0.6 % (0.0-2.0) 03/08/17 06:08 Neut # 3.9 K/uL (1.8-7.0) 03/08/17 06:08 Lymph # 1.7 K/uL (1.0-4.3) 03/08/17 06:08 Craig # 0.5 K/uL (0.0-0.8) 03/08/17 06:08 Eos # 0.2 K/uL (0.0-0.7) 03/08/17 06:08 Baso # 0.0 K/uL (0.0-0.2) 03/08/17 06:08 Sodium 140 mmol/L (132-148) 03/08/17 06:08 Potassium 4.9 mmol/L (3.6-5.2) 03/08/17 06:08 Chloride 114 mmol/L (98-107) H 03/08/17 06:08 Carbon Dioxide 18 mmol/L (22-30) L 03/08/17 06:08 Anion Gap 13 (10-20) 03/08/17 06:08 BUN 49 mg/dL (7-17) H 03/08/17 06:08 Creatinine 1.9 mg/dL (0.7-1.2) H 03/08/17 06:08 Est GFR ( Amer) 30 03/08/17 06:08 Est GFR (Non-Af Amer) 25 03/08/17 06:08 POC Glucose (mg/dL) 194 mg/dL (65-110) H 03/08/17 17:04 Random Glucose 144 mg/dL (65-105) H 03/08/17 06:08 Calcium 8.5 mg/dl (8.6-10.4) L 03/08/17 06:08 Total Bilirubin 0.4 mg/dL (0.2-1.3) 03/08/17 06:08 AST 16 U/L (14-36) 03/08/17 06:08 ALT 27 U/L (9-52) 03/08/17 06:08 Alkaline Phosphatase 55 U/L (38-126) 03/08/17 06:08 Troponin I 0.0530 ng/mL (0.00-0.120) 03/05/17 18:44 Total Protein 6.4 g/dL (6.3-8.3) 03/08/17 06:08 Albumin 3.1 g/dL (3.5-5.0) L 03/08/17 06:08 Globulin 3.3 gm/dL (2.2-3.9) 03/08/17 06:08 Albumin/Globulin Ratio 0.9 (1.0-2.1) L 03/08/17 06:08 Urine Color Straw (YELLOW) 03/05/17 19:21 Urine Clarity Clear (Clear) 03/05/17 19:21 Urine pH 6.0 (5.0-8.0) 03/05/17 19:21 Ur Specific [place] 1.010 (1.003-1.030) 03/05/17 19:21 Urine Protein Negative mg/dL (NEGATIVE) 03/05/17 19:21 Urine Glucose (UA) 1+ mg/dL (Normal) 03/05/17 19:21 Urine Ketones Negative mg/dL (NEGATIVE) 03/05/17 19:21 Urine Blood Negative (NEGATIVE) 03/05/17 19: Urine Nitrate Negative (NEGATIVE) 03/05/17 19:21 Urine Bilirubin Negative (NEGATIVE) 03/05/17 19:21 Urine Urobilinogen Normal mg/dL (0.2-1.0) 03/05/17 19:21 Ur Leukocyte Esterase 2+ [place]/uL (Negative) H 03/05/17 19:21 Urine WBC (Auto) 5 /hpf (0-5) 03/05/17 19:21 Urine RBC (Auto) 9 /hpf (0-3) H 03/05/17 19:21 Ur Squamous Epith Cells 1 /hpf (0-5) 03/05/17 19:21 Ur Random Sodium 78 mmol/L 03/06/17 08:46 Stool Occult Blood Negative (NEGATIVE) 03/07/17 13:08 - Hospital Course Hospital Course: 86 years old female was brought to the ED at [facility] complaining of severe weakness, and dizziness. She denies any shortness of breath, any chest pain, any palpitation. She was found to be hypotensive with a BUN: 107 and a creatinine : 2.7. She was given IV and PO fluid in the ED with improvement of her symptoms and BP. She is known to have an ischemic cardiomyopathy, a hypertension, an insulin dependent diabetes mellitus, a chronic kidney disease, a permanent pacemaker, she was taking Furosemide 40 mg PO BID, and Spironolactone 25 mg PO qd, Losartan and Lantus. The diuretics were held, and the patient was started on NS IV at 60 ml/hr. CXR did not reveal any acute infiltrate. ECG reveals an RSR with a complete LBBB. She improved rapidly, her BP was normalized. Her BUN went down to 49 and creatinine 1.9. She was discharged home on 03/08/2017 in a stable condition. She was advised to resume her home medications. Lasix was reduced to 40 mg PO qd and Spirolnolactone to 25 mg POd. She is scheduled to see me at my office on 03/11/2017 for follow up blood tests. - Date & Time of H&P Date of H&P: 03/06/17 Discharge Exam - Head Exam Head Exam: NORMAL INSPECTION - Eye Exam Eye Exam: Normal appearance - ENT Exam ENT Exam: Normal Exam - Neck Exam Neck exam: Normal Inspection - Respiratory Exam Respiratory Exam: Clear to PA & Lateral, NORMAL BREATHING PATTERN - Cardiovascular Exam Cardiovascular Exam: REGULAR RHYTHM, Systolic Murmur - GI/Abdominal Exam GI & Abdominal Exam: Normal Bowel Sounds, Unremarkable - Rectal Exam Rectal Exam: Deferred - Exam Exam: NORMAL INSPECTION - Extremities Exam Extremities exam: normal inspection - Back Exam Back exam: NORMAL INSPECTION - Neurological Exam Neurological exam: Alert, CN II-XII Intact, Oriented x3 - Psychiatric Exam Psychiatric exam: Anxious - Skin Skin Exam: Dry, Intact, Normal Color, Warm Discharge Plan - Discharge Medications Prescriptions: Furosemide 40 mg PO DAILY 90 Days #90 tablet - Follow Up Plan Condition: FAIR Disposition: HOME/ ROUTINE Instructions: Furosemide (By mouth), Heart Failure (DC), Acute Kidney Injury ( DC), Chronic Kidney Disease (DC), Heart Healthy Diet (DC) Additional Instructions: Continue same home medications, including Furosemide 40 mg PO qd, and Spironolactone 25 mg Po qd. Follow up with Dr Clay on Tuesday03/11/2017. Referrals: Deep Clay MD [Staff Provider] -
== END 2017-03-08 19:37 | disposition home health service (06) | DRG 699 ==
LOC: C.ER 17:27 → C.9E 19:32 → C.3T 19:48 → C.9E 20:16 → C.6T 21:50
PROVIDERS: ADMIT Internal Medicine Cardiovascular Disease; ATTEND Internal Medicine Cardiovascular Disease
DX: N28.9 Disorder of kidney and ureter, unspecified (principal); E86.1 Hypovolemia; I13.0 Hypertensive heart and chronic kidney disease with heart failure and stage 1 through stage 4 chronic kidney disease, or unspecified chronic kidney disease; E11.22 Type 2 diabetes mellitus with diabetic chronic kidney disease; I50.22 Chronic systolic (congestive) heart failure; I44.7 Left bundle-branch block, unspecified; N18.9 Chronic kidney disease, unspecified; I25.5 Ischemic cardiomyopathy; E78.00 Pure hypercholesterolemia, unspecified; M17.0 Bilateral primary osteoarthritis of knee; M81.0 Age-related osteoporosis without current pathological fracture; H91.90 Unspecified hearing loss, unspecified ear; Z79.4 Long term (current) use of insulin; Z79.899 Other long term (current) drug therapy; Z87.01 Personal history of pneumonia (recurrent); Z87.442 Personal history of urinary calculi; Z90.49 Acquired absence of other specified parts of digestive tract; Z95.0 Presence of cardiac pacemaker

== ENCOUNTER 2017-06-11 12:36 | Inpatient (IN) | payer MEDICARE, MEDICAID ==
[2017-06-11 12:36] VITALS: BMI 24.4
[2017-06-11] MEDS ORDERED: Morphine 4 MG/ML VIAL ONE (14:06)
[2017-06-11 14:14] LABS: ALB/GLOB RATIO 1.2 (1.0-2.1); ALBUMIN 3.9 g/dL (3.5-5.0); CALCIUM 9.1 mg/dl (8.6-10.4)
--- NOTE | 2017-06-11 14:26 | RAD ---
Chest x-ray single frontal view History: Shortness of breath. Comparison: 03/05/2017 Findings: Right hilar prominence. Mild venous congestion. Tortuous ectatic aorta. Calcification at the aortic knob. Mild cardiomegaly. Left-sided pacemaker. Degenerative changes in the spine and shoulders. Impression: Right hilar prominence. Mild venous congestion. Tortuous ectatic aorta. Calcification at the aortic knob. Mild cardiomegaly. Left-sided pacemaker. Degenerative changes in the spine and shoulders.
[2017-06-11 14:27] LABS: BASO % 0.4 % (0.0-2.0); EOS # 0.3 K/uL (0.0-0.7); EOS % 2.4 % (0.0-4.0); LYMPH # 1.1 K/uL (1.0-4.3); LYMPH % 8.1 % (20.0-40.0); MEAN CORPUSCULAR HEMOGLOBIN 32.6 pg (27.0-31.0); MEAN CORPUSCULAR HGB CONC 34.1 g/dL (33.0-37.0); MEAN PLATELET VOLUME 9.1 fL (7.2-11.7); MONO # 0.9 K/uL (0.0-0.8); MONO % 6.4 % (0.0-10.0); NEUT # 11.3 K/uL (1.8-7.0); NEUT % 82.7 % (50.0-75.0); PLATELET COUNT 219 K/uL (130-400); RBC 3.41 Mil/uL (3.80-5.20); RED CELL DISTRIBUTION WIDTH 15.3 % (11.5-14.5)
[2017-06-11 14:34] LABS: HEMOGLOBIN 11.1 g/dL (11.0-16.0); MEAN CELL VOLUME 95.6 fL (81.0-99.0); WHITE BLOOD COUNT 13.6 K/uL (4.8-10.8)
[2017-06-11 14:37] LABS: INR 0.9; PROTHROMBIN TIME 10.5 SECONDS (9.7-12.2)
[2017-06-11 15:00] LABS: BANDS 2 % (0-2); EOSINOPHIL 4 % (0-4); LYMPHOCYTE 5 % (20-40); MONOCYTE 7 % (0-10); NEUTROPHIL 82 % (50-75); TOTAL CELLS COUNTED 100
[2017-06-11 15:01] LABS: ANISOCYTOSIS SLIGHT; PLATELET ESTIMATE NORMAL (NORMAL)
[2017-06-11 15:02] LABS: HYPOCHROMIC SLIGHT; POLYCHROMIC SLIGHT; TOXIC GRANULATION PRESENT
[2017-06-11] MEDS ORDERED: Iodixanol 320 MG/ML 100 ML BOTTLE IV ONE (15:13)
[2017-06-11] MEDS ORDERED: Sodium Chloride 0.9% 1,000 ML IV ONE (15:13)
[2017-06-11] MEDS ORDERED: Piperacill/Tazo 2.25gm in Dex 2.25 GM/50 ML BAG IVPB STA (15:16)
[2017-06-11] MEDS ORDERED: Vancomycin 1 GM 1 GM/250 ML BAG IV STA (15:16)
[2017-06-11] MEDS ORDERED: Sodium Chloride 0.9% 500 ML IV STA (15:21)
--- NOTE | 2017-06-11 15:47 | C.PDOC ---
History Of Present Illness 87 year old female presents to the emergency department complaining of a painful mass to the posterior aspect of the neck for the past 2 days. Patient also reports a rash to the bilateral trapezius area for the past 2 weeks. Patient was seen by a certified addiction counselor without any diagnosis. Denies any shortness of breath, fever, or chest pain. PMD: Dr. Deep Clay Time Seen by Provider: 06/11/17 13:15 Chief Complaint (Nursing): Abnormal Skin Integrity History Per: Patient History/Exam Limitations: no limitations Onset/Duration Of Symptoms: Days (x2) Current Symptoms Are (Timing): Still Present Past Medical History Reviewed: Historical Data, Nursing Documentation, Vital Signs Vital Signs: Last Vital Signs Temp 98.8 F 06/11/17 13:01 Pulse 76 06/11/17 13:01 Resp 20 06/11/17 13:01 BP 149/71 06/11/17 13:01 Pulse Ox 100 06/11/17 17:12 - Medical History PMH: Anxiety, Arthritis (OA, OSTEOPOROSIS; R KNEE AND ANKLE PAIN), CHF, Diabetes , HTN, Hypercholesterolemia, Kidney Stones, Osteoporosis, Pneumonia, Chronic Kidney Disease Denies: Emphysema Surgical History: Cholecystectomy, Pacemaker Family History: States: Unknown Family Hx - Social History Hx Tobacco Use: No Hx Alcohol Use: No Hx Substance Use: No - Immunization History Hx Tetanus Toxoid Vaccination: No (unknown) Hx Influenza Vaccination: No (unknown) Hx Pneumococcal Vaccination: No (unknown) Review Of Systems Except As Marked, All Systems Reviewed And Found Negative. Constitutional: Negative for: Fever Cardiovascular: Negative for: Chest Pain Respiratory: Negative for: Shortness of Breath Gastrointestinal: Negative for: Nausea, Vomiting Skin: Positive for: Rash (Bilateral, trapezius area ), Other (Painful mass on posterior neck) Physical Exam - Physical Exam Appears: Well, Non-toxic, Other (moderate to severe distress) Skin: Warm, Dry, Other (Small carbuncles to bilateral trapezius) Head: Atraumatic, Normacephalic Eye(s): bilateral: Normal Inspection, EOMI Oral Mucosa: Moist Neck: Other (Soft tissue swelling to the posterior neck and central line with tenderness) Cardiovascular: Rhythm Regular, No Murmur Respiratory: Normal Breath Sounds, No Accessory Muscle Use, No Wheezing Extremity: Normal ROM Neurological/Psych: Oriented x3, Normal Speech ED Course And Treatment - Laboratory Results Result Diagrams: 06/11/17 14:20 06/11/17 13:41 Lab Interpretation: Abnormal ECG: Interpreted By Me ECG Rhythm: Sinus Rhythm, L BBB ECG Interpretation: No Changes From Prior, Abnormal Rate From EC O2 Sat by Pulse Oximetry: 100 (RA) Pulse Ox Interpretation: Normal - Radiology CXR: Interpreted by Me CXR Interpretation: Yes: No Acute Disease Progress Note: toradol, IVF, Vanco, Zosyn Reevaluation Time: 17:13 Reassessment Condition: Improved - Physician Consult Information Outcome Of Conversation: 1335 d/w Dr. Clay. 1520 d/w Dr. Clay @ bedside. 1700: d/w Dr. Clay- results reviewed, ok to admit. Medical Decision Making Medical Decision Making: Time: 13:21 Initial Plan: --CT of the Neck --EKG --CMP --Digoxin --Thyroid Stimulating Hormone --CBC with Differential --Partial Thromboplastin --Prothrombin --CXR --Morphine 4 mg IVP --Tazo 2.25 mg in 50 mL IVPB --NS 1000 mL/hr --Toradol 30 mg IVP --Vancomycin 1g in 250 mL IV Time: 14:24 Chest X-Ray Impression: Right hilar prominence. Mild venous congestion. Tortuous ectatic aorta. Calcification at the aortic knob. Mild cardiomegaly. Left-sided pacemaker. Degenerative changes in the spine and shoulders. Time: 16:02 CT Neck IMPRESSION: There is a small somewhat irregular elliptical shaped area of increased attenuation within the mid posterior subcutaneous tissues of the cervical spine at approximately the which extends from approximately C2-C3 through the C3-C4 levels that exhibit irregular borders. Findings may represent a localized inflammatory process -cellulitis or early developing phlegmon however no evidence of abscess is seen. There are surrounding infiltration changes in subcutaneous tissues and overlying skin thickening. . No drainable fluid collections or abscess formation seen. . There is a relatively large elliptical shaped lipoma within the subcutaneous tissues left suboccipital region as detailed above. probable localized cellulitis vs evolving phlegmon posterior neck area- prob developed form carbuncles on b/l trapezius area. LOW susp of Zoster as rash crosses the midline. broadly cover w abx consider advanced age and local infections ? penetrating may have given rise to MRSA Disposition Doctor Will See Patient In The: Hospital Counseled Patient/Family Regarding: Studies Performed, Diagnosis - Disposition Disposition: HOSPITALIZED Disposition Time: 17:17 Condition: GOOD Forms: [facility] ([place]) - Clinical Impression Clinical Impression: Abscess or cellulitis, neck - Scribe Statement The provider has reviewed the documentation as recorded by the Scribe Aurora Hooker All medical record entries made by the Marryibe were at my direction and personally dictated by me. I have reviewed the chart and agree that the record accurately reflects my personal performance of the history, physical exam, medical decision making, and the department course for this patient. I have also personally directed, reviewed, and agree with the discharge instructions and disposition.
--- NOTE | 2017-06-11 17:02 | CT ---
PROCEDURE: CT neck dated 06/11/2017 HISTORY: Posterior right midline neck tender, ? abscess COMPARISON: No prior study available comparison TECHNIQUE: Contiguous helical/ transaxial sections of the neck without intravenous contrast. Coronal and sagittal reformats generated. Radiation dose: DLP 318.37 mGy-cm This CT exam was performed using one or more of the following dose reduction techniques: Automated exposure control, adjustment of the mA and/or kV according to patient size, and/or use of iterative reconstruction technique. FINDINGS: The current study reveals a somewhat elliptical shaped area of increased attenuation within the mid posterior cervical subcutaneous fat that measures approximately 21 mm T x 9 mm CC x 6.3 mm AP located at approximately C2-C3 through the C3-C4 levels. This focus exhibits somewhat irregular borders with mild overlying skin thickening. Findings may represent a localized inflammatory process- localized cellulitis or early developing phlegmon. . No evidence to suggest abscess or other drainable fluid collection. There also appears to be some mild overlying skin thickening and some vague infiltration changes within the peripheral subcutaneous tissues about this area. There is also a incidental large elliptical shaped lipoma within the left suboccipital soft tissues that extend inferiorly to approximately the C2-C3 level. This measures approximately 5.7 x 4.8 x 2.7 cm. No significant cervical lymphadenopathy. The thyroid gland is heterogeneous in appearance with a few small low-attenuation foci bilaterally. Follow-up ultrasound of the thyroid gland recommended. Lung apices clear. Mild multilevel degenerative spondylosis of the thoracic spine most notably affecting the C5-C6 level. There is also mild kyphotic angulation deformity centered at this level. IMPRESSION: There is a small somewhat irregular elliptical shaped area of increased attenuation within the mid posterior subcutaneous tissues of the cervical spine at approximately the which extends from approximately C2-C3 through the C3-C4 levels that exhibit irregular borders. Findings may represent a localized inflammatory process -cellulitis or early developing phlegmon however no evidence of abscess is seen. There are surrounding infiltration changes in subcutaneous tissues and overlying skin thickening. . No drainable fluid collections or abscess formation seen. . There is a relatively large elliptical shaped lipoma within the subcutaneous tissues left suboccipital region as detailed above.
[2017-06-11 17:12] LABS: SQUAMOUS EPITHIAL 1 /hpf (0-5); URINE BILIRUBIN NEGATIVE (NEGATIVE); URINE BLOOD NEGATIVE (NEGATIVE); URINE CLARITY Clear (Clear); URINE COLOR Yellow (YELLOW); URINE GLUCOSE (UA) 1+ mg/dL (Normal); URINE LEUKOCYTE ESTERASE 1+ Leu/uL (Negative); URINE NITRATE POSITIVE (NEGATIVE); URINE PROTEIN NEGATIVE (NEGATIVE); URINE UROBILINOGEN NORMAL mg/dL (0.2-1.0)
--- NOTE | 2017-06-11 17:12 | C.PDOC ---
Time Seen by Provider: 06/11/17 13:15 Chief Complaint (Nursing): Abnormal Skin Integrity Past Medical History Vital Signs: Last Vital Signs Temp 98.8 F 06/11/17 13:01 Pulse 76 06/11/17 13:01 Resp 20 06/11/17 13:01 BP 149/71 06/11/17 13:01 Pulse Ox 100 06/11/17 13:01 - Medical History PMH: Anxiety, Arthritis (OA, OSTEOPOROSIS; R KNEE AND ANKLE PAIN), CHF, Diabetes , HTN, Hypercholesterolemia, Kidney Stones, Osteoporosis, Pneumonia, Chronic Kidney Disease Denies: Emphysema Surgical History: Cholecystectomy, Pacemaker Family History: States: Unknown Family Hx - Social History Hx Tobacco Use: No Hx Alcohol Use: No Hx Substance Use: No - Immunization History Hx Tetanus Toxoid Vaccination: No (unknown) Hx Influenza Vaccination: No (unknown) Hx Pneumococcal Vaccination: No (unknown) ED Course And Treatment O2 Sat by Pulse Oximetry: 100 Disposition - Disposition
[2017-06-11 17:14] LABS: URINE BACTERIA RARE (<OCC)
[2017-06-11] MEDS ORDERED: Vancomycin 1 gm/NS 200 ml 1 GM/200 ML BAG IVPB STA (17:41)
--- NOTE | 2017-06-11 18:50 | CP.PCM.HP ---
History of Present Illness - History of Present Illness History of Present Illness: 87 years old female complaining of a rash of the back of her neck for the past 3 days. Today the rash became redder and harder with severe pain. A sft tissue CT scan of the neck suggest an inflammatory process of the posterior neck, or cellulitis. The patient denies any fever, any chills. In he ED, the patient was started on Vancomycin and Zosyn IV after blood culture were done. The patient is known to have an IDDM, a hypertension, an ischemic cardiomyopathy with frequent episodes of CHF, a chronic kidney disease, a presbyacusis, osteoarthritis of the knees, disc disease of the lumbar spine, and a permanent pacemaker. Present on Admission - Present on Admission Any Indicators Present on Admission: No Review of Systems - EENT Additional comments: Painful posterior aspect of the neck with a rash Past Patient History - Infectious Disease Hx of Infectious Diseases: None - Tetanus Immunizations Tetanus Immunization: Unknown - Past Medical History & Family History Past Medical History?: Yes - Past Social History Smoking Status: Never Smoked Alcohol: None Home Situation {Lives}: With Family Domestic Violence: Negative - CARDIAC Hx Congestive Heart Failure: Yes Hx Heart Murmur: Yes Hx Hypercholesterolemia: Yes Hx Hypertension: Yes Hx Pacemaker: Yes - PULMONARY Hx Emphysema: No Hx Pneumonia: Yes - NEUROLOGICAL Hx Neurological Disorder: Yes Hx Dizziness: Yes - HEENT Hx HEENT Problems: Yes Hx Cataracts: Yes Hx Deafness: Yes (both ears) Other/Comment: hard of hearing - RENAL Hx Chronic Kidney Disease: Yes Hx Kidney Stones: Yes - ENDOCRINE/METABOLIC Hx Endocrine Disorders: Yes Hx Diabetes Mellitus Type 2: Yes - HEMATOLOGICAL/ONCOLOGICAL Hx Blood Disorders: No - INTEGUMENTARY Hx Dermatological Problems: No - MUSCULOSKELETAL/RHEUMATOLOGICAL Hx Arthritis: Yes (OA, OSTEOPOROSIS; R KNEE AND ANKLE PAIN) Hx Osteoporosis: Yes - GASTROINTESTINAL Hx Gastrointestinal Disorders: No - GENITOURINARY/GYNECOLOGICAL Hx Genitourinary Disorders: No - PSYCHIATRIC Hx Anxiety: Yes Hx Substance Use: No - SURGICAL HISTORY Hx Cholecystectomy: Yes - ANESTHESIA Hx Anesthesia: Yes Hx Anesthesia Reactions: No Hx Malignant Hyperthermia: No Meds Allergies/Adverse Reactions: Allergies Allergy/AdvReac Type Severity Reaction Status Date / Time No Known Allergies Allergy Verified 06/11/17 13:02 Physical Exam - Constitutional Appears: Chronically Ill - Head Exam Head Exam: NORMAL INSPECTION - Eye Exam Eye Exam: Normal appearance - ENT Exam ENT Exam: Normal Exam - Neck Exam Additional comments: Erythematous induration of the posterior middle neck, adjacent to the occipital area, very tender. - Respiratory Exam Respiratory Exam: Clear to Auscultation Bilateral - Cardiovascular Exam Cardiovascular Exam: REGULAR RHYTHM, Systolic Murmur - GI/Abdominal Exam GI & Abdominal Exam: Normal Bowel Sounds, Soft - Rectal Exam Rectal Exam: Deferred - Extremities Exam Extremities exam: Positive for: normal inspection - Back Exam Back exam: NORMAL INSPECTION - Neurological Exam Neurological exam: Alert, Oriented x3 - Psychiatric Exam Psychiatric exam: Anxious - Skin Skin Exam: Dry, Erythema, Intact Results - Vital Signs Recent Vital Signs: Last Vital Signs Temp 98.8 F 06/11/17 13:01 Pulse 62 06/11/17 18:04 Resp 19 06/11/17 18:04 BP 106/60 06/11/17 18:04 Pulse Ox 99 06/11/17 18:04 - Labs Result Diagrams: 06/11/17 14:20 06/11/17 13:41 Labs: Laboratory Results - last 24 hr 06/11/17 06/11/17 06/11/17 13:41 13:41 14:20 WBC 13.6 H D RBC 3.41 L Hgb 11.1 D Hct 32.6 L MCV 95.6 D MCH 32.6 H MCHC 34.1 RDW 15.3 H Plt Count 219 MPV 9.1 Neut % (Auto) 82.7 H Lymph % (Auto) 8.1 L [place] % (Auto) 6.4 Eos % (Auto) 2.4 Baso % (Auto) 0.4 Neut # 11.3 H Lymph # 1.1 [place] # 0.9 H Eos # 0.3 Baso # 0.0 Neutrophils % (Manual) 82 H Band Neutrophils % 2 Lymphocytes % (Manual) 5 L Monocytes % (Manual) 7 Eosinophils % (Manual) 4 Toxic Granulation Present Platelet Estimate Normal Polychromasia Slight Hypochromasia (manual) Slight Anisocytosis (manual) Slight Macrocytosis (manual) Slight PT INR APTT Sodium 134 Potassium 5.7 H Chloride 107 Carbon Dioxide 16 L Anion Gap 17 BUN 74 H Creatinine 2.6 H Est GFR ( Amer) 21 Est GFR (Non-Af Amer) 17 Random Glucose 224 H Calcium 9.1 Total Bilirubin 0.8 AST 17 ALT 14 Alkaline Phosphatase 76 Total Protein 7.2 Albumin 3.9 Globulin 3.2 Albumin/Globulin Ratio 1.2 TSH 3rd Generation 2.21 Urine Color Urine Clarity Urine pH Ur Specific [place] Urine Protein Urine Glucose (UA) Urine Ketones Urine Blood Urine Nitrate Urine Bilirubin Urine Urobilinogen Ur Leukocyte Esterase Urine WBC (Auto) Urine RBC (Auto) Ur Squamous Epith Cells Urine Bacteria Digoxin 0.5 L 06/11/17 06/11/17 14:20 16:57 WBC RBC Hgb Hct MCV MCH MCHC RDW Plt Count MPV Neut % (Auto) Lymph % (Auto) [place] % (Auto) Eos % (Auto) Baso % (Auto) Neut # Lymph # [place] # Eos # Baso # Neutrophils % (Manual) Band Neutrophils % Lymphocytes % (Manual) Monocytes % (Manual) Eosinophils % (Manual) Toxic Granulation Platelet Estimate Polychromasia Hypochromasia (manual) Anisocytosis (manual) Macrocytosis (manual) PT 10.5 INR 0.9 APTT 28 Sodium Potassium Chloride Carbon Dioxide Anion Gap BUN Creatinine Est GFR ( Amer) Est GFR (Non-Af Amer) Random Glucose Calcium Total Bilirubin AST ALT Alkaline Phosphatase Total Protein Albumin Globulin Albumin/Globulin Ratio TSH 3rd Generation Urine Color Yellow Urine Clarity Clear Urine pH 6.0 Ur Specific [place] 1.012 Urine Protein Negative Urine Glucose (UA) 1+ Urine Ketones Negative Urine Blood Negative Urine Nitrate Positive H Urine Bilirubin Negative Urine Urobilinogen Normal Ur Leukocyte Esterase 1+ H Urine WBC (Auto) 6 H Urine RBC (Auto) 1 Ur Squamous Epith Cells 1 Urine Bacteria Rare Digoxin Assessment & Plan (1) Cellulitis of neck Assessment and Plan: IV antibiotics. Analgesics. Status: Acute (2) KIERSTEN (acute kidney injury) Assessment and Plan: Hold diuretics because of elevated BUN and creatinine. 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 Status: Chronic (5) Hypertension Assessment and Plan: TO RESUME HOME MEDS. Status: Acute Decision To Admit - Pt Status Changed To: Hospital Disposition Of: Inpatient - Admit Certification Admit to Inpatient:: After my assessment, the patient will require hospitalization for at least two midnights. This is because of the severity of symptoms shown, intensity of services needed, and/or the medical risk in this patient being treated as an outpatient. - InPatient: Physician Admission Certification:: After my assessments, the patient requires hospitalization for at least 2 midnights. - . Bed Request Type: Regular Admitting Physician: Deep Clay
[2017-06-11] MEDS: Piperacill/Tazo 2.25gm in Dex 2.25 GM/50 ML BAG IVPB SCH (23:45)
[2017-06-12] MEDS: Oxycodone/Acetaminophen 5/325 mg Tab PO PRN ×2 (06:15→14:25)
[2017-06-12] MEDS: Piperacill/Tazo 2.25gm in Dex 2.25 GM/50 ML BAG IVPB SCH ×3 (06:30→21:50)
[2017-06-12 07:23] LABS: BASO # 0.1 K/uL (0.0-0.2); BASO % 0.7 % (0.0-2.0); EOS # 0.3 K/uL (0.0-0.7); HEMOGLOBIN 9.7 g/dL (11.0-16.0); LYMPH # 0.9 K/uL (1.0-4.3); LYMPH % 8.5 % (20.0-40.0); MEAN CELL VOLUME 96.4 fL (81.0-99.0); MEAN CORPUSCULAR HEMOGLOBIN 32.7 pg (27.0-31.0); MEAN CORPUSCULAR HGB CONC 33.9 g/dL (33.0-37.0); MEAN PLATELET VOLUME 8.8 fL (7.2-11.7); MONO # 0.7 K/uL (0.0-0.8); MONO % 6.3 % (0.0-10.0); NEUT # 8.8 K/uL (1.8-7.0); NEUT % 81.5 % (50.0-75.0); PLATELET COUNT 175 K/uL (130-400); RBC 2.96 Mil/uL (3.80-5.20); RED CELL DISTRIBUTION WIDTH 15.7 % (11.5-14.5); WHITE BLOOD COUNT 10.8 K/uL (4.8-10.8)
[2017-06-12] MEDS: (Novolog) Insulin Aspart, Recombinant 100 u/ml 10 ml vial SC SCH ×4 (07:30→21:45)
[2017-06-12 07:46] LABS: ALB/GLOB RATIO 1.1 (1.0-2.1); ALBUMIN 3.1 g/dL (3.5-5.0); CALCIUM 8.2 mg/dl (8.6-10.4)
[2017-06-12 09:39] LABS: ANISOCYTOSIS MODERATE; BANDS 1 % (0-2); EOSINOPHIL 4 % (0-4); LYMPHOCYTE 5 % (20-40); MONOCYTE 2 % (0-10); NEUTROPHIL 88 % (50-75); PLATELET ESTIMATE NORMAL (NORMAL); TOTAL CELLS COUNTED 100
[2017-06-12 09:40] LABS: HYPOCHROMIC SLIGHT; POLYCHROMIC SLIGHT
[2017-06-12] MEDS: Metoprolol Succinate 25 mg XL Tab PO SCH (09:51)
[2017-06-12] MEDS: GlipiZIDE 10 mg SR Tab PO SCH (09:53)
--- NOTE | 2017-06-12 16:55 | CP.PCM.PN ---
Subjective - Date & Time of Evaluation Date of Evaluation: 06/12/17 Time of Evaluation: 16:48 - Subjective Subjective: Patient still with severe pain of the posterior neck and mild swelling. No fever. Objective - Vital Signs/Intake and Output Vital Signs (last 24 hours): Temp Pulse Resp BP Pulse Ox 99.5 F 69 20 145/79 94 L 06/12/17 16:00 06/12/17 16:00 06/12/17 16:00 06/12/17 16:00 06/12/17 16:00 - Medications Medications: Current Medications Clopidogrel Bisulfate (Plavix) 75 mg PO DAILY [facility] Last Admin: 06/12/17 09:52 Dose: 75 mg Docusate Sodium (Colace) 100 mg PO BID [facility] Last Admin: 06/12/17 09:53 Dose: 100 mg Glipizide (Glucotrol Xl) 10 mg PO DAILY [facility] Last Admin: 06/12/17 09:53 Dose: 10 mg Heparin Sodium (Porcine) (Heparin) 5,000 units SC Q8 [facility] Last Admin: 06/12/17 14:36 Dose: 5,000 units Piperacillin Sod/Tazobactam Sod (Zosyn 2.25 Gm Iv Premix) 2.25 gm in 50 mls @ 100 mls/hr IVPB Q8 [facility] Last Admin: 06/12/17 14:38 Dose: 100 mls/hr Insulin Aspart (Novolog) 0 unit SC ACHS [facility] PRN Reason: Protocol Last Admin: 06/12/17 11:30 Dose: 4 unit Losartan Potassium (Cozaar) 100 mg PO DAILY [facility] Last Admin: 06/12/17 09:53 Dose: 100 mg Metoprolol Succinate (Toprol Xl) 25 mg PO DAILY [facility] Last Admin: 06/12/17 09:51 Dose: 25 mg Nitroglycerin (Nitrostat Sl Tab) 0.4 mg SL Q5MIN PRN PRN Reason: CHEST PAIN Oxycodone/Acetaminophen (Percocet 5/325 Mg Tab) 1 tab PO Q4 PRN PRN Reason: Pain, moderate (4-7) Stop: 06/14/17 18:25 Last Admin: 06/12/17 06:15 Dose: 1 tab Rosuvastatin Calcium (Crestor) 5 mg PO HS [facility] Last Admin: 06/11/17 23:45 Dose: 5 mg Sitagliptin Phosphate (Januvia) 25 mg PO DAILY [facility] Last Admin: 06/12/17 09:54 Dose: 25 mg - Labs Labs: 06/12/17 07:15 06/12/17 07:15 PT 10.5 SECONDS (9.7-12.2) 06/11/17 14:20 INR 0.9 06/11/17 14:20 APTT 28 SECONDS (21-34) 06/11/17 14:20 - Constitutional Appears: No Acute Distress, Chronically Ill - Eye Exam Eye Exam: Normal appearance - ENT Exam ENT Exam: Normal Exam - Neck Exam Additional comments: Erythema, induration and swelling of the posterior neck. 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
[2017-06-12] MEDS ORDERED: Sod Polystyrene Sulf 15 gm/60 ml Susp PO ONE (16:58)
--- NOTE | 2017-06-12 17:01 | CP.PCM.CON ---
History of Present Illness - History of Present Illness History of Present Illness: 87 year old female presents to the emergency department complaining of a painful mass to the posterior aspect of the neck for the past [address] revealed nonspecific swelling in soft tissues of the neck over occipital area and C spine with palpable soft tissue mass Cultures of blood sent pending No drainage possible at this time No pus expressed from area - Medical History PMH: Anxiety, Arthritis (OA, OSTEOPOROSIS; R KNEE AND ANKLE PAIN), CHF, CKD Diabetes, HTN, Hypercholesterolemia, Kidney Stones, Osteoporosis, Pneumonia, Chronic Kidney Disease Denies: Emphysema Surgical History: Cholecystectomy, Pacemaker Family History: States: Unknown Family Hx - Social History Hx Tobacco Use: No Hx Alcohol Use: No Hx Substance Use: No - Immunization History Hx Tetanus Toxoid Vaccination: No (unknown) Hx Influenza Vaccination: No (unknown) Hx Pneumococcal Vaccination: No (unknown) Review of Systems - Review of Systems Systems not reviewed;Unavailable: Language Barrier All systems: reviewed and no additional remarkable complaints except - Constitutional Constitutional: As Per HPI - EENT Eyes: absent: As Per HPI, Blind Spots, Blurred Vision, Change in Vision, Decreased Night Vision, Diplopia, Discharge, Dry Eye, Exophthalmos, Floaters, Irritation, Itchy Eyes, Loss of Peripheral Vision, Pain, Photophobia, Requires Corrective Lenses, Sees Flashes, Spots in Vision, Tunnel Vision, Other Visual Disturbances, Loss of Vision, Other Ears: absent: As Per HPI, Decreased Hearing, Ear Discharge, Ear Pain, Tinnitus, Abnormal Hearing, Disequilibrium, Dizziness, Other Nose/Mouth/Throat: absent: As Per HPI, Epistaxis, Nasal Congestion, Nasal Discharge, Nasal Obstruction, Nasal Trauma, Nose Pain, Post Nasal Drip, Sinus Pain, Sinus Pressure, Bleeding Gums, Change in Voice, Dental Pain, Dry Mouth, Dysphagia, Halitosis, Hoarsness, Lip Swelling, Mouth Lesions, Mouth Pain, Odynophagia, Sore Throat, Throat Swelling, Tongue Swelling, Facial Pain, Neck Pain, Neck Mass, Other - Breasts Breasts: absent: As Per HPI, Change in Shape, Mass, Pain, Nipple Discharge, Nipple Inversion, Skin Changes, Swelling, Other - Cardiovascular Cardiovascular: absent: As Per HPI, Acrocyanosis, Chest Pain, Chest Pain at Rest , Chest Pain with Activity, Claudication, Diaphoresis, Dyspnea, Dyspnea on Exertion, Edema, Irregular Heart Rhythm, Pain Radiating to Arm/Neck/Jaw, Leg Edema, Leg Ulcers, Lightheadedness, Orthopnea, Palpitations, Paroxysmal Nocturnal Dyspnea, Pedal Edema, Radiating Pain, Rapid Heart Rate, Slow Heart Rate, Syncope, Other - Respiratory Respiratory: absent: As Per HPI, Cough, Dyspnea, Hemoptysis, Dyspnea on Exertion , Wheezing, Snoring, Stridor, Pain on Inspiration, Chest Congestion, Excessive Mucous Production, Change in Mucous Color, Pain with Coughing, Other - Genitourinary Genitourinary: absent: As Per HPI, Change in Urinary Stream, Difficulty Urinating, Dysuria, Flank Pain, Hematuria, Pyuria, Nocturia, Urinary Incontinence, Urinary Frequency, Urinary Hesitance, Urinary Urgency, Voiding Freq/Small Amts, Freq UTI, Hx Renal/Bladder Calculi, Hx /Renal Surgery, Bladder Distension, Other - Reproductive: Female Reproductive:Female: absent: As Per HPI, Amenorrhea, Amenorrhea/ Control, Currently Menstual, Cycle <21 Days, Cycle >35 Days, Cycle Variable, Menses 1-7 Days, Menses >/= 8 Days, Menses Variable, Cycle > 4 Weeks Between, No Menses for 6 Months, Heavy Menses, Light Menses, Normal Menses, Spotting Between Cycles , S/P Hysterectomy, Menopausal, Post Menopausal, Premenarche, Abnormal Vaginal Bleeding, Dysmenorrhea, Dyspareunia, Genital Lesions, Genital Pruritis, Pelvic Pain, Prolapse Symptoms, Sexual Dysfunction, Vaginal Discharge, Vaginal Dryness , Vaginal Odor, Vaginal Pruritis, Other - Musculoskeletal Musculoskeletal: As Per HPI - Integumentary Integumentary: As Per HPI, Skin Pain, Wounds - Neurological Neurological: As Per HPI - Psychiatric Psychiatric: absent: As Per HPI, Abnormal Sleep Pattern, Anhedonia, Anxiety, Auditory Hallucinations, Behavioral Changes, Change in Appetite, Change in Libido, Confusion, Depression, Difficulty Concentrating, Hallucinations, Homicidal Ideation, Hopelessness, Irritability, Memory Loss, Mood Swings, Panic Attacks, Paranoia, Suicidal Ideation, Visual Hallucinations, Tactile Hallucinations, Other - Endocrine Endocrine: absent: As Per HPI, Change in Body Appearance, Change in Libido, Cold Intolorance, Deepening of Voice, Excessive Sweating, Fatigue, Flushing, Heat Intolorance, Increase in Ring/Shoe/Hat Size, Palpitations, Polydipsia, Polyphagia, Polyuria, Other - Hematologic/Lymphatic Hematologic: absent: As Per HPI, Easy Bleeding, Easy Bruising, Lymphadenopathy, Other Past Patient History - Infectious Disease Hx of Infectious Diseases: None - Tetanus Immunizations Tetanus Immunization: Unknown - Past Medical History & Family History Past Medical History?: Yes - Past Social History Smoking Status: Never Smoked - CARDIAC Hx Cardiac Disorders: Yes Hx Congestive Heart Failure: Yes Hx Heart Murmur: Yes Hx Hypercholesterolemia: Yes Hx Hypertension: Yes Hx Pacemaker: Yes - PULMONARY Hx Respiratory Disorders: Yes Hx Emphysema: No Hx Pneumonia: Yes - NEUROLOGICAL Hx Neurological Disorder: Yes Hx Dizziness: Yes - HEENT Hx HEENT Problems: Yes Hx Cataracts: Yes Hx Deafness: Yes (both ears) Other/Comment: hard of hearing - RENAL Hx Chronic Kidney Disease: Yes Hx Kidney Stones: Yes - ENDOCRINE/METABOLIC Hx Endocrine Disorders: Yes Hx Diabetes Mellitus Type 2: Yes - HEMATOLOGICAL/ONCOLOGICAL Hx Blood Disorders: No - INTEGUMENTARY Hx Dermatological Problems: No - MUSCULOSKELETAL/RHEUMATOLOGICAL Hx Arthritis: Yes (OA, OSTEOPOROSIS; R KNEE AND ANKLE PAIN) Hx Falls: No Hx Osteoporosis: Yes - GASTROINTESTINAL Hx Gastrointestinal Disorders: No - GENITOURINARY/GYNECOLOGICAL Hx Genitourinary Disorders: No - PSYCHIATRIC Hx Psychophysiologic Disorder: Yes Hx Anxiety: Yes Hx Substance Use: No - SURGICAL HISTORY Hx Surgeries: Yes Hx Cholecystectomy: Yes - ANESTHESIA Hx Anesthesia: Yes Hx Anesthesia Reactions: No Hx Malignant Hyperthermia: No Meds Allergies/Adverse Reactions: Allergies Allergy/AdvReac Type Severity Reaction Status Date / Time No Known Allergies Allergy Verified 06/11/17 13:02 - Medications Medications: Current Medications Clopidogrel Bisulfate (Plavix) 75 mg PO DAILY [facility] Last Admin: 06/12/17 09:52 Dose: 75 mg Docusate Sodium (Colace) 100 mg PO BID [facility] Last Admin: 06/12/17 09:53 Dose: 100 mg Glipizide (Glucotrol Xl) 10 mg PO DAILY [facility] Last Admin: 06/12/17 09:53 Dose: 10 mg Heparin Sodium (Porcine) (Heparin) 5,000 units SC Q8 [facility] Last Admin: 06/12/17 14:36 Dose: 5,000 units Piperacillin Sod/Tazobactam Sod (Zosyn 2.25 Gm Iv Premix) 2.25 gm in 50 mls @ 100 mls/hr IVPB Q8 [facility] Last Admin: 06/12/17 14:38 Dose: 100 mls/hr Insulin Aspart (Novolog) 0 unit SC ACHS [facility] PRN Reason: Protocol Last Admin: 06/12/17 11:30 Dose: 4 unit Losartan Potassium (Cozaar) 100 mg PO DAILY [facility] Last Admin: 06/12/17 09:53 Dose: 100 mg Metoprolol Succinate (Toprol Xl) 25 mg PO DAILY [facility] Last Admin: 06/12/17 09:51 Dose: 25 mg Nitroglycerin (Nitrostat Sl Tab) 0.4 mg SL Q5MIN PRN PRN Reason: CHEST PAIN Oxycodone/Acetaminophen (Percocet 5/325 Mg Tab) 1 tab PO Q4 PRN PRN Reason: Pain, moderate (4-7) Stop: 06/14/17 18:25 Last Admin: 06/12/17 06:15 Dose: 1 tab Rosuvastatin Calcium (Crestor) 5 mg PO HS [facility] Last Admin: 06/11/17 23:45 Dose: 5 mg Sitagliptin Phosphate (Januvia) 25 mg PO DAILY [facility] Last Admin: 06/12/17 09:54 Dose: 25 mg Physical Exam - Constitutional Appears: Toxic, In Acute Distress - Head Exam Head Exam: NORMOCEPHALIC - Eye Exam Eye Exam: EOMI, PERRL. absent: Scleral icterus - ENT Exam ENT Exam: Mucous Membranes Dry - Neck Exam Neck exam: Negative for: Lymphadenopathy - Respiratory Exam Respiratory Exam: Decreased Breath Sounds, Rales - Cardiovascular Exam Cardiovascular Exam: REGULAR RHYTHM, +S1, +S2 - GI/Abdominal Exam GI & Abdominal Exam: Diminished Bowel Sounds, Soft. absent: Tenderness - Rectal Exam Rectal Exam: Deferred - Exam Exam: NORMAL INSPECTION - Back Exam Back exam: absent: CVA tenderness (L), CVA tenderness (R), paraspinal tenderness - Neurological Exam Neurological exam: Alert, CN II-XII Intact, Oriented x3, Reflexes Normal - Psychiatric Exam Psychiatric exam: Normal Mood - Skin Skin Exam: Dry Additional comments: swollen painful trnder mass at nape of neck Results - Vital Signs Recent Vital Signs: Last Vital Signs Temp 99.5 F 06/12/17 16:00 Pulse 69 06/12/17 16:00 Resp 20 06/12/17 16:00 BP 145/79 06/12/17 16:00 Pulse Ox 94 L 06/12/17 16:00 - Labs Result Diagrams: 06/12/17 07:15 06/12/17 07:15 Labs: Laboratory Results - last 24 hr 06/11/17 06/12/17 06/12/17 16:57 02:23 07:15 WBC 10.8 RBC 2.96 L Hgb 9.7 L Hct 28.6 L MCV 96.4 MCH 32.7 H MCHC 33.9 RDW 15.7 H Plt Count 175 MPV 8.8 Neut % (Auto) 81.5 H Lymph % (Auto) 8.5 L Christian % (Auto) 6.3 Eos % (Auto) 3.0 Baso % (Auto) 0.7 Neut # 8.8 H Lymph # 0.9 L Christian # 0.7 Eos # 0.3 Baso # 0.1 Neutrophils % (Manual) 88 H Band Neutrophils % 1 Lymphocytes % (Manual) 5 L Monocytes % (Manual) 2 Eosinophils % (Manual) 4 Platelet Estimate Normal Polychromasia Slight Hypochromasia (manual) Slight Anisocytosis (manual) Moderate Macrocytosis (manual) Slight Sodium Potassium Chloride Carbon Dioxide Anion Gap BUN Creatinine Est GFR ( Amer) Est GFR (Non-Af Amer) POC Glucose (mg/dL) 266 H Random Glucose Calcium Total Bilirubin AST ALT Alkaline Phosphatase Total Protein Albumin Globulin Albumin/Globulin Ratio Urine Color Yellow Urine Clarity Clear Urine pH 6.0 Ur Specific [place] 1.012 Urine Protein Negative Urine Glucose (UA) 1+ Urine Ketones Negative Urine Blood Negative Urine Nitrate Positive H Urine Bilirubin Negative Urine Urobilinogen Normal Ur Leukocyte Esterase 1+ H Urine WBC (Auto) 6 H Urine RBC (Auto) 1 Ur Squamous Epith Cells 1 Urine Bacteria Rare 06/12/17 06/12/17 06/12/17 07:15 07:42 11:36 WBC RBC Hgb Hct MCV MCH MCHC RDW Plt Count MPV Neut % (Auto) Lymph % (Auto) Christian % (Auto) Eos % (Auto) Baso % (Auto) Neut # Lymph # Christian # Eos # Baso # Neutrophils % (Manual) Band Neutrophils % Lymphocytes % (Manual) Monocytes % (Manual) Eosinophils % (Manual) Platelet Estimate Polychromasia Hypochromasia (manual) Anisocytosis (manual) Macrocytosis (manual) Sodium 134 Potassium 6.1 H Chloride 111 H Carbon Dioxide 14 L Anion Gap 15 BUN 67 H Creatinine 2.6 H Est GFR ( Amer) 21 Est GFR (Non-Af Amer) 17 POC Glucose (mg/dL) 183 H 329 H Random Glucose 202 H Calcium 8.2 L Total Bilirubin 0.6 AST 36 D ALT 52 D Alkaline Phosphatase 75 Total Protein 5.9 L Albumin 3.1 L D Globulin 2.8 Albumin/Globulin Ratio 1.1 Urine Color Urine Clarity Urine pH Ur Specific [place] Urine Protein Urine Glucose (UA) Urine Ketones Urine Blood Urine Nitrate Urine Bilirubin Urine Urobilinogen Ur Leukocyte Esterase Urine WBC (Auto) Urine RBC (Auto) Ur Squamous Epith Cells Urine Bacteria 06/12/17 16:15 WBC RBC Hgb Hct MCV MCH MCHC RDW Plt Count MPV Neut % (Auto) Lymph % (Auto) Christian % (Auto) Eos % (Auto) Baso % (Auto) Neut # Lymph # Christian # Eos # Baso # Neutrophils % (Manual) Band Neutrophils % Lymphocytes % (Manual) Monocytes % (Manual) Eosinophils % (Manual) Platelet Estimate Polychromasia Hypochromasia (manual) Anisocytosis (manual) Macrocytosis (manual) Sodium Potassium Chloride Carbon Dioxide Anion Gap BUN Creatinine Est GFR ( Amer) Est GFR (Non-Af Amer) POC Glucose (mg/dL) 214 H Random Glucose Calcium Total Bilirubin AST ALT Alkaline Phosphatase Total Protein Albumin Globulin Albumin/Globulin Ratio Urine Color Urine Clarity Urine pH Ur Specific [place] Urine Protein Urine Glucose (UA) Urine Ketones Urine Blood Urine Nitrate Urine Bilirubin Urine Urobilinogen Ur Leukocyte Esterase Urine WBC (Auto) Urine RBC (Auto) Ur Squamous Epith Cells Urine Bacteria Assessment & Plan (1) Abscess or cellulitis, neck Status: Acute (2) Cellulitis of neck Status: Acute (3) Acute on chronic diastolic (congestive) heart failure Status: Acute (4) Acute renal insufficiency Status: Acute (5) CKD (chronic kidney disease) stage 4, GFR 15-29 ml/min Status: Acute (6) Chronic congestive heart failure Status: Acute (7) DM type 2 (diabetes mellitus, type 2) Status: Acute (8) Uncontrolled insulin dependent diabetes mellitus Status: Acute - Assessment and Plan (Free Text) Assessment: possible developing phlegmon over post neck May eventually need drainage sepsis to be rulesd out Vanco on hold due to renal insuff will check levels On IV Zosyn 2.25 g q6h await cultures
[2017-06-13] MEDS: Piperacill/Tazo 2.25gm in Dex 2.25 GM/50 ML BAG IVPB SCH ×3 (05:28→22:03)
[2017-06-13] MEDS: (Novolog) Insulin Aspart, Recombinant 100 u/ml 10 ml vial SC SCH ×4 (08:17→22:03)
[2017-06-13 08:32] LABS: BASO % 0.4 % (0.0-2.0); EOS # 0.3 K/uL (0.0-0.7); EOS % 2.9 % (0.0-4.0); HEMOGLOBIN 9.3 g/dL (11.0-16.0); LYMPH % 8.4 % (20.0-40.0); MEAN CELL VOLUME 97.1 fL (81.0-99.0); MEAN CORPUSCULAR HEMOGLOBIN 32.1 pg (27.0-31.0); MEAN CORPUSCULAR HGB CONC 33.1 g/dL (33.0-37.0); MEAN PLATELET VOLUME 9.1 fL (7.2-11.7); MONO # 0.7 K/uL (0.0-0.8); MONO % 6.5 % (0.0-10.0); NEUT # 9.3 K/uL (1.8-7.0); NEUT % 81.8 % (50.0-75.0); PLATELET COUNT 189 K/uL (130-400); RBC 2.91 Mil/uL (3.80-5.20); RED CELL DISTRIBUTION WIDTH 16.1 % (11.5-14.5); WHITE BLOOD COUNT 11.4 K/uL (4.8-10.8)
[2017-06-13 09:13] LABS: ALB/GLOB RATIO 1.2 (1.0-2.1); ALBUMIN 3.5 g/dL (3.5-5.0); CALCIUM 8.6 mg/dl (8.6-10.4)
[2017-06-13] MEDS ORDERED: Influenza Vaccine 60 mcg/0.5 mL SYR (4YR UP) IM ONE (10:00)
[2017-06-13] MEDS ORDERED: Pneumococcal 23-Valent Vaccine IM ONE (10:00)
[2017-06-13 10:44] LABS: BANDS 2 % (0-2); EOSINOPHIL 5 % (0-4); LYMPHOCYTE 5 % (20-40); MONOCYTE 2 % (0-10); NEUTROPHIL 86 % (50-75); TOTAL CELLS COUNTED 100
[2017-06-13 10:45] LABS: ANISOCYTOSIS SLIGHT; PLATELET ESTIMATE NORMAL (NORMAL)
[2017-06-13 10:46] LABS: HYPOCHROMIC SLIGHT; POLYCHROMIC SLIGHT
[2017-06-13] MEDS: Metoprolol Succinate 25 mg XL Tab PO SCH (11:36)
[2017-06-13] MEDS: GlipiZIDE 10 mg SR Tab PO SCH (11:36)
[2017-06-13] MEDS: Oxycodone/Acetaminophen 5/325 mg Tab PO PRN ×2 (11:40→20:50)
--- NOTE | 2017-06-13 12:09 | CP.PCM.PN ---
Subjective - Date & Time of Evaluation Date of Evaluation: 06/13/17 Time of Evaluation: 06:00 - Subjective Subjective: seen on rounds appears to have abscess which may need I and D 1 dose Vanco ordered still locally tender but no chest pain cough or SOB Objective - Vital Signs/Intake and Output Vital Signs (last 24 hours): Temp Pulse Resp BP Pulse Ox 97.9 F 81 20 122/68 100 06/13/17 08:28 06/13/17 08:28 06/13/17 08:28 06/13/17 08:28 06/13/17 08:28 Intake and Output: 06/13/17 06/13/17 06:59 18:59 Intake Total 400 180 Output Total 5 Balance 395 180 - Medications Medications: Current Medications Clopidogrel Bisulfate (Plavix) 75 mg PO DAILY [facility] Last Admin: 06/13/17 11:36 Dose: 75 mg Docusate Sodium (Colace) 100 mg PO BID [facility] Last Admin: 06/13/17 11:36 Dose: 100 mg Glipizide (Glucotrol Xl) 10 mg PO DAILY [facility] Last Admin: 06/13/17 11:36 Dose: 10 mg Heparin Sodium (Porcine) (Heparin) 5,000 units SC Q8 [facility] Last Admin: 06/13/17 05:29 Dose: 5,000 units Piperacillin Sod/Tazobactam Sod (Zosyn 2.25 Gm Iv Premix) 2.25 gm in 50 mls @ 100 mls/hr IVPB Q8 [facility] Last Admin: 06/13/17 05:28 Dose: 100 mls/hr Vancomycin HCl 1 gm/ Sodium (Chloride) 250 mls @ 166.7 mls/hr IVPB STAT STA Stop: 06/13/17 13:36 Insulin Aspart (Novolog) 0 unit SC ACHS [facility] PRN Reason: Protocol Last Admin: 06/13/17 08:17 Dose: 2 unit Losartan Potassium (Cozaar) 100 mg PO DAILY [facility] Last Admin: 06/13/17 11:36 Dose: 100 mg Metoprolol Succinate (Toprol Xl) 25 mg PO DAILY [facility] Last Admin: 06/13/17 11:36 Dose: 25 mg Nitroglycerin (Nitrostat Sl Tab) 0.4 mg SL Q5MIN PRN PRN Reason: CHEST PAIN Oxycodone/Acetaminophen (Percocet 5/325 Mg Tab) 1 tab PO Q4 PRN PRN Reason: Pain, moderate (4-7) Stop: 06/14/17 18:25 Last Admin: 06/13/17 11:40 Dose: 1 tab Rosuvastatin Calcium (Crestor) 5 mg PO HS [facility] Last Admin: 06/12/17 21:26 Dose: 5 mg Sitagliptin Phosphate (Januvia) 25 mg PO DAILY [facility] Last Admin: 06/13/17 11:37 Dose: 25 mg - Labs Labs: 06/13/17 08:20 06/13/17 08:20 PT 10.5 SECONDS (9.7-12.2) 06/11/17 14:20 INR 0.9 06/11/17 14:20 APTT 28 SECONDS (21-34) 06/11/17 14:20 - Constitutional Appears: Non-toxic, Chronically Ill - Head Exam Head Exam: NORMOCEPHALIC - Eye Exam Eye Exam: absent: Scleral icterus - ENT Exam ENT Exam: Mucous Membranes Dry - Neck Exam Neck Exam: absent: Lymphadenopathy - Respiratory Exam Respiratory Exam: Decreased Breath Sounds - Cardiovascular Exam Cardiovascular Exam: REGULAR RHYTHM - GI/Abdominal Exam GI & Abdominal Exam: Distended - Rectal Exam Rectal Exam: Deferred Assessment and Plan (1) Abscess or cellulitis, neck Status: Acute (2) Cellulitis of neck Status: Acute (3) Acute on chronic diastolic (congestive) heart failure Status: Acute (4) Acute renal insufficiency Status: Acute (5) CKD (chronic kidney disease) stage 4, GFR 15-29 ml/min Status: Acute (6) Chronic congestive heart failure Status: Acute (7) DM type 2 (diabetes mellitus, type 2) Status: Acute (8) Uncontrolled insulin dependent diabetes mellitus Status: Acute
[2017-06-13] MEDS ORDERED: Vancomycin 1 GM in Sodium Chloride 0.9% 200 ML IVPB ONE (13:30)
--- NOTE | 2017-06-13 16:06 | CP.PCM.PN ---
Subjective - Date & Time of Evaluation Date of Evaluation: 06/13/17 Time of Evaluation: 16:06 - Subjective Subjective: for drainage of neck abscess in am Objective - Vital Signs/Intake and Output Vital Signs (last 24 hours): Temp Pulse Resp BP Pulse Ox 97.9 F 81 20 122/68 100 06/13/17 08:28 06/13/17 08:28 06/13/17 08:28 06/13/17 08:28 06/13/17 08:28 Intake and Output: 06/13/17 06/13/17 06:59 18:59 Intake Total 400 180 Output Total 5 Balance 395 180 - Medications Medications: Current Medications Clopidogrel Bisulfate (Plavix) 75 mg PO DAILY [facility] Last Admin: 06/13/17 11:36 Dose: 75 mg Docusate Sodium (Colace) 100 mg PO BID [facility] Last Admin: 06/13/17 11:36 Dose: 100 mg Glipizide (Glucotrol Xl) 10 mg PO DAILY [facility] Last Admin: 06/13/17 11:36 Dose: 10 mg Heparin Sodium (Porcine) (Heparin) 5,000 units SC Q8 [facility] Last Admin: 06/13/17 14:51 Dose: 5,000 units Piperacillin Sod/Tazobactam Sod (Zosyn 2.25 Gm Iv Premix) 2.25 gm in 50 mls @ 100 mls/hr IVPB Q8 [facility] Last Admin: 06/13/17 14:52 Dose: 100 mls/hr Insulin Aspart (Novolog) 0 unit SC ACHS [facility] PRN Reason: Protocol Last Admin: 06/13/17 12:25 Dose: 3 unit Losartan Potassium (Cozaar) 100 mg PO DAILY [facility] Last Admin: 06/13/17 11:36 Dose: 100 mg Metoprolol Succinate (Toprol Xl) 25 mg PO DAILY [facility] Last Admin: 06/13/17 11:36 Dose: 25 mg Nitroglycerin (Nitrostat Sl Tab) 0.4 mg SL Q5MIN PRN PRN Reason: CHEST PAIN Oxycodone/Acetaminophen (Percocet 5/325 Mg Tab) 1 tab PO Q4 PRN PRN Reason: Pain, moderate (4-7) Stop: 06/14/17 18:25 Last Admin: 06/13/17 11:40 Dose: 1 tab Rosuvastatin Calcium (Crestor) 5 mg PO HS [facility] Last Admin: 06/12/17 21:26 Dose: 5 mg Sitagliptin Phosphate (Januvia) 25 mg PO DAILY [facility] Last Admin: 06/13/17 11:37 Dose: 25 mg - Labs Labs: 06/13/17 08:20 06/13/17 08:20 PT 10.5 SECONDS (9.7-12.2) 06/11/17 14:20 INR 0.9 06/11/17 14:20 APTT 28 SECONDS (21-34) 06/11/17 14:20
--- NOTE | 2017-06-13 16:35 | CP.PCM.PN ---
Subjective - Date & Time of Evaluation Date of Evaluation: 06/13/17 Time of Evaluation: 16:32 - Subjective Subjective: Patient seen by Dr Albarado Govern: patient is scheduled for a neck abscess D & C in AM in the OR. Objective - Vital Signs/Intake and Output Vital Signs (last 24 hours): Temp Pulse Resp BP Pulse Ox 97.8 F 62 20 129/67 99 06/13/17 16:00 06/13/17 16:00 06/13/17 16:00 06/13/17 16:00 06/13/17 16:00 Intake and Output: 06/13/17 06/13/17 06:59 18:59 Intake Total 400 180 Output Total 5 Balance 395 180 - Medications Medications: Current Medications Clopidogrel Bisulfate (Plavix) 75 mg PO DAILY [facility] Last Admin: 06/13/17 11:36 Dose: 75 mg Docusate Sodium (Colace) 100 mg PO BID [facility] Last Admin: 06/13/17 11:36 Dose: 100 mg Glipizide (Glucotrol Xl) 10 mg PO DAILY [facility] Last Admin: 06/13/17 11:36 Dose: 10 mg Heparin Sodium (Porcine) (Heparin) 5,000 units SC Q8 [facility] Last Admin: 06/13/17 14:51 Dose: 5,000 units Piperacillin Sod/Tazobactam Sod (Zosyn 2.25 Gm Iv Premix) 2.25 gm in 50 mls @ 100 mls/hr IVPB Q8 [facility] Last Admin: 06/13/17 14:52 Dose: 100 mls/hr Insulin Aspart (Novolog) 0 unit SC ACHS [facility] PRN Reason: Protocol Last Admin: 06/13/17 12:25 Dose: 3 unit Losartan Potassium (Cozaar) 100 mg PO DAILY [facility] Last Admin: 06/13/17 11:36 Dose: 100 mg Metoprolol Succinate (Toprol Xl) 25 mg PO DAILY [facility] Last Admin: 06/13/17 11:36 Dose: 25 mg Nitroglycerin (Nitrostat Sl Tab) 0.4 mg SL Q5MIN PRN PRN Reason: CHEST PAIN Oxycodone/Acetaminophen (Percocet 5/325 Mg Tab) 1 tab PO Q4 PRN PRN Reason: Pain, moderate (4-7) Stop: 06/14/17 18:25 Last Admin: 06/13/17 11:40 Dose: 1 tab Rosuvastatin Calcium (Crestor) 5 mg PO HS [facility] Last Admin: 06/12/17 21:26 Dose: 5 mg Sitagliptin Phosphate (Januvia) 25 mg PO DAILY [facility] Last Admin: 06/13/17 11:37 Dose: 25 mg - Labs Labs: 06/13/17 08:20 06/13/17 08:20 PT 10.5 SECONDS (9.7-12.2) 06/11/17 14:20 INR 0.9 06/11/17 14:20 APTT 28 SECONDS (21-34) 06/11/17 14:20 - Constitutional Appears: No Acute Distress, Chronically Ill - Head Exam Head Exam: NORMOCEPHALIC - Eye Exam Eye Exam: Normal appearance - ENT Exam Additional comments: Abscess of the posterior neck . - Respiratory Exam Respiratory Exam: Clear to Ausculation Bilateral - Cardiovascular Exam Cardiovascular Exam: REGULAR RHYTHM, Murmur - GI/Abdominal Exam GI & Abdominal Exam: Soft, Normal Bowel Sounds - Rectal Exam Rectal Exam: Deferred - Extremities Exam Extremities Exam: Normal Inspection - Back Exam Back Exam: NORMAL INSPECTION - Neurological Exam Neurological Exam: Alert, Awake, Oriented x3 - Psychiatric Exam Psychiatric exam: Anxious - Skin Skin Exam: Dry, Intact, Normal Color, Warm Assessment and Plan (1) Cellulitis of neck Assessment & Plan: Abscess of the posterior neck: for D & C in AM in the OR. 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
--- NOTE | 2017-06-13 17:37 | CP.PCM.CON ---
History of Present Illness - History of Present Illness History of Present Illness: General Surgery Consult Note for Dr. Yu Reason for consult: neck abscess 87 F with PMH of CKD, ischemic cardiomyopathy, CHF, s/p pacemaker, DM, HTN presents to [facility] for rash and neck pain. History was provided by son who was at bedside. Patient has had this rash and pain for about 5 days. Over that time period, it had gotten progressively worse. As per son, patient was complaining her pain was moderate to severe. Pain described as constant and throbbing located in posterior neck. Palpation and certain movement makes it worse while pain medication helps a little. Soft tissue CT scan of the neck on suggests inflammatory process vs cellulitis with phlegmon-like changes, possible early abscess but no drainable fluid present. Since then, lesion has gotten slightly bigger and slightly more fluctuant. Denies fever/chills. PMD: Dr. Clay PMH: CKD, ischemic cardiomyopathy, CHF, s/p pacemaker, DM, HTN Meds: as per EMR Allergy: NKDA PSH: kidney stone surgery, pacemaker placement FH: non-contributory Social: Denies tobacco/EtOH/illicit drugs use Review of Systems - Review of Systems All systems: reviewed and no additional remarkable complaints except (as per HPI ) Past Patient History - Infectious Disease Hx of Infectious Diseases: None - Tetanus Immunizations Tetanus Immunization: Unknown - Past Medical History & Family History Past Medical History?: Yes - Past Social History Smoking Status: Never Smoked - CARDIAC Hx Cardiac Disorders: Yes Hx Congestive Heart Failure: Yes Hx Heart Murmur: Yes Hx Hypercholesterolemia: Yes Hx Hypertension: Yes Hx Pacemaker: Yes - PULMONARY Hx Respiratory Disorders: Yes Hx Emphysema: No Hx Pneumonia: Yes - NEUROLOGICAL Hx Neurological Disorder: Yes Hx Dizziness: Yes - HEENT Hx HEENT Problems: Yes Hx Cataracts: Yes Hx Deafness: Yes (both ears) Other/Comment: hard of hearing - RENAL Hx Chronic Kidney Disease: Yes Hx Kidney Stones: Yes - ENDOCRINE/METABOLIC Hx Endocrine Disorders: Yes Hx Diabetes Mellitus Type 2: Yes - HEMATOLOGICAL/ONCOLOGICAL Hx Blood Disorders: No - INTEGUMENTARY Hx Dermatological Problems: No - MUSCULOSKELETAL/RHEUMATOLOGICAL Hx Arthritis: Yes (OA, OSTEOPOROSIS; R KNEE AND ANKLE PAIN) Hx Falls: No Hx Osteoporosis: Yes - GASTROINTESTINAL Hx Gastrointestinal Disorders: No - GENITOURINARY/GYNECOLOGICAL Hx Genitourinary Disorders: No - PSYCHIATRIC Hx Psychophysiologic Disorder: Yes Hx Anxiety: Yes Hx Substance Use: No - SURGICAL HISTORY Hx Surgeries: Yes Hx Cholecystectomy: Yes - ANESTHESIA Hx Anesthesia: Yes Hx Anesthesia Reactions: No Hx Malignant Hyperthermia: No Meds Allergies/Adverse Reactions: Allergies Allergy/AdvReac Type Severity Reaction Status Date / Time No Known Allergies Allergy Verified 06/11/17 13:02 - Medications Medications: Current Medications Clopidogrel Bisulfate (Plavix) 75 mg PO DAILY [facility] Last Admin: 06/13/17 11:36 Dose: 75 mg Docusate Sodium (Colace) 100 mg PO BID [facility] Last Admin: 06/13/17 17:30 Dose: 100 mg Glipizide (Glucotrol Xl) 10 mg PO DAILY [facility] Last Admin: 06/13/17 11:36 Dose: 10 mg Heparin Sodium (Porcine) (Heparin) 5,000 units SC Q8 [facility] Last Admin: 06/13/17 14:51 Dose: 5,000 units Piperacillin Sod/Tazobactam Sod (Zosyn 2.25 Gm Iv Premix) 2.25 gm in 50 mls @ 100 mls/hr IVPB Q8 [facility] Last Admin: 06/13/17 14:52 Dose: 100 mls/hr Insulin Aspart (Novolog) 0 unit SC ACHS [facility] PRN Reason: Protocol Last Admin: 06/13/17 16:30 Dose: 2 unit Losartan Potassium (Cozaar) 100 mg PO DAILY [facility] Last Admin: 06/13/17 11:36 Dose: 100 mg Metoprolol Succinate (Toprol Xl) 25 mg PO DAILY [facility] Last Admin: 06/13/17 11:36 Dose: 25 mg Nitroglycerin (Nitrostat Sl Tab) 0.4 mg SL Q5MIN PRN PRN Reason: CHEST PAIN Oxycodone/Acetaminophen (Percocet 5/325 Mg Tab) 1 tab PO Q4 PRN PRN Reason: Pain, moderate (4-7) Stop: 06/14/17 18:25 Last Admin: 06/13/17 11:40 Dose: 1 tab Rosuvastatin Calcium (Crestor) 5 mg PO HS [facility] Last Admin: 06/12/17 21:26 Dose: 5 mg Sitagliptin Phosphate (Januvia) 25 mg PO DAILY [facility] Last Admin: 06/13/17 11:37 Dose: 25 mg Sodium Polystyrene Sulfonate (Kayexalate Susp) 30 gm PO ONCE ONE Stop: 06/13/17 18:01 Physical Exam - Constitutional Appears: No Acute Distress - Head Exam Head Exam: ATRAUMATIC, NORMOCEPHALIC Additional comments: fluctuant mass in Left postauricular region - Eye Exam Eye Exam: Normal appearance - ENT Exam ENT Exam: Mucous Membranes Moist - Neck Exam Neck exam: Positive for: Full Rom Additional comments: posterior neck with erythema and induration - Respiratory Exam Respiratory Exam: NORMAL BREATHING PATTERN - Cardiovascular Exam Cardiovascular Exam: REGULAR RHYTHM - GI/Abdominal Exam GI & Abdominal Exam: Normal Bowel Sounds, Soft. absent: Distended, Tenderness - Extremities Exam Extremities exam: Positive for: normal capillary refill, pedal pulses present. Negative for: calf tenderness - Back Exam Back exam: absent: CVA tenderness (L), CVA tenderness (R) - Neurological Exam Neurological exam: Alert - Psychiatric Exam Psychiatric exam: Normal Affect, Normal Mood - Skin Skin Exam: Dry, Intact, Warm Results - Vital Signs Recent Vital Signs: Last Vital Signs Temp 97.8 F 06/13/17 16:00 Pulse 62 06/13/17 16:00 Resp 20 06/13/17 16:00 BP 129/67 06/13/17 16:00 Pulse Ox 99 06/13/17 16:00 - Labs Result Diagrams: 06/13/17 08:20 06/13/17 08:20 Labs: Laboratory Results - last 24 hr 06/12/17 06/13/17 06/13/17 21:26 07:25 08:20 WBC 11.4 H RBC 2.91 L Hgb 9.3 L Hct 28.2 L MCV 97.1 MCH 32.1 H MCHC 33.1 RDW 16.1 H Plt Count 189 MPV 9.1 Neut % (Auto) 81.8 H Lymph % (Auto) 8.4 L [place] % (Auto) 6.5 Eos % (Auto) 2.9 Baso % (Auto) 0.4 Neut # 9.3 H Lymph # 1.0 [place] # 0.7 Eos # 0.3 Baso # 0.0 Neutrophils % (Manual) 86 H Band Neutrophils % 2 Lymphocytes % (Manual) 5 L Monocytes % (Manual) 2 Eosinophils % (Manual) 5 H Platelet Estimate Normal Polychromasia Slight Hypochromasia (manual) Slight Anisocytosis (manual) Slight Sodium Potassium Chloride Carbon Dioxide Anion Gap BUN Creatinine Est GFR ( Amer) Est GFR (Non-Af Amer) POC Glucose (mg/dL) 265 H 225 H Random Glucose Calcium Total Bilirubin AST ALT Alkaline Phosphatase C-React Prot High Sens Total Protein Albumin Globulin Albumin/Globulin Ratio Procalcitonin Random Vancomycin 06/13/17 06/13/17 06/13/17 08:20 08:20 08:20 WBC RBC Hgb Hct MCV MCH MCHC RDW Plt Count MPV Neut % (Auto) Lymph % (Auto) [place] % (Auto) Eos % (Auto) Baso % (Auto) Neut # Lymph # [place] # Eos # Baso # Neutrophils % (Manual) Band Neutrophils % Lymphocytes % (Manual) Monocytes % (Manual) Eosinophils % (Manual) Platelet Estimate Polychromasia Hypochromasia (manual) Anisocytosis (manual) Sodium 135 Potassium 5.8 H Chloride 111 H Carbon Dioxide 13 L Anion Gap 18 BUN 57 H Creatinine 2.7 H Est GFR ( Amer) 20 Est GFR (Non-Af Amer) 17 POC Glucose (mg/dL) Random Glucose 221 H Calcium 8.6 Total Bilirubin 0.7 AST 19 ALT 43 Alkaline Phosphatase 67 C-React Prot High Sens > 15.00 H Total Protein 6.5 Albumin 3.5 Globulin 3.0 Albumin/Globulin Ratio 1.2 Procalcitonin 0.09 L Random Vancomycin 06/13/17 06/13/17 06/13/17 08:20 11:33 16:16 WBC RBC Hgb Hct MCV MCH MCHC RDW Plt Count MPV Neut % (Auto) Lymph % (Auto) [place] % (Auto) Eos % (Auto) Baso % (Auto) Neut # Lymph # [place] # Eos # Baso # Neutrophils % (Manual) Band Neutrophils % Lymphocytes % (Manual) Monocytes % (Manual) Eosinophils % (Manual) Platelet Estimate Polychromasia Hypochromasia (manual) Anisocytosis (manual) Sodium Potassium Chloride Carbon Dioxide Anion Gap BUN Creatinine Est GFR ( Amer) Est GFR (Non-Af Amer) POC Glucose (mg/dL) 286 H 209 H Random Glucose Calcium Total Bilirubin AST ALT Alkaline Phosphatase C-React Prot High Sens Total Protein Albumin Globulin Albumin/Globulin Ratio Procalcitonin Random Vancomycin 10.18 Assessment & Plan - Assessment and Plan (Free Text) Plan: 87 F with posterior neck abscess -OR in the morning for I&D -NPO past MN -Hold oral hypoglycemics -Only give half dose of insulin -D5 1/2 NS since NPO -Continue IV antibiotics -Pain control -f/u AM labs -Discussed with Dr. Giig Medina PGY1
[2017-06-13] MEDS ORDERED: Sod Polystyrene Sulf 15 gm/60 ml Susp PO ONE (18:00)
--- NOTE | 2017-06-13 22:52 | CARD ---
APPROVED REPORT EKG Measurement Heart [id number] DC 248P [id number] <Conclusion> Sinus rhythm with sinus arrhythmia with 1st degree AV block Left bundle branch block Abnormal ECG
[2017-06-14] MEDS: Piperacill/Tazo 2.25gm in Dex 2.25 GM/50 ML BAG IVPB SCH ×3 (05:14→21:30)
[2017-06-14] MEDS: Dextrose 5%/0.45% NS 1,000 ML IV SCH ×2 (06:22→20:20)
[2017-06-14 07:35] LABS: BASO % 0.3 % (0.0-2.0); EOS # 0.4 K/uL (0.0-0.7); EOS % 5.8 % (0.0-4.0); HEMOGLOBIN 9.4 g/dL (11.0-16.0); LYMPH # 0.7 K/uL (1.0-4.3); LYMPH % 10.5 % (20.0-40.0); MEAN CELL VOLUME 96.6 fL (81.0-99.0); MEAN CORPUSCULAR HEMOGLOBIN 33.1 pg (27.0-31.0); MEAN CORPUSCULAR HGB CONC 34.2 g/dL (33.0-37.0); MEAN PLATELET VOLUME 8.8 fL (7.2-11.7); MONO # 0.4 K/uL (0.0-0.8); NEUT # 5.3 K/uL (1.8-7.0); NEUT % 77.4 % (50.0-75.0); RBC 2.84 Mil/uL (3.80-5.20); RED CELL DISTRIBUTION WIDTH 15.6 % (11.5-14.5); WHITE BLOOD COUNT 6.8 K/uL (4.8-10.8)
[2017-06-14 07:36] LABS: PROTHROMBIN TIME 11.4 SECONDS (9.7-12.2)
[2017-06-14 07:53] LABS: ALB/GLOB RATIO 1.1 (1.0-2.1); ALBUMIN 3.2 g/dL (3.5-5.0); CALCIUM 8.9 mg/dl (8.6-10.4)
[2017-06-14] MEDS: (Novolog) Insulin Aspart, Recombinant 100 u/ml 10 ml vial SC SCH ×5 (08:38→21:51)
[2017-06-14] MEDS: Metoprolol Succinate 25 mg XL Tab PO SCH (09:11)
--- NOTE | 2017-06-14 12:22 | CP.PCM.PN ---
Subjective - Date & Time of Evaluation Date of Evaluation: 06/14/17 Time of Evaluation: 08:00 - Subjective Subjective: await Vanco level no new cultures Dr Yu on board for possible I and D Objective - Vital Signs/Intake and Output Vital Signs (last 24 hours): Temp Pulse Resp BP Pulse Ox 97.8 F 65 20 137/70 96 06/14/17 07:45 06/14/17 11:52 06/14/17 07:45 06/14/17 07:45 06/14/17 11:52 Intake and Output: 06/14/17 06/14/17 06:59 18:59 Intake Total 130 Balance 130 - Medications Medications: Current Medications Clopidogrel Bisulfate (Plavix) 75 mg PO DAILY [facility] Last Admin: 06/14/17 09:11 Dose: Not Given Docusate Sodium (Colace) 100 mg PO BID [facility] Last Admin: 06/14/17 09:11 Dose: Not Given Glipizide (Glucotrol Xl) 10 mg PO DAILY [facility] Last Admin: 06/13/17 11:36 Dose: 10 mg Heparin Sodium (Porcine) (Heparin) 5,000 units SC Q8 [facility] Last Admin: 06/13/17 22:02 Dose: 5,000 units Piperacillin Sod/Tazobactam Sod (Zosyn 2.25 Gm Iv Premix) 2.25 gm in 50 mls @ 100 mls/hr IVPB Q8 [facility] Last Admin: 06/14/17 05:14 Dose: 100 mls/hr Dextrose/Sodium Chloride (Dextrose 5%/0.45% Ns 1000 Ml) 1,000 mls @ 70 mls/hr IV .[id number] [facility] Last Admin: 06/14/17 06:22 Dose: 70 mls/hr Insulin Aspart (Novolog) 0 unit SC ACHS [facility] PRN Reason: Protocol Last Admin: 06/14/17 12:19 Dose: 2 unit Losartan Potassium (Cozaar) 100 mg PO DAILY [facility] Last Admin: 06/14/17 09:11 Dose: 100 mg Metoprolol Succinate (Toprol Xl) 25 mg PO DAILY [facility] Last Admin: 06/14/17 09:11 Dose: 25 mg Nitroglycerin (Nitrostat Sl Tab) 0.4 mg SL Q5MIN PRN PRN Reason: CHEST PAIN Oxycodone/Acetaminophen (Percocet 5/325 Mg Tab) 1 tab PO Q4 PRN PRN Reason: Pain, moderate (4-7) Stop: 06/14/17 18:25 Last Admin: 06/13/17 20:50 Dose: 1 tab Rosuvastatin Calcium (Crestor) 5 mg PO HS [facility] Last Admin: 06/13/17 22:02 Dose: 5 mg Sitagliptin Phosphate (Januvia) 25 mg PO DAILY [facility] Last Admin: 06/13/17 11:37 Dose: 25 mg - Labs Labs: 06/14/17 07:18 06/14/17 07:18 PT 11.4 SECONDS (9.7-12.2) 06/14/17 07:18 INR 1.0 06/14/17 07:18 APTT 31 SECONDS (21-34) 06/14/17 07:18 Assessment and Plan (1) Abscess or cellulitis, neck Status: Acute (2) Cellulitis of neck Status: Acute (3) Acute on chronic diastolic (congestive) heart failure Status: Acute (4) Acute renal insufficiency Status: Acute (5) CKD (chronic kidney disease) stage 4, GFR 15-29 ml/min Status: Acute (6) Chronic congestive heart failure Status: Acute (7) DM type 2 (diabetes mellitus, type 2) Status: Acute (8) Uncontrolled insulin dependent diabetes mellitus Status: Acute
[2017-06-14] MEDS ORDERED: Lidocaine/Epinephrine 1% 1:100000 10 ML IJ ONE (15:11)
[2017-06-14] MEDS ORDERED: Lactated Ringer's 1,000 ML IV ONE (15:17)
[2017-06-14] MEDS ORDERED: Midazolam 2 MG/2 ML VIAL ONE (15:27)
[2017-06-14] MEDS ORDERED: Propofol 10 mg/ml Inj (20 ML) ONE (15:28)
--- NOTE | 2017-06-14 16:02 | PCM.SURG1 ---
Surgeon's Initial Post Op Note - Surgeon's Notes Surgeon: Dr. Yu Information Systems Technician: Dr. Davison Type of Anesthesia: General Endo Pre-Operative Diagnosis: Neck Mass Operative Findings: See operatove dictation Post-Operative Diagnosis: Neck Abscess Operation Performed: Inscsion and drainage of neck abscess Specimen/Specimens Removed: Wound culture Estimated Blood Loss: EBL {In ML}: 2 Drains Used: No Drains Post-Op Condition: Good Date of Surgery/Procedure: 06/14/17 Time of Surgery/Procedure: 16:02
--- NOTE | 2017-06-14 17:32 | CP.PCM.PN ---
Subjective - Date & Time of Evaluation Date of Evaluation: 06/14/17 Time of Evaluation: 17:30 - Subjective Subjective: Patient had I&D of the left abscess this AM, but still complaining of pain. Afebrile. Awaiting wound culture. Objective - Vital Signs/Intake and Output Vital Signs (last 24 hours): Temp Pulse Resp BP Pulse Ox 99.8 F H 76 14 147/52 L 100 06/14/17 15:43 06/14/17 16:30 06/14/17 16:30 06/14/17 16:30 06/14/17 16:30 Intake and Output: 06/14/17 06/14/17 06:59 18:59 Intake Total 690 Balance 690 - Medications Medications: Current Medications Clopidogrel Bisulfate (Plavix) 75 mg PO DAILY [facility] Last Admin: 06/14/17 09:11 Dose: Not Given Docusate Sodium (Colace) 100 mg PO BID [facility] Last Admin: 06/14/17 09:11 Dose: Not Given Glipizide (Glucotrol Xl) 10 mg PO DAILY [facility] Last Admin: 06/13/17 11:36 Dose: 10 mg Heparin Sodium (Porcine) (Heparin) 5,000 units SC Q8 [facility] Last Admin: 06/13/17 22:02 Dose: 5,000 units Hydromorphone HCl (Dilaudid) 1 mg IVP Q4H PRN PRN Reason: Pain, severe (8-10) Piperacillin Sod/Tazobactam Sod (Zosyn 2.25 Gm Iv Premix) 2.25 gm in 50 mls @ 100 mls/hr IVPB Q8 [facility] Last Admin: 06/14/17 14:21 Dose: 100 mls/hr Dextrose/Sodium Chloride (Dextrose 5%/0.45% Ns 1000 Ml) 1,000 mls @ 70 mls/hr IV .[id number] [facility] Last Admin: 06/14/17 06:22 Dose: 70 mls/hr Insulin Aspart (Novolog) 0 unit SC ACHS [facility] PRN Reason: Protocol Last Admin: 06/14/17 12:19 Dose: 2 unit Losartan Potassium (Cozaar) 100 mg PO DAILY [facility] Last Admin: 06/14/17 09:11 Dose: 100 mg Metoprolol Succinate (Toprol Xl) 25 mg PO DAILY [facility] Last Admin: 06/14/17 09:11 Dose: 25 mg Morphine Sulfate (Morphine) 0.5 mg IVP Q10M PRN PRN Reason: Pain, moderate (4-7) Stop: 06/14/17 17:44 Last Admin: 06/14/17 15:50 Dose: 0.5 mg Nitroglycerin (Nitrostat Sl Tab) 0.4 mg SL Q5MIN PRN PRN Reason: CHEST PAIN Ondansetron HCl (Zofran Inj) 4 mg IVP ONCE PRN PRN Reason: Nausea/Vomiting Stop: 06/14/17 17:44 Oxycodone/Acetaminophen (Percocet 5/325 Mg Tab) 1 tab PO Q4 PRN PRN Reason: Pain, moderate (4-7) Stop: 06/14/17 18:25 Last Admin: 06/13/17 20:50 Dose: 1 tab Rosuvastatin Calcium (Crestor) 5 mg PO HS [facility] Last Admin: 06/13/17 22:02 Dose: 5 mg Sitagliptin Phosphate (Januvia) 25 mg PO DAILY [facility] Last Admin: 06/13/17 11:37 Dose: 25 mg - Labs Labs: 06/14/17 07:18 06/14/17 07:18 PT 11.4 SECONDS (9.7-12.2) 06/14/17 07:18 INR 1.0 06/14/17 07:18 APTT 31 SECONDS (21-34) 06/14/17 07:18 - Constitutional Appears: No Acute Distress, Chronically Ill - Head Exam Head Exam: NORMOCEPHALIC - Eye Exam Eye Exam: Normal appearance - ENT Exam ENT Exam: Normal Exam - Neck Exam Neck Exam: Tenderness Additional comments: Tender posterior neck with edema and erythema. - Respiratory Exam Respiratory Exam: Clear to Ausculation Bilateral, NORMAL BREATHING PATTERN - Cardiovascular Exam Cardiovascular Exam: REGULAR RHYTHM, Murmur - GI/Abdominal Exam GI & Abdominal Exam: Soft, Normal Bowel Sounds - Rectal Exam Rectal Exam: Deferred - Extremities Exam Extremities Exam: Normal Inspection - Back Exam Back Exam: NORMAL INSPECTION - Neurological Exam Neurological Exam: Alert, Awake, Oriented x3 - Psychiatric Exam Psychiatric exam: Anxious Assessment and Plan (1) Cellulitis of neck Assessment & Plan: S/p I&D of the posterior neck abscess. To continue Zosyn. 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
[2017-06-15 01:13] VITALS: RESP 20
--- NOTE | 2017-06-15 02:37 | OP ---
PROCEDURE DATE: 06/14/2017 PREOPERATIVE DIAGNOSIS: Neck abscess. PROCEDURE CARRIED OUT: Incision and drainage. SURGEON: Brandon Yu Jr., MD MARINA DRY DOCK MANAGER: Dr. Davison. TYPE OF ANESTHESIA: Local sedation. ANESTHESIA ADMINISTERED BY: Enedina. INDICATIONS: The patient is an elderly woman with a large abscess on the back of her neck. OPERATIVE FINDINGS: Approximately, 10 mL of pus was drained from here and sent for culture. In addition, it was opened and thoroughly irrigated out. See other reports. Brandon Yu Jr., MD
[2017-06-15] MEDS: Piperacill/Tazo 2.25gm in Dex 2.25 GM/50 ML BAG IVPB SCH ×3 (05:15→22:41)
[2017-06-15] MEDS: Dextrose 5%/0.45% NS 1,000 ML IV SCH (05:17)
[2017-06-15] MEDS: (Novolog) Insulin Aspart, Recombinant 100 u/ml 10 ml vial SC SCH ×4 (08:29→22:37)
[2017-06-15] MEDS: Metoprolol Succinate 25 mg XL Tab PO SCH (11:59)
--- NOTE | 2017-06-15 14:23 | CP.PCM.PN ---
Subjective - Date & Time of Evaluation Date of Evaluation: 06/15/17 Time of Evaluation: 13:00 - Subjective Subjective: General Surgery Pt S&E, NAEO. No complaints at this time. Pain well controlled Objective - Vital Signs/Intake and Output Vital Signs (last 24 hours): Temp Pulse Resp BP Pulse Ox 100.3 F H 73 20 138/74 100 06/15/17 08:00 06/15/17 08:00 06/15/17 08:00 06/15/17 08:00 06/15/17 08:00 Intake and Output: 06/15/17 06/15/17 06:59 18:59 Intake Total 1700 Balance 1700 - Medications Medications: Current Medications Acetaminophen (Tylenol 325mg Tab) 650 mg PO Q6 PRN PRN Reason: Fever >100.4 F Clopidogrel Bisulfate (Plavix) 75 mg PO DAILY [facility] Last Admin: 06/15/17 11:59 Dose: 75 mg Docusate Sodium (Colace) 100 mg PO BID [facility] Last Admin: 06/15/17 11:59 Dose: 100 mg Glipizide (Glucotrol Xl) 10 mg PO DAILY [facility] Last Admin: 06/13/17 11:36 Dose: 10 mg Heparin Sodium (Porcine) (Heparin) 5,000 units SC Q8 [facility] Last Admin: 06/13/17 22:02 Dose: 5,000 units Hydromorphone HCl (Dilaudid) 1 mg IVP Q4H PRN PRN Reason: Pain, severe (8-10) Last Admin: 06/14/17 17:35 Dose: 1 mg Piperacillin Sod/Tazobactam Sod (Zosyn 2.25 Gm Iv Premix) 2.25 gm in 50 mls @ 100 mls/hr IVPB Q8 [facility] Last Admin: 06/15/17 05:15 Dose: 100 mls/hr Insulin Aspart (Novolog) 0 unit SC ACHS [facility] PRN Reason: Protocol Last Admin: 06/15/17 12:27 Dose: 6 unit Insulin Glargine (Lantus) 20 unit SC HS [facility] Losartan Potassium (Cozaar) 100 mg PO DAILY [facility] Last Admin: 06/15/17 11:59 Dose: 100 mg Metoprolol Succinate (Toprol Xl) 25 mg PO DAILY [facility] Last Admin: 06/15/17 11:59 Dose: 25 mg Nitroglycerin (Nitrostat Sl Tab) 0.4 mg SL Q5MIN PRN PRN Reason: CHEST PAIN Rosuvastatin Calcium (Crestor) 5 mg PO HS [facility] Last Admin: 06/14/17 21:28 Dose: 5 mg Sitagliptin Phosphate (Januvia) 25 mg PO DAILY [facility] Last Admin: 06/13/17 11:37 Dose: 25 mg - Labs Labs: 06/14/17 07:18 06/14/17 07:18 PT 11.4 SECONDS (9.7-12.2) 06/14/17 07:18 INR 1.0 06/14/17 07:18 APTT 31 SECONDS (21-34) 06/14/17 07:18 - Constitutional Appears: Non-toxic - Head Exam Head Exam: ATRAUMATIC, NORMOCEPHALIC - Eye Exam Eye Exam: EOMI. absent: Scleral icterus - Neck Exam Neck Exam: Tenderness (around incision) Additional comments: dressing D/I - Respiratory Exam Respiratory Exam: NORMAL BREATHING PATTERN. absent: Respiratory Distress - Neurological Exam Neurological Exam: Alert, Awake - Skin Skin Exam: Dry, Warm Assessment and Plan - Assessment and Plan (Free Text) Assessment: 87F POD#1 s/p Neck I&D Plan: Will remove packing tomorrow. Monitor for drainage Analgesia PRN D/W Dr. Gigi Novak PGY4
--- NOTE | 2017-06-15 18:18 | CP.PCM.PN ---
Subjective - Date & Time of Evaluation Date of Evaluation: 06/15/17 Time of Evaluation: 18:16 - Subjective Subjective: Patient with posterior neck pain, and a low grade fever. Culture reveals STaph Aureus. Objective - Vital Signs/Intake and Output Vital Signs (last 24 hours): Temp Pulse Resp BP Pulse Ox 99.9 F H 65 20 124/51 L 99 06/15/17 16:00 06/15/17 16:00 06/15/17 16:00 06/15/17 16:00 06/15/17 16:00 Intake and Output: 06/15/17 06/15/17 06:59 18:59 Intake Total 1700 340 Balance 1700 340 - Medications Medications: Current Medications Acetaminophen (Tylenol 325mg Tab) 650 mg PO Q6 PRN PRN Reason: Fever >100.4 F Clopidogrel Bisulfate (Plavix) 75 mg PO DAILY [facility] Last Admin: 06/15/17 11:59 Dose: 75 mg Docusate Sodium (Colace) 100 mg PO BID [facility] Last Admin: 06/15/17 16:59 Dose: 100 mg Glipizide (Glucotrol Xl) 10 mg PO DAILY [facility] Last Admin: 06/13/17 11:36 Dose: 10 mg Heparin Sodium (Porcine) (Heparin) 5,000 units SC Q8 [facility] Last Admin: 06/13/17 22:02 Dose: 5,000 units Hydromorphone HCl (Dilaudid) 1 mg IVP Q4H PRN PRN Reason: Pain, severe (8-10) Last Admin: 06/14/17 17:35 Dose: 1 mg Piperacillin Sod/Tazobactam Sod (Zosyn 2.25 Gm Iv Premix) 2.25 gm in 50 mls @ 100 mls/hr IVPB Q8 [facility] Last Admin: 06/15/17 14:40 Dose: 100 mls/hr Insulin Aspart (Novolog) 0 unit SC ACHS [facility] PRN Reason: Protocol Insulin Glargine (Lantus) 20 unit SC HS [facility] Losartan Potassium (Cozaar) 100 mg PO DAILY [facility] Last Admin: 06/15/17 11:59 Dose: 100 mg Metoprolol Succinate (Toprol Xl) 25 mg PO DAILY [facility] Last Admin: 06/15/17 11:59 Dose: 25 mg Nitroglycerin (Nitrostat Sl Tab) 0.4 mg SL Q5MIN PRN PRN Reason: CHEST PAIN Rosuvastatin Calcium (Crestor) 5 mg PO HS [facility] Last Admin: 06/14/17 21:28 Dose: 5 mg Sitagliptin Phosphate (Januvia) 25 mg PO DAILY [facility] Last Admin: 06/13/17 11:37 Dose: 25 mg - Labs Labs: 06/14/17 07:18 06/14/17 07:18 PT 11.4 SECONDS (9.7-12.2) 06/14/17 07:18 INR 1.0 06/14/17 07:18 APTT 31 SECONDS (21-34) 06/14/17 07:18 - Constitutional Appears: No Acute Distress, Chronically Ill - Head Exam Head Exam: NORMAL INSPECTION - Eye Exam Eye Exam: Normal appearance Pupil Exam: NORMAL ACCOMODATION - ENT Exam ENT Exam: Normal Exam - Neck Exam Additional comments: Tender and swollen posterior neck. - Respiratory Exam Respiratory Exam: Clear to Ausculation Bilateral - Cardiovascular Exam Cardiovascular Exam: REGULAR RHYTHM, Murmur - GI/Abdominal Exam GI & Abdominal Exam: Soft, Normal Bowel Sounds - Rectal Exam Rectal Exam: Deferred - Extremities Exam Extremities Exam: Normal Inspection - Back Exam Back Exam: NORMAL INSPECTION - Neurological Exam Neurological Exam: Alert, Awake, Oriented x3 - Psychiatric Exam Psychiatric exam: Anxious - Skin Skin Exam: Dry Assessment and Plan (1) Cellulitis of neck Assessment & Plan: Continue IV antibiotics. 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
--- NOTE | 2017-06-15 19:06 | CP.PCM.PN ---
Subjective - Date & Time of Evaluation Date of Evaluation: 06/15/17 Time of Evaluation: 08:00 - Subjective Subjective: await c/s report vanco stat given Objective - Vital Signs/Intake and Output Vital Signs (last 24 hours): Temp Pulse Resp BP Pulse Ox 99.9 F H 65 20 124/51 L 99 06/15/17 16:00 06/15/17 16:00 06/15/17 16:00 06/15/17 16:00 06/15/17 16:00 Intake and Output: 06/15/17 06/16/17 18:59 06:59 Intake Total 340 Balance 340 - Medications Medications: Current Medications Acetaminophen (Tylenol 325mg Tab) 650 mg PO Q6 PRN PRN Reason: Fever >100.4 F Clopidogrel Bisulfate (Plavix) 75 mg PO DAILY [facility] Last Admin: 06/15/17 11:59 Dose: 75 mg Docusate Sodium (Colace) 100 mg PO BID [facility] Last Admin: 06/15/17 16:59 Dose: 100 mg Glipizide (Glucotrol Xl) 10 mg PO DAILY [facility] Last Admin: 06/13/17 11:36 Dose: 10 mg Heparin Sodium (Porcine) (Heparin) 5,000 units SC Q8 [facility] Last Admin: 06/13/17 22:02 Dose: 5,000 units Hydromorphone HCl (Dilaudid) 1 mg IVP Q4H PRN PRN Reason: Pain, severe (8-10) Last Admin: 06/14/17 17:35 Dose: 1 mg Piperacillin Sod/Tazobactam Sod (Zosyn 2.25 Gm Iv Premix) 2.25 gm in 50 mls @ 100 mls/hr IVPB Q8 [facility] Last Admin: 06/15/17 14:40 Dose: 100 mls/hr Insulin Aspart (Novolog) 0 unit SC ACHS [facility] PRN Reason: Protocol Insulin Glargine (Lantus) 20 unit SC HS [facility] Losartan Potassium (Cozaar) 100 mg PO DAILY [facility] Last Admin: 06/15/17 11:59 Dose: 100 mg Metoprolol Succinate (Toprol Xl) 25 mg PO DAILY [facility] Last Admin: 06/15/17 11:59 Dose: 25 mg Nitroglycerin (Nitrostat Sl Tab) 0.4 mg SL Q5MIN PRN PRN Reason: CHEST PAIN Rosuvastatin Calcium (Crestor) 5 mg PO HS [facility] Last Admin: 06/14/17 21:28 Dose: 5 mg Sitagliptin Phosphate (Januvia) 25 mg PO DAILY [facility] Last Admin: 06/13/17 11:37 Dose: 25 mg - Labs Labs: 06/14/17 07:18 06/14/17 07:18 PT 11.4 SECONDS (9.7-12.2) 06/14/17 07:18 INR 1.0 06/14/17 07:18 APTT 31 SECONDS (21-34) 06/14/17 07:18 - Constitutional Appears: Non-toxic, Chronically Ill - Head Exam Head Exam: NORMOCEPHALIC - Eye Exam Eye Exam: absent: Scleral icterus - ENT Exam ENT Exam: Mucous Membranes Dry - Neck Exam Neck Exam: absent: Lymphadenopathy - Respiratory Exam Respiratory Exam: Prolonged Expiratory Phase - Cardiovascular Exam Cardiovascular Exam: REGULAR RHYTHM - GI/Abdominal Exam GI & Abdominal Exam: Distended, Soft Assessment and Plan (1) Abscess or cellulitis, neck Status: Acute (2) Cellulitis of neck Status: Acute (3) Acute on chronic diastolic (congestive) heart failure Status: Acute (4) Acute renal insufficiency Status: Acute (5) CKD (chronic kidney disease) stage 4, GFR 15-29 ml/min Status: Acute (6) Chronic congestive heart failure Status: Acute (7) DM type 2 (diabetes mellitus, type 2) Status: Acute (8) Uncontrolled insulin dependent diabetes mellitus Status: Acute
[2017-06-15] MEDS ORDERED: Vancomycin 1 gm/NS 200 ml 1 GM/200 ML BAG IVPB ONE (20:00)
[2017-06-15] MEDS ORDERED: (Lantus) Insulin Glargine, Recombinant SC SCH (22:00)
[2017-06-16] MEDS: Piperacill/Tazo 2.25gm in Dex 2.25 GM/50 ML BAG IVPB SCH ×3 (05:10→21:34)
[2017-06-16 06:46] LABS: BASO % 0.4 % (0.0-2.0); EOS # 0.3 K/uL (0.0-0.7); EOS % 8.3 % (0.0-4.0); HEMOGLOBIN 8.4 g/dL (11.0-16.0); LYMPH # 0.8 K/uL (1.0-4.3); LYMPH % 21.5 % (20.0-40.0); MEAN CELL VOLUME 94.5 fL (81.0-99.0); MEAN CORPUSCULAR HEMOGLOBIN 32.8 pg (27.0-31.0); MEAN CORPUSCULAR HGB CONC 34.7 g/dL (33.0-37.0); MEAN PLATELET VOLUME 8.1 fL (7.2-11.7); MONO # 0.5 K/uL (0.0-0.8); MONO % 13.5 % (0.0-10.0); NEUT % 56.3 % (50.0-75.0); NRBC % 0.1 % (0.0-2.0); RBC 2.56 Mil/uL (3.80-5.20); RED CELL DISTRIBUTION WIDTH 15.8 % (11.5-14.5); WHITE BLOOD COUNT 3.5 K/uL (4.8-10.8)
[2017-06-16 07:07] LABS: CALCIUM 8.3 mg/dl (8.6-10.4)
[2017-06-16] MEDS: (Novolog) Insulin Aspart, Recombinant 100 u/ml 10 ml vial SC SCH ×4 (08:38→21:37)
--- NOTE | 2017-06-16 10:44 | CP.PCM.PN ---
Subjective - Date & Time of Evaluation Date of Evaluation: 06/16/17 Time of Evaluation: 07:00 - Subjective Subjective: General Surgery- Dr. Yu Patient seen and examined at bedside this AM. No acute events overnight. Nursing notes reviewed. No new complaints at this time. Incision good homeostasis, no purulent drainage. Objective - Vital Signs/Intake and Output Vital Signs (last 24 hours): Temp Pulse Resp BP Pulse Ox 98.6 F 68 20 150/61 99 06/16/17 07:47 06/16/17 07:47 06/16/17 07:47 06/16/17 07:47 06/16/17 07:47 Intake and Output: 06/16/17 06/16/17 06:59 18:59 Intake Total 800 Output Total 500 Balance 300 - Medications Medications: Current Medications Acetaminophen (Tylenol 325mg Tab) 650 mg PO Q6 PRN PRN Reason: Fever >100.4 F Clopidogrel Bisulfate (Plavix) 75 mg PO DAILY [facility] Last Admin: 06/15/17 11:59 Dose: 75 mg Docusate Sodium (Colace) 100 mg PO BID [facility] Last Admin: 06/15/17 16:59 Dose: 100 mg Glipizide (Glucotrol Xl) 10 mg PO DAILY [facility] Last Admin: 06/13/17 11:36 Dose: 10 mg Heparin Sodium (Porcine) (Heparin) 5,000 units SC Q8 [facility] Last Admin: 06/13/17 22:02 Dose: 5,000 units Hydromorphone HCl (Dilaudid) 1 mg IVP Q4H PRN PRN Reason: Pain, severe (8-10) Last Admin: 06/14/17 17:35 Dose: 1 mg Piperacillin Sod/Tazobactam Sod (Zosyn 2.25 Gm Iv Premix) 2.25 gm in 50 mls @ 100 mls/hr IVPB Q8 [facility] Last Admin: 06/16/17 05:10 Dose: 100 mls/hr Insulin Aspart (Novolog) 0 unit SC ACHS [facility] PRN Reason: Protocol Last Admin: 06/16/17 08:38 Dose: 4 unit Insulin Glargine (Lantus) 20 unit SC HS [facility] Last Admin: 06/15/17 21:49 Dose: 20 unit Losartan Potassium (Cozaar) 100 mg PO DAILY [facility] Last Admin: 06/15/17 11:59 Dose: 100 mg Metoprolol Succinate (Toprol Xl) 25 mg PO DAILY [facility] Last Admin: 06/15/17 11:59 Dose: 25 mg Nitroglycerin (Nitrostat Sl Tab) 0.4 mg SL Q5MIN PRN PRN Reason: CHEST PAIN Rosuvastatin Calcium (Crestor) 5 mg PO HS [facility] Last Admin: 06/15/17 21:49 Dose: 5 mg Sitagliptin Phosphate (Januvia) 25 mg PO DAILY [facility] Last Admin: 06/13/17 11:37 Dose: 25 mg - Labs Labs: 06/16/17 06:31 06/16/17 06:31 PT 11.4 SECONDS (9.7-12.2) 06/14/17 07:18 INR 1.0 06/14/17 07:18 APTT 31 SECONDS (21-34) 06/14/17 07:18 - Constitutional Appears: Non-toxic, No Acute Distress - Eye Exam Eye Exam: EOMI. absent: Scleral icterus - ENT Exam ENT Exam: Mucous Membranes Moist - Neck Exam Additional comments: packing removed at bedside this AM clean dressing applied - Respiratory Exam Respiratory Exam: NORMAL BREATHING PATTERN. absent: Accessory Muscle Use, Respiratory Distress - Cardiovascular Exam Cardiovascular Exam: +S1, +S2. absent: Bradycardia, Tachycardia - GI/Abdominal Exam GI & Abdominal Exam: Soft. absent: Distended, Firm, Guarding, Rigid, Tenderness - Neurological Exam Neurological Exam: Alert, Awake, Oriented x3 - Psychiatric Exam Psychiatric exam: Normal Affect - Skin Skin Exam: Intact, Warm Assessment and Plan - Assessment and Plan (Free Text) Assessment: 87F POD#2 s/p Neck I&D Plan: Packing out clean dressing applied no further surgical intervention at this time reconsult as needed discussed w/ Dr. Yu Surgical attending Neville Andersen PGY1
[2017-06-16] MEDS: Metoprolol Succinate 25 mg XL Tab PO SCH (12:06)
--- NOTE | 2017-06-16 16:33 | CP.PCM.PN ---
Subjective - Date & Time of Evaluation Date of Evaluation: 06/16/17 Time of Evaluation: 16:30 - Subjective Subjective: Patient stillwith severe pain of the posterior neck On Vancomycin for a MRSA neck abscess. Afebrile. Objective - Vital Signs/Intake and Output Vital Signs (last 24 hours): Temp Pulse Resp BP Pulse Ox 97.8 F 70 20 158/67 H 99 06/16/17 15:00 06/16/17 15:00 06/16/17 15:00 06/16/17 15:00 06/16/17 15:00 Intake and Output: 06/16/17 06/16/17 06:59 18:59 Intake Total 800 Output Total 500 Balance 300 - Medications Medications: Current Medications Acetaminophen (Tylenol 325mg Tab) 650 mg PO Q6 PRN PRN Reason: Fever >100.4 F Clopidogrel Bisulfate (Plavix) 75 mg PO DAILY [facility] Last Admin: 06/16/17 12:06 Dose: 75 mg Docusate Sodium (Colace) 100 mg PO BID [facility] Last Admin: 06/16/17 12:06 Dose: 100 mg Glipizide (Glucotrol Xl) 10 mg PO DAILY [facility] Last Admin: 06/13/17 11:36 Dose: 10 mg Heparin Sodium (Porcine) (Heparin) 5,000 units SC Q8 [facility] Last Admin: 06/13/17 22:02 Dose: 5,000 units Hydromorphone HCl (Dilaudid) 1 mg IVP Q4H PRN PRN Reason: Pain, severe (8-10) Last Admin: 06/14/17 17:35 Dose: 1 mg Piperacillin Sod/Tazobactam Sod (Zosyn 2.25 Gm Iv Premix) 2.25 gm in 50 mls @ 100 mls/hr IVPB Q8 [facility] Last Admin: 06/16/17 15:20 Dose: 100 mls/hr Insulin Aspart (Novolog) 0 unit SC ACHS [facility] PRN Reason: Protocol Last Admin: 06/16/17 12:31 Dose: 6 unit Insulin Glargine (Lantus) 20 unit SC HS [facility] Last Admin: 06/15/17 21:49 Dose: 20 unit Losartan Potassium (Cozaar) 100 mg PO DAILY [facility] Last Admin: 06/16/17 12:06 Dose: 100 mg Metoprolol Succinate (Toprol Xl) 25 mg PO DAILY [facility] Last Admin: 06/16/17 12:06 Dose: 25 mg Nitroglycerin (Nitrostat Sl Tab) 0.4 mg SL Q5MIN PRN PRN Reason: CHEST PAIN Rosuvastatin Calcium (Crestor) 5 mg PO HS [facility] Last Admin: 06/15/17 21:49 Dose: 5 mg Sitagliptin Phosphate (Januvia) 25 mg PO DAILY [facility] Last Admin: 06/13/17 11:37 Dose: 25 mg - Labs Labs: 06/16/17 06:31 06/16/17 06:31 PT 11.4 SECONDS (9.7-12.2) 06/14/17 07:18 INR 1.0 06/14/17 07:18 APTT 31 SECONDS (21-34) 06/14/17 07:18 - Constitutional Appears: No Acute Distress, Chronically Ill - Head Exam Head Exam: NORMAL INSPECTION - Eye Exam Eye Exam: Normal appearance - ENT Exam ENT Exam: Normal Exam - Neck Exam Additional comments: Tender and erythematous posterior neck. - Respiratory Exam Respiratory Exam: Clear to Ausculation Bilateral, NORMAL BREATHING PATTERN - Cardiovascular Exam Cardiovascular Exam: REGULAR RHYTHM, Murmur - GI/Abdominal Exam GI & Abdominal Exam: Soft, Normal Bowel Sounds - Rectal Exam Rectal Exam: Deferred - Extremities Exam Extremities Exam: Normal Inspection - Back Exam Back Exam: NORMAL INSPECTION - Neurological Exam Neurological Exam: Alert, Awake, Oriented x3 - Psychiatric Exam Psychiatric exam: Anxious Assessment and Plan (1) Cellulitis of neck Assessment & Plan: To continue Vacomycin. 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 Status: Chronic (4) Ischemic cardiomyopathy Status: Chronic (5) Hypertension Status: Acute
--- NOTE | 2017-06-16 19:07 | CP.PCM.PN ---
Subjective - Date & Time of Evaluation Date of Evaluation: 06/16/17 Time of Evaluation: 09:00 - Subjective Subjective: C/S noted MRSA neg cont IV rx and wound care Objective - Vital Signs/Intake and Output Vital Signs (last 24 hours): Temp Pulse Resp BP Pulse Ox 97.8 F 70 20 158/67 H 99 06/16/17 15:00 06/16/17 15:00 06/16/17 15:00 06/16/17 15:00 06/16/17 15:00 Intake and Output: 06/16/17 06/17/17 18:59 06:59 Intake Total 290 Output Total 2 Balance 288 - Medications Medications: Current Medications Acetaminophen (Tylenol 325mg Tab) 650 mg PO Q6 PRN PRN Reason: Fever >100.4 F Clopidogrel Bisulfate (Plavix) 75 mg PO DAILY [facility] Last Admin: 06/16/17 12:06 Dose: 75 mg Docusate Sodium (Colace) 100 mg PO BID [facility] Last Admin: 06/16/17 17:37 Dose: 100 mg Glipizide (Glucotrol Xl) 10 mg PO DAILY [facility] Last Admin: 06/13/17 11:36 Dose: 10 mg Heparin Sodium (Porcine) (Heparin) 5,000 units SC Q8 [facility] Last Admin: 06/13/17 22:02 Dose: 5,000 units Hydromorphone HCl (Dilaudid) 1 mg IVP Q4H PRN PRN Reason: Pain, severe (8-10) Last Admin: 06/14/17 17:35 Dose: 1 mg Piperacillin Sod/Tazobactam Sod (Zosyn 2.25 Gm Iv Premix) 2.25 gm in 50 mls @ 100 mls/hr IVPB Q8 [facility] Last Admin: 06/16/17 15:20 Dose: 100 mls/hr Insulin Aspart (Novolog) 0 unit SC ACHS [facility] PRN Reason: Protocol Last Admin: 06/16/17 17:37 Dose: 3 unit Insulin Glargine (Lantus) 25 unit SC HS [facility] Losartan Potassium (Cozaar) 100 mg PO DAILY [facility] Last Admin: 06/16/17 12:06 Dose: 100 mg Metoprolol Succinate (Toprol Xl) 25 mg PO DAILY [facility] Last Admin: 06/16/17 12:06 Dose: 25 mg Nitroglycerin (Nitrostat Sl Tab) 0.4 mg SL Q5MIN PRN PRN Reason: CHEST PAIN Rosuvastatin Calcium (Crestor) 5 mg PO HS [facility] Last Admin: 06/15/17 21:49 Dose: 5 mg Sitagliptin Phosphate (Januvia) 25 mg PO DAILY [facility] Last Admin: 06/13/17 11:37 Dose: 25 mg - Labs Labs: 06/16/17 06:31 06/16/17 06:31 PT 11.4 SECONDS (9.7-12.2) 06/14/17 07:18 INR 1.0 06/14/17 07:18 APTT 31 SECONDS (21-34) 06/14/17 07:18 Assessment and Plan (1) Abscess or cellulitis, neck Status: Acute (2) Cellulitis of neck Status: Acute (3) Acute on chronic diastolic (congestive) heart failure Status: Acute (4) Acute renal insufficiency Status: Acute (5) CKD (chronic kidney disease) stage 4, GFR 15-29 ml/min Status: Acute (6) Chronic congestive heart failure Status: Acute (7) DM type 2 (diabetes mellitus, type 2) Status: Acute (8) Uncontrolled insulin dependent diabetes mellitus Status: Acute
[2017-06-16] MEDS: (Lantus) Insulin Glargine, Recombinant SC SCH (21:34)
[2017-06-17] MEDS: Piperacill/Tazo 2.25gm in Dex 2.25 GM/50 ML BAG IVPB SCH ×3 (06:05→21:27)
[2017-06-17 07:19] LABS: BASO % 0.4 % (0.0-2.0); EOS # 0.3 K/uL (0.0-0.7); EOS % 7.1 % (0.0-4.0); HEMOGLOBIN 8.9 g/dL (11.0-16.0); MEAN CELL VOLUME 94.4 fL (81.0-99.0); MEAN CORPUSCULAR HEMOGLOBIN 33.4 pg (27.0-31.0); MEAN CORPUSCULAR HGB CONC 35.4 g/dL (33.0-37.0); MEAN PLATELET VOLUME 8.2 fL (7.2-11.7); MONO # 0.6 K/uL (0.0-0.8); MONO % 11.7 % (0.0-10.0); NEUT # 2.8 K/uL (1.8-7.0); NEUT % 59.8 % (50.0-75.0); NRBC % 0.1 % (0.0-2.0); RBC 2.66 Mil/uL (3.80-5.20); RED CELL DISTRIBUTION WIDTH 15.5 % (11.5-14.5); WHITE BLOOD COUNT 4.7 K/uL (4.8-10.8)
[2017-06-17 07:46] LABS: CALCIUM 8.5 mg/dl (8.6-10.4)
[2017-06-17] MEDS: (Novolog) Insulin Aspart, Recombinant 100 u/ml 10 ml vial SC SCH ×4 (08:29→22:47)
[2017-06-17] MEDS: Metoprolol Succinate 25 mg XL Tab PO SCH (10:35)
--- NOTE | 2017-06-17 14:11 | CP.PCM.PN ---
Subjective - Date & Time of Evaluation Date of Evaluation: 06/17/17 Time of Evaluation: 14:11 - Subjective Subjective: c& s noted clinically improved Objective - Vital Signs/Intake and Output Vital Signs (last 24 hours): Temp Pulse Resp BP Pulse Ox 97.8 F 66 20 156/75 H 98 06/17/17 08:36 06/17/17 08:36 06/17/17 08:36 06/17/17 08:36 06/17/17 08:36 Intake and Output: 06/17/17 06/17/17 06:59 18:59 Intake Total 650 Output Total 400 Balance 250 - Medications Medications: Current Medications Acetaminophen (Tylenol 325mg Tab) 650 mg PO Q6 PRN PRN Reason: Fever >100.4 F Clopidogrel Bisulfate (Plavix) 75 mg PO DAILY [facility] Last Admin: 06/17/17 10:35 Dose: 75 mg Docusate Sodium (Colace) 100 mg PO BID [facility] Last Admin: 06/17/17 10:35 Dose: 100 mg Glipizide (Glucotrol Xl) 10 mg PO DAILY [facility] Last Admin: 06/13/17 11:36 Dose: 10 mg Heparin Sodium (Porcine) (Heparin) 5,000 units SC Q8 [facility] Last Admin: 06/13/17 22:02 Dose: 5,000 units Hydromorphone HCl (Dilaudid) 1 mg IVP Q4H PRN PRN Reason: Pain, severe (8-10) Last Admin: 06/14/17 17:35 Dose: 1 mg Piperacillin Sod/Tazobactam Sod (Zosyn 2.25 Gm Iv Premix) 2.25 gm in 50 mls @ 100 mls/hr IVPB Q8 [facility] Last Admin: 06/17/17 06:05 Dose: 100 mls/hr Insulin Aspart (Novolog) 0 unit SC ACHS [facility] PRN Reason: Protocol Last Admin: 06/17/17 12:18 Dose: 4 unit Insulin Glargine (Lantus) 25 unit SC HS [facility] Last Admin: 06/16/17 21:34 Dose: 25 units Losartan Potassium (Cozaar) 100 mg PO DAILY [facility] Last Admin: 06/17/17 10:43 Dose: 100 mg Metoprolol Succinate (Toprol Xl) 25 mg PO DAILY [facility] Last Admin: 06/17/17 10:35 Dose: 25 mg Nitroglycerin (Nitrostat Sl Tab) 0.4 mg SL Q5MIN PRN PRN Reason: CHEST PAIN Rosuvastatin Calcium (Crestor) 5 mg PO HS [facility] Last Admin: 06/15/17 21:49 Dose: 5 mg Sitagliptin Phosphate (Januvia) 25 mg PO DAILY [facility] Last Admin: 06/13/17 11:37 Dose: 25 mg - Labs Labs: 06/17/17 06:59 06/17/17 06:59 PT 11.4 SECONDS (9.7-12.2) 06/14/17 07:18 INR 1.0 06/14/17 07:18 APTT 31 SECONDS (21-34) 06/14/17 07:18
[2017-06-17 17:36] VITALS: O2SAT 100
--- NOTE | 2017-06-17 19:23 | CP.PCM.PN ---
Subjective - Date & Time of Evaluation Date of Evaluation: 06/17/17 Time of Evaluation: 08:00 - Subjective Subjective: cleared by surgery- less pain and min drainage for possible d/c on po rx follow up with dr Yu Objective - Vital Signs/Intake and Output Vital Signs (last 24 hours): Temp Pulse Resp BP Pulse Ox 97.8 F 65 20 139/62 100 06/17/17 16:00 06/17/17 16:00 06/17/17 16:00 06/17/17 16:00 06/17/17 16:00 Intake and Output: 06/17/17 06/18/17 18:59 06:59 Intake Total 450 Balance 450 - Medications Medications: Current Medications Acetaminophen (Tylenol 325mg Tab) 650 mg PO Q6 PRN PRN Reason: Fever >100.4 F Clopidogrel Bisulfate (Plavix) 75 mg PO DAILY [facility] Last Admin: 06/17/17 10:35 Dose: 75 mg Docusate Sodium (Colace) 100 mg PO BID [facility] Last Admin: 06/17/17 10:35 Dose: 100 mg Glipizide (Glucotrol Xl) 10 mg PO DAILY [facility] Last Admin: 06/13/17 11:36 Dose: 10 mg Heparin Sodium (Porcine) (Heparin) 5,000 units SC Q8 [facility] Last Admin: 06/13/17 22:02 Dose: 5,000 units Hydromorphone HCl (Dilaudid) 1 mg IVP Q4H PRN PRN Reason: Pain, severe (8-10) Last Admin: 06/14/17 17:35 Dose: 1 mg Piperacillin Sod/Tazobactam Sod (Zosyn 2.25 Gm Iv Premix) 2.25 gm in 50 mls @ 100 mls/hr IVPB Q8 [facility] Last Admin: 06/17/17 14:12 Dose: 100 mls/hr Insulin Aspart (Novolog) 0 unit SC ACHS [facility] PRN Reason: Protocol Last Admin: 06/17/17 17:25 Dose: 2 unit Insulin Glargine (Lantus) 25 unit SC HS [facility] Last Admin: 06/16/17 21:34 Dose: 25 units Losartan Potassium (Cozaar) 100 mg PO DAILY [facility] Last Admin: 06/17/17 10:43 Dose: 100 mg Metoprolol Succinate (Toprol Xl) 25 mg PO DAILY [facility] Last Admin: 06/17/17 10:35 Dose: 25 mg Nitroglycerin (Nitrostat Sl Tab) 0.4 mg SL Q5MIN PRN PRN Reason: CHEST PAIN Rosuvastatin Calcium (Crestor) 5 mg PO HS [facility] Last Admin: 06/15/17 21:49 Dose: 5 mg Sitagliptin Phosphate (Januvia) 25 mg PO DAILY [facility] Last Admin: 06/13/17 11:37 Dose: 25 mg - Labs Labs: 06/17/17 06:59 06/17/17 06:59 PT 11.4 SECONDS (9.7-12.2) 06/14/17 07:18 INR 1.0 06/14/17 07:18 APTT 31 SECONDS (21-34) 06/14/17 07:18 - Constitutional Appears: Non-toxic, Chronically Ill - Head Exam Head Exam: NORMOCEPHALIC - Eye Exam Eye Exam: PERRL - ENT Exam ENT Exam: Mucous Membranes Dry - Neck Exam Neck Exam: absent: Lymphadenopathy - Respiratory Exam Respiratory Exam: Decreased Breath Sounds - Cardiovascular Exam Cardiovascular Exam: REGULAR RHYTHM - GI/Abdominal Exam GI & Abdominal Exam: Distended - Rectal Exam Rectal Exam: Deferred - Exam Exam: NORMAL INSPECTION - Extremities Exam Extremities Exam: absent: Pedal Edema - Back Exam Back Exam: absent: CVA tenderness (L), CVA tenderness (R) - Neurological Exam Neurological Exam: Alert, Awake, Oriented x3 - Psychiatric Exam Psychiatric exam: Depressed - Skin Skin Exam: Dry Assessment and Plan (1) Abscess or cellulitis, neck Status: Acute (2) Cellulitis of neck Status: Acute (3) Acute on chronic diastolic (congestive) heart failure Status: Acute (4) Acute renal insufficiency Status: Acute (5) CKD (chronic kidney disease) stage 4, GFR 15-29 ml/min Status: Acute (6) Chronic congestive heart failure Status: Acute (7) DM type 2 (diabetes mellitus, type 2) Status: Acute (8) Uncontrolled insulin dependent diabetes mellitus Status: Acute - Assessment and Plan (Free Text) Assessment: d/c on po rx with wound care
[2017-06-17] MEDS: (Lantus) Insulin Glargine, Recombinant SC SCH (22:46)
--- NOTE | 2017-06-17 23:12 | CP.PCM.PN ---
Subjective - Date & Time of Evaluation Date of Evaluation: 06/17/17 Time of Evaluation: 14:20 - Subjective Subjective: Patient with less posterior neck pain. Less erythema, and tenderness of the posterior neck. No draining from the incision. Objective - Vital Signs/Intake and Output Vital Signs (last 24 hours): Temp Pulse Resp BP Pulse Ox 97.8 F 65 20 139/62 100 06/17/17 16:00 06/17/17 16:00 06/17/17 16:00 06/17/17 16:00 06/17/17 16:00 Intake and Output: 06/17/17 06/18/17 18:59 06:59 Intake Total 450 200 Balance 450 200 - Medications Medications: Current Medications Acetaminophen (Tylenol 325mg Tab) 650 mg PO Q6 PRN PRN Reason: Fever >100.4 F Clopidogrel Bisulfate (Plavix) 75 mg PO DAILY [facility] Last Admin: 06/17/17 10:35 Dose: 75 mg Docusate Sodium (Colace) 100 mg PO BID [facility] Last Admin: 06/17/17 18:55 Dose: 100 mg Glipizide (Glucotrol Xl) 10 mg PO DAILY [facility] Last Admin: 06/13/17 11:36 Dose: 10 mg Heparin Sodium (Porcine) (Heparin) 5,000 units SC Q8 [facility] Last Admin: 06/13/17 22:02 Dose: 5,000 units Hydromorphone HCl (Dilaudid) 1 mg IVP Q4H PRN PRN Reason: Pain, severe (8-10) Last Admin: 06/14/17 17:35 Dose: 1 mg Piperacillin Sod/Tazobactam Sod (Zosyn 2.25 Gm Iv Premix) 2.25 gm in 50 mls @ 100 mls/hr IVPB Q8 [facility] Last Admin: 06/17/17 21:27 Dose: 100 mls/hr Insulin Aspart (Novolog) 0 unit SC ACHS [facility] PRN Reason: Protocol Last Admin: 06/17/17 22:47 Dose: Not Given Insulin Glargine (Lantus) 25 unit SC HS [facility] Last Admin: 06/17/17 22:46 Dose: 25 units Losartan Potassium (Cozaar) 100 mg PO DAILY [facility] Last Admin: 06/17/17 10:43 Dose: 100 mg Metoprolol Succinate (Toprol Xl) 25 mg PO DAILY [facility] Last Admin: 06/17/17 10:35 Dose: 25 mg Nitroglycerin (Nitrostat Sl Tab) 0.4 mg SL Q5MIN PRN PRN Reason: CHEST PAIN Rosuvastatin Calcium (Crestor) 5 mg PO HS [facility] Last Admin: 06/17/17 21:27 Dose: 5 mg Sitagliptin Phosphate (Januvia) 25 mg PO DAILY [facility] Last Admin: 06/13/17 11:37 Dose: 25 mg - Labs Labs: 06/17/17 06:59 06/17/17 06:59 PT 11.4 SECONDS (9.7-12.2) 06/14/17 07:18 INR 1.0 06/14/17 07:18 APTT 31 SECONDS (21-34) 06/14/17 07:18 - Constitutional Appears: No Acute Distress, Younger Than Stated Age, Chronically Ill - Head Exam Head Exam: NORMAL INSPECTION - Eye Exam Eye Exam: Normal appearance - ENT Exam ENT Exam: Normal Exam - Neck Exam Neck Exam: Tenderness Additional comments: Erythema and tenderness of the posterior neck. - Respiratory Exam Respiratory Exam: Clear to Ausculation Bilateral - Cardiovascular Exam Cardiovascular Exam: REGULAR RHYTHM - GI/Abdominal Exam GI & Abdominal Exam: Soft, Normal Bowel Sounds - Rectal Exam Rectal Exam: Deferred - Extremities Exam Extremities Exam: Normal Inspection - Back Exam Back Exam: NORMAL INSPECTION - Neurological Exam Neurological Exam: Alert, Awake - Psychiatric Exam Psychiatric exam: Anxious Assessment and Plan (1) Cellulitis of neck Assessment & Plan: To continue antibiotics as per Dr Avilez. 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
[2017-06-18] MEDS: Piperacill/Tazo 2.25gm in Dex 2.25 GM/50 ML BAG IVPB SCH ×2 (05:30→13:29)
[2017-06-18] MEDS: (Novolog) Insulin Aspart, Recombinant 100 u/ml 10 ml vial SC SCH ×2 (07:36→12:25)
[2017-06-18 08:20] VITALS: BP 147/62; PULSE 62; TEMP 98.1
[2017-06-18 08:42] LABS: SQUAMOUS EPITHIAL 2 /hpf (0-5); URINE BILIRUBIN NEGATIVE (NEGATIVE); URINE BLOOD NEGATIVE (NEGATIVE); URINE CLARITY Hazy (Clear); URINE COLOR Yellow (YELLOW); URINE GLUCOSE (UA) 1+ mg/dL (Normal); URINE LEUKOCYTE ESTERASE NEG Leu/uL (Negative); URINE NITRATE NEGATIVE (NEGATIVE); URINE PROTEIN 1+ mg/dL (NEGATIVE); URINE UROBILINOGEN NORMAL mg/dL (0.2-1.0)
[2017-06-18] MEDS: Metoprolol Succinate 25 mg XL Tab PO SCH (10:01)
--- NOTE | 2017-06-18 13:29 | CP.PCM.PN ---
Subjective - Date & Time of Evaluation Date of Evaluation: 06/18/17 Time of Evaluation: 13:26 - Subjective Subjective: PT SEEN; STATES SHE FEELS GOOD. SON AT BEDSIDE. THEY ARE EAGER FOR D/C HOME. WOUND TO POSTERIOD NECK EVALUATED BY NATURAL RESOURCES PROFESSOR; NO REDNESS, NO ODOR, NO TENDERNESS OR SWELLING, + SCANT DRAINAGE NOTED ON DRESSING. DRESSING REMOVED, CLEANED WITH NS AND NEW DRESSING APPLIED. NATURAL RESOURCES PROFESSOR SHOWED PT'S SON HOW TO DO WOUND CARE UNTIL SHE IS SEEN BY THE [facility] NEXT WEEK. DISCUSSED WITH DR. ROLON AND OK TO D/C WITH KEFLEX 500 MG PO Q12 X7 DAYS. RX ALSO SENT TO PHARMACY FOR FLORASTOR. PLACED CALL TO DR. PICKERING AND LEFT MESSAGE REGARDING D/C PLAN AND FOR D/C ORDER. SON INSTRUCTED TO GENERATOR TECHNICIAN NEW RX AT PHARMACY PRIOR TO D/C THEY CLOSE AT 1430 TODAY AND REOPEN TUESDAY. WILL FOLLOW UP WITH DR. PICKERING FOR ORDER. -FOLLOW UP WITH DR. PICKERING IN THE OFFICE WITHIN 1-2 WEEKS---CALL ON TUESDAY FOR AN APPOINTMENT TIME. -FOLLOW UP WITH DR. GARCIA (SURGEON) IN THE OFFICE WITHIN 1-2 WEEKS---CALL ON TUESDAY FOR AN APPOINTMENT TIME. -CONTINUE YOUR HOME MEDICATIONS USUAL. -PER DR. ROLON (INFECTION DOCTOR) YOU MUST CONTINUE THE FOLLOWING ANTIBIOTIC: KEFLEX 500 MG (1 TAB) BY MOUTH EVERY 12 HOURS (TWICE A DAY) FOR 7 DAYS (START ON 06/18/17 DURING THE EVENING AND CONTINUE UNTIL 06/26/17). -YOU HAE ALSO BEEN PRESCRIBED FLORASTOR (PROBIOTIC, VITAMIN FOR YOUR STOMACH TO PREVENT NAUSEA/VOMITING/DIARRHEA RELATED TO ANTIBIOTIC USE) TAKE TWICE A DAY WITH THE ANTIBIOTIC. -WOUND CARE HAS BEEN ARRANGED FOR YOU BY THE [facility] HOME [facility]ARE [facility]. THEY WILL CALL YOU ON TUESDAY TO SCHEDULE THE FIRST HOME VISIT. -WOUND CARE ORDERS TO FOLLOW ONCE A DAY, STARTING ON 06/19/17: CLEAN WOUND WITH NORMAL SALINE, PAT DRY WITH GAUZE, THEN COVER WITH THE "ADHESIVE ISLAND DRESSING" AND SMALL SQUARE CUT OUT OF THE "NON ADHESIVE ISLAND DRESSING" . DO THIS ONCE A DAY. -FOR SHOWERS, KEEP THE WOUND COVERED AND DRY; DO SPONGE OR WASHCLOTH BATH UNTIL THE SKIN CLOSES. -FOR FURTHER QUESTIONS OR CONCERNS, CONTACT DR. PICKERING. Objective - Vital Signs/Intake and Output Vital Signs (last 24 hours): Temp Pulse Resp BP Pulse Ox 98.1 F 62 20 147/62 100 06/18/17 08:18 06/18/17 08:18 06/18/17 08:18 06/18/17 08:18 06/18/17 08:18 Intake and Output: 06/18/17 06/18/17 06:59 18:59 Intake Total 450 Balance 450 - Medications Medications: Current Medications Acetaminophen (Tylenol 325mg Tab) 650 mg PO Q6 PRN PRN Reason: Fever >100.4 F Clopidogrel Bisulfate (Plavix) 75 mg PO DAILY [facility] Last Admin: 06/18/17 10:01 Dose: 75 mg Docusate Sodium (Colace) 100 mg PO BID [facility] Last Admin: 06/18/17 10:01 Dose: 100 mg Glipizide (Glucotrol Xl) 10 mg PO DAILY [facility] Last Admin: 06/13/17 11:36 Dose: 10 mg Heparin Sodium (Porcine) (Heparin) 5,000 units SC Q8 [facility] Last Admin: 06/13/17 22:02 Dose: 5,000 units Hydromorphone HCl (Dilaudid) 1 mg IVP Q4H PRN PRN Reason: Pain, severe (8-10) Last Admin: 06/14/17 17:35 Dose: 1 mg Piperacillin Sod/Tazobactam Sod (Zosyn 2.25 Gm Iv Premix) 2.25 gm in 50 mls @ 100 mls/hr IVPB Q8 [facility] Last Admin: 06/18/17 05:30 Dose: 100 mls/hr Insulin Aspart (Novolog) 0 unit SC ACHS [facility] PRN Reason: Protocol Last Admin: 06/18/17 12:25 Dose: 3 unit Insulin Glargine (Lantus) 25 unit SC HS [facility] Last Admin: 06/17/17 22:46 Dose: 25 units Losartan Potassium (Cozaar) 100 mg PO DAILY [facility] Last Admin: 06/18/17 10:02 Dose: 100 mg Metoprolol Succinate (Toprol Xl) 25 mg PO DAILY [facility] Last Admin: 06/18/17 10:01 Dose: 25 mg Nitroglycerin (Nitrostat Sl Tab) 0.4 mg SL Q5MIN PRN PRN Reason: CHEST PAIN Rosuvastatin Calcium (Crestor) 5 mg PO HS [facility] Last Admin: 06/17/17 21:27 Dose: 5 mg Sitagliptin Phosphate (Januvia) 25 mg PO DAILY [facility] Last Admin: 06/13/17 11:37 Dose: 25 mg - Labs Labs: 06/17/17 06:59 06/17/17 06:59 PT 11.4 SECONDS (9.7-12.2) 06/14/17 07:18 INR 1.0 06/14/17 07:18 APTT 31 SECONDS (21-34) 06/14/17 07:18
== END 2017-06-18 16:03 | disposition home or self-care (01) | DRG 579 ==
LOC: C.ER 12:36 → C.9E 17:17 → C.3T 20:49
PROVIDERS: ADMIT Internal Medicine Cardiovascular Disease; ATTEND Internal Medicine Cardiovascular Disease
PROC: 0J940ZZ Drainage of Right Neck Subcutaneous Tissue and Fascia, Open Approach (ICD-10-PCS; principal; 2017-06-11)
DX: L03.221 Cellulitis of neck (principal); I50.33 Acute on chronic diastolic (congestive) heart failure; N17.9 Acute kidney failure, unspecified; N18.4 Chronic kidney disease, stage 4 (severe); I13.0 Hypertensive heart and chronic kidney disease with heart failure and stage 1 through stage 4 chronic kidney disease, or unspecified chronic kidney disease; I25.5 Ischemic cardiomyopathy; M17.0 Bilateral primary osteoarthritis of knee; Z79.4 Long term (current) use of insulin; Z95.0 Presence of cardiac pacemaker; E11.21 Type 2 diabetes mellitus with diabetic nephropathy

== ENCOUNTER 2018-04-24 09:43 | Inpatient (IN) | payer MEDICARE, MEDICAID ==
[2018-04-24 09:46] VITALS: BMI 23.4
[2018-04-24] MEDS ORDERED: Sodium Chloride 0.9% 1,000 ML IV ONE (10:03)
[2018-04-24] MEDS ORDERED: Azithromycin 500 MG in Sodium Chloride 0.9% 250 ML IV STA (10:04)
[2018-04-24] MEDS ORDERED: cefTRIAXone IV 1 gm in Dextros 50 ML IV ONE (10:04)
[2018-04-24] MEDS ORDERED: Albuterol-Ipratrop 3 mg / 0.5 (3 ml) UD INH STA ×2 (10:05→11:31)
[2018-04-24 10:30] LABS: VENOUS BLOOD GAS BASE EXCESS -4.1 mmol/L (0.0-2.0); VENOUS BLOOD GAS PCO2 49 mmHg (40-60); VENOUS BLOOD GAS PO2 24 mm/Hg (30-55); VENOUS BLOOD PH 7.28 (7.32-7.43)
[2018-04-24] MEDS ORDERED: Albuterol-Ipratrop 3 mg / 0.5 (3 ml) UD ONE ×2 (10:39→11:26)
[2018-04-24] MEDS ORDERED: cefTRIAXone 1 gm 1 GM/100 ML BAG IVPB ONE (10:40)
[2018-04-24] MEDS ORDERED: Azithromycin 500mg/250ML NS 500 MG/250 ML BAG IVPB ONE (10:40)
[2018-04-24] MEDS ORDERED: Sodium Chloride 0.9% 1,000 ML ONE (10:40)
[2018-04-24 10:47] LABS: BASO % 0.5 % (0.0-2.0); EOS # 0.2 K/uL (0.0-0.7); EOS % 1.9 % (0.0-4.0); HEMOGLOBIN 10.8 g/dL (11.0-16.0); LYMPH # 1.8 K/uL (1.0-4.3); LYMPH % 19.6 % (20.0-40.0); MEAN CELL VOLUME 97.1 fL (81.0-99.0); MEAN CORPUSCULAR HEMOGLOBIN 32.1 pg (27.0-31.0); MEAN PLATELET VOLUME 8.7 fL (7.2-11.7); MONO # 0.8 K/uL (0.0-0.8); NEUT # 6.6 K/uL (1.8-7.0); RBC 3.38 Mil/uL (3.80-5.20); RED CELL DISTRIBUTION WIDTH 15.5 % (11.5-14.5); WHITE BLOOD COUNT 9.4 K/uL (4.8-10.8)
[2018-04-24 11:10] LABS: ALB/GLOB RATIO 1.4 (1.0-2.1); CALCIUM 9.2 mg/dl (8.6-10.4)
--- NOTE | 2018-04-24 11:43 | C.PDOC ---
History Of Present Illness 79 y/o female brought to ER by ambulance for evaluation of shortness of breath and fever which has been present for the past1 day. Patient is also complaining of diarrhea which has been present for the past 1 day. Denies having CP, nausea, vomiting, and abdominal pain. Time Seen by Provider: 04/24/18 09:59 Chief Complaint (Nursing): Shortness Of Breath History Per: Patient History/Exam Limitations: no limitations Onset/Duration Of Symptoms: Days Current Symptoms Are (Timing): Still Present Severity: Moderate Past Medical History Reviewed: Historical Data, Nursing Documentation, Vital Signs Vital Signs: Last Vital Signs Temp 98.2 F 04/24/18 09:54 Pulse 79 04/24/18 09:54 Resp 24 04/24/18 09:54 BP 167/77 H 04/24/18 09:54 Pulse Ox 100 04/24/18 10:15 - Medical History PMH: Anxiety, Arthritis (OA, OSTEOPOROSIS; R KNEE AND ANKLE PAIN), CHF, Diabetes, HTN, Hypercholesterolemia, Kidney Stones, Osteoporosis, Pneumonia, Chronic Kidney Disease Denies: Emphysema Surgical History: Cholecystectomy, Pacemaker - [facility] Procedures DRAINAGE OF ANT NECK SUBCU/FASCIA, OPEN APPROACH (06/11/17) Family History: States: No Known Family Hx - Social History Hx Tobacco Use: No Hx Alcohol Use: No Hx Substance Use: No - Immunization History Hx Tetanus Toxoid Vaccination: No (unknown) Hx Influenza Vaccination: Yes Hx Pneumococcal Vaccination: No (unknown) Review Of Systems Except As Marked, All Systems Reviewed And Found Negative. Constitutional: Positive for: Fever. Negative for: Chills Cardiovascular: Negative for: Chest Pain Respiratory: Positive for: Shortness of Breath Gastrointestinal: Positive for: Diarrhea. Negative for: Nausea, Vomiting Physical Exam - Physical Exam Appears: Non-toxic, No Acute Distress Skin: Normal Color, Warm, Dry Head: Atraumatic, Normacephalic Eye(s): bilateral: Normal Inspection Nose: Normal Oral Mucosa: Moist Neck: Supple Chest: Symmetrical Cardiovascular: Rhythm Regular Respiratory: Rales (increased rhonchi in right lung, decreased rhonchi in left lung), Rhonchi (increased rhonchi in right lung, decreased rhonchi in left lung), No Wheezing Gastrointestinal/Abdominal: Normal Exam, Soft, No Tenderness, No Guarding, No Rebound Neurological/Psych: Oriented x3, Normal Speech ED Course And Treatment - Laboratory Results Result Diagrams: 04/24/18 10:34 04/24/18 10:34 Lab Interpretation: Abnormal (trop 0.0136 H) ECG: Interpreted By Me ECG Rhythm: Sinus Rhythm, L BBB ECG Interpretation: Normal, No Changes From Prior (c/w 06/02) Rate From EC O2 Sat by Pulse Oximetry: 100 (RA) Pulse Ox Interpretation: Normal - Radiology CXR: Interpreted by Me CXR Interpretation: Yes: Infiltrates (+ RLL PNA) Reevaluation Time: 12:05 Reassessment Condition: Improved - Physician Consult Information Outcome Of Conversation: 1040 and 12N, d/w Dr. Clay- PMD- ok to admit. defer anticoagulation at this time. Medical Decision Making Medical Decision Making: diarrhea, pna (consider atypical PNA, pending BCs) improved with IVF's consider rigors in ED due to new ABX- consider g- strains lactate neg. Disposition Doctor Will See Patient In The: Hospital Counseled Patient/Family Regarding: Studies Performed, Diagnosis - Disposition Disposition: HOSPITALIZED Disposition Time: 12:00 Condition: GOOD - Clinical Impression Clinical Impression: Chr obstructive pulmonary disease w/ acute lower respiratory infxn, Diarrhea - Scribe Statement The provider has reviewed the documentation as recorded by the Ermias Knox Provider Attestation: All medical record entries made by the Marryibe were at my direction and personally dictated by me. I have reviewed the chart and agree that the record accurately reflects my personal performance of the history, physical exam, medical decision making, and the department course for this patient. I have also personally directed, reviewed, and agree with the discharge instructions and disposition.
[2018-04-24 11:49] LABS: TROPONIN I 0.136 ng/mL (0.00-0.120)
[2018-04-24 12:44] LABS: SQUAMOUS EPITHIAL 1 /hpf (0-5); URINE BACTERIA MANY (<OCC); URINE BILIRUBIN NEGATIVE (NEGATIVE); URINE BLOOD NEGATIVE (NEGATIVE); URINE CLARITY Clear (Clear); URINE COLOR Yellow (YELLOW); URINE GLUCOSE (UA) NORMAL (Normal); URINE HYALINE CAST 0-2 /lpf (0-2); URINE LEUKOCYTE ESTERASE 2+ Leu/uL (Negative); URINE PROTEIN 2+ mg/dL (NEGATIVE); URINE UROBILINOGEN NORMAL mg/dL (0.2-1.0); WBC CLUMPS FEW /hpf
--- NOTE | 2018-04-24 13:37 | RAD ---
Chest x-ray single frontal view HISTORY: Shortness of breath. Comparison: 03/05/2017 Findings: Patchy consolidative increased markings in the right hilar region extending into the right infrahilar region which may represent underlying infiltrate. Right hilar prominence. Moderate venous congestion. Patchy bibasilar airspace opacities. Small bilateral pleural effusions. Small nodular density at the lateral aspect of the right upper lung zone. Atherosclerotic calcification at the aortic knob. Cardiomegaly. Left-sided pacemaker. Degenerative changes in the spine and shoulders. Impression: Patchy consolidative increased markings in the right hilar region extending into the right infrahilar region which may represent underlying infiltrate. Right hilar prominence. Moderate venous congestion. Patchy bibasilar airspace opacities. Small bilateral pleural effusions. Small nodular density at the lateral aspect of the right upper lung zone. Atherosclerotic calcification at the aortic knob. Cardiomegaly. Left-sided pacemaker.
[2018-04-24] MEDS ORDERED: Oxycodone/Acetaminophen 5/325 mg Tab PO PRN (19:31)
[2018-04-24] MEDS: (Novolog) Insulin Aspart, Recombinant 100 u/ml 10 ml vial SC SCH (22:32)
--- NOTE | 2018-04-24 23:20 | CP.PCM.HP ---
History of Present Illness - History of Present Illness History of Present Illness: 88 years old female brought to the ED at [facility] complaining of chills and shortness of breath since this AM, after she developed diarrhea a few times. She denies any chest pain, any vomiting. In the ED, she was found to have a RLL infiltrate. She was given Solumedrol IV, Albuterol by nebulizer, and started on IV Rocephin and IV Zithromax, with some improvement of her SOB. An ECG revealed a pacemaker rhythm. WBC: 9.6 Hb.4 BUN: 43 Creatinine: 2.0 serum TNI: 0.13 Pro-BNP: 5870. She is known to have an IDDM, a CAD, an ishemic cardiomyopathy, a stage III CKD, a HPTN, DJD of the knees, the lumbar spines, a senile presbycusis, a s/p PPM insertion for a sick sinus syndrome, she denies any cigarette smoking any al cohol abuse. Present on Admission - Present on Admission Any Indicators Present on Admission: No Review of Systems - Cardiovascular Cardiovascular: Dyspnea - Respiratory Respiratory: Dyspnea Past Patient History - Infectious Disease Hx of Infectious Diseases: None - Tetanus Immunizations Tetanus Immunization: Unknown - Past Medical History & Family History Past Medical History?: Yes - Past Social History Smoking Status: Never Smoked Alcohol: None Home Situation {Lives}: With Family Domestic Violence: Negative - CARDIAC Hx Congestive Heart Failure: Yes Hx Hypercholesterolemia: Yes Hx Hypertension: Yes Hx Pacemaker: Yes - PULMONARY Hx Emphysema: No Hx Pneumonia: Yes - NEUROLOGICAL Hx Neurological Disorder: Yes Hx Dizziness: Yes - HEENT Hx HEENT Problems: Yes Hx Cataracts: Yes Hx Deafness: Yes Other/Comment: hard of hearing - RENAL Hx Chronic Kidney Disease: Yes Hx Kidney Stones: Yes - ENDOCRINE/METABOLIC Hx Endocrine Disorders: Yes Hx Diabetes Mellitus Type 2: Yes - HEMATOLOGICAL/ONCOLOGICAL Hx Blood Disorders: No - INTEGUMENTARY Hx Dermatological Problems: No - MUSCULOSKELETAL/RHEUMATOLOGICAL Hx Arthritis: Yes (OA, OSTEOPOROSIS; R KNEE AND ANKLE PAIN) Hx Osteoporosis: Yes - GASTROINTESTINAL Hx Gastrointestinal Disorders: No - GENITOURINARY/GYNECOLOGICAL Hx Incontinence: Yes - PSYCHIATRIC Hx Anxiety: Yes Hx Substance Use: No - SURGICAL HISTORY Hx Cholecystectomy: Yes - ANESTHESIA Hx Anesthesia: Yes Hx Anesthesia Reactions: No Hx Malignant Hyperthermia: No Meds Allergies/Adverse Reactions: Allergies Allergy/AdvReac Type Severity Reaction Status Date / Time No Known Allergies Allergy Verified 04/24/18 09:45 Physical Exam - Constitutional Appears: No Acute Distress, Chronically Ill - Head Exam Head Exam: NORMAL INSPECTION - Eye Exam Eye Exam: Normal appearance - ENT Exam ENT Exam: Normal Exam - Neck Exam Neck exam: Positive for: Normal Inspection - Respiratory Exam Respiratory Exam: Rales, Rhonchi Additional comments: Rales and rhonchi heard at both bases. - Cardiovascular Exam Cardiovascular Exam: REGULAR RHYTHM, Systolic Murmur - GI/Abdominal Exam GI & Abdominal Exam: Normal Bowel Sounds, Soft - Rectal Exam Rectal Exam: Deferred - Extremities Exam Extremities exam: Positive for: normal inspection - Back Exam Back exam: NORMAL INSPECTION - Neurological Exam Neurological exam: Alert, CN II-XII Intact, Oriented x3 - Psychiatric Exam Psychiatric exam: Anxious - Skin Skin Exam: Dry, Intact, Normal Color, Warm Results - Vital Signs Recent Vital Signs: Last Vital Signs Temp 97.4 F L 04/24/18 21:05 Pulse 92 H 04/24/18 21:05 Resp 20 04/24/18 21:05 BP 156/68 H 04/24/18 21:05 Pulse Ox 99 04/24/18 21:05 - Labs Result Diagrams: 04/24/18 10:34 04/24/18 10:34 Labs: Laboratory Results - last 24 hr 04/24/18 04/24/18 04/24/18 10:27 10:34 10:34 WBC 9.4 D RBC 3.38 L Hgb 10.8 L Hct 32.8 L MCV 97.1 D MCH 32.1 H MCHC 33.0 RDW 15.5 H Plt Count 233 MPV 8.7 Neut % (Auto) 70.0 Lymph % (Auto) 19.6 L Pepin % (Auto) 8.0 Eos % (Auto) 1.9 Baso % (Auto) 0.5 Neut # (Auto) 6.6 Lymph # (Auto) 1.8 Pepin # (Auto) 0.8 Eos # (Auto) 0.2 Baso # (Auto) 0.0 pO2 24 L VBG pH 7.28 L VBG pCO2 49 VBG HCO3 20.0 VBG Total CO2 24.5 VBG O2 Sat (Calc) 47.2 VBG Base Excess -4.1 L VBG Potassium 3.7 Sodium 142.0 Chloride 111.0 H Glucose 158 H Lactate 1.3 Potassium Carbon Dioxide Anion Gap BUN Creatinine Est GFR ( Amer) Est GFR (Non-Af Amer) POC Glucose (mg/dL) Random Glucose Calcium Total Bilirubin AST ALT Alkaline Phosphatase Troponin I NT-Pro-B Natriuret Pep Total Protein Albumin Globulin Albumin/Globulin Ratio Venous Blood Potassium 3.7 Urine Color Urine Clarity Urine pH Ur Specific [place] Urine Protein Urine Glucose (UA) Urine Ketones Urine Blood Urine Nitrate Urine Bilirubin Urine Urobilinogen Ur Leukocyte Esterase Urine WBC (Auto) Urine RBC (Auto) Urine WBC Clumps (Auto) Ur Squamous Epith Cells Urine Bacteria Hyaline Casts Influenza Typ A,B (EIA) Negative for flu a/b 04/24/18 04/24/18 04/24/18 10:34 12:33 15:33 WBC RBC Hgb Hct MCV MCH MCHC RDW Plt Count MPV Neut % (Auto) Lymph % (Auto) Pepin % (Auto) Eos % (Auto) Baso % (Auto) Neut # (Auto) Lymph # (Auto) Pepin # (Auto) Eos # (Auto) Baso # (Auto) pO2 VBG pH VBG pCO2 VBG HCO3 VBG Total CO2 VBG O2 Sat (Calc) VBG Base Excess VBG Potassium Sodium 139 Chloride 108 H Glucose Lactate Potassium 4.0 Carbon Dioxide 21 L Anion Gap 14 BUN 43 H Creatinine 2.0 H Est GFR ( Amer) 28 Est GFR (Non-Af Amer) 23 POC Glucose (mg/dL) 273 H Random Glucose 150 H Calcium 9.2 Total Bilirubin 0.7 AST 29 ALT 34 Alkaline Phosphatase 85 Troponin I 0.1360 H* NT-Pro-B Natriuret Pep 5870 H Total Protein 6.8 Albumin 4.0 Globulin 2.8 Albumin/Globulin Ratio 1.4 Venous Blood Potassium Urine Color Yellow Urine Clarity Clear Urine pH 5.0 Ur Specific [place] 1.013 Urine Protein 2+ H Urine Glucose (UA) Normal Urine Ketones Negative Urine Blood Negative Urine Nitrate Positive H Urine Bilirubin Negative Urine Urobilinogen Normal Ur Leukocyte Esterase 2+ H Urine WBC (Auto) 53 H Urine RBC (Auto) 1 Urine WBC Clumps (Auto) Few H Ur Squamous Epith Cells 1 Urine Bacteria Many H Hyaline Casts 0-2 Influenza Typ A,B (EIA) 04/24/18 21:59 WBC RBC Hgb Hct MCV MCH MCHC RDW Plt Count MPV Neut % (Auto) Lymph % (Auto) Pepin % (Auto) Eos % (Auto) Baso % (Auto) Neut # (Auto) Lymph # (Auto) Pepin # (Auto) Eos # (Auto) Baso # (Auto) pO2 VBG pH VBG pCO2 VBG HCO3 VBG Total CO2 VBG O2 Sat (Calc) VBG Base Excess VBG Potassium Sodium Chloride Glucose Lactate Potassium Carbon Dioxide Anion Gap BUN Creatinine Est GFR ( Amer) Est GFR (Non-Af Amer) POC Glucose (mg/dL) 454 H* Random Glucose Calcium Total Bilirubin AST ALT Alkaline Phosphatase Troponin I NT-Pro-B Natriuret Pep Total Protein Albumin Globulin Albumin/Globulin Ratio Venous Blood Potassium Urine Color Urine Clarity Urine pH Ur Specific [place] Urine Protein Urine Glucose (UA) Urine Ketones Urine Blood Urine Nitrate Urine Bilirubin Urine Urobilinogen Ur Leukocyte Esterase Urine WBC (Auto) Urine RBC (Auto) Urine WBC Clumps (Auto) Ur Squamous Epith Cells Urine Bacteria Hyaline Casts Influenza Typ A,B (EIA) Assessment & Plan (1) RLL pneumonia Assessment and Plan: Start empirically on IV Rocephin and IV Zithromax. Sputum culture. Status: Acute (2) Acute on chronic diastolic (congestive) heart failure Assessment and Plan: To continue Lasix . Status: Acute (3) Insulin dependent diabetes mellitus Status: Acute (4) Hypertension Status: Acute (5) Elevated troponin I level Status: Acute (6) Elevated troponin I level Assessment and Plan: To do serial serum TNI. Status: Acute Decision To Admit - Pt Status Changed To: Hospital Disposition Of: Inpatient - Admit Certification Admit to Inpatient:: After my assessment, the patient will require hospitalization for at least two midnights. This is because of the severity of symptoms shown, intensity of services needed, and/or the medical risk in this patient being treated as an outpatient. - InPatient: Physician Admission Certification:: After my assessments, the patient requires hospitalization for at least 2 midnights. - . Bed Request Type: Telemetry Admitting Physician: Deep Clay
[2018-04-25 07:20] LABS: ALB/GLOB RATIO 1.3 (1.0-2.1); ALBUMIN 3.6 g/dL (3.5-5.0); CALCIUM 8.7 mg/dl (8.6-10.4)
[2018-04-25 07:34] LABS: TROPONIN I 0.121 ng/mL (0.00-0.120)
[2018-04-25] MEDS ORDERED: Albuterol-Ipratrop 3 mg / 0.5 (3 ml) UD INH STA (07:49)
[2018-04-25] MEDS ORDERED: MethylPREDNISolone 40 mg Vial IVP STA (07:55)
[2018-04-25 08:11] LABS: BASO % 0.2 % (0.0-2.0); HEMOGLOBIN 9.6 g/dL (11.0-16.0); LYMPH # 0.4 K/uL (1.0-4.3); LYMPH % 4.5 % (20.0-40.0); MEAN CELL VOLUME 97.6 fL (81.0-99.0); MEAN CORPUSCULAR HEMOGLOBIN 32.6 pg (27.0-31.0); MEAN CORPUSCULAR HGB CONC 33.4 g/dL (33.0-37.0); MEAN PLATELET VOLUME 9.4 fL (7.2-11.7); MONO # 0.3 K/uL (0.0-0.8); MONO % 3.7 % (0.0-10.0); NEUT # 8.6 K/uL (1.8-7.0); NEUT % 91.6 % (50.0-75.0); NRBC % 0.1 % (0.0-2.0); PLATELET COUNT 210 K/uL (130-400); RBC 2.93 Mil/uL (3.80-5.20); RED CELL DISTRIBUTION WIDTH 15.6 % (11.5-14.5); WHITE BLOOD COUNT 9.3 K/uL (4.8-10.8)
[2018-04-25 08:14] LABS: ARTERIAL BLOOD GAS HCO3 17.3 mmol/L (21-28); ARTERIAL BLOOD GAS O2 SAT 97.5 % (95-98); ARTERIAL BLOOD GAS PCO2 46 mm/Hg (35-45); ARTERIAL BLOOD GAS PO2 213 mm/Hg (80-100); ARTERIAL BLOOD GAS TCO2 19.4 mmol/L (22-28)
--- NOTE | 2018-04-25 08:34 | PCM.RRT ---
<Debbie Fuller - Last Filed: 04/25/18 08:49> LOADER TECHNICIAN Nurses Assessment - Situation Date: 04/25/18 Time LOADER TECHNICIAN was called: 07:47 LOADER TECHNICIAN Responder Arrival Time:: 07:48 LOADER TECHNICIAN Location:: Med/Surg Room Number: 652-B LOADER TECHNICIAN Reason for Call: Respiratory Distress LOADER TECHNICIAN Called By: RN - IV IV Inserted during LOADER TECHNICIAN?: No - Respiratory LOADER TECHNICIAN Delivery Method: BiPAP @% Received Nebulizer Treatments: Yes (2 duonebs txs) Was the Patient Intubated?: No Was the Patient Placed on a Ventilator?: No - Medication Medications Administered During LOADER TECHNICIAN: solumedrol 125mg IVP. Lasix 20mg IVP x2. Duonebs x2 - Diagnostic Test Ordered EKG: Yes Chest X-Ray: Yes - Stat Labs Ordered LOADER TECHNICIAN Stat Labs Ordered: CBC, BMP, TROPONIN, ABG CPR started during LOADER TECHNICIAN?: No - Vital Signs Vital Signs: BP 113/68, RR 18, O2 100% - [place] Coma Scale Coma Scale Eye Opening: Spontaneous Coma Scale Motor: Obeys Commands Movement - Vital Signs at end of LOADER TECHNICIAN Vital Signs at end of LOADER TECHNICIAN: BP 187/83, HR 112, O2 100% - Recommendations 5) LOADER TECHNICIAN Level of Care Recommendations: Remain in current setting Notifications: Attending Physician I.Reason for LOADER TECHNICIAN - A) Acute Change in Patient: Subjective: LOADER TECHNICIAN called by nurse at 7:47am after noticing patient in respiratory distress, tachypneic, and wheezing. On arrival patient was motioning to chest saying "cant breathe". Vitals taken as noted. Auscultation revealed wheezing and rales. STAT labs, CXR, EKG, duonebs, solumedrol, lasix given. Patient was slow to respond, and placed on BiPAP with significant improvement. Vitals and patient clinically stabilized. Dr. Clay called to be notified of events and pending orders. - Neurological Status (Select all that apply): Alert - Respiratory Oxygen Delivery Method: BiPAP @% - Constitutional Appears: In Acute Distress - Head Head Exam: ATRAUMATIC, NORMAL INSPECTION, NORMOCEPHALIC - Respiratory Exam Respiratory Exam: Accessory Muscle Use, Rales, Wheezes, Respiratory Distress - Cardiovascular Exam Cardiovascular Exam: Tachycardia, REGULAR RHYTHM - GI/Abdominal Exam GI & Abdominal Exam: Soft. absent: Distended - Neurological Exam Neurological Exam: Alert, Awake - Extremities Exam Extremities Exam: Normal Capillary Refill, Normal Inspection. absent: Pedal Edema Plan - Assessment of Findings&Treatment Plan LOADER TECHNICIAN called on 88 year old female in acute respiratory distress -CBC, CMP, Trops, ABG -CXR, EKG, -lasix, solu-medrol -BiPAP Discussed with Dr. Clay who agress with plan -Debbie Fuller, PGY-1 <Shin South - Last Filed: 05/09/18 12:14> LOADER TECHNICIAN Nurses Assessment - Vital Signs Vital Signs: Rapid Response Vital Sign Blood Pressure 128/90 Pulse Rate 120 Respiratory Rate 26 Temperature 98 F Oxygen Saturation 100 - Vital Signs at end of LOADER TECHNICIAN Vital Signs at end of LOADER TECHNICIAN: Rapid Response End Vital Sign Blood Pressure 167/89 Pulse Rate 113 Respiratory Rate 18 Temperature 98.3 F O2 Sat by Pulse Oximetry 100 Attending/Attestation - Attestation I have personally seen and examined this patient.: Yes I have fully participated in the care of the patient.: Yes I have reviewed all pertinent clinical information, including history, physical exam and plan: Yes Notes (Text): 05/09/18 12:14 This is a late entry. Care of this patient was gone over with resident Dr. Fuller at the time of LOADER TECHNICIAN. Shin South D.O.
[2018-04-25 08:35] LABS: BASO # 0.1 K/uL (0.0-0.2); BASO % 0.4 % (0.0-2.0); EOS % 0.1 % (0.0-4.0); LYMPH # 1.1 K/uL (1.0-4.3); LYMPH % 6.9 % (20.0-40.0); MEAN CELL VOLUME 97.3 fL (81.0-99.0); MEAN CORPUSCULAR HEMOGLOBIN 31.8 pg (27.0-31.0); MEAN CORPUSCULAR HGB CONC 32.7 g/dL (33.0-37.0); MEAN PLATELET VOLUME 9.1 fL (7.2-11.7); MONO # 0.6 K/uL (0.0-0.8); MONO % 4.1 % (0.0-10.0); NEUT # 13.4 K/uL (1.8-7.0); NEUT % 88.5 % (50.0-75.0); RBC 3.46 Mil/uL (3.80-5.20); RED CELL DISTRIBUTION WIDTH 15.5 % (11.5-14.5); WHITE BLOOD COUNT 15.2 K/uL (4.8-10.8)
[2018-04-25] MEDS ORDERED: (Novolog) Insulin Aspart, Recombinant 100 u/ml 10 ml vial SC STA (08:35)
[2018-04-25] MEDS: (Novolog) Insulin Aspart, Recombinant 100 u/ml 10 ml vial SC SCH ×4 (08:43→21:25)
[2018-04-25 08:46] LABS: ALB/GLOB RATIO 1.4 (1.0-2.1); ALBUMIN 4.3 g/dL (3.5-5.0)
[2018-04-25 09:24] LABS: ARTERIAL BLOOD GAS HCO3 17.8 mmol/L (21-28); ARTERIAL BLOOD GAS HEMOGLOBIN 9.3 g/dL (11.7-17.4); ARTERIAL BLOOD GAS O2 SAT 97.8 % (95-98); ARTERIAL BLOOD GAS PCO2 37 mm/Hg (35-45); ARTERIAL BLOOD GAS PH 7.27 (7.35-7.45); ARTERIAL BLOOD GAS PO2 461 mm/Hg (80-100); ARTERIAL BLOOD GAS TCO2 18.1 mmol/L (22-28)
[2018-04-25 09:35] LABS: BANDS 2 % (0-2); LYMPHOCYTE 5 % (20-40); MONOCYTE 4 % (0-10); NEUTROPHIL 89 % (50-75); PLATELET ESTIMATE NORMAL (NORMAL); TOTAL CELLS COUNTED 100
[2018-04-25 09:36] LABS: ANISOCYTOSIS SLIGHT; HYPOCHROMIC SLIGHT; LARGE PLATELETS PRESENT; POIKILOCYTOSIS SLIGHT
[2018-04-25] MEDS: GlipiZIDE 10 mg SR Tab PO SCH ×2 (09:38→17:51)
[2018-04-25] MEDS: Azithromycin 500 MG in Sodium Chloride 0.9% 250 ML IVPB SCH (09:39)
[2018-04-25 11:38] LABS: CK-MB 5.32 ng/mL (0.0-3.38)
[2018-04-25 11:42] LABS: TROPONIN I 0.132 ng/mL (0.00-0.120)
--- NOTE | 2018-04-25 12:01 | RAD ---
Chest x-ray single frontal view HISTORY: Chest pain. COMPARISON: 04/24/2018 Findings: Moderate venous congestion. Right hilar prominence. Patchy increased markings at the lung bases with small bilateral pleural effusions. Bibasilar breast and nipple shadows. Nodular densities at the lung bases may represent prominent vessels on end. Atherosclerotic calcification at the aortic knob. Cardiomegaly. Left-sided pacemaker. Degenerative changes in the spine and shoulders. Impression: Moderate venous congestion. Right hilar prominence. Patchy increased markings at the lung bases with small bilateral pleural effusions. Bibasilar breast and nipple shadows. Nodular densities at the lung bases may represent prominent vessels on end. Atherosclerotic calcification at the aortic knob. Cardiomegaly. Left-sided pacemaker.
[2018-04-25] MEDS: Albuterol-Ipratrop 3 mg / 0.5 (3 ml) UD INH SCH ×2 (13:53→20:30)
--- NOTE | 2018-04-25 17:52 | PQF ---
PROVIDER RESPONSE TEXT: UTI in the setting of Pneumonia and CHF Exac with a Positive U/A. treated with Rocephin IV REVIEWER QUERY TEXT: Clarification of Clinical Diagnostic Findings Please clarify documentation or clinical relevance for the clinical / diagnostic findings or whether those are insignificant or unable to be further specified. UTI in the setting of Pneumonia and CHF Exac with a Positive U/A. treated with Rocephin IV . -Other Explanation. - Unable to Determine The patient's Clinical Indicators include: Clinical Findings: Fever at home,, SOB, Leukocytosis ,wbc= 15.2, U/A: Nitrite: Positive , LE +2, Wbc=53, Bacteria= Many Treatment: Rocephin IV, Azithromycin IV Risk factor: Immunocompromised . ,Infection Query created by: Bhumi Harden on 04/25/2018 4:02 PM Electronically signed by: 04/25/2018 5:49 PM
--- NOTE | 2018-04-25 18:12 | CP.PCM.PN ---
Subjective - Date & Time of Evaluation Date of Evaluation: 04/25/18 Time of Evaluation: 18:07 - Subjective Subjective: Patient had an episode of acute SOB this AM requing BIPAP, IV Lasix and Solumedrol. Feels better now, but still slightly dyspneic. Denies chest pain. CXR revealed CHF, serum TNI: 0.13 seruum glucose > 400 BUN: 47 creatinine: 2.0 ECG: pacemaker rhythm. Will order another dose of IV Lasix. Repeat serum electrolytes in AM. Objective - Vital Signs/Intake and Output Vital Signs (last 24 hours): Temp Pulse Resp BP Pulse Ox 97.8 F 67 20 120/60 96 04/25/18 15:00 04/25/18 15:00 04/25/18 15:00 04/25/18 17:53 04/25/18 15:00 Intake and Output: 04/25/18 04/25/18 06:59 18:59 Intake Total 250 Output Total 1 Balance 249 - Medications Medications: Current Medications Acetaminophen (Tylenol 325mg Tab) 650 mg PO Q6 PRN PRN Reason: Fever >100.4 F Albuterol/Ipratropium (Duoneb 3 Mg/0.5 Mg (3 Ml) Ud) 3 ml INH RQ6 [facility] Last Admin: 04/25/18 13:53 Dose: 3 ml Docusate Sodium (Colace) 100 mg PO BID PRN PRN Reason: Constipation Furosemide (Lasix) 40 mg IVP DAILY@1800 [facility] Last Admin: 04/25/18 17:53 Dose: 40 mg Glipizide (Glucotrol Xl) 10 mg PO BID [facility] Last Admin: 04/25/18 17:51 Dose: 10 mg Heparin Sodium (Porcine) (Heparin) 5,000 units SC Q8 [facility] Last Admin: 04/25/18 13:38 Dose: 5,000 units Ceftriaxone Sodium 1 gm/ (Sodium Chloride) 100 mls @ 100 mls/hr IVPB DAILY [facility]; Protocol Last Admin: 04/25/18 09:33 Dose: 100 mls/hr Azithromycin 500 mg/ Sodium (Chloride) 250 mls @ 250 mls/hr IVPB DAILY [facility]; Protocol Last Admin: 04/25/18 09:39 Dose: 250 mls/hr Insulin Aspart (Novolog) 0 unit SC ACHS [facility]; Protocol Last Admin: 04/25/18 17:52 Dose: 6 units Losartan Potassium (Cozaar) 100 mg PO DAILY [facility] Last Admin: 04/25/18 09:38 Dose: 100 mg Oxycodone/Acetaminophen (Percocet 5/325 Mg Tab) 1 tab PO Q6H PRN PRN Reason: Pain, moderate (4-7) Stop: 04/27/18 19:32 - Labs Labs: 04/25/18 08:28 04/25/18 08:28 - Constitutional Appears: Well, Chronically Ill - Head Exam Head Exam: NORMAL INSPECTION - Eye Exam Eye Exam: Normal appearance - ENT Exam ENT Exam: Normal Exam - Neck Exam Neck Exam: Normal Inspection - Cardiovascular Exam Cardiovascular Exam: REGULAR RHYTHM, Murmur Additional comments: Rales heard at both bases. - GI/Abdominal Exam GI & Abdominal Exam: Soft, Normal Bowel Sounds - Rectal Exam Rectal Exam: Deferred - Extremities Exam Extremities Exam: Normal Inspection - Back Exam Back Exam: NORMAL INSPECTION - Neurological Exam Neurological Exam: Alert, Awake, Oriented x3 - Psychiatric Exam Psychiatric exam: Anxious - Skin Skin Exam: Dry, Intact Assessment and Plan (1) RLL pneumonia Status: Acute (2) Acute on chronic diastolic (congestive) heart failure Status: Acute (3) Insulin dependent diabetes mellitus Status: Acute (4) Hypertension Status: Acute (5) Elevated troponin I level Status: Acute (6) UTI (urinary tract infection) Assessment & Plan: Urine for C&S. Status: Acute
--- NOTE | 2018-04-25 21:52 | CARD ---
APPROVED REPORT Date of service: 04/24/2018 EKG Measurement Heart [id number] [id number] <Conclusion> Sinus rhythm with 1st degree AV block Left bundle branch block Abnormal ECG
[2018-04-26] MEDS: Albuterol-Ipratrop 3 mg / 0.5 (3 ml) UD INH SCH ×4 (01:23→19:16)
[2018-04-26 07:39] LABS: BASO % 0.2 % (0.0-2.0); HEMOGLOBIN 9.8 g/dL (11.0-16.0); LYMPH # 0.4 K/uL (1.0-4.3); LYMPH % 2.5 % (20.0-40.0); MEAN CELL VOLUME 96.1 fL (81.0-99.0); MEAN CORPUSCULAR HEMOGLOBIN 31.2 pg (27.0-31.0); MEAN CORPUSCULAR HGB CONC 32.5 g/dL (33.0-37.0); MEAN PLATELET VOLUME 9.9 fL (7.2-11.7); MONO # 0.7 K/uL (0.0-0.8); MONO % 3.8 % (0.0-10.0); NEUT # 16.4 K/uL (1.8-7.0); NEUT % 93.5 % (50.0-75.0); NRBC % 0.1 % (0.0-2.0); PLATELET COUNT 184 K/uL (130-400); RBC 3.15 Mil/uL (3.80-5.20); RED CELL DISTRIBUTION WIDTH 16.2 % (11.5-14.5); WHITE BLOOD COUNT 17.6 K/uL (4.8-10.8)
[2018-04-26] MEDS: (Novolog) Insulin Aspart, Recombinant 100 u/ml 10 ml vial SC SCH ×4 (07:58→21:37)
[2018-04-26 08:14] LABS: CALCIUM 8.8 mg/dl (8.6-10.4); TROPONIN I 0.263 ng/mL (0.00-0.120)
[2018-04-26 08:39] LABS: ANISOCYTOSIS SLIGHT; EOSINOPHIL 4 % (0-4); LYMPHOCYTE 4 % (20-40); MONOCYTE 6 % (0-10); NEUTROPHIL 91 % (50-75); PLATELET ESTIMATE NORMAL (NORMAL); POIKILOCYTOSIS SLIGHT; TOTAL CELLS COUNTED 100
[2018-04-26 08:40] LABS: HYPOCHROMIC SLIGHT
[2018-04-26] MEDS: GlipiZIDE 10 mg SR Tab PO SCH ×2 (10:01→17:25)
[2018-04-26] MEDS: Azithromycin 500 MG in Sodium Chloride 0.9% 250 ML IVPB SCH (11:14)
--- NOTE | 2018-04-26 21:18 | CP.PCM.PN ---
Subjective - Date & Time of Evaluation Date of Evaluation: 04/26/18 Time of Evaluation: 21:15 - Subjective Subjective: Patient complaining of constipation. Less SOB. Serum TNI trending down. BUN: 66 creatinine: 2.1 WBC: 16,000 glucose >200. Will try Lactulose for constipation. Objective - Vital Signs/Intake and Output Vital Signs (last 24 hours): Temp Pulse Resp BP Pulse Ox 98 F 69 20 150/73 100 04/26/18 15:00 04/26/18 17:57 04/26/18 15:00 04/26/18 17:25 04/26/18 15:00 - Medications Medications: Current Medications Acetaminophen (Tylenol 325mg Tab) 650 mg PO Q6 PRN PRN Reason: Fever >100.4 F Last Admin: 04/25/18 21:29 Dose: 650 mg Albuterol/Ipratropium (Duoneb 3 Mg/0.5 Mg (3 Ml) Ud) 3 ml INH RQ6 [facility] Last Admin: 04/26/18 19:16 Dose: Not Given Docusate Sodium (Colace) 100 mg PO BID [facility] Furosemide (Lasix) 40 mg IVP DAILY@1800 [facility] Last Admin: 04/26/18 17:25 Dose: 40 mg Glipizide (Glucotrol Xl) 10 mg PO BID [facility] Last Admin: 04/26/18 17:25 Dose: 10 mg Heparin Sodium (Porcine) (Heparin) 5,000 units SC Q8 [facility] Last Admin: 04/26/18 13:43 Dose: 5,000 units Ceftriaxone Sodium 1 gm/ (Sodium Chloride) 100 mls @ 100 mls/hr IVPB DAILY [facility]; Protocol Last Admin: 04/26/18 10:04 Dose: 100 mls/hr Azithromycin 500 mg/ Sodium (Chloride) 250 mls @ 250 mls/hr IVPB DAILY [facility]; Protocol Last Admin: 04/26/18 11:14 Dose: 250 mls/hr Insulin Aspart (Novolog) 0 unit SC ACHS [facility]; Protocol Last Admin: 04/26/18 17:22 Dose: Not Given Losartan Potassium (Cozaar) 100 mg PO DAILY [facility] Last Admin: 04/26/18 10:01 Dose: 100 mg Oxycodone/Acetaminophen (Percocet 5/325 Mg Tab) 1 tab PO Q6H PRN PRN Reason: Pain, moderate (4-7) Stop: 04/27/18 19:32 - Labs Labs: 04/26/18 07:26 04/26/18 07:26 - Constitutional Appears: No Acute Distress, Chronically Ill - Head Exam Head Exam: NORMAL INSPECTION - Eye Exam Eye Exam: Normal appearance Pupil Exam: NORMAL ACCOMODATION - ENT Exam ENT Exam: Normal Exam - Neck Exam Neck Exam: Normal Inspection - Respiratory Exam Respiratory Exam: Rales Additional comments: Rales heard at both bases. - Cardiovascular Exam Cardiovascular Exam: REGULAR RHYTHM, Murmur - GI/Abdominal Exam GI & Abdominal Exam: Normal Bowel Sounds Additional comments: Slightly distended. - Rectal Exam Rectal Exam: Deferred - Extremities Exam Extremities Exam: Normal Inspection - Back Exam Back Exam: NORMAL INSPECTION - Neurological Exam Neurological Exam: Alert, Awake, Oriented x3 - Psychiatric Exam Psychiatric exam: Anxious - Skin Skin Exam: Dry, Intact, Normal Color, Warm Assessment and Plan (1) RLL pneumonia Status: Acute (2) Acute on chronic diastolic (congestive) heart failure Assessment & Plan: Improving. Will recheck serum electrolytes. Status: Acute (3) Insulin dependent diabetes mellitus Assessment & Plan: Elevated blood glucose secondary to Solumedrol. Status: Acute (4) Hypertension Status: Acute (5) Elevated troponin I level Assessment & Plan: Acute NSTEMI. Due to the patient's age and co-morbidities, especially CKD, will treat the patient conservatively. Status: Acute (6) UTI (urinary tract infection) Assessment & Plan: On antibiotics. Sofar, urine, sputum and blood cultures are negative. Status: Acute
[2018-04-27] MEDS: Albuterol-Ipratrop 3 mg / 0.5 (3 ml) UD INH SCH ×4 (01:08→19:57)
[2018-04-27 08:01] LABS: BASO % 0.2 % (0.0-2.0); EOS # 0.1 K/uL (0.0-0.7); EOS % 0.7 % (0.0-4.0); HEMOGLOBIN 9.4 g/dL (11.0-16.0); LYMPH # 1.1 K/uL (1.0-4.3); LYMPH % 10.5 % (20.0-40.0); MEAN CELL VOLUME 97.9 fL (81.0-99.0); MEAN CORPUSCULAR HEMOGLOBIN 32.7 pg (27.0-31.0); MEAN CORPUSCULAR HGB CONC 33.4 g/dL (33.0-37.0); MEAN PLATELET VOLUME 9.9 fL (7.2-11.7); MONO # 0.7 K/uL (0.0-0.8); MONO % 6.5 % (0.0-10.0); NEUT # 8.4 K/uL (1.8-7.0); NEUT % 82.1 % (50.0-75.0); RBC 2.88 Mil/uL (3.80-5.20); WHITE BLOOD COUNT 10.2 K/uL (4.8-10.8)
[2018-04-27 08:21] LABS: ALB/GLOB RATIO 1.3 (1.0-2.1); ALBUMIN 3.6 g/dL (3.5-5.0); CALCIUM 8.8 mg/dl (8.6-10.4)
[2018-04-27] MEDS: (Novolog) Insulin Aspart, Recombinant 100 u/ml 10 ml vial SC SCH ×4 (10:02→21:28)
[2018-04-27] MEDS: GlipiZIDE 10 mg SR Tab PO SCH ×2 (10:03→17:40)
[2018-04-27] MEDS: Azithromycin 500 MG in Sodium Chloride 0.9% 250 ML IVPB SCH (10:03)
--- NOTE | 2018-04-27 16:31 | CP.PCM.PN ---
Subjective - Date & Time of Evaluation Date of Evaluation: 04/27/18 Time of Evaluation: 16:26 - Subjective Subjective: Patient less SOB, has no chest pain, but still abdominal discomfort from constipation in spite of Lactulose po last night. Will order a fleet enema stat. Still with rales in both lung fiels. Objective - Vital Signs/Intake and Output Vital Signs (last 24 hours): Temp Pulse Resp BP Pulse Ox 98.2 F 76 20 140/70 100 04/27/18 15:00 04/27/18 15:00 04/27/18 15:00 04/27/18 15:00 04/27/18 15:00 Intake and Output: 04/27/18 04/27/18 06:59 18:59 Intake Total 550 Output Total 800 600 Balance -800 -50 - Medications Medications: Current Medications Acetaminophen (Tylenol 325mg Tab) 650 mg PO Q6 PRN PRN Reason: Fever >100.4 F Last Admin: 04/25/18 21:29 Dose: 650 mg Albuterol/Ipratropium (Duoneb 3 Mg/0.5 Mg (3 Ml) Ud) 3 ml INH RQ6 [facility] Last Admin: 04/27/18 13:03 Dose: 3 ml Docusate Sodium (Colace) 100 mg PO BID [facility] Last Admin: 04/27/18 10:03 Dose: 100 mg Furosemide (Lasix) 40 mg IVP DAILY@1800 [facility] Last Admin: 04/26/18 17:25 Dose: 40 mg Glipizide (Glucotrol Xl) 10 mg PO BID [facility] Last Admin: 04/27/18 10:03 Dose: 10 mg Heparin Sodium (Porcine) (Heparin) 5,000 units SC Q8 [facility] Last Admin: 04/27/18 13:12 Dose: 5,000 units Ceftriaxone Sodium 1 gm/ (Sodium Chloride) 100 mls @ 100 mls/hr IVPB DAILY [facility]; Protocol Last Admin: 04/27/18 09:30 Dose: 100 mls/hr Azithromycin 500 mg/ Sodium (Chloride) 250 mls @ 250 mls/hr IVPB DAILY [facility]; Protocol Last Admin: 04/27/18 10:03 Dose: 250 mls/hr Insulin Aspart (Novolog) 0 unit SC ACHS [facility]; Protocol Last Admin: 04/27/18 13:12 Dose: 2 units Losartan Potassium (Cozaar) 100 mg PO DAILY [facility] Last Admin: 04/27/18 10:03 Dose: 100 mg Oxycodone/Acetaminophen (Percocet 5/325 Mg Tab) 1 tab PO Q6H PRN PRN Reason: Pain, moderate (4-7) Stop: 04/27/18 19:32 Sodium Phosphate (Fleet Enema) 135 ml TX ONCE ONE Stop: 04/27/18 16:26 - Labs Labs: 04/27/18 07:52 04/27/18 07:52 - Constitutional Appears: Well, No Acute Distress, Chronically Ill - Head Exam Head Exam: NORMAL INSPECTION - Eye Exam Eye Exam: Normal appearance - ENT Exam ENT Exam: Normal Exam - Neck Exam Neck Exam: Normal Inspection - Respiratory Exam Respiratory Exam: Rales Additional comments: Rales heard in both lungs. - Cardiovascular Exam Cardiovascular Exam: REGULAR RHYTHM, Murmur - GI/Abdominal Exam GI & Abdominal Exam: Soft, Diminished Bowel Sounds - Rectal Exam Rectal Exam: Deferred - Extremities Exam Extremities Exam: Normal Inspection - Back Exam Back Exam: NORMAL INSPECTION - Neurological Exam Neurological Exam: Alert, Awake, Oriented x3 - Psychiatric Exam Psychiatric exam: Anxious - Skin Skin Exam: Dry, Intact, Normal Color Assessment and Plan (1) RLL pneumonia Status: Acute (2) Acute on chronic diastolic (congestive) heart failure Status: Acute (3) Insulin dependent diabetes mellitus Status: Acute (4) Hypertension Status: Acute (5) Elevated troponin I level Status: Acute (6) UTI (urinary tract infection) Status: Acute
[2018-04-28] MEDS: Albuterol-Ipratrop 3 mg / 0.5 (3 ml) UD INH SCH ×4 (02:14→19:42)
--- NOTE | 2018-04-28 05:15 | CARD ---
APPROVED REPORT Date of service: 04/25/2018 EKG Measurement Heart [id number] SD 240P14 [id number] <Conclusion> Sinus rhythm with 1st degree AV block Left bundle branch block Abnormal ECG
--- NOTE | 2018-04-28 05:23 | CARD ---
APPROVED REPORT Date of service: 04/25/2018 EKG Measurement Heart [id number] AL 216P [id number] <Conclusion> Sinus rhythm with 1st degree AV block Left bundle branch block Abnormal ECG
[2018-04-28 07:33] LABS: BASO % 0.3 % (0.0-2.0); EOS # 0.1 K/uL (0.0-0.7); EOS % 1.1 % (0.0-4.0); HEMOGLOBIN 9.9 g/dL (11.0-16.0); LYMPH # 0.9 K/uL (1.0-4.3); LYMPH % 10.6 % (20.0-40.0); MEAN CELL VOLUME 97.1 fL (81.0-99.0); MEAN CORPUSCULAR HEMOGLOBIN 32.2 pg (27.0-31.0); MEAN CORPUSCULAR HGB CONC 33.2 g/dL (33.0-37.0); MEAN PLATELET VOLUME 9.3 fL (7.2-11.7); MONO # 0.8 K/uL (0.0-0.8); MONO % 8.8 % (0.0-10.0); NEUT # 6.8 K/uL (1.8-7.0); NEUT % 79.2 % (50.0-75.0); NRBC % 0.1 % (0.0-2.0); RBC 3.08 Mil/uL (3.80-5.20); RED CELL DISTRIBUTION WIDTH 15.6 % (11.5-14.5); WHITE BLOOD COUNT 8.6 K/uL (4.8-10.8)
[2018-04-28 08:48] LABS: ALB/GLOB RATIO 1.4 (1.0-2.1); ALBUMIN 3.7 g/dL (3.5-5.0); CALCIUM 8.9 mg/dl (8.6-10.4)
[2018-04-28] MEDS: GlipiZIDE 10 mg SR Tab PO SCH ×2 (09:53→18:03)
[2018-04-28] MEDS: (Novolog) Insulin Aspart, Recombinant 100 u/ml 10 ml vial SC SCH ×3 (09:54→18:03)
--- NOTE | 2018-04-28 10:06 | RAD ---
Date of service: 04/28/2018 HISTORY: CHF COMPARISON: 04/25/2018. TECHNIQUE: Chest PA and lateral FINDINGS: LINES AND TUBES: None. LUNG AND PLEURA: The lungs are well inflated. There is mild pulmonary venous congestion and interstitial pulmonary edema. Small effusions. No pneumothorax. HEART AND MEDIASTINUM: Persistent mild cardiomegaly. Atherosclerotic aortic arch calcifications are present. The hilar and mediastinal contours are within normal limits. There is stable position of left-sided permanent pacing device with SKELETAL STRUCTURES: The bony structures are within normal limits for the patient's age. VISUALIZED UPPER ABDOMEN: Normal. OTHER FINDINGS: None. IMPRESSION: Little interval change in known congestive heart failure.
--- NOTE | 2018-04-28 13:18 | CARD ---
APPROVED REPORT Date of service: 04/28/2018 EXAM: Two-dimensional and M-mode echocardiogram with Doppler and color Doppler. Other Information Quality : GoodRhythm : INDICATION Dyspnea Chest Pain RISK FACTORS Hypertension Diabetes 2D DIMENSIONS IVSd1.1 (0.7-1.1cm)LVDd5.0 (3.9-5.9cm) LVOT Diameter2.1 (1.8-2.4cm)PWd1.1 (0.7-1.1cm) LA Mkhegg15 (18-58mL)LVDs4.3 (2.5-4.0cm) FS (%) 14.2 %LVEF (%)30.0 (>50%) LVEF (Ghosh's)28.27 % M-Mode DIMENSIONS Left Atrium (MM)3.05 (2.5-4.0cm)IVSd1.12 (0.7-1.1cm) Aortic Root3.18 (2.2-3.7cm)LVDd6.45 (4.0-5.6cm) Aortic Cusp Exc.1.54 (1.5-2.0cm)PWd0.95 (0.7-1.1cm) FS (%) 19 %LVDs5.24 (2.0-3.8cm) LVEF (%)27 (>50%) Aortic Valve AI P 1/2 Wnbf392sg Mitral Valve MV E Xzwmttui94.7cm/sMV A Fvvynzlq00.8cm/sE/A ratio1.1 ADOB718.71 cm/s TDI Lateral E' Peak V2.74cm/sMedial E' Peak V2.16cm/sE/Lateral E'35.7 E/Medial E'45.2 Tricuspid Valve TR Peak Hoivumtl383xv/sTR Peak Gr.92vdHePCOC42slDj <Conclusion> Left ventricle: thickness: normal; size: dilated; overall ejection fraction: 25%: apical densities likely trabeculae diastolic filling pressures: elevated Mitral valve: annulus: MAC; leaflets: normal: excursion: normal; no significant trans-mitral gradient: moderate incompetence: left atrium: normal Aortic valve: leaflets: calcified thickening; excursion: normal; no significant trans-aortic gradient:mild incompetence: aortic root: normal Right sided Structures: Pulmonary valve: normal; no significant incompetence; Tricuspid valve: normal; moderate incompetence: Intra-cardiac hemodynamics: pulmonary systolic pressures:60mHg; central venous pressures: normal No pericardial effusion
[2018-04-28] MEDS ORDERED: Sod Polystyrene Sulf 15 gm/60 ml Susp PO ONE (14:00)
[2018-04-28] MEDS ORDERED: Azithromycin 500 MG in Sodium Chloride 0.9% 250 ML IVPB SCH (16:00)
[2018-04-28] MEDS ORDERED: Albuterol 0.083% Inhal Sol (2.5 mg/3 mL) UD INH PRN (20:06)
--- NOTE | 2018-04-28 20:55 | CP.PCM.PN ---
Subjective - Date & Time of Evaluation Date of Evaluation: 04/28/18 Time of Evaluation: 20:46 - Subjective Subjective: Patient dyspneic, now on BIPAP. BUN: 62 Creatinine: 2.1 K+: 5.8 CXR: no change in CHF Liver enzymes elevated. EchO: large area of apical akinesia, hypokinetic IW, lateral wall and anterior wall. LVEF 25-30% Moderate MR, TR . Moderate pulmonary hypertension. Patient received one dose of Kayexalate PO and Lasix 40 mg IV stat. Will increase Lasix 40 mg IV BID and recheck serum electrolytes. Will also discontinue IV antibiotics since pneumonia is unlikely the cause of her dyspnea. Objective - Vital Signs/Intake and Output Vital Signs (last 24 hours): Temp Pulse Resp BP Pulse Ox 97.8 F 72 20 144/79 98 04/28/18 15:00 04/28/18 20:00 04/28/18 15:00 04/28/18 20:38 04/28/18 15:00 Intake and Output: 04/28/18 04/29/18 18:59 06:59 Intake Total 550 Balance 550 - Medications Medications: Current Medications Acetaminophen (Tylenol 325mg Tab) 650 mg PO Q6 PRN PRN Reason: Fever >100.4 F Last Admin: 04/25/18 21:29 Dose: 650 mg Albuterol Sulfate (Albuterol 0.083% Inhal Keily (2.5 Mg/3 Ml) Ud) 3 mg INH RQ2 PRN PRN Reason: Shortness of Breath Albuterol/Ipratropium (Duoneb 3 Mg/0.5 Mg (3 Ml) Ud) 3 ml INH RQ6 [facility] Last Admin: 04/28/18 19:42 Dose: 3 ml Docusate Sodium (Colace) 100 mg PO BID [facility] Last Admin: 04/28/18 09:59 Dose: Not Given Furosemide (Lasix) 40 mg IVP STAT STA Stop: 04/28/18 20:45 Furosemide (Lasix) 40 mg IVP BID [facility] Glipizide (Glucotrol Xl) 10 mg PO BID [facility] Last Admin: 04/28/18 18:03 Dose: 10 mg Heparin Sodium (Porcine) (Heparin) 5,000 units SC Q8 [facility] Last Admin: 04/28/18 14:07 Dose: 5,000 units Insulin Aspart (Novolog) 0 unit SC ACHS [facility]; Protocol Last Admin: 04/28/18 18:03 Dose: 1 units Losartan Potassium (Cozaar) 100 mg PO DAILY [facility] Last Admin: 04/28/18 09:53 Dose: 100 mg - Labs Labs: 04/28/18 07:21 04/28/18 07:21 - Constitutional Appears: In Acute Distress, Chronically Ill - Head Exam Head Exam: NORMAL INSPECTION - Eye Exam Eye Exam: Normal appearance Pupil Exam: NORMAL ACCOMODATION - ENT Exam ENT Exam: Normal Exam - Neck Exam Neck Exam: Normal Inspection - Respiratory Exam Additional comments: Rales heard up to mid lung bennett bilaterally. - Cardiovascular Exam Cardiovascular Exam: REGULAR RHYTHM, Murmur - GI/Abdominal Exam GI & Abdominal Exam: Soft, Normal Bowel Sounds - Rectal Exam Rectal Exam: Deferred - Extremities Exam Extremities Exam: Normal Inspection - Back Exam Back Exam: NORMAL INSPECTION - Neurological Exam Neurological Exam: Alert, Awake, Oriented x3 - Psychiatric Exam Psychiatric exam: Anxious - Skin Skin Exam: Dry, Intact, Normal Color Assessment and Plan (1) RLL pneumonia Status: Ruled-out (2) Acute on chronic diastolic (congestive) heart failure Assessment & Plan: To increase Lasix 40 mg IV BID Status: Acute (3) Insulin dependent diabetes mellitus Status: Acute (4) Hypertension Status: Acute (5) Elevated troponin I level Status: Acute (6) UTI (urinary tract infection) Status: Acute
[2018-04-29] MEDS: Albuterol-Ipratrop 3 mg / 0.5 (3 ml) UD INH SCH ×4 (01:59→20:40)
[2018-04-29 06:51] LABS: ALB/GLOB RATIO 1.3 (1.0-2.1); ALBUMIN 3.6 g/dL (3.5-5.0); CALCIUM 8.5 mg/dl (8.6-10.4)
[2018-04-29] MEDS: (Novolog) Insulin Aspart, Recombinant 100 u/ml 10 ml vial SC SCH ×4 (09:50→21:21)
[2018-04-29] MEDS: GlipiZIDE 10 mg SR Tab PO SCH ×2 (09:53→18:19)
--- NOTE | 2018-04-29 18:06 | CP.PCM.PN ---
Subjective - Date & Time of Evaluation Date of Evaluation: 04/29/18 Time of Evaluation: 18:03 - Subjective Subjective: Paatient much less dyspneic today. On O2 by N/C. Telemetry: Afib with RVR. Objective - Vital Signs/Intake and Output Vital Signs (last 24 hours): Temp Pulse Resp BP Pulse Ox 98.0 F 66 18 149/68 100 04/29/18 15:19 04/29/18 15:19 04/29/18 15:19 04/29/18 15:19 04/29/18 15:19 Intake and Output: 04/29/18 04/29/18 06:59 18:59 Intake Total 100 250 Output Total 500 Balance 100 -250 - Medications Medications: Current Medications Acetaminophen (Tylenol 325mg Tab) 650 mg PO Q6 PRN PRN Reason: Fever >100.4 F Last Admin: 04/25/18 21:29 Dose: 650 mg Albuterol Sulfate (Albuterol 0.083% Inhal Keily (2.5 Mg/3 Ml) Ud) 3 mg INH RQ2 PRN PRN Reason: Shortness of Breath Albuterol/Ipratropium (Duoneb 3 Mg/0.5 Mg (3 Ml) Ud) 3 ml INH RQ6 [facility] Last Admin: 04/29/18 13:37 Dose: 3 ml Docusate Sodium (Colace) 100 mg PO BID [facility] Last Admin: 04/29/18 09:53 Dose: 100 mg Furosemide (Lasix) 40 mg IVP BID [facility] Last Admin: 04/29/18 09:53 Dose: 40 mg Glipizide (Glucotrol Xl) 10 mg PO BID [facility] Last Admin: 04/29/18 09:53 Dose: 10 mg Heparin Sodium (Porcine) (Heparin) 5,000 units SC Q8 [facility] Last Admin: 04/29/18 13:07 Dose: 5,000 units Insulin Aspart (Novolog) 0 unit SC ACHS [facility]; Protocol Last Admin: 04/29/18 13:09 Dose: 3 units Losartan Potassium (Cozaar) 100 mg PO DAILY [facility] Last Admin: 04/29/18 09:53 Dose: 100 mg - Labs Labs: 04/28/18 07:21 04/29/18 06:22 - Constitutional Appears: Non-toxic, No Acute Distress, Chronically Ill - Head Exam Head Exam: NORMAL INSPECTION - Eye Exam Eye Exam: Normal appearance Pupil Exam: NORMAL ACCOMODATION - ENT Exam ENT Exam: Normal Exam - Neck Exam Neck Exam: Normal Inspection - Respiratory Exam Respiratory Exam: Rales Additional comments: Still rales at both bases. - Cardiovascular Exam Cardiovascular Exam: Tachycardia, Irregular Rhythm - GI/Abdominal Exam GI & Abdominal Exam: Soft, Normal Bowel Sounds - Rectal Exam Rectal Exam: Deferred - Extremities Exam Extremities Exam: Normal Inspection - Back Exam Back Exam: NORMAL INSPECTION - Neurological Exam Neurological Exam: Alert, Awake, Normal Gait, Oriented x3 - Psychiatric Exam Psychiatric exam: Agitated - Skin Skin Exam: Dry, Warm Assessment and Plan (1) RLL pneumonia Status: Ruled-out (2) Acute on chronic diastolic (congestive) heart failure Status: Acute (3) Insulin dependent diabetes mellitus Status: Acute (4) Hypertension Status: Acute (5) Elevated troponin I level Status: Acute (6) UTI (urinary tract infection) Status: Acute
[2018-04-29] MEDS ORDERED: Metoprolol 1 mg/ml Inj IVP ONE (19:20)
[2018-04-30] MEDS: Albuterol-Ipratrop 3 mg / 0.5 (3 ml) UD INH SCH ×3 (01:15→13:41)
[2018-04-30] MEDS ORDERED: Metoprolol 1 mg/ml Inj IVP ONE ×2 (02:43→04:06)
[2018-04-30 08:25] LABS: ALB/GLOB RATIO 1.2 (1.0-2.1); ALBUMIN 3.1 g/dL (3.5-5.0); CALCIUM 8.5 mg/dl (8.6-10.4)
[2018-04-30 08:29] LABS: BASO % 0.2 % (0.0-2.0); EOS # 0.2 K/uL (0.0-0.7); EOS % 2.8 % (0.0-4.0); HEMOGLOBIN 9.6 g/dL (11.0-16.0); LYMPH # 0.7 K/uL (1.0-4.3); LYMPH % 9.5 % (20.0-40.0); MEAN CELL VOLUME 96.6 fL (81.0-99.0); MEAN CORPUSCULAR HEMOGLOBIN 32.6 pg (27.0-31.0); MEAN CORPUSCULAR HGB CONC 33.8 g/dL (33.0-37.0); MEAN PLATELET VOLUME 9.4 fL (7.2-11.7); MONO # 0.6 K/uL (0.0-0.8); MONO % 8.5 % (0.0-10.0); NEUT # 5.5 K/uL (1.8-7.0); NRBC % 0.1 % (0.0-2.0); PLATELET COUNT 218 K/uL (130-400); RBC 2.94 Mil/uL (3.80-5.20); RED CELL DISTRIBUTION WIDTH 15.3 % (11.5-14.5)
[2018-04-30 09:20] LABS: ANISOCYTOSIS SLIGHT; EOSINOPHIL 3 % (0-4); LYMPHOCYTE 9 % (20-40); MONOCYTE 6 % (0-10); NEUTROPHIL 82 % (50-75); PLATELET ESTIMATE NORMAL (NORMAL); TOTAL CELLS COUNTED 100
[2018-04-30 09:21] LABS: HYPOCHROMIC SLIGHT; POLYCHROMIC SLIGHT; TOXIC GRANULATION PRESENT
[2018-04-30 09:22] LABS: LARGE PLATELETS PRESENT
[2018-04-30] MEDS: (Novolog) Insulin Aspart, Recombinant 100 u/ml 10 ml vial SC SCH ×4 (10:31→21:56)
[2018-04-30] MEDS: GlipiZIDE 10 mg SR Tab PO SCH ×2 (10:31→18:19)
--- NOTE | 2018-04-30 16:15 | CP.PCM.PN ---
Subjective - Date & Time of Evaluation Date of Evaluation: 04/30/18 Time of Evaluation: 16:13 - Subjective Subjective: Patient less SOB. Complaining of a dry cough. Telemetry revealed episodes of atrial fibrillation with RVR. On Metoprolol. So far, blood, urine and sputum cultures are negative. Objective - Vital Signs/Intake and Output Vital Signs (last 24 hours): Temp Pulse Resp BP Pulse Ox 97.4 F L 61 20 128/80 100 04/30/18 07:00 04/30/18 16:02 04/30/18 07:00 04/30/18 10:32 04/30/18 07:00 Intake and Output: 04/30/18 04/30/18 06:59 18:59 Intake Total 250 Balance 250 - Medications Medications: Current Medications Acetaminophen (Tylenol 325mg Tab) 650 mg PO Q6 PRN PRN Reason: Fever >100.4 F Last Admin: 04/25/18 21:29 Dose: 650 mg Albuterol Sulfate (Albuterol 0.083% Inhal Keily (2.5 Mg/3 Ml) Ud) 3 mg INH RQ2 PRN PRN Reason: Shortness of Breath Docusate Sodium (Colace) 100 mg PO BID [facility] Last Admin: 04/30/18 10:31 Dose: 100 mg Furosemide (Lasix) 40 mg IVP BID [facility] Last Admin: 04/30/18 10:32 Dose: 40 mg Glipizide (Glucotrol Xl) 10 mg PO BID [facility] Last Admin: 04/30/18 10:31 Dose: 10 mg Heparin Sodium (Porcine) (Heparin) 5,000 units SC Q8 [facility] Last Admin: 04/30/18 14:25 Dose: 5,000 units Insulin Aspart (Novolog) 0 unit SC ACHS [facility]; Protocol Last Admin: 04/30/18 12:41 Dose: 3 units Losartan Potassium (Cozaar) 100 mg PO DAILY [facility] Last Admin: 04/30/18 10:31 Dose: 100 mg Metoprolol Tartrate (Lopressor) 50 mg PO BID [facility] Last Admin: 04/30/18 10:31 Dose: 50 mg - Labs Labs: 04/30/18 07:59 04/30/18 07:59 - Constitutional Appears: No Acute Distress, Chronically Ill - Head Exam Head Exam: NORMAL INSPECTION - Eye Exam Eye Exam: Normal appearance - ENT Exam ENT Exam: Normal Exam - Neck Exam Neck Exam: Normal Inspection - Respiratory Exam Additional comments: Rales at both bases. - Cardiovascular Exam Cardiovascular Exam: Irregular Rhythm, Murmur - GI/Abdominal Exam GI & Abdominal Exam: Soft, Normal Bowel Sounds - Rectal Exam Rectal Exam: Deferred - Extremities Exam Extremities Exam: Normal Capillary Refill, Normal Inspection - Back Exam Back Exam: NORMAL INSPECTION - Neurological Exam Neurological Exam: Alert, Awake, Oriented x3 - Psychiatric Exam Psychiatric exam: Anxious - Skin Skin Exam: Dry, Intact, Normal Color, Warm Assessment and Plan (1) RLL pneumonia Status: Ruled-out (2) Insulin dependent diabetes mellitus Status: Acute (3) Hypertension Status: Acute (4) Elevated troponin I level Status: Acute (5) UTI (urinary tract infection) Status: Acute (6) Acute on chronic systolic heart failure Assessment & Plan: To continue Lasix IV 49 mg BID. Recheck serum electrolytes and CBC. Status: Acute (7) New onset atrial fibrillation Assessment & Plan: To continue Metoprolol 50 mg PO BID. Dtart on Eliquis 2.5 mg PO BID. D/C Heparin s/c. Status: Acute
[2018-04-30] MEDS ORDERED: guaiFENesin 100 mg/5 ml Syrup UD PO PRN (16:21)
[2018-05-01 07:16] LABS: BASO % 0.3 % (0.0-2.0); EOS # 0.3 K/uL (0.0-0.7); EOS % 3.7 % (0.0-4.0); HEMOGLOBIN 9.5 g/dL (11.0-16.0); LYMPH # 0.9 K/uL (1.0-4.3); LYMPH % 12.2 % (20.0-40.0); MEAN CORPUSCULAR HEMOGLOBIN 32.5 pg (27.0-31.0); MEAN CORPUSCULAR HGB CONC 33.5 g/dL (33.0-37.0); MEAN PLATELET VOLUME 9.3 fL (7.2-11.7); MONO # 0.6 K/uL (0.0-0.8); MONO % 8.2 % (0.0-10.0); NEUT # 5.6 K/uL (1.8-7.0); NEUT % 75.6 % (50.0-75.0); RBC 2.94 Mil/uL (3.80-5.20); RED CELL DISTRIBUTION WIDTH 15.2 % (11.5-14.5); WHITE BLOOD COUNT 7.5 K/uL (4.8-10.8)
[2018-05-01 08:04] LABS: ALB/GLOB RATIO 1.2 (1.0-2.1); ALBUMIN 3.3 g/dL (3.5-5.0); CALCIUM 8.7 mg/dl (8.6-10.4)
[2018-05-01] MEDS: (Novolog) Insulin Aspart, Recombinant 100 u/ml 10 ml vial SC SCH ×5 (09:36→21:35)
[2018-05-01] MEDS: GlipiZIDE 10 mg SR Tab PO SCH ×2 (09:36→18:05)
[2018-05-01 16:00] VITALS: RESP 20
--- NOTE | 2018-05-01 17:17 | CARD ---
APPROVED REPORT Date of service: 04/30/2018 EKG Measurement Heart [id number] [place] 222P19 [id number] <Conclusion> Sinus rhythm with 1st degree AV block Nonspecific intraventricular block Abnormal ECG
--- NOTE | 2018-05-01 20:13 | CP.PCM.PN ---
Subjective - Date & Time of Evaluation Date of Evaluation: 05/01/18 Time of Evaluation: 20:11 - Subjective Subjective: Patient less SOB, has better appetite, but complaining of constipation. Afebrile. Telemetry : pacemaker rhythm. Objective - Vital Signs/Intake and Output Vital Signs (last 24 hours): Temp Pulse Resp BP Pulse Ox 97.9 F 64 20 159/82 H 100 05/01/18 15:59 05/01/18 15:59 05/01/18 15:59 05/01/18 18:05 05/01/18 15:59 - Medications Medications: Current Medications Acetaminophen (Tylenol 325mg Tab) 650 mg PO Q6 PRN PRN Reason: Fever >100.4 F Last Admin: 04/25/18 21:29 Dose: 650 mg Albuterol Sulfate (Albuterol 0.083% Inhal Keily (2.5 Mg/3 Ml) Ud) 3 mg INH RQ2 PRN PRN Reason: Shortness of Breath Apixaban (Eliquis) 2.5 mg PO BID [facility] Last Admin: 05/01/18 18:05 Dose: 2.5 mg Docusate Sodium (Colace) 100 mg PO BID [facility] Last Admin: 05/01/18 18:05 Dose: 100 mg Furosemide (Lasix) 40 mg IVP BID [facility] Last Admin: 05/01/18 18:05 Dose: 40 mg Glipizide (Glucotrol Xl) 10 mg PO BID [facility] Last Admin: 05/01/18 18:05 Dose: 10 mg Guaifenesin (Robitussin) 100 mg PO Q4H PRN PRN Reason: Cough Insulin Aspart (Novolog) 0 unit SC [facility]; Protocol Last Admin: 05/01/18 18:06 Dose: 1 units Losartan Potassium (Cozaar) 100 mg PO DAILY [facility] Last Admin: 05/01/18 09:35 Dose: 100 mg Metoprolol Tartrate (Lopressor) 50 mg PO BID [facility] Last Admin: 05/01/18 18:05 Dose: 50 mg - Labs Labs: 05/01/18 07:05 05/01/18 07:05 - Constitutional Appears: No Acute Distress, Chronically Ill - Head Exam Head Exam: NORMAL INSPECTION - Eye Exam Eye Exam: Normal appearance - ENT Exam ENT Exam: Normal Exam - Neck Exam Neck Exam: Normal Inspection - Respiratory Exam Additional comments: Decreased rales at both bases. - Cardiovascular Exam Cardiovascular Exam: REGULAR RHYTHM, Murmur - GI/Abdominal Exam GI & Abdominal Exam: Soft, Normal Bowel Sounds - Rectal Exam Rectal Exam: Deferred - Extremities Exam Extremities Exam: Normal Inspection - Back Exam Back Exam: NORMAL INSPECTION - Neurological Exam Neurological Exam: Alert, Awake, Oriented x3 - Psychiatric Exam Psychiatric exam: Anxious - Skin Skin Exam: Dry, Intact, Normal Color, Warm Assessment and Plan (1) RLL pneumonia Status: Ruled-out (2) Insulin dependent diabetes mellitus Status: Acute (3) Hypertension Status: Acute (4) Elevated troponin I level Status: Acute (5) UTI (urinary tract infection) Status: Acute (6) Acute on chronic systolic heart failure Status: Acute (7) New onset atrial fibrillation Status: Acute
[2018-05-02 07:37] LABS: BASO % 0.5 % (0.0-2.0); EOS # 0.2 K/uL (0.0-0.7); EOS % 3.1 % (0.0-4.0); HEMOGLOBIN 9.9 g/dL (11.0-16.0); LYMPH # 0.8 K/uL (1.0-4.3); LYMPH % 12.9 % (20.0-40.0); MEAN CORPUSCULAR HEMOGLOBIN 32.1 pg (27.0-31.0); MEAN CORPUSCULAR HGB CONC 33.1 g/dL (33.0-37.0); MONO # 0.5 K/uL (0.0-0.8); MONO % 9.1 % (0.0-10.0); NEUT # 4.4 K/uL (1.8-7.0); NEUT % 74.4 % (50.0-75.0); NRBC % 0.1 % (0.0-2.0); RBC 3.09 Mil/uL (3.80-5.20); RED CELL DISTRIBUTION WIDTH 14.9 % (11.5-14.5)
[2018-05-02 07:54] LABS: ALB/GLOB RATIO 1.3 (1.0-2.1); ALBUMIN 3.5 g/dL (3.5-5.0); CALCIUM 8.7 mg/dl (8.6-10.4)
[2018-05-02] MEDS: (Novolog) Insulin Aspart, Recombinant 100 u/ml 10 ml vial SC SCH ×4 (08:42→21:33)
[2018-05-02] MEDS: GlipiZIDE 10 mg SR Tab PO SCH ×2 (09:46→17:10)
--- NOTE | 2018-05-02 19:44 | CP.PCM.PN ---
Subjective - Date & Time of Evaluation Date of Evaluation: 05/02/18 Time of Evaluation: 19:40 - Subjective Subjective: Patient less SOB, with improving appetite. Telemetry: paced rhythm. Liver enzymes decreasing. Objective - Vital Signs/Intake and Output Vital Signs (last 24 hours): Temp Pulse Resp BP Pulse Ox 97.6 F 60 20 126/75 100 05/02/18 15:43 05/02/18 16:18 05/02/18 15:43 05/02/18 15:43 05/02/18 15:43 - Medications Medications: Current Medications Acetaminophen (Tylenol 325mg Tab) 650 mg PO Q6 PRN PRN Reason: Fever >100.4 F Last Admin: 04/25/18 21:29 Dose: 650 mg Albuterol Sulfate (Albuterol 0.083% Inhal Keily (2.5 Mg/3 Ml) Ud) 3 mg INH RQ2 PRN PRN Reason: Shortness of Breath Apixaban (Eliquis) 2.5 mg PO BID [facility] Last Admin: 05/02/18 17:10 Dose: 2.5 mg Docusate Sodium (Colace) 100 mg PO BID [facility] Last Admin: 05/02/18 17:09 Dose: 100 mg Furosemide (Lasix) 40 mg IVP DAILY [facility] Last Admin: 05/02/18 09:45 Dose: 40 mg Glipizide (Glucotrol Xl) 10 mg PO BID [facility] Last Admin: 05/02/18 17:10 Dose: 10 mg Guaifenesin (Robitussin) 100 mg PO Q4H PRN PRN Reason: Cough Insulin Aspart (Novolog) 0 unit SC [facility]; Protocol Last Admin: 05/02/18 17:10 Dose: Not Given Losartan Potassium (Cozaar) 100 mg PO DAILY [facility] Last Admin: 05/02/18 09:46 Dose: 100 mg Metoprolol Tartrate (Lopressor) 50 mg PO BID [facility] Last Admin: 05/02/18 17:10 Dose: 50 mg - Labs Labs: 05/02/18 07:20 05/02/18 07:20 - Constitutional Appears: No Acute Distress, Chronically Ill - Head Exam Head Exam: NORMAL INSPECTION - Eye Exam Eye Exam: Normal appearance Pupil Exam: NORMAL ACCOMODATION - ENT Exam ENT Exam: Normal Exam - Neck Exam Neck Exam: Normal Inspection - Respiratory Exam Additional comments: Decreased rales at both bases. - Cardiovascular Exam Cardiovascular Exam: REGULAR RHYTHM, Murmur - GI/Abdominal Exam GI & Abdominal Exam: Soft, Normal Bowel Sounds - Rectal Exam Rectal Exam: Deferred - Exam Exam: NORMAL INSPECTION - Extremities Exam Extremities Exam: Normal Inspection - Back Exam Back Exam: NORMAL INSPECTION - Neurological Exam Neurological Exam: Alert, Awake, Oriented x3 - Psychiatric Exam Psychiatric exam: Anxious - Skin Skin Exam: Dry, Intact, Normal Color, Warm Assessment and Plan (1) RLL pneumonia Status: Ruled-out (2) Insulin dependent diabetes mellitus Status: Acute (3) Hypertension Status: Chronic (4) Elevated troponin I level Status: Resolved (5) UTI (urinary tract infection) Status: Acute (6) Acute on chronic systolic heart failure Assessment & Plan: Improving. Status: Acute (7) New onset atrial fibrillation Status: Resolved
[2018-05-03 06:59] LABS: ALB/GLOB RATIO 1.4 (1.0-2.1); ALBUMIN 3.5 g/dL (3.5-5.0); CALCIUM 8.5 mg/dl (8.6-10.4)
[2018-05-03] MEDS: (Novolog) Insulin Aspart, Recombinant 100 u/ml 10 ml vial SC SCH ×4 (08:00→21:43)
[2018-05-03] MEDS: GlipiZIDE 10 mg SR Tab PO SCH ×2 (09:52→17:28)
--- NOTE | 2018-05-03 10:08 | RAD ---
Date of service: 05/03/2018 HISTORY: F/u CHF COMPARISON: 04/28/2018. FINDINGS: LUNGS: The lungs are well inflated and clear. PLEURA: No pleural effusions or pneumothorax. CARDIOVASCULAR: Mild cardiomegaly. Atherosclerotic aortic arch calcifications are present. Stable position of left-sided permanent pacing device. OSSEOUS STRUCTURES: Within normal limits for the patient's age. VISUALIZED UPPER ABDOMEN: Normal. OTHER FINDINGS: None. IMPRESSION: No acute findings.
[2018-05-03] MEDS ORDERED: Oxycodone/Acetaminophen 5/325 mg Tab PO PRN (20:09)
--- NOTE | 2018-05-03 20:17 | CP.PCM.PN ---
Subjective - Date & Time of Evaluation Date of Evaluation: 05/03/18 Time of Evaluation: 20:12 - Subjective Subjective: Patient is complaining of severe pain of the right plantar area and a little less pain of the left plantar area, nt relieved by Tylenol, and exacerbated by light touch to these areas. Less SOB. Telemetry reveals paced rhythm. Afebrile. BUN: 59 Creatinine: 1.9 CXR: no infiltrate. will check serum uric acid, start Colchicine and Percocet. Objective - Vital Signs/Intake and Output Vital Signs (last 24 hours): Temp Pulse Resp BP Pulse Ox 98.1 F 63 20 138/75 100 05/03/18 15:52 05/03/18 16:50 05/03/18 15:52 05/03/18 15:52 05/03/18 15:52 - Medications Medications: Current Medications Acetaminophen (Tylenol 325mg Tab) 650 mg PO Q6 PRN PRN Reason: Fever >100.4 F Last Admin: 05/03/18 19:42 Dose: 650 mg Albuterol Sulfate (Albuterol 0.083% Inhal Keily (2.5 Mg/3 Ml) Ud) 3 mg INH RQ2 PRN PRN Reason: Shortness of Breath Last Admin: 05/02/18 21:20 Dose: 2.5 mg Apixaban (Eliquis) 2.5 mg PO BID [facility] Last Admin: 05/03/18 17:28 Dose: 2.5 mg Colchicine (Colocrys) 0.6 mg PO DAILY [facility] Docusate Sodium (Colace) 100 mg PO BID [facility] Last Admin: 05/03/18 17:28 Dose: 100 mg Furosemide (Lasix) 40 mg IVP DAILY [facility] Last Admin: 05/03/18 09:53 Dose: 40 mg Glipizide (Glucotrol Xl) 10 mg PO BID [facility] Last Admin: 05/03/18 17:28 Dose: 10 mg Guaifenesin (Robitussin) 100 mg PO Q4H PRN PRN Reason: Cough Last Admin: 05/02/18 21:10 Dose: 100 mg Insulin Aspart (Novolog) 0 unit SC [facility]; Protocol Last Admin: 05/03/18 17:28 Dose: 3 units Losartan Potassium (Cozaar) 100 mg PO DAILY [facility] Last Admin: 05/03/18 09:52 Dose: 100 mg Metoprolol Tartrate (Lopressor) 50 mg PO BID [facility] Last Admin: 05/03/18 17:28 Dose: 50 mg Oxycodone/Acetaminophen (Percocet 5/325 Mg Tab) 1 tab PO Q4H PRN PRN Reason: Pain, moderate (4-7) Stop: 05/06/18 20:10 - Labs Labs: 05/02/18 07:20 05/03/18 06:35 - Constitutional Appears: No Acute Distress, Chronically Ill - Head Exam Head Exam: NORMOCEPHALIC - Eye Exam Eye Exam: Normal appearance Pupil Exam: NORMAL ACCOMODATION - ENT Exam ENT Exam: Normal Exam - Neck Exam Neck Exam: Normal Inspection - Respiratory Exam Additional comments: Decreased rales at both bases. - Cardiovascular Exam Cardiovascular Exam: REGULAR RHYTHM, Murmur - GI/Abdominal Exam GI & Abdominal Exam: Soft, Normal Bowel Sounds - Rectal Exam Rectal Exam: Deferred - Exam Exam: NORMAL INSPECTION - Extremities Exam Additional comments: Very tender right lateral plantar area with erythema and mild edema. 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
[2018-05-04 07:34] LABS: ALB/GLOB RATIO 1.3 (1.0-2.1); ALBUMIN 3.5 g/dL (3.5-5.0); CALCIUM 8.8 mg/dl (8.6-10.4); URIC ACID 11.8 mg/dL (2.2-7.5)
[2018-05-04] MEDS: (Novolog) Insulin Aspart, Recombinant 100 u/ml 10 ml vial SC SCH ×4 (08:16→21:14)
[2018-05-04] MEDS: GlipiZIDE 10 mg SR Tab PO SCH ×2 (10:36→19:32)
--- NOTE | 2018-05-04 16:05 | RAD ---
Date of service: 05/04/2018 PROCEDURE: Bilateral Feet Radiographs. HISTORY: Severe pain of the right and left plantar areas. COMPARISON: None. FINDINGS: BONES: Right Foot: No acute fracture seen. Left Foot: No acute fracture seen. JOINTS: Right Foot: Osteoarthrosis all interphalangeal joints. And tibiotalar joints. Left Foot: Same is on right foot SOFT TISSUES: Right Foot: Atherosclerotic vascular calcifications present. Left Foot: Atherosclerotic vascular calcifications present. OTHER FINDINGS: Os tibial externum.-right side Bilateral os peroneum. Bilateral slight flattening of the 2nd and to lesser extent 3rd metatarsal heads-nonspecific remodeling degenerative basis is 1 consideration. Given the findings at the 2nd metatarsal head on each side the possibly of mild/minimal degrees radiographic degrees of avascular necrosis Freiberg's infraction is a consideration. Mild generalized osteopenia. IMPRESSION: No acute fracture or dislocation. Multifocal arthrosis as above. Multifocal developmental accessory ossifications centers as above. Contour flattening 2nd and 3rd metatarsal [id number] detailed above.
--- NOTE | 2018-05-05 00:16 | CP.PCM.PN ---
Subjective - Date & Time of Evaluation Date of Evaluation: 05/04/18 Time of Evaluation: 19:00 - Subjective Subjective: Patient has no SOB. Pain in the left plantar area improves. Serum uric acid: 11.8 BUN: 59 creatinine: 2.1 Liver enzymes trending down. Xray of both feet: osteoarthritis, no Fx or dislocation. Osteopenia. For discharge home in AM. Objective - Vital Signs/Intake and Output Vital Signs (last 24 hours): Temp Pulse Resp BP Pulse Ox 98.1 F 63 20 128/82 100 05/04/18 15:00 05/04/18 15:00 05/04/18 15:00 05/04/18 15:00 05/04/18 15:00 Intake and Output: 05/04/18 05/05/18 18:59 06:59 Intake Total 200 Output Total 500 Balance -300 - Medications Medications: Current Medications Albuterol Sulfate (Albuterol 0.083% Inhal Keily (2.5 Mg/3 Ml) Ud) 3 mg INH RQ2 PRN PRN Reason: Shortness of Breath Last Admin: 05/02/18 21:20 Dose: 2.5 mg Apixaban (Eliquis) 2.5 mg PO BID [facility] Last Admin: 05/04/18 18:26 Dose: 2.5 mg Colchicine (Colocrys) 0.6 mg PO DAILY [facility] Last Admin: 05/04/18 10:41 Dose: 0.6 mg Docusate Sodium (Colace) 100 mg PO BID [facility] Last Admin: 05/04/18 18:27 Dose: Not Given Furosemide (Lasix) 40 mg PO DAILY [facility] Last Admin: 05/04/18 10:36 Dose: 40 mg Glipizide (Glucotrol Xl) 10 mg PO BID [facility] Last Admin: 05/04/18 19:32 Dose: 10 mg Guaifenesin (Robitussin) 100 mg PO Q4H PRN PRN Reason: Cough Last Admin: 05/02/18 21:10 Dose: 100 mg Insulin Aspart (Novolog) 0 unit SC [facility]; Protocol Last Admin: 05/04/18 21:14 Dose: Not Given Losartan Potassium (Cozaar) 100 mg PO DAILY [facility] Last Admin: 05/04/18 10:36 Dose: 100 mg Metoprolol Tartrate (Lopressor) 50 mg PO BID [facility] Last Admin: 05/04/18 18:26 Dose: 50 mg Oxycodone/Acetaminophen (Percocet 5/325 Mg Tab) 1 tab PO Q4H PRN PRN Reason: Pain, moderate (4-7) Stop: 05/06/18 20:10 Last Admin: 05/03/18 20:41 Dose: 1 tab - Labs Labs: 05/02/18 07:20 05/04/18 06:52 - Constitutional Appears: No Acute Distress, Chronically Ill - Head Exam Head Exam: NORMOCEPHALIC - Eye Exam Eye Exam: Normal appearance Pupil Exam: NORMAL ACCOMODATION - ENT Exam ENT Exam: Normal Exam - Neck Exam Neck Exam: Normal Inspection - Respiratory Exam Additional comments: Few rales bibasilarly. - Cardiovascular Exam Cardiovascular Exam: REGULAR RHYTHM, Murmur - GI/Abdominal Exam GI & Abdominal Exam: Soft, Normal Bowel Sounds - Rectal Exam Rectal Exam: Deferred - Extremities Exam Additional comments: Tender left plantar area. 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 No NSAID because of CKD. Status: Acute
[2018-05-05] MEDS: (Novolog) Insulin Aspart, Recombinant 100 u/ml 10 ml vial SC SCH ×2 (08:47→12:46)
[2018-05-05] MEDS: GlipiZIDE 10 mg SR Tab PO SCH (09:54)
[2018-05-05 17:01] VITALS: BP 147/81; PULSE 65; TEMP 98.2; O2SAT 100
--- NOTE | 2018-05-05 17:47 | PCM.HF ---
Heart Failure Core Measure - Heart Failure Ejection Fraction: Less Than 40 % (EF 25%) CORNELIUS Inhibitor Prescribed: No Contraindication/Reason for not providing: renal insufficiency Beta-Louisa Prescribed: Metoprolol Succinate Angiotensin II Receptor Louisa Prescribed: Yes AnticoagulationTherapy for Atrial Fibrillation/Atrialflutter: No Contraindication/Reason for not providing: no afib Aldosterone Antagonist Prescribed: No Contraindication/Reason for not providing: renal insufficiency Hydralazine Nitrate Prescribed: No Contraindication/Reason for not providing: BP controlled Implantable Cardioverter Defibrillator Therapy: Yes Cardiac Resynchronization Therapy Prescribed: No Contraindication/Reason for not providing: not indicated - Follow up Will be discharged to: Home Follow Up Date (must be within 7 days from discharge): 05/08/18 Follow Up Time: 10:00
--- NOTE | 2018-05-05 17:55 | CP.PCM.PN ---
Subjective - Date & Time of Evaluation Date of Evaluation: 05/05/18 Time of Evaluation: 17:54 - Subjective Subjective: awake, alert, no sob or distress, NAD. Objective - Vital Signs/Intake and Output Vital Signs (last 24 hours): Temp Pulse Resp BP Pulse Ox 98.2 F 65 20 147/81 100 05/05/18 15:00 05/05/18 15:00 05/05/18 15:00 05/05/18 15:00 05/05/18 15:00 Intake and Output: 05/05/18 05/05/18 06:59 18:59 Intake Total 200 Output Total 500 Balance -300 - Medications Medications: Current Medications Albuterol Sulfate (Albuterol 0.083% Inhal Keily (2.5 Mg/3 Ml) Ud) 3 mg INH RQ2 PRN PRN Reason: Shortness of Breath Last Admin: 05/02/18 21:20 Dose: 2.5 mg Apixaban (Eliquis) 2.5 mg PO BID [facility] Last Admin: 05/05/18 09:54 Dose: 2.5 mg Colchicine (Colocrys) 0.6 mg PO DAILY [facility] Last Admin: 05/05/18 09:54 Dose: 0.6 mg Docusate Sodium (Colace) 100 mg PO BID [facility] Last Admin: 05/05/18 09:54 Dose: 100 mg Furosemide (Lasix) 40 mg PO DAILY [facility] Last Admin: 05/05/18 09:55 Dose: 40 mg Glipizide (Glucotrol Xl) 10 mg PO BID [facility] Last Admin: 05/05/18 09:54 Dose: 10 mg Guaifenesin (Robitussin) 100 mg PO Q4H PRN PRN Reason: Cough Last Admin: 05/02/18 21:10 Dose: 100 mg Insulin Aspart (Novolog) 0 unit SC [facility]; Protocol Last Admin: 05/05/18 12:46 Dose: 3 units Losartan Potassium (Cozaar) 100 mg PO DAILY [facility] Last Admin: 05/05/18 09:54 Dose: 100 mg Metoprolol Tartrate (Lopressor) 50 mg PO BID [facility] Last Admin: 05/05/18 09:54 Dose: 50 mg Oxycodone/Acetaminophen (Percocet 5/325 Mg Tab) 1 tab PO Q4H PRN PRN Reason: Pain, moderate (4-7) Stop: 12/22/18 20:10 Last Admin: 05/03/18 20:41 Dose: 1 tab - Labs Labs: 05/02/18 07:20 05/04/18 06:52 Assessment and Plan - Assessment and Plan (Free Text) Assessment: 88 year old female admitted with pneumonia and diarrhea, resolved symptoms, seen and examined. Awake, no sob or distress noted, plan to discharge home with family as per DR Clay. Advised to follow up in the office in 1 week
--- NOTE | 2018-05-11 23:33 | CP.PCM.DIS ---
Provider - Provider Date of Admission: 04/24/18 11:05 Attending physician: Deep Clay MD Primary care physician: Deep Clay M.D. Consults: 04/24/18 19:20 Case Management Referral Routine Comment: Physician Instructions: Reason For Exam: Reason for Referral: Discharge Planning Time Spent in preparation of Discharge (in minutes): 45 Diagnosis - Discharge Diagnosis (1) RLL pneumonia Status: Ruled-out (2) Insulin dependent diabetes mellitus Status: Chronic (3) Hypertension Status: Chronic (4) Elevated troponin I level Status: Resolved (5) UTI (urinary tract infection) Status: Acute (6) Acute on chronic systolic heart failure Status: Resolved (7) New onset atrial fibrillation Status: Resolved (8) Acute drug-induced gout of left foot Status: Acute Hospital Course - Lab Results Lab Results: Micro Results 04/24/18 10:57 Blood Blood Culture - Final NO GROWTH AFTER 5 DAYS 04/24/18 10:57 Blood Gram Stain - Final TEST NOT PERFORMED 04/24/18 10:34 Blood Blood Culture - Final NO GROWTH AFTER 5 DAYS 04/24/18 10:34 Blood Gram Stain - Final TEST NOT PERFORMED 04/25/18 18:25 Urine,Clean Catch Urine Culture - Final No Growth (<1,000 CFU/ML) 04/25/18 11:52 Sputum Gram Stain - Final 04/25/18 11:52 Sputum Sputum Culture - Final NORMAL ORAL [place] Most Recent Lab Values WBC 6.0 K/uL (4.8-10.8) 05/02/18 07:20 RBC 3.09 Mil/uL (3.80-5.20) L 05/02/18 07:20 Hgb 9.9 g/dL (11.0-16.0) L 05/02/18 07:20 Hct 30.0 % (34.0-47.0) L 05/02/18 07:20 MCV 97.0 fL (81.0-99.0) 05/02/18 07:20 MCH 32.1 pg (27.0-31.0) H 05/02/18 07:20 MCHC 33.1 g/dL (33.0-37.0) 05/02/18 07:20 RDW 14.9 % (11.5-14.5) H 05/02/18 07:20 Plt Count 237 K/uL (130-400) 05/02/18 07:20 MPV 9.0 fL (7.2-11.7) 05/02/18 07:20 Neut % (Auto) 74.4 % (50.0-75.0) 05/02/18 07:20 Lymph % (Auto) 12.9 % (20.0-40.0) L 05/02/18 07:20 [place] % (Auto) 9.1 % (0.0-10.0) 05/02/18 07:20 Eos % (Auto) 3.1 % (0.0-4.0) 05/02/18 07:20 Baso % (Auto) 0.5 % (0.0-2.0) 05/02/18 07:20 Neut # (Auto) 4.4 K/uL (1.8-7.0) 05/02/18 07:20 Lymph # (Auto) 0.8 K/uL (1.0-4.3) L 05/02/18 07:20 [place] # (Auto) 0.5 K/uL (0.0-0.8) 05/02/18 07:20 Eos # (Auto) 0.2 K/uL (0.0-0.7) 05/02/18 07:20 Baso # (Auto) 0.0 K/uL (0.0-0.2) 05/02/18 07:20 Neutrophils % (Manual) 82 % (50-75) H 04/30/18 07:59 Band Neutrophils % 2 % (0-2) 04/25/18 08:03 Lymphocytes % (Manual) 9 % (20-40) L 04/30/18 07:59 Monocytes % (Manual) 6 % (0-10) 04/30/18 07:59 Eosinophils % (Manual) 3 % (0-4) 04/30/18 07:59 Toxic Granulation Present 04/30/18 07:59 Platelet Estimate Normal (NORMAL) 04/30/18 07:59 Large Platelets Present 04/30/18 07:59 Polychromasia Slight 04/30/18 07:59 Hypochromasia (manual) Slight 04/30/18 07:59 Poikilocytosis (manual Slight 04/26/18 07:26 Anisocytosis (manual) Slight 04/30/18 07:59 Macrocytosis (manual) Slight 04/30/18 07:59 Puncture Site Rba 04/25/18 09:21 pCO2 37 mm/Hg (35-45) 04/25/18 09:21 pO2 461 mm/Hg (80-100) H 04/25/18 09:21 HCO3 17.8 mmol/L (21-28) L 04/25/18 09:21 ABG pH 7.27 (7.35-7.45) L 04/25/18 09:21 ABG Total CO2 18.1 mmol/L (22-28) L 04/25/18 09:21 ABG O2 Saturation 97.8 % (95-98) 04/25/18 09:21 ABG Base Excess -9.2 mmol/L (-2.0-3.0) L 04/25/18 09:21 ABG Hemoglobin 9.3 g/dL (11.7-17.4) L 04/25/18 09:21 ABG Carboxyhemoglobin 0.2 % (0.5-1.5) L 04/25/18 09:21 POC ABG HHb (Measured) 2.2 % (0.0-5.0) 04/25/18 09:21 ABG Methemoglobin 0.2 % (0.0-3.0) 04/25/18 09:21 Jaziel Test Na 04/25/18 09:21 ABG Potassium 4.6 mmol/L (3.6-5.2) 04/25/18 08:10 VBG pH 7.28 (7.32-7.43) L 04/24/18 10:27 VBG pCO2 49 mmHg (40-60) 04/24/18 10:27 VBG HCO3 20.0 mmol/L 04/24/18 10:27 VBG Total CO2 24.5 mmol/L (22-28) 04/24/18 10:27 VBG O2 Sat (Calc) 47.2 % (40-65) 04/24/18 10:27 VBG Base Excess -4.1 mmol/L (0.0-2.0) L 04/24/18 10: VBG Potassium 3.7 mmol/L (3.6-5.2) 04/24/18 10:27 A-a O2 Difference 206.0 mm/Hg 04/25/18 09:21 Respiratory Index 0.4 04/25/18 09:21 Hgb O2 Saturation 97.5 % (95.0-98.0) 04/25/18 09:21 Sodium 139.0 mmol/l (132-148) 04/25/18 08:10 Chloride 112.0 mmol/L (98-107) H 04/25/18 08:10 Glucose 379 mg/dl (65-105) H 04/25/18 08:10 Lactate 1.8 mmol/L (0.7-2.1) 04/25/18 08:10 Liter Flow 8.0 04/25/18 08:10 Vent Mode Bipap 04/25/18 09:21 FiO2 100.0 % 04/25/18 09:21 Inspiratory BiPAP 14 04/25/18 09:21 Expiratory BiPAP 6 04/25/18 09:21 Crit Value Called To Dr petey melendez 04/25/18 08:10 Crit Value Called By Billy meza full roll inspector 04/25/18 08:10 Crit Value Read Back Y 04/25/18 08:10 Blood Gas Notified Time 815 04/25/18 08:10 Sodium 136 mmol/L (132-148) 05/04/18 06:52 Potassium 3.6 mmol/L (3.6-5.2) 05/04/18 06:52 Chloride 101 mmol/L (98-107) 05/04/18 06:52 Carbon Dioxide 25 mmol/L (22-30) 05/04/18 06:52 Anion Gap 14 (10-20) 05/04/18 06:52 BUN 59 mg/dL (7-17) H 05/04/18 06:52 Creatinine 2.1 mg/dL (0.7-1.2) H 05/04/18 06:52 Est GFR ( Amer) 27 05/04/18 06:52 Est GFR (Non-Af Amer) 22 05/04/18 06:52 POC Glucose (mg/dL) 193 mg/dL (65-110) H 05/05/18 17:27 Random Glucose 247 mg/dL (65-105) H 05/04/18 06:52 Uric Acid 11.8 mg/dL (2.2-7.5) H 05/04/18 06:52 Calcium 8.8 mg/dl (8.6-10.4) 05/04/18 06:52 Phosphorus 4.1 mg/dL (2.5-4.5) 04/25/18 08:28 Magnesium 1.8 mg/dL (1.6-2.3) 05/03/18 06:35 Total Bilirubin 0.4 mg/dL (0.2-1.3) 05/04/18 06:52 AST 37 U/L (14-36) H 05/04/18 06:52 ALT 224 U/L (9-52) H D 05/04/18 06:52 Alkaline Phosphatase 107 U/L (38-126) 05/04/18 06:52 Total Creatine Kinase 175 U/L (30-135) H 04/25/18 08:28 CK-MB (Mass) 5.32 ng/mL (0.0-3.38) H 04/25/18 08:28 Troponin I 0.2630 ng/mL (0.00-0.120) H* 04/26/18 07:26 NT-Pro-B Natriuret Pep 5870 pg/mL (0-900) H 04/24/18 10:34 Total Protein 6.1 g/dL (6.3-8.3) L 05/04/18 06:52 Albumin 3.5 g/dL (3.5-5.0) 05/04/18 06:52 Globulin 2.7 gm/dL (2.2-3.9) 05/04/18 06:52 Albumin/Globulin Ratio 1.3 (1.0-2.1) 05/04/18 06:52 Free T4 1.00 ng/dL (0.78-2.19) 04/25/18 08:28 TSH 3rd Generation 0.44 mIU/L (0.46-4.68) L 04/25/18 08:28 Arterial Blood Potassium 4.6 mmol/L (3.6-5.2) 04/25/18 08:10 Venous Blood Potassium 3.7 mmol/L (3.6-5.2) 04/24/18 10:27 Urine Color Yellow (YELLOW) 04/24/18 12:33 Urine Clarity Clear (Clear) 04/24/18 12:33 Urine pH 5.0 (5.0-8.0) 04/24/18 12:33 Ur Specific [place] 1.013 (1.003-1.030) 04/24/18 12:33 Urine Protein 2+ mg/dL (NEGATIVE) H 04/24/18 12:33 Urine Glucose (UA) Normal mg/dL (Normal) 04/24/18 12:33 Urine Ketones Negative mg/dL (NEGATIVE) 04/24/18 12:33 Urine Blood Negative (NEGATIVE) 04/24/18 12:33 Urine Nitrate Positive (NEGATIVE) H 04/24/18 12:33 Urine Bilirubin Negative (NEGATIVE) 04/24/18 12:33 Urine Urobilinogen Normal mg/dL (0.2-1.0) 04/24/18 12:33 Ur Leukocyte Esterase 2+ [place]/uL (Negative) H 04/24/18 12:33 Urine WBC (Auto) 53 /hpf (0-5) H 04/24/18 12:33 Urine RBC (Auto) 1 /hpf (0-3) 04/24/18 12:33 Urine WBC Clumps (Auto) Few /hpf (NONE) H 04/24/18 12:33 Ur Squamous Epith Cells 1 /hpf (0-5) 04/24/18 12:33 Urine Bacteria Many (<OCC) H 04/24/18 12:33 Hyaline Casts 0-2 /lpf (0-2) 04/24/18 12:33 Influenza Typ A,B (EIA) Negative for flu a/b (NEGATIVE) 04/24/18 10:34 Ur L.pneumophila Ag Negative (NEGATIVE) 04/25/18 11:52 M.pneumoniae IgG Titer <=0.90 (<=0.90) 04/25/18 08:28 - Hospital Course Hospital Course: 88 years old [place] female was brought to the ED at [facility] complaining of a fever, diarrhea and progressive shortness of breath of one day duration. She denies any chest pain, any chills, any sore throat, any abdominal pain, any burning micturation. She is known to have a non-insulin dependent diabetes mellitus, a hypertension, a CAD with an ischemic cardiomyopathy, a s/p permanent pacemaker for a sick sinus syndrome, a stage 3 chronic kidney disease, osteoarthritis of both knees, a presbycusis. she was found to have rales and wheezes in both lungs. A CXR revealed patchy infiltrates of the right hilum, and right base, mild venous congestion with small bilateral effusion. Her ECG showed a dual chamber pacing rhythm, WBC: 9.4 Hgb: 10.8 Na+: 139 K+: 4.0 BUN: 43 creatinine: 2.0 Glucose: 454 TNI: 0.1360 Pro-BNP: 5,870 U/A : positive nitrate, 2+ leukocyte esterase, many bacteria. Presumptive diagnoses of Pneumonia, UTI, chronic CHF, acute NSTEMI, uncontrolled DM were made. Patient was put of IV Rocephin, Zithromax, after sputum, blood and urine cultures were done. She was also started on PO Lasix, s/c Insulin and put on BIPAP. Next day, her WBC: 15.2 with 88.5% PMN, 2 bands and 6.9% lymph. Serum TNI's were 0.311 and 0.263. Her SOB improved slightly. On 04/28/2018, she became very dyspneic, telemetry revealed an atrial fibrillation with rapid ventricular response, a cXR showed little change in pulmonary congestion and small bilateral effusion. She received a stat dose of IV Lasix 40 mg, put on BIPAP, and started on Metoprolol tartrate 50 mg PO BID, received a stat dose of Metoprolol 5 mg IV, and Eliquis 2.5 mg PO BID. Next day, her dyspnea improved slightly, Lasix IV was increased to BID and all IV antibiotics were discontinued because, it seemed that her SOB was caused by an acute CHF. An echocardiogram revealed a dilated LV with marked systolic dysfunction, LVEF estimated at about 25 to 30%, with moderate MR, TR and pulmonary hypertension. Liver enzymes elevation began to improve. Urine, sputum and blood cultures were negative. Her respiration was much easier. BIPAP was discontinued. Her appetite became better. A CXR on 05/03/2018 revealed clear lungs. Telemetry revealed a paced rhythm, but she complained of severe pain in both plantar area, only relieved somewhat by PO Percocet. Her serum uric acid was 11.8. She also received Cochicine 0.6 mg PO qd. XRays of both feet revealed mild osteoarthritis. Lasix was switchedn to 40 mg PO qd. She was discharged home on 05/05/2018 in a stable condition. She will resume all her home meds, in addition to Metoprolol tartrate 50 mg PO BID, Cochicine 0.6 mg PO BID until plantar pain subsides, and Eliquis 2.5 mg PO BID. She was told to have a follow up with me in about a week, to recheck her serum electrolytes, uric acid, her CHF, and cardiac rhythm. - Date & Time of H&P Date of H&P: 04/24/18 Discharge Exam - Head Exam Head Exam: NORMOCEPHALIC - Eye Exam Eye Exam: Normal appearance Pupil Exam: NORMAL ACCOMODATION - ENT Exam ENT Exam: Normal Exam - Neck Exam Neck exam: Normal Inspection - Respiratory Exam Respiratory Exam: Clear to PA & Lateral, NORMAL BREATHING PATTERN - Cardiovascular Exam Cardiovascular Exam: REGULAR RHYTHM, Systolic Murmur - GI/Abdominal Exam GI & Abdominal Exam: Normal Bowel Sounds, Unremarkable - Rectal Exam Rectal Exam: Deferred - Extremities Exam Additional comments: Mild bilateral plantar tenderness. - Back Exam Back exam: NORMAL INSPECTION - Neurological Exam Neurological exam: Alert, Oriented x3 - Psychiatric Exam Psychiatric exam: Anxious - Skin Skin Exam: Dry, Intact, Normal Color, Warm Discharge Plan - Discharge Medications Prescriptions: Colchicine 0.6 mg PO BID #60 tablet Metoprolol Tartrate [Lopressor] 50 mg PO BID #60 tab - Follow Up Plan Condition: GOOD Disposition: HOME/ ROUTINE Instructions: Heart Healthy Diet, Heart Failure, Adult (DC), Urinary Tract Infection, Adult (DC), Heart Attack (DC), Pneumonia, Adult (DC), Exacerbation of COPD (DC), Colchicine, Metoprolol Additional Instructions: Follow up with DR Clay in 1 week home care/[facility] care for generalized weakness,pneumonia Referrals: Deep Clay MD [Staff Provider] - Clinical Quality Measures - CQM - Heart Failure Ejection Fraction: Less Than 40 % Left Ventricular Function to be assessed after discharge: No CORNELIUS Inhibitor Prescribed: No Contraindication/Reason for not providing: CKD and hyperkalemia. Beta-Louisa Prescribed: Metoprolol Succinate Angiotensin II Receptor Louisa Prescribed: No Contraindication/Reason for not providing: CKD and hyperkalemia. AnticoagulationTherapy for Atrial Fibrillation/Atrialflutter: Yes Aldosterone Antagonist Prescribed: No Contraindication/Reason for not providing: Hyperkalemia. Hydralazine Nitrate Prescribed: No Contraindication/Reason for not providing: Hypotension Implantable Cardioverter Defibrillator Therapy: No Contraindication/Reason for not providing: Not indicated. Cardiac Resynchronization Therapy Prescribed: No Contraindication/Reason for not providing: Not indicated Will be discharged to: Home Follow Up Date (must be within 7 days from discharge): 04/12/18 Follow Up Time: 14:00 - Date & Time of Discharge Summary Date of Discharge Summary: 05/12/18 Time of Discharge Summary: 00:22
== END 2018-05-05 18:15 | disposition home or self-care (01) | DRG 280 ==
LOC: C.ER 09:43 → C.9E 11:05 → C.6T 16:13 → C.9E 16:22 → C.6T 16:46
PROVIDERS: ADMIT Internal Medicine Cardiovascular Disease; ATTEND Internal Medicine Cardiovascular Disease
PROC: 5A09557 Assistance with Respiratory Ventilation, Greater than 96 Consecutive Hours, Continuous Positive Airway Pressure (ICD-10-PCS; principal; 2018-04-25)
DX: I13.0 Hypertensive heart and chronic kidney disease with heart failure and stage 1 through stage 4 chronic kidney disease, or unspecified chronic kidney disease (principal); I21.4 Non-ST elevation (NSTEMI) myocardial infarction; I50.33 Acute on chronic diastolic (congestive) heart failure; J18.9 Pneumonia, unspecified organism; N39.0 Urinary tract infection, site not specified; I42.9 Cardiomyopathy, unspecified; E10.22 Type 1 diabetes mellitus with diabetic chronic kidney disease; I25.10 Atherosclerotic heart disease of native coronary artery without angina pectoris; N18.3 Chronic kidney disease, stage 3 (moderate); M17.0 Bilateral primary osteoarthritis of knee; Z95.0 Presence of cardiac pacemaker; E10.65 Type 1 diabetes mellitus with hyperglycemia; T38.0X5A Adverse effect of glucocorticoids and synthetic analogues, initial encounter; K59.00 Constipation, unspecified; I27.20 Pulmonary hypertension, unspecified; I48.91 Unspecified atrial fibrillation; M10.20 Drug-induced gout, unspecified site

== ENCOUNTER 2018-05-26 19:17 | Inpatient (IN) | payer MEDICARE, MEDICAID ==
[2018-05-26 19:17] VITALS: BMI 23.4
--- NOTE | 2018-05-26 19:35 | C.PDOC ---
History Of Present Illness Patient presents to the ER with a complaint of increased diarrhea, generalized malaise, and decreased appetite for the past week. Patient saw PMD Dr. Clay who sent patient to ER for evaluation. Denies fever, chills, nausea, or vomiting. Time Seen by Provider: 05/26/18 19:35 Chief Complaint (Nursing): Weakness/Neurological Deficit History Per: Patient History/Exam Limitations: no limitations Onset/Duration Of Symptoms: Days (1 week) Current Symptoms Are (Timing): Still Present Seizure Or Post-ictal Symptoms: None Possible Causative Factor(s): Other (Not known) Fall Associated With With Symptoms: No Severity: Moderate Pain Scale Rating Of: 4 Recent travel outside of the [place]: No Additional History Per: Family - Symptoms Of CVA Associated Symptoms: denies: Impaired Speech, Seizure Activity, New Vision Deficit(Left), New Vision Deficit(Right), Decreased Ability To Walk, New Confusion Recent Aspirin Use: No Current Coumadin Use?: No Recent Head Trauma: No Past Medical History Reviewed: Historical Data, Nursing Documentation, Vital Signs Vital Signs: Last Vital Signs Temp 98.3 F 05/26/18 19:25 Pulse 116 H 05/26/18 19:25 Resp 18 05/26/18 19:25 BP 137/82 05/26/18 19:25 Pulse Ox 98 05/26/18 19:25 - Medical History PMH: Anxiety, Arthritis (OA, OSTEOPOROSIS; R KNEE AND ANKLE PAIN), CHF, Diabetes, HTN, Hypercholesterolemia, Kidney Stones, Osteoporosis, Pneumonia, Chronic Kidney Disease Denies: Emphysema Surgical History: Cholecystectomy, Pacemaker - [facility] ASSISTANCE WITH RESPIRATORY VENTILATION, >96 HRS, CPAP (04/24/18) DRAINAGE OF ANT NECK SUBCU/FASCIA, OPEN APPROACH (06/11/17) Family History: States: No Known Family Hx - Social History Hx Tobacco Use: No Hx Alcohol Use: No Hx Substance Use: No - Immunization History Hx Tetanus Toxoid Vaccination: No (unknown) Hx Influenza Vaccination: Yes Hx Pneumococcal Vaccination: No (unknown) Review Of Systems Constitutional: Positive for: Malaise, Other (Decreased appetite). Negative for: Fever, Chills Eyes: Negative for: Vision Change Cardiovascular: Negative for: Chest Pain, Palpitations Respiratory: Negative for: Cough, Shortness of Breath Gastrointestinal: Positive for: Diarrhea. Negative for: Nausea, Vomiting Musculoskeletal: Negative for: Back Pain Skin: Positive for: Other (poor turgor). Negative for: Rash Neurological: Negative for: Weakness, Numbness Psych: Negative for: Anxiety Physical Exam - Physical Exam Appears: Other (Moderate discomfort) Skin: Warm, Dry, Other (Poor turgor) Head: Normacephalic Eye(s): bilateral: Normal Inspection Oral Mucosa: Dry Lips: Other (Dry) Neck: Trachea Midline, Supple Chest: Symmetrical, No Tenderness Cardiovascular: Rhythm Regular Respiratory: No Rales, Rhonchi (Left sided), No Wheezing Gastrointestinal/Abdominal: Soft, No Tenderness Back: Normal Inspection Extremity: Normal ROM Extremity: Bilateral: Atraumatic Pulses: Left Dorsalis Pedis: Normal, Right Dorsalis Pedis: Normal Neurological/Psych: Oriented x3 Gait: With Assistance ED Course And Treatment - Laboratory Results Result Diagrams: 05/26/18 19:50 05/26/18 19:50 ECG: Interpreted By Me, Viewed By Me ECG Rhythm: Sinus Rhythm (111), L BBB, Nonspecific Changes O2 Sat by Pulse Oximetry: 98 (Room air) Pulse Ox Interpretation: Normal - Radiology CXR: Interpreted by Me, Viewed By Me CXR Interpretation: Yes: Other (pacer left chest , unchanged fromo 04/23/18). No: Infiltrates, Fracture, Pnemothorax Progress Note: EKG, blood work, CXR, urinalysis, and flu swab ordered. IV fluids administered. Disposition Discussed With : Deep Clay Comment: accepted the pt on his service and took over the care at 9:23 PM Doctor Will See Patient In The: ED Counseled Patient/Family Regarding: Studies Performed, Diagnosis - Disposition Disposition: HOSPITALIZED Disposition Time: 19:35 Condition: FAIR Instructions: Weakness (ED) Forms: [facility] (Serbian) - POA Present On Arrival: Poor Glycemic Control - Clinical Impression Clinical Impression: Diabetes, Dehydration, Renal insufficiency, Generalized weakness, Diarrhea - Scribe Statement The provider has reviewed the documentation as recorded by the Scribe Alfredo Kearney All medical record entries made by the Scribe were at my direction and personally dictated by me. I have reviewed the chart and agree that the record accurately reflects my personal performance of the history, physical exam, medical decision making, and the department course for this patient. I have also personally directed, reviewed, and agree with the discharge instructions and disposition. Decision To Admit - Pt Status Changed To: Hospital Disposition Of: Inpatient - Admit Certification Admit to Inpatient:: After my assessment, the patient will require hospitalization for at least two midnights. This is because of the severity of symptoms shown, intensity of services needed, and/or the medical risk in this patient being treated as an outpatient. - InPatient: Physician Admission Certification: I certify that this patient requires 2 or mor e midnights of care for the following reason:: After my assessment, the patient will require hospitalization for at least two midnights. This is because of the severity of symptoms shown, intensity of services needed, and/or the medical risk in this patient being treated as an outpatient. - . Bed Request Type: Regular Admitting Physician: Deep Clay Patient Diagnosis: Diabetes, Dehydration, Renal insufficiency, Generalized weakness, Diarrhea
[2018-05-26] MEDS ORDERED: Sodium Chloride 0.9% 1,000 ML IV SCH (19:45)
[2018-05-26 20:05] LABS: BASO % 0.8 % (0.0-2.0); EOS # 0.1 K/uL (0.0-0.7); EOS % 1.3 % (0.0-4.0); HEMOGLOBIN 11.8 g/dL (11.0-16.0); LYMPH # 0.7 K/uL (1.0-4.3); LYMPH % 12.7 % (20.0-40.0); MEAN CORPUSCULAR HEMOGLOBIN 31.2 pg (27.0-31.0); MEAN CORPUSCULAR HGB CONC 33.2 g/dL (33.0-37.0); MEAN PLATELET VOLUME 9.9 fL (7.2-11.7); MONO # 0.6 K/uL (0.0-0.8); MONO % 10.6 % (0.0-10.0); NEUT # 4.1 K/uL (1.8-7.0); NEUT % 74.6 % (50.0-75.0); NRBC % 0.3 % (0.0-2.0); RBC 3.8 Mil/uL (3.80-5.20); RED CELL DISTRIBUTION WIDTH 16.8 % (11.5-14.5); WHITE BLOOD COUNT 5.5 K/uL (4.8-10.8)
[2018-05-26 20:07] LABS: ALB/GLOB RATIO 1.6 (1.0-2.1); ALBUMIN 4.4 g/dL (3.5-5.0); CALCIUM 9.4 mg/dl (8.6-10.4)
[2018-05-26 20:16] LABS: INR 1.1; PROTHROMBIN TIME 12.5 SECONDS (9.7-12.2)
[2018-05-26 20:27] LABS: VENOUS BLOOD GAS BASE EXCESS -7.3 mmol/L (0.0-2.0); VENOUS BLOOD GAS PCO2 42 mmHg (40-60); VENOUS BLOOD GAS PO2 15 mm/Hg (30-55); VENOUS BLOOD PH 7.27 (7.32-7.43)
[2018-05-27 00:47] VITALS: RESP 20
[2018-05-27] MEDS: Rosuvastatin Calcium 2.5 mg Tab PO SCH ×2 (00:47→21:28)
[2018-05-27] MEDS: Oxycodone/Acetaminophen 5/325 mg Tab PO PRN ×3 (00:49→17:32)
[2018-05-27] MEDS: (Novolog) Insulin Aspart, Recombinant 100 u/ml 10 ml vial SC SCH ×4 (07:53→21:27)
--- NOTE | 2018-05-27 09:05 | RAD ---
Date of service: 05/26/2018 PROCEDURE: CHEST RADIOGRAPH, 1 VIEW HISTORY: SOB COMPARISON: 05/03/2018. FINDINGS: LUNGS: The right lung is well inflated and clear. PLEURA: No pneumothorax or large pleural effusions. The left costophrenic angle is obscured by pacemaker. CARDIOVASCULAR: The heart is normal in size. There is stable position of left-sided permanent pacing device. There are aortic atherosclerotic calcifications present. OSSEOUS STRUCTURES: Within normal limits for the patient's age. VISUALIZED UPPER ABDOMEN: Normal. OTHER FINDINGS: None. IMPRESSION: No acute findings.
[2018-05-27] MEDS ORDERED: Carboxymethylcellulose 1% Ophth Soln OU SCH (18:00)
[2018-05-27] MEDS: Aritificial Tears (15ml) OU SCH ×2 (18:54→21:28)
[2018-05-27] MEDS: Sodium Chloride 0.9% 1,000 ML IV SCH (22:30)
--- NOTE | 2018-05-27 23:33 | CP.PCM.HP ---
History of Present Illness - History of Present Illness History of Present Illness: 88 yo Female complaining of a severe weakness, no appetite and loose BM's for the past 3-4 days with diffuse abdominal pain and mild fever. The patient denies any vomiting. She was recently discharged for [facility] for an acute CHF, an acute gout and a renal failure. 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 Present on Admission - Present on Admission Any Indicators Present on Admission: No Review of Systems - Constitutional Constitutional: Anorexia, Fever, Weakness - EENT Ears: Decreased Hearing - Gastrointestinal Gastrointestinal: Abdominal Pain, Diarrhea - Musculoskeletal Musculoskeletal: Arthralgias Additional comments: Left knee pain. - Psychiatric Psychiatric: Anxiety - Endocrine Endocrine: Fatigue Past Patient History - Infectious Disease Hx of Infectious Diseases: None - Tetanus Immunizations Tetanus Immunization: Unknown - Past Medical History & Family History Past Medical History?: Yes - Past Social History Smoking Status: Never Smoked Alcohol: None Home Situation {Lives}: With Family Domestic Violence: Negative - CARDIAC Hx Congestive Heart Failure: Yes Hx Hypercholesterolemia: Yes Hx Hypertension: Yes Hx Pacemaker: Yes - PULMONARY Hx Emphysema: No Hx Pneumonia: Yes - NEUROLOGICAL Hx Neurological Disorder: Yes Hx Dizziness: Yes - HEENT Hx HEENT Problems: Yes Hx Cataracts: Yes Hx Deafness: Yes Other/Comment: hard of hearing - RENAL Hx Chronic Kidney Disease: Yes Hx Kidney Stones: Yes - ENDOCRINE/METABOLIC Hx Endocrine Disorders: Yes Hx Diabetes Mellitus Type 2: Yes - HEMATOLOGICAL/ONCOLOGICAL Hx Blood Disorders: No - INTEGUMENTARY Hx Dermatological Problems: No - MUSCULOSKELETAL/RHEUMATOLOGICAL Hx Arthritis: Yes (OA, OSTEOPOROSIS; R KNEE AND ANKLE PAIN) Hx Falls: No Hx Osteoporosis: Yes - GASTROINTESTINAL Hx Gastrointestinal Disorders: No - GENITOURINARY/GYNECOLOGICAL Hx Incontinence: Yes - PSYCHIATRIC Hx Anxiety: Yes Hx Substance Use: No - SURGICAL HISTORY Hx Cholecystectomy: Yes - ANESTHESIA Hx Anesthesia: Yes Hx Anesthesia Reactions: No Hx Malignant Hyperthermia: No Meds Allergies/Adverse Reactions: Allergies Allergy/AdvReac Type Severity Reaction Status Date / Time No Known Allergies Allergy Verified 05/26/18 19:36 Physical Exam - Constitutional Appears: No Acute Distress, Chronically Ill - Head Exam Head Exam: NORMAL INSPECTION - Eye Exam Eye Exam: Normal appearance - ENT Exam ENT Exam: Normal Exam - Neck Exam Neck exam: Positive for: Normal Inspection - Respiratory Exam Respiratory Exam: Rhonchi - Cardiovascular Exam Cardiovascular Exam: REGULAR RHYTHM, Systolic Murmur - GI/Abdominal Exam GI & Abdominal Exam: Normal Bowel Sounds - Rectal Exam Rectal Exam: Deferred - Exam Exam: NORMAL INSPECTION - Back Exam Back exam: NORMAL INSPECTION - Neurological Exam Neurological exam: Alert, Oriented x3 - Psychiatric Exam Psychiatric exam: Anxious - Skin Skin Exam: Dry, Intact Results - Vital Signs Recent Vital Signs: Last Vital Signs Temp 97.9 F 05/27/18 08:00 Pulse 68 05/27/18 08:00 Resp 20 05/27/18 08:00 BP 143/78 05/27/18 08:00 Pulse Ox 98 05/27/18 08:00 - Labs Result Diagrams: 05/26/18 19:50 05/26/18 19:50 Labs: Laboratory Results - last 24 hr 05/27/18 05/27/18 05/27/18 07:27 11:47 16:17 POC Glucose (mg/dL) 90 155 H 103 05/27/18 21:26 POC Glucose (mg/dL) 162 H Assessment & Plan (1) Dehydration Assessment and Plan: Careful IV hydration. Status: Acute (2) Diarrhea Assessment and Plan: With abdominal pain. R/o colitis, r/o side effect of Colchicine. Status: Acute (3) Generalized weakness Assessment and Plan: From dehydration. Status: Acute (4) Insulin dependent diabetes mellitus Status: Acute (5) Diabetes Assessment and Plan: Careful IV hydration . Status: Acute Decision To Admit - Pt Status Changed To: Hospital Disposition Of: Inpatient - Admit Certification Admit to Inpatient:: After my assessment, the patient will require hospit alization for at least two midnights. This is because of the severity of symptoms shown, intensity of services needed, and/or the medical risk in this patient being treated as an outpatient. - InPatient: Physician Admission Certification:: After my assessments, the patient requires hospitalization for at least 2 midnights. - . Bed Request Type: Regular Admitting Physician: Deep Clay
[2018-05-28 07:29] LABS: BASO % 0.8 % (0.0-2.0); EOS # 0.1 K/uL (0.0-0.7); EOS % 2.1 % (0.0-4.0); LYMPH # 1.1 K/uL (1.0-4.3); LYMPH % 23.3 % (20.0-40.0); MEAN CELL VOLUME 95.3 fL (81.0-99.0); MEAN CORPUSCULAR HEMOGLOBIN 31.9 pg (27.0-31.0); MEAN CORPUSCULAR HGB CONC 33.4 g/dL (33.0-37.0); MEAN PLATELET VOLUME 9.4 fL (7.2-11.7); MONO # 0.7 K/uL (0.0-0.8); MONO % 15.3 % (0.0-10.0); NEUT # 2.8 K/uL (1.8-7.0); NEUT % 58.5 % (50.0-75.0); NRBC % 0.2 % (0.0-2.0); RBC 2.89 Mil/uL (3.80-5.20); RED CELL DISTRIBUTION WIDTH 16.6 % (11.5-14.5); WHITE BLOOD COUNT 4.7 K/uL (4.8-10.8)
[2018-05-28] MEDS: (Novolog) Insulin Aspart, Recombinant 100 u/ml 10 ml vial SC SCH ×4 (07:30→21:49)
[2018-05-28 07:36] LABS: HEMOGLOBIN 9.2 g/dL (11.0-16.0)
[2018-05-28 08:03] LABS: ALB/GLOB RATIO 1.3 (1.0-2.1); ALBUMIN 3.2 g/dL (3.5-5.0); CALCIUM 8.4 mg/dl (8.6-10.4)
[2018-05-28] MEDS: Aritificial Tears (15ml) OU SCH ×4 (09:19→22:06)
[2018-05-28] MEDS ORDERED: Potassium Chloride 10 mEq ER Tab PO STA (15:41)
[2018-05-28] MEDS: Magnesium Oxide 400 mg Tab UD PO SCH (18:33)
[2018-05-28] MEDS: Oxycodone/Acetaminophen 5/325 mg Tab PO PRN (19:47)
[2018-05-28] MEDS: Rosuvastatin Calcium 2.5 mg Tab PO SCH (21:52)
[2018-05-28] MEDS: Sodium Chloride 0.9% 1,000 ML IV SCH (21:56)
--- NOTE | 2018-05-28 23:42 | CP.PCM.PN ---
Subjective - Date & Time of Evaluation Date of Evaluation: 05/28/18 Time of Evaluation: 16:30 - Subjective Subjective: Patient still with mild diffuse abdominal pain, but no more diarrhea. Appetite still poor. Afebrile. Objective - Vital Signs/Intake and Output Vital Signs (last 24 hours): Temp Pulse Resp BP Pulse Ox 98.7 F 60 20 132/60 98 05/28/18 23:21 05/28/18 23:21 05/28/18 23:21 05/28/18 23:21 05/28/18 23:21 Intake and Output: 05/28/18 05/29/18 18:59 06:59 Intake Total 300 Balance 300 - Medications Medications: Current Medications Artificial Tears (Artificial Tears) 0.[address] [facility] Last Admin: 05/28/18 22:06 Dose: 1 drop Clopidogrel Bisulfate (Plavix) [address] [facility] Last Admin: 05/28/18 09:18 Dose: 75 mg Heparin Sodium (Porcine) (Heparin) 5,[address] [facility] Last Admin: 05/28/18 21:51 Dose: 5,000 units Sodium Chloride (Sodium Chloride 0.9%) 1,000 mls @ 42 mls/hr IV .[id number] [facility] Last Admin: 05/28/18 21:56 Dose: 42 mls/hr Insulin Aspart (Novolog) [address] [facility]; Protocol Last Admin: 05/28/18 21:49 Dose: Not Given Losartan Potassium (Cozaar) [address] [facility] Last Admin: 05/28/18 09:18 Dose: 100 mg Magnesium Oxide (Mag-Ox) [address] [facility] Last Admin: 05/28/18 18:33 Dose: 400 mg Metoprolol Tartrate (Lopressor) [address] [facility] Last Admin: 05/28/18 18:33 Dose: 50 mg Oxycodone/Acetaminophen (Percocet 5/325 Mg Tab) 1 tab PO Q4 PRN PRN Reason: Pain, moderate (4-7) Stop: 05/29/18 23:10 Last Admin: 05/28/18 19:47 Dose: 1 tab Rosuvastatin Calcium (Crestor) 2.[address] [facility] Last Admin: 05/28/18 21:52 Dose: 2.5 mg - Labs Labs: 05/28/18 07:17 05/28/18 06:30 PT 12.5 SECONDS (9.7-12.2) H 05/26/18 19:50 INR 1.1 05/26/18 19:50 APTT 29 SECONDS (21-34) 05/26/18 19:50 - Constitutional Appears: No Acute Distress, Chronically Ill - Head Exam Head Exam: NORMOCEPHALIC - Eye Exam Eye Exam: Normal appearance - ENT Exam ENT Exam: Normal Exam - Respiratory Exam Respiratory Exam: Clear to Ausculation Bilateral - Cardiovascular Exam Cardiovascular Exam: REGULAR RHYTHM, Murmur - GI/Abdominal Exam GI & Abdominal Exam: Soft, Tenderness, Normal Bowel Sounds - Rectal Exam Rectal Exam: Deferred - Extremities Exam Extremities Exam: Normal Inspection - Back Exam Back Exam: NORMAL INSPECTION - Neurological Exam Neurological Exam: Alert, Awake, Oriented x3 - Psychiatric Exam Psychiatric exam: Anxious - Skin Skin Exam: Dry, Intact, Normal Color, Warm Assessment and Plan (1) Dehydration Assessment & Plan: Appetite still poor. To continue cautious IV hydration. Status: Acute (2) Diarrhea Assessment & Plan: Diarrhea had stopped, but abdominal pain persists. Status: Acute (3) Generalized weakness Status: Acute (4) Insulin dependent diabetes mellitus Status: Acute
[2018-05-29] MEDS: (Novolog) Insulin Aspart, Recombinant 100 u/ml 10 ml vial SC SCH ×4 (08:00→21:31)
[2018-05-29 08:31] LABS: CALCIUM 8.7 mg/dl (8.6-10.4)
[2018-05-29] MEDS: Oxycodone/Acetaminophen 5/325 mg Tab PO PRN ×2 (08:41→21:29)
[2018-05-29] MEDS: Magnesium Oxide 400 mg Tab UD PO SCH ×2 (09:57→18:29)
[2018-05-29] MEDS: Aritificial Tears (15ml) OU SCH ×4 (14:22→21:39)
[2018-05-29] MEDS: Rosuvastatin Calcium 2.5 mg Tab PO SCH (21:29)
[2018-05-29] MEDS: Sodium Chloride 0.9% 1,000 ML IV SCH (21:41)
--- NOTE | 2018-05-30 00:03 | CP.PCM.PN ---
Subjective - Date & Time of Evaluation Date of Evaluation: 05/29/18 Time of Evaluation: 18:30 - Subjective Subjective: Patient still has loose stools, and mild generalized abdominal pain. Appetite remains very poor and patient remains very weak, with shortness of breath on exertion. Objective - Vital Signs/Intake and Output Vital Signs (last 24 hours): Temp Pulse Resp BP Pulse Ox 97.7 F 80 20 132/72 100 05/29/18 18:02 05/29/18 18:02 05/29/18 18:02 05/29/18 18:02 05/29/18 18:02 Intake and Output: 05/29/18 05/30/18 18:59 06:59 Intake Total 992 Balance 992 - Medications Medications: Current Medications Artificial Tears (Artificial Tears) 0.1 ml OU QID [facility] Last Admin: 05/29/18 21:39 Dose: 1 drop Clopidogrel Bisulfate (Plavix) 75 mg PO DAILY [facility] Last Admin: 05/29/18 09:57 Dose: 75 mg Heparin Sodium (Porcine) (Heparin) 5,000 units SC Q8 [facility] Last Admin: 05/29/18 21:31 Dose: 5,000 units Sodium Chloride (Sodium Chloride 0.9%) 1,000 mls @ 42 mls/hr IV .[id number] [facility] Last Admin: 05/29/18 21:41 Dose: 42 mls/hr Insulin Aspart (Novolog) 0 unit SC ACHS [facility]; Protocol Last Admin: 05/29/18 21:31 Dose: Not Given Losartan Potassium (Cozaar) 100 mg PO DAILY [facility] Last Admin: 05/29/18 09:57 Dose: 100 mg Magnesium Oxide (Mag-Ox) 400 mg PO BID [facility] Last Admin: 05/29/18 18:29 Dose: 400 mg Metoprolol Tartrate (Lopressor) 50 mg PO BID [facility] Last Admin: 05/29/18 18:28 Dose: 50 mg Rosuvastatin Calcium (Crestor) 2.5 mg PO HS [facility] Last Admin: 05/29/18 21:29 Dose: 2.5 mg - Labs Labs: 05/28/18 07:17 05/29/18 08:07 PT 12.5 SECONDS (9.7-12.2) H 05/26/18 19:50 INR 1.1 05/26/18 19:50 APTT 29 SECONDS (21-34) 05/26/18 19:50 - Constitutional Appears: No Acute Distress, Chronically Ill - Head Exam Head Exam: NORMOCEPHALIC - Eye Exam Eye Exam: Normal appearance - ENT Exam ENT Exam: Normal Exam - Neck Exam Neck Exam: Normal Inspection - Respiratory Exam Respiratory Exam: Rales Additional comments: Few rales at both bases. - Cardiovascular Exam Cardiovascular Exam: REGULAR RHYTHM - GI/Abdominal Exam GI & Abdominal Exam: Soft, Normal Bowel Sounds - Rectal Exam Rectal Exam: Deferred - Extremities Exam Extremities Exam: Normal Capillary Refill - Back Exam Back Exam: NORMAL INSPECTION - Neurological Exam Neurological Exam: Alert, Awake, Oriented x3 - Psychiatric Exam Psychiatric exam: Anxious - Skin Skin Exam: Dry, Intact, Normal Color Assessment and Plan (1) Dehydration Status: Acute (2) Diarrhea Assessment & Plan: stools for culture Status: Acute (3) Generalized weakness Status: Acute (4) Insulin dependent diabetes mellitus Status: Chronic
[2018-05-30] MEDS: (Novolog) Insulin Aspart, Recombinant 100 u/ml 10 ml vial SC SCH ×4 (08:30→21:43)
[2018-05-30 08:38] LABS: BASO # 0.1 K/uL (0.0-0.2); BASO % 0.8 % (0.0-2.0); EOS # 0.1 K/uL (0.0-0.7); EOS % 1.4 % (0.0-4.0); LYMPH # 1.4 K/uL (1.0-4.3); LYMPH % 18.5 % (20.0-40.0); MEAN CORPUSCULAR HEMOGLOBIN 32.4 pg (27.0-31.0); MEAN CORPUSCULAR HGB CONC 33.1 g/dL (33.0-37.0); MEAN PLATELET VOLUME 9.6 fL (7.2-11.7); MONO # 0.7 K/uL (0.0-0.8); MONO % 9.4 % (0.0-10.0); NEUT # 5.1 K/uL (1.8-7.0); NEUT % 69.9 % (50.0-75.0); NRBC % 0.3 % (0.0-2.0); RBC 3.39 Mil/uL (3.80-5.20); RED CELL DISTRIBUTION WIDTH 17.2 % (11.5-14.5)
[2018-05-30 08:44] LABS: WHITE BLOOD COUNT 7.3 K/uL (4.8-10.8)
[2018-05-30 08:45] LABS: MEAN CELL VOLUME 97.7 fL (81.0-99.0)
[2018-05-30 09:12] LABS: ALB/GLOB RATIO 1.6 (1.0-2.1); ALBUMIN 3.9 g/dL (3.5-5.0)
[2018-05-30] MEDS: Aritificial Tears (15ml) OU SCH ×5 (09:44→23:14)
[2018-05-30] MEDS: Magnesium Oxide 400 mg Tab UD PO SCH ×2 (09:44→17:27)
--- NOTE | 2018-05-30 14:09 | RAD ---
Date of service: 05/30/2018 HISTORY: Shortness of breath COMPARISON: 05/26/2018 FINDINGS: LUNGS: Left basal opacity-left pleural effusion with compressive atelectasis inferred. Concomitant underlying infiltrate here not excluded. PLEURA: Left pleural effusion noted-previously pacemaker battery pack obscuring this location. No pneumothorax seen. CARDIOVASCULAR: There is presence of aortic atherosclerotic calcification on x-ray. Mild cardiomegaly-similar .. Interval mild increased pulmonary venous congestion suggested Dual lead pacemaker device-satisfactory appearance in placement OSSEOUS STRUCTURES: Thoraco lumbar spondylosis. Bilateral shoulder arthrosis VISUALIZED UPPER ABDOMEN: Right upper quadrant post cholecystectomy clips. OTHER FINDINGS: None. IMPRESSION: Interval improved visualization of left costophrenic angle-here left pleural effusion with probable mild subsegmental compressive atelectasis present. Mild cardiomegaly. Interval increased pulmonary venous congestion. Other findings as above.
[2018-05-30] MEDS: Oxycodone/Acetaminophen 5/325 mg Tab PO PRN (18:55)
[2018-05-30] MEDS: Rosuvastatin Calcium 2.5 mg Tab PO SCH (21:44)
--- NOTE | 2018-05-31 02:06 | CP.PCM.PN ---
Subjective - Date & Time of Evaluation Date of Evaluation: 05/30/18 Time of Evaluation: 18:30 - Subjective Subjective: Patient still has diarrhea, mild abdominal pain, no appetite and very weak. Also is SOB on minimal exertion. IV discontinued because of SOB. Objective - Vital Signs/Intake and Output Vital Signs (last 24 hours): Temp Pulse Resp BP Pulse Ox 97.5 F L 62 20 147/76 100 05/31/18 00:00 05/31/18 00:00 05/31/18 00:00 05/31/18 00:00 05/31/18 00:00 Intake and Output: 05/30/18 05/31/18 18:59 06:59 Intake Total 696 200 Output Total 1 300 Balance 695 -100 - Medications Medications: Current Medications Artificial Tears (Artificial Tears) 0.1 ml OU QID [facility] Last Admin: 05/30/18 23:14 Dose: 1 drop Clopidogrel Bisulfate (Plavix) 75 mg PO DAILY [facility] Last Admin: 05/30/18 09:44 Dose: 75 mg Heparin Sodium (Porcine) (Heparin) 5,000 units SC Q8 [facility] Last Admin: 05/30/18 21:44 Dose: 5,000 units Insulin Aspart (Novolog) 0 unit SC ACHS [facility]; Protocol Last Admin: 05/30/18 21:43 Dose: Not Given Losartan Potassium (Cozaar) 100 mg PO DAILY [facility] Last Admin: 05/30/18 09:44 Dose: 100 mg Magnesium Oxide (Mag-Ox) 400 mg PO BID [facility] Last Admin: 05/30/18 17:27 Dose: 400 mg Metoprolol Tartrate (Lopressor) 50 mg PO BID [facility] Last Admin: 05/30/18 17:27 Dose: 50 mg Oxycodone/Acetaminophen (Percocet 5/325 Mg Tab) 1 tab PO Q4H PRN PRN Reason: Pain, Mild (1-3) Stop: 06/02/18 17:53 Last Admin: 05/30/18 18:55 Dose: 1 tab Rosuvastatin Calcium (Crestor) 2.5 mg PO HS [facility] Last Admin: 05/30/18 21:44 Dose: 2.5 mg - Labs Labs: 05/30/18 08:27 05/30/18 08:27 PT 12.5 SECONDS (9.7-12.2) H 05/26/18 19:50 INR 1.1 05/26/18 19:50 APTT 29 SECONDS (21-34) 05/26/18 19:50 - Constitutional Appears: No Acute Distress, Chronically Ill - Head Exam Head Exam: NORMAL INSPECTION - Eye Exam Eye Exam: Normal appearance - ENT Exam ENT Exam: Normal Exam - Neck Exam Neck Exam: Normal Inspection - Respiratory Exam Respiratory Exam: Rales Additional comments: Few rales at both bases. - GI/Abdominal Exam GI & Abdominal Exam: Soft, Normal Bowel Sounds - Rectal Exam Rectal Exam: Deferred - Extremities Exam Extremities Exam: Normal Inspection - Back Exam Back Exam: NORMAL INSPECTION - Neurological Exam Neurological Exam: Alert, Awake - Psychiatric Exam Psychiatric exam: Anxious - Skin Skin Exam: Erythema, Normal Color, Warm Assessment and Plan (1) Dehydration Status: Acute (2) Diarrhea Status: Acute (3) Generalized weakness Status: Acute (4) Insulin dependent diabetes mellitus Status: Chronic
[2018-05-31] MEDS: Oxycodone/Acetaminophen 5/325 mg Tab PO PRN ×2 (05:30→21:19)
[2018-05-31] MEDS: (Novolog) Insulin Aspart, Recombinant 100 u/ml 10 ml vial SC SCH ×4 (08:30→22:09)
[2018-05-31] MEDS: Magnesium Oxide 400 mg Tab UD PO SCH ×2 (09:18→17:35)
--- NOTE | 2018-05-31 15:38 | CT ---
Date of service: 05/31/2018 PROCEDURE: CT Abdomen and Pelvis without intravenous contrast HISTORY: abdominal pain COMPARISON: None. TECHNIQUE: Technique. Contrast dose: Radiation dose: Total exam DLP = 484.17 mGy-cm. This CT exam was performed using one or more of the following dose reduction techniques: Automated exposure control, adjustment of the mA and/or kV according to patient size, and/or use of iterative reconstruction technique. FINDINGS: LOWER THORAX: Small bilateral pleural effusions. Cardiomegaly. LIVER: Unremarkable. No gross lesion or ductal dilatation. GALLBLADDER AND BILE DUCTS: Status post cholecystectomy. PANCREAS: Unremarkable. No gross lesion or ductal dilatation. SPLEEN: Unremarkable. ADRENALS: Unremarkable. No mass. KIDNEYS AND URETERS: Unremarkable. No hydronephrosis. No solid mass. VASCULATURE: Unremarkable. No aortic aneurysm. No aortic atherosclerotic calcification or mural plaque present. BOWEL: Small duodenal diverticulum. No obstruction. No gross mural thickening. APPENDIX: Unremarkable. Normal appendix. PERITONEUM: Unremarkable. No free fluid. No free air. LYMPH NODES: Unremarkable. No enlarged lymph nodes. BLADDER: Unremarkable. REPRODUCTIVE: Unremarkable. BONES: No acute fracture. OTHER FINDINGS: None. IMPRESSION: Small bilateral pleural effusions. Cardiomegaly. Cholecystectomy.
--- NOTE | 2018-05-31 19:31 | CP.PCM.PN ---
Subjective - Date & Time of Evaluation Date of Evaluation: 05/31/18 Time of Evaluation: 19:28 - Subjective Subjective: Patient feels slightly better, with slightly improved appetite, less SOB after 2 doses of Lasix 40 mg IV. Still complaining of bilateral knee pain. CT scan of the abdomen and pelvis unremarkable. Objective - Vital Signs/Intake and Output Vital Signs (last 24 hours): Temp Pulse Resp BP Pulse Ox 97.2 F L 76 20 129/78 100 05/31/18 16:00 05/31/18 16:00 05/31/18 16:00 05/31/18 16:00 05/31/18 16:00 Intake and Output: 05/31/18 06/01/18 18:59 06:59 Intake Total 300 Balance 300 - Medications Medications: Current Medications Clopidogrel Bisulfate (Plavix) 75 mg PO DAILY [facility] Last Admin: 05/31/18 09:18 Dose: 75 mg Heparin Sodium (Porcine) (Heparin) 5,000 units SC Q8 [facility] Last Admin: 05/31/18 14:19 Dose: 5,000 units Insulin Aspart (Novolog) 0 unit SC ACHS [facility]; Protocol Last Admin: 05/31/18 17:35 Dose: 1 unit Losartan Potassium (Cozaar) 100 mg PO DAILY [facility] Last Admin: 05/31/18 09:18 Dose: 100 mg Magnesium Oxide (Mag-Ox) 400 mg PO BID [facility] Last Admin: 05/31/18 17:35 Dose: 400 mg Metoprolol Tartrate (Lopressor) 50 mg PO BID [facility] Last Admin: 05/31/18 17:36 Dose: 50 mg Oxycodone/Acetaminophen (Percocet 5/325 Mg Tab) 1 tab PO Q4H PRN PRN Reason: Pain, Mild (1-3) Stop: 06/02/18 17:53 Last Admin: 05/31/18 05:30 Dose: 1 tab Rosuvastatin Calcium (Crestor) 2.[address] [facility] Last Admin: 05/30/18 21:44 Dose: 2.5 mg - Labs Labs: 05/30/18 08:27 05/30/18 08:27 PT 12.5 SECONDS (9.7-12.2) H 05/26/18 19:50 INR 1.1 05/26/18 19:50 APTT 29 SECONDS (21-34) 05/26/18 19:50 - Constitutional Appears: No Acute Distress, Chronically Ill - Head Exam Head Exam: NORMOCEPHALIC - Eye Exam Eye Exam: Normal appearance - ENT Exam ENT Exam: Normal Exam - Neck Exam Neck Exam: Normal Inspection - Respiratory Exam Respiratory Exam: Rales Additional comments: rales at both bases. - Cardiovascular Exam Cardiovascular Exam: REGULAR RHYTHM, Murmur - GI/Abdominal Exam GI & Abdominal Exam: Soft, Normal Bowel Sounds - Rectal Exam Rectal Exam: Deferred - Exam Exam: NORMAL INSPECTION - Extremities Exam Extremities Exam: Normal Inspection - Back Exam Back Exam: NORMAL INSPECTION - Neurological Exam Neurological Exam: Alert, Awake, Oriented x3 - Psychiatric Exam Psychiatric exam: Anxious - Skin Skin Exam: Dry, Intact, Normal Color, Warm Assessment and Plan (1) Dehydration Status: Resolved (2) Diarrhea Status: Acute (3) Generalized weakness Status: Acute (4) Insulin dependent diabetes mellitus Status: Chronic (5) Acute on chronic systolic heart failure Assessment & Plan: To continue Lasix IV Status: Resolved
[2018-05-31] MEDS: Rosuvastatin Calcium 2.5 mg Tab PO SCH (21:22)
[2018-06-01 06:54] LABS: ALB/GLOB RATIO 1.4 (1.0-2.1); ALBUMIN 3.3 g/dL (3.5-5.0); CALCIUM 9.1 mg/dl (8.6-10.4)
[2018-06-01] MEDS: (Novolog) Insulin Aspart, Recombinant 100 u/ml 10 ml vial SC SCH ×4 (08:22→21:28)
[2018-06-01] MEDS: Magnesium Oxide 400 mg Tab UD PO SCH ×2 (10:26→17:20)
[2018-06-01] MEDS: Oxycodone/Acetaminophen 5/325 mg Tab PO PRN (17:20)
--- NOTE | 2018-06-01 18:05 | CP.PCM.PN ---
Subjective - Date & Time of Evaluation Date of Evaluation: 06/01/18 Time of Evaluation: 18:02 - Subjective Subjective: Patient feels better, appetite improving, less SOB, less abdominal pain and no diarrhea today. Afebrile. Objective - Vital Signs/Intake and Output Vital Signs (last 24 hours): Temp Pulse Resp BP Pulse Ox 98.0 F 78 20 115/71 95 06/01/18 15:00 06/01/18 15:00 06/01/18 15:00 06/01/18 15:00 06/01/18 15:00 Intake and Output: 06/01/18 06/01/18 06:59 18:59 Intake Total 400 240 Balance 400 240 - Medications Medications: Current Medications Clopidogrel Bisulfate (Plavix) 75 mg PO DAILY [facility] Last Admin: 06/01/18 10:26 Dose: 75 mg Heparin Sodium (Porcine) (Heparin) 5,000 units SC Q8 [facility] Last Admin: 06/01/18 14:38 Dose: 5,000 units Insulin Aspart (Novolog) 0 unit SC [facility]; Protocol Last Admin: 06/01/18 17:21 Dose: 2 unit Losartan Potassium (Cozaar) 100 mg PO DAILY [facility] Last Admin: 06/01/18 10:26 Dose: 100 mg Magnesium Oxide (Mag-Ox) 400 mg PO BID [facility] Last Admin: 06/01/18 17:20 Dose: 400 mg Metoprolol Tartrate (Lopressor) 50 mg PO BID [facility] Last Admin: 06/01/18 17:20 Dose: 50 mg Oxycodone/Acetaminophen (Percocet 5/325 Mg Tab) 1 tab PO Q4H PRN PRN Reason: Pain, Mild (1-3) Stop: 06/02/18 17:53 Last Admin: 06/01/18 17:20 Dose: 1 tab Rosuvastatin Calcium (Crestor) 2.5 mg PO HS [facility] Last Admin: 05/31/18 21:22 Dose: 2.5 mg - Labs Labs: 05/30/18 08:27 06/01/18 06:35 PT 12.5 SECONDS (9.7-12.2) H 05/26/18 19:50 INR 1.1 05/26/18 19:50 APTT 29 SECONDS (21-34) 05/26/18 19:50 - Constitutional Appears: No Acute Distress, Chronically Ill - Head Exam Head Exam: NORMOCEPHALIC - Eye Exam Eye Exam: Normal appearance Pupil Exam: NORMAL ACCOMODATION - ENT Exam ENT Exam: Normal Exam - Neck Exam Neck Exam: Normal Inspection - Respiratory Exam Respiratory Exam: Rales (Few rales at the right base.) - Cardiovascular Exam Cardiovascular Exam: REGULAR RHYTHM - GI/Abdominal Exam GI & Abdominal Exam: Soft, Normal Bowel Sounds - Rectal Exam Rectal Exam: Deferred - Extremities Exam Extremities Exam: Normal Inspection Additional comments: Tender both knees. - Back Exam Back Exam: NORMAL INSPECTION - Neurological Exam Neurological Exam: Alert, Awake, Oriented x3 - Psychiatric Exam Psychiatric exam: Anxious - Skin Skin Exam: Dry, Intact, Normal Color, Warm Assessment and Plan (1) Dehydration Status: Resolved (2) Diarrhea Status: Acute (3) Generalized weakness Status: Acute (4) Insulin dependent diabetes mellitus Status: Chronic (5) Acute on chronic systolic heart failure Status: Resolved
[2018-06-01] MEDS: Rosuvastatin Calcium 2.5 mg Tab PO SCH (21:28)
[2018-06-02 07:18] LABS: BASO % 0.8 % (0.0-2.0); EOS # 0.2 K/uL (0.0-0.7); HEMOGLOBIN 9.9 g/dL (11.0-16.0); LYMPH % 20.5 % (20.0-40.0); MEAN CORPUSCULAR HEMOGLOBIN 32.3 pg (27.0-31.0); MEAN CORPUSCULAR HGB CONC 33.2 g/dL (33.0-37.0); MEAN PLATELET VOLUME 9.7 fL (7.2-11.7); MONO # 0.5 K/uL (0.0-0.8); MONO % 10.9 % (0.0-10.0); NEUT # 3.3 K/uL (1.8-7.0); NEUT % 64.8 % (50.0-75.0); RBC 3.05 Mil/uL (3.80-5.20); RED CELL DISTRIBUTION WIDTH 17.6 % (11.5-14.5)
[2018-06-02 07:42] LABS: ALB/GLOB RATIO 1.3 (1.0-2.1); ALBUMIN 3.2 g/dL (3.5-5.0); CALCIUM 8.9 mg/dl (8.6-10.4)
[2018-06-02] MEDS: (Novolog) Insulin Aspart, Recombinant 100 u/ml 10 ml vial SC SCH ×4 (08:30→21:17)
[2018-06-02] MEDS: Magnesium Oxide 400 mg Tab UD PO SCH (11:23)
[2018-06-02] MEDS: Oxycodone/Acetaminophen 5/325 mg Tab PO PRN (16:17)
[2018-06-02] MEDS: Rosuvastatin Calcium 2.5 mg Tab PO SCH (21:34)
--- NOTE | 2018-06-02 21:46 | CP.PCM.PN ---
Subjective - Date & Time of Evaluation Date of Evaluation: 06/02/18 Time of Evaluation: 13:00 - Subjective Subjective: Patient complaining of SOB on minimal exertion. No chest pain. Still very weak. Appetite improving. less abdominal pain. Objective - Vital Signs/Intake and Output Vital Signs (last 24 hours): Temp Pulse Resp BP Pulse Ox 98.1 F 68 20 150/71 99 06/02/18 15:51 06/02/18 15:51 06/02/18 15:51 06/02/18 17:39 06/02/18 15:51 Intake and Output: 06/02/18 06/03/18 18:59 06:59 Intake Total 250 Balance 250 - Medications Medications: Current Medications Clopidogrel Bisulfate (Plavix) 75 mg PO DAILY [facility] Last Admin: 06/02/18 11:00 Dose: 75 mg Heparin Sodium (Porcine) (Heparin) 5,000 units SC Q8 [facility] Last Admin: 06/02/18 21:34 Dose: 5,000 units Insulin Aspart (Novolog) [address] [facility]; Protocol Last Admin: 06/02/18 21:17 Dose: Not Given Losartan Potassium (Cozaar) 100 mg PO DAILY [facility] Last Admin: 06/02/18 11:00 Dose: 100 mg Metoprolol Tartrate (Lopressor) 50 mg PO BID [facility] Last Admin: 06/02/18 17:52 Dose: 50 mg Rosuvastatin Calcium (Crestor) 2.5 mg PO [facility] Last Admin: 06/02/18 21:34 Dose: 2.5 mg - Labs Labs: 06/02/18 07:04 06/02/18 07:04 PT 12.5 SECONDS (9.7-12.2) H 05/26/18 19:50 INR 1.1 05/26/18 19:50 APTT 29 SECONDS (21-34) 05/26/18 19:50 - Constitutional Appears: No Acute Distress, Chronically Ill - Head Exam Head Exam: NORMOCEPHALIC - Eye Exam Eye Exam: Normal appearance - ENT Exam ENT Exam: Normal Exam - Neck Exam Neck Exam: Normal Inspection - Respiratory Exam Respiratory Exam: Rales Additional comments: Rales at both bases. - Cardiovascular Exam Cardiovascular Exam: REGULAR RHYTHM - GI/Abdominal Exam GI & Abdominal Exam: Soft, Normal Bowel Sounds - Rectal Exam Rectal Exam: Deferred - Exam Exam: NORMAL INSPECTION - Extremities Exam Extremities Exam: Normal Inspection - Back Exam Back Exam: NORMAL INSPECTION - Neurological Exam Neurological Exam: Alert, Awake, Oriented x3 - Psychiatric Exam Psychiatric exam: Anxious - Skin Skin Exam: Dry, Intact Assessment and Plan (1) Dehydration Status: Resolved (2) Diarrhea Status: Acute (3) Generalized weakness Status: Acute (4) Insulin dependent diabetes mellitus Status: Chronic (5) Acute on chronic systolic heart failure Status: Resolved
--- NOTE | 2018-06-02 23:30 | CARD ---
APPROVED REPORT Date of service: 05/26/2018 EKG Measurement Heart [id number] [place] [id number] [id number] <Conclusion> Sinus tachycardia with premature supraventricular complexes Left bundle branch block Abnormal ECG
[2018-06-03 06:51] LABS: ALB/GLOB RATIO 1.4 (1.0-2.1); ALBUMIN 3.4 g/dL (3.5-5.0); CALCIUM 8.9 mg/dl (8.6-10.4)
[2018-06-03] MEDS: (Novolog) Insulin Aspart, Recombinant 100 u/ml 10 ml vial SC SCH ×4 (08:30→21:36)
[2018-06-03] MEDS ORDERED: Oxycodone/Acetaminophen 5/325 mg Tab PO PRN ×2 (21:22→21:44)
[2018-06-03] MEDS: Rosuvastatin Calcium 2.5 mg Tab PO SCH (21:33)
[2018-06-03] MEDS: Oxycodone/Acetaminophen 5/325 mg Tab PO PRN (21:52)
--- NOTE | 2018-06-03 23:58 | CP.PCM.PN ---
Subjective - Date & Time of Evaluation Date of Evaluation: 06/03/18 Time of Evaluation: 15:30 - Subjective Subjective: Patient feels better with better appetite, but still is very weak, with sob on minimal exertion. Still has rales at both bases. Will continue IV Lasix. Objective - Vital Signs/Intake and Output Vital Signs (last 24 hours): Temp Pulse Resp BP Pulse Ox 97.6 F 60 20 142/74 100 06/03/18 15:24 06/03/18 15:24 06/03/18 15:24 06/03/18 16:49 06/03/18 15:24 Intake and Output: 06/03/18 06/04/18 18:59 06:59 Intake Total 360 350 Balance 360 350 - Medications Medications: Current Medications Clopidogrel Bisulfate (Plavix) 75 mg PO DAILY [facility] Last Admin: 06/03/18 09:49 Dose: 75 mg Heparin Sodium (Porcine) (Heparin) 5,000 units SC Q8 [facility] Last Admin: 06/03/18 21:34 Dose: 5,000 units Insulin Aspart (Novolog) 0 unit SC ACHS [facility]; Protocol Last Admin: 06/03/18 21:36 Dose: Not Given Losartan Potassium (Cozaar) 100 mg PO DAILY [facility] Last Admin: 06/03/18 09:49 Dose: 100 mg Metoprolol Tartrate (Lopressor) 50 mg PO BID [facility] Last Admin: 06/03/18 18:01 Dose: 50 mg Oxycodone/Acetaminophen (Percocet 5/325 Mg Tab) 1 tab PO Q4 PRN PRN Reason: Pain, severe (8-10) Stop: 06/06/18 21:51 Last Admin: 06/03/18 21:52 Dose: 1 tab Rosuvastatin Calcium (Crestor) 2.5 mg PO HS [facility] Last Admin: 06/03/18 21:33 Dose: 2.5 mg - Labs Labs: 06/02/18 07:04 06/03/18 06:26 PT 12.5 SECONDS (9.7-12.2) H 05/26/18 19:50 INR 1.1 05/26/18 19:50 APTT 29 SECONDS (21-34) 05/26/18 19:50 - Constitutional Appears: No Acute Distress, Chronically Ill - Head Exam Head Exam: NORMAL INSPECTION - Eye Exam Eye Exam: Normal appearance Pupil Exam: NORMAL ACCOMODATION - ENT Exam ENT Exam: Normal Exam - Neck Exam Neck Exam: Normal Inspection - Respiratory Exam Respiratory Exam: Rales Additional comments: Rales at both bases - Cardiovascular Exam Cardiovascular Exam: REGULAR RHYTHM - GI/Abdominal Exam GI & Abdominal Exam: Soft, Normal Bowel Sounds - Rectal Exam Rectal Exam: Deferred - Extremities Exam Extremities Exam: Normal Inspection - Back Exam Back Exam: NORMAL INSPECTION - Neurological Exam Neurological Exam: Alert, Awake, Oriented x3 - Psychiatric Exam Psychiatric exam: Anxious - Skin Skin Exam: Dry, Intact Assessment and Plan (1) Dehydration Status: Resolved (2) Diarrhea Status: Acute (3) Generalized weakness Status: Acute (4) Insulin dependent diabetes mellitus Status: Chronic (5) Acute on chronic systolic heart failure Assessment & Plan: To continue IV Lasix. Status: Acute
[2018-06-04] MEDS: Oxycodone/Acetaminophen 5/325 mg Tab PO PRN ×2 (01:49→21:00)
[2018-06-04] MEDS: (Novolog) Insulin Aspart, Recombinant 100 u/ml 10 ml vial SC SCH ×4 (08:01→21:46)
[2018-06-04 08:41] LABS: BASO # 0.1 K/uL (0.0-0.2); EOS # 0.2 K/uL (0.0-0.7); EOS % 3.7 % (0.0-4.0); HEMOGLOBIN 9.8 g/dL (11.0-16.0); LYMPH # 1.2 K/uL (1.0-4.3); LYMPH % 22.9 % (20.0-40.0); MEAN CELL VOLUME 97.5 fL (81.0-99.0); MEAN CORPUSCULAR HEMOGLOBIN 32.3 pg (27.0-31.0); MEAN CORPUSCULAR HGB CONC 33.1 g/dL (33.0-37.0); MONO # 0.6 K/uL (0.0-0.8); MONO % 11.6 % (0.0-10.0); NEUT # 3.3 K/uL (1.8-7.0); NEUT % 60.8 % (50.0-75.0); RBC 3.02 Mil/uL (3.80-5.20); RED CELL DISTRIBUTION WIDTH 17.2 % (11.5-14.5); WHITE BLOOD COUNT 5.4 K/uL (4.8-10.8)
[2018-06-04 08:59] LABS: ALB/GLOB RATIO 1.4 (1.0-2.1); ALBUMIN 3.5 g/dL (3.5-5.0); CALCIUM 8.9 mg/dl (8.6-10.4)
[2018-06-04] MEDS: Rosuvastatin Calcium 2.5 mg Tab PO SCH (21:37)
[2018-06-05] MEDS: (Novolog) Insulin Aspart, Recombinant 100 u/ml 10 ml vial SC SCH ×3 (08:17→17:00)
[2018-06-05] MEDS: Oxycodone/Acetaminophen 5/325 mg Tab PO PRN (13:59)
--- NOTE | 2018-06-05 14:13 | CP.PCM.PN ---
Subjective - Date & Time of Evaluation Date of Evaluation: 06/05/18 Time of Evaluation: 14:13 - Subjective Subjective: PATIENT SEEN AND EXAMINED AT THE BEDSIDE Objective - Vital Signs/Intake and Output Vital Signs (last 24 hours): Temp Pulse Resp BP Pulse Ox 97.5 F L 65 20 145/76 98 06/05/18 07:00 06/05/18 07:00 06/05/18 07:00 06/05/18 07:00 06/05/18 07:00 Intake and Output: 06/05/18 06/05/18 06:59 18:59 Intake Total 300 Balance 300 - Medications Medications: Current Medications Clopidogrel Bisulfate (Plavix) 75 mg PO DAILY [facility] Last Admin: 06/05/18 09:44 Dose: 75 mg Heparin Sodium (Porcine) (Heparin) 5,000 units SC Q8 [facility] Last Admin: 06/05/18 13:55 Dose: 5,000 units Insulin Aspart (Novolog) 0 unit SC ACHS [facility]; Protocol Last Admin: 06/05/18 11:54 Dose: 3 unit Losartan Potassium (Cozaar) 100 mg PO DAILY [facility] Last Admin: 06/05/18 09:44 Dose: 100 mg Metoprolol Tartrate (Lopressor) 50 mg PO BID [facility] Last Admin: 06/05/18 09:44 Dose: 50 mg Oxycodone/Acetaminophen (Percocet 5/325 Mg Tab) 1 tab PO Q4 PRN PRN Reason: Pain, severe (8-10) Stop: 06/06/18 21:51 Last Admin: 06/05/18 13:59 Dose: 1 tab Rosuvastatin Calcium (Crestor) 2.5 mg PO [facility] Last Admin: 06/04/18 21:37 Dose: 2.5 mg - Labs Labs: 06/04/18 08:10 06/04/18 08:10 PT 12.5 SECONDS (9.7-12.2) H 05/26/18 19:50 INR 1.1 05/26/18 19:50 APTT 29 SECONDS (21-34) 05/26/18 19:50 Assessment and Plan - Assessment and Plan (Free Text) Assessment: FOLLOW UP WITH DR PICKERING IN HIS OFFICE ----CALL FOR APPOINTMENT CONTINUE HOME MEDICATION NEW PRESCRIPTION GIVEN PERCOCET ONE TAB BY MOUTH EVERY 4 HOUR NEEDED FOR PAIN FOR 4 DAYS STOP TAKING THE CHOLCHINE PER DR PICKERING ACTIVITY TOLERATED CALL DR PICKERING OR TO THE EMERGENCY ROOM IF SYMPTOM RETURN OR WORSENING
[2018-06-05 15:38] VITALS: PULSE 71; TEMP 97.9; O2SAT 100
[2018-06-05 16:58] VITALS: BP 147/78
--- NOTE | 2018-06-12 20:43 | CP.PCM.DIS ---
Provider - Provider Date of Admission: 05/26/18 21:19 Attending physician: Deep Clay MD Primary care physician: Deep Clay M.D. Consults: 05/27/18 09:00 Case Management Referral Routine Comment: Physician Instructions: Reason For Exam: PT NEEDS ASSISTANCE AT HOME Reason for Referral: Discharge Planning Nursing Referral for Palliative Care Routine Comment: Physician Instructions: Reason For Exam: SECOND HOSPITALIZATION IN 2 MONTHS Time Spent in preparation of Discharge (in minutes): 45 Diagnosis - Discharge Diagnosis (1) Dehydration Status: Resolved (2) Diarrhea Status: Acute (3) Generalized weakness Status: Acute (4) Insulin dependent diabetes mellitus Status: Chronic (5) Acute on chronic systolic heart failure Status: Acute Hospital Course - Lab Results Lab Results: Micro Results 05/26/18 20:10 Blood Blood Culture - Final NO GROWTH AFTER 5 DAYS 05/26/18 20:10 Blood Gram Stain - Final TEST NOT PERFORMED 05/26/18 19:40 Blood Blood Culture - Final NO GROWTH AFTER 5 DAYS 05/26/18 19:40 Blood Gram Stain - Final TEST NOT PERFORMED Most Recent Lab Values WBC 5.4 K/uL (4.8-10.8) 06/04/18 08:10 RBC 3.02 Mil/uL (3.80-5.20) L 06/04/18 08:10 Hgb 9.8 g/dL (11.0-16.0) L 06/04/18 08:10 Hct 29.5 % (34.0-47.0) L 06/04/18 08:10 MCV 97.5 fL (81.0-99.0) 06/04/18 08:10 MCH 32.3 pg (27.0-31.0) H 06/04/18 08:10 MCHC 33.1 g/dL (33.0-37.0) 06/04/18 08:10 RDW 17.2 % (11.5-14.5) H 06/04/18 08:10 Plt Count 173 K/uL (130-400) 06/04/18 08:10 MPV 10.0 fL (7.2-11.7) 06/04/18 08:10 Neut % (Auto) 60.8 % (50.0-75.0) 06/04/18 08:10 Lymph % (Auto) 22.9 % (20.0-40.0) 06/04/18 08:10 Union % (Auto) 11.6 % (0.0-10.0) H 06/04/18 08:10 Eos % (Auto) 3.7 % (0.0-4.0) 06/04/18 08:10 Baso % (Auto) 1.0 % (0.0-2.0) 06/04/18 08:10 Neut # (Auto) 3.3 K/uL (1.8-7.0) 06/04/18 08:10 Lymph # (Auto) 1.2 K/uL (1.0-4.3) 06/04/18 08:10 Union # (Auto) 0.6 K/uL (0.0-0.8) 06/04/18 08:10 Eos # (Auto) 0.2 K/uL (0.0-0.7) 06/04/18 08:10 Baso # (Auto) 0.1 K/uL (0.0-0.2) 06/04/18 08:10 PT 12.5 SECONDS (9.7-12.2) H 05/26/18 19:50 INR 1.1 05/26/18 19:50 APTT 29 SECONDS (21-34) 05/26/18 19:50 pO2 15 mm/Hg (30-55) L 05/26/18 20:00 VBG pH 7.27 (7.32-7.43) L 05/26/18 20:00 VBG pCO2 42 mmHg (40-60) 05/26/18 20:00 VBG HCO3 17.0 mmol/L 05/26/18 20:00 VBG Total CO2 20.6 mmol/L (22-28) L 05/26/18 20:00 VBG O2 Sat (Calc) 19.4 % (40-65) L 05/26/18 20:00 VBG Base Excess -7.3 mmol/L (0.0-2.0) L 05/26/18 20:00 VBG Potassium 3.5 mmol/L (3.6-5.2) L 05/26/18 20:00 Sodium 144.0 mmol/l (132-148) 05/26/18 20:00 Chloride 111.0 mmol/L (98-107) H 05/26/18 20:00 Glucose 95 mg/dl (65-105) 05/26/18 20:00 Lactate 1.5 mmol/L (0.7-2.1) 05/26/18 20:00 Sodium 140 mmol/L (132-148) 06/04/18 08:10 Potassium 4.0 mmol/L (3.6-5.2) 06/04/18 08:10 Chloride 105 mmol/L (98-107) 06/04/18 08:10 Carbon Dioxide 27 mmol/L (22-30) 06/04/18 08:10 Anion Gap 13 (10-20) 06/04/18 08:10 BUN 42 mg/dL (7-17) H 06/04/18 08:10 Creatinine 1.6 mg/dL (0.7-1.2) H 06/04/18 08:10 Est GFR ( Amer) 37 06/04/18 08:10 Est GFR (Non-Af Amer) 30 06/04/18 08:10 POC Glucose (mg/dL) 190 mg/dL (65-110) H 06/05/18 16:01 Random Glucose 154 mg/dL (65-105) H D 06/04/18 08:10 Calcium 8.9 mg/dl (8.6-10.4) 06/04/18 08:10 Magnesium 2.1 mg/dL (1.6-2.3) 06/04/18 08:10 Total Bilirubin 0.9 mg/dL (0.2-1.3) 06/04/18 08:10 AST 22 U/L (14-36) 06/04/18 08:10 ALT 44 U/L (9-52) 06/04/18 08:10 Alkaline Phosphatase 104 U/L (38-126) 06/04/18 08:10 Total Protein 5.9 g/dL (6.3-8.3) L 06/04/18 08:10 Albumin 3.5 g/dL (3.5-5.0) 06/04/18 08:10 Globulin 2.4 gm/dL (2.2-3.9) 06/04/18 08:10 Albumin/Globulin Ratio 1.4 (1.0-2.1) 06/04/18 08:10 Lipase 84 U/L (23-300) 05/26/18 19:50 Venous Blood Potassium 3.5 mmol/L (3.6-5.2) L 05/26/18 20:00 Influenza Typ A,B (EIA) Negative for flu a/b (NEGATIVE) 05/26/18 19:59 - Hospital Course Hospital Course: 88 years old female was brought to the ED at [facility] complaining of diarrhea for the past few days, mild fever and generalized weakness, poor appetite. She was recently discharged from [facility] for an acute CHF, an acute NSTEMI, an acute gout. CXR: cardiomegaly, clear lungs. ECG: Sinus tachycardia with PAC's, and a complete LBBB. WBC: 5.5 Hgb: 11.8 Na+: 143 K+: 4.2 BUN: 45 Creatinine: 2.2 Glucose : 110 AST: 54 ALT: 54. She was hospitalized for an acute colitis, a dehydration, and carefull IV hydration with NS was started. She remained weak, with SOB on minimal exertion, with loose BM, and with no appetite. A repeat CXR on 05/30/2018 revealed a left pleural effusion. A CT scan of the abdomen and pelvis on 05/31/2018 revealed cardiomegaly, and small bilateral effusion. IVF was stopped, the patient received IV Lasix 40 mg IV qd. Her SOB improved. Her diarrhea stopped. Her appetite improved. Her liver enzymes also improved. She was discharged on 06/05/2018 in a stable condition. She will be continued on all her home medications and Lasix 40 mg PO qd. - Date & Time of H&P Date of H&P: 05/27/18 Discharge Exam - Head Exam Head Exam: NORMAL INSPECTION - Eye Exam Eye Exam: Normal appearance Pupil Exam: NORMAL ACCOMODATION - ENT Exam ENT Exam: Normal Exam - Respiratory Exam Respiratory Exam: Clear to PA & Lateral - Cardiovascular Exam Cardiovascular Exam: REGULAR RHYTHM, Systolic Murmur - GI/Abdominal Exam GI & Abdominal Exam: Normal Bowel Sounds, Soft - Rectal Exam Rectal Exam: Deferred - Extremities Exam Extremities exam: normal inspection - Back Exam Back exam: NORMAL INSPECTION - Neurological Exam Neurological exam: Alert, Oriented x3 - Psychiatric Exam Psychiatric exam: Anxious - Skin Skin Exam: Dry, Intact, Normal Color, Warm Discharge Plan - Discharge Medications Prescriptions: oxyCODONE/Acetaminophen [Percocet 5/325 mg Tab] 1 tab PO Q4 PRN #24 tab PRN Reason: Pain, Severe (8-10) - Follow Up Plan Condition: FAIR Disposition: HOME/ ROUTINE Instructions: Heart Failure, Adult (DC), Dehydration, Adult (DC), Acute Kidney Failure (DC), Oxycodone and Acetaminophen, Weakness (ED) Additional Instructions: FOLLOW UP WITH DR CLAY IN HIS OFFICE ----CALL FOR APPOINTMENT CONTINUE HOME MEDICATION NEW PRESCRIPTION GIVEN PERCOCET ONE TAB BY MOUTH EVERY 4 HOUR NEEDED FOR PAIN FOR 4 DAYS STOP TAKING THE CHOLCHINE PER DR CLAY ACTIVITY TOLERATED CALL DR CLAY OR TO THE EMERGENCY ROOM IF SYMPTOM RETURN OR WORSENING Referrals: Deep Clay MD [Staff Provider] - Clinical Quality Measures - CQM - Heart Failure Ejection Fraction: Less Than 40 % Left Ventricular Function to be assessed after discharge: No CORNELIUS Inhibitor Prescribed: No Contraindication/Reason for not providing: Patient on Losartan Beta-Louisa Prescribed: Metoprolol Succinate Angiotensin II Receptor Louisa Prescribed: Yes AnticoagulationTherapy for Atrial Fibrillation/Atrialflutter: No Contraindication/Reason for not providing: Not indicated. Aldosterone Antagonist Prescribed: No Contraindication/Reason for not providing: Hyperkalemia Hydralazine Nitrate Prescribed: No Contraindication/Reason for not providing: Hypotension. Implantable Cardioverter Defibrillator Therapy: No Contraindication/Reason for not providing: Not indicated. Cardiac Resynchronization Therapy Prescribed: No Contraindication/Reason for not providing: Not indicated. Will be discharged to: Home Follow Up Date (must be within 7 days from discharge): 06/12/18 Follow Up Time: 14:00 - Date & Time of Discharge Summary Date of Discharge Summary: 06/12/18 Time of Discharge Summary: 21:06
== END 2018-06-05 17:45 | disposition home or self-care (01) | DRG 640 ==
LOC: C.ER 19:17 → C.9E 21:19 → C.3T 05-27 00:01
PROVIDERS: ADMIT Internal Medicine Cardiovascular Disease; ATTEND Internal Medicine Cardiovascular Disease
DX: E86.0 Dehydration (principal); I50.23 Acute on chronic systolic (congestive) heart failure; I13.0 Hypertensive heart and chronic kidney disease with heart failure and stage 1 through stage 4 chronic kidney disease, or unspecified chronic kidney disease; D63.8 Anemia in other chronic diseases classified elsewhere; E11.22 Type 2 diabetes mellitus with diabetic chronic kidney disease; K52.9 Noninfective gastroenteritis and colitis, unspecified; E78.00 Pure hypercholesterolemia, unspecified; I25.5 Ischemic cardiomyopathy; M17.0 Bilateral primary osteoarthritis of knee; M81.0 Age-related osteoporosis without current pathological fracture; N18.9 Chronic kidney disease, unspecified; R53.81 Other malaise; I49.5 Sick sinus syndrome; M54.10 Radiculopathy, site unspecified; M47.816 Spondylosis without myelopathy or radiculopathy, lumbar region; Z95.0 Presence of cardiac pacemaker; Z79.4 Long term (current) use of insulin; M10.9 Gout, unspecified